=== PATIENT | male | born 1955 | race Hispanic/Latino ===

== ENCOUNTER → 2018-03-17 | Outpatient (CLI) | payer BC ==
[~2018-03-17] MED LIST: LANTUS100 UNIT/2 SQ; Z.0.CLINDAMYCIN HC15 PO; Z.0.CLONIDINE HCL0.3 PO; Z.0.HYDRALAZINE HCL5 PO; Z.0.LIPITOR40 MG PO; Z.0.NIFEDICAL XL60 M PO; Z.0.NOVOLOG100 UNIT/ SQ; Z.0.RAMIPRIL10 MG PO; [UNRECOGNIZED DRUG - OTHER] PO
== END ==
LOC: WCC 12:42
PROVIDERS: ATTEND Podiatrist Foot & Ankle Surgery
DX: E11.621 Type 2 diabetes mellitus with foot ulcer (principal); E11.51 Type 2 diabetes mellitus with diabetic peripheral angiopathy without gangrene; E11.65 Type 2 diabetes mellitus with hyperglycemia; E11.69 Type 2 diabetes mellitus with other specified complication; L97.412 Non-pressure chronic ulcer of right heel and midfoot with fat layer exposed; I79.8 Other disorders of arteries, arterioles and capillaries in diseases classified elsewhere; I87.2 Venous insufficiency (chronic) (peripheral); R60.9 Edema, unspecified; I10 Essential (primary) hypertension; G62.9 Polyneuropathy, unspecified; E78.5 Hyperlipidemia, unspecified; E66.3 Overweight; K86.89 Other specified diseases of pancreas; W01.198A Fall on same level from slipping, tripping and stumbling with subsequent striking against other object, initial encounter; Z01.810 Encounter for preprocedural cardiovascular examination; Z01.811 Encounter for preprocedural respiratory examination

== ENCOUNTER → 2018-03-21 | Outpatient (CLI) | payer BC, MEDICARE ==
[~2018-03-21] MED LIST changes: +ASPIRIN81 MG; +CALCIUM 500+D1 EACH PO; +ELIQUIS; +FUROSEMIDE40 MG PO; +HUMALOG100 UNIT/3 SC; +HUMULIN N100 UNITS/ SC; +LOSARTAN POTASS25 MG PO; +MYCOPHENOLATE250 MG PO; +PEPCID20 MG; +PREDNISONE5 G1 PO; +PROGRAF0.5 MG
== END ==
LOC: WCC 13:52
PROVIDERS: ATTEND Podiatrist Foot & Ankle Surgery
DX: E11.621 Type 2 diabetes mellitus with foot ulcer (principal); E11.51 Type 2 diabetes mellitus with diabetic peripheral angiopathy without gangrene; E11.65 Type 2 diabetes mellitus with hyperglycemia; B96.89 Other specified bacterial agents as the cause of diseases classified elsewhere; L97.412 Non-pressure chronic ulcer of right heel and midfoot with fat layer exposed; E66.3 Overweight; E78.5 Hyperlipidemia, unspecified; G62.9 Polyneuropathy, unspecified; I10 Essential (primary) hypertension; I79.8 Other disorders of arteries, arterioles and capillaries in diseases classified elsewhere; I87.2 Venous insufficiency (chronic) (peripheral); K86.89 Other specified diseases of pancreas; R60.9 Edema, unspecified; W01.198A Fall on same level from slipping, tripping and stumbling with subsequent striking against other object, initial encounter; Z01.810 Encounter for preprocedural cardiovascular examination; Z01.811 Encounter for preprocedural respiratory examination

== ENCOUNTER → 2018-03-21 | Outpatient (CLI) | payer BC ==
[~2018-03-21] MED LIST changes: -ASPIRIN81 MG; -CALCIUM 500+D1 EACH PO; -ELIQUIS; -FUROSEMIDE40 MG PO; -HUMALOG100 UNIT/3 SC; -HUMULIN N100 UNITS/ SC; -LOSARTAN POTASS25 MG PO; -MYCOPHENOLATE250 MG PO; -PEPCID20 MG; -PREDNISONE5 G1 PO; -PROGRAF0.5 MG
[2018-03-21 11:36] LABS: INR 1.72; PROTHROMBIN TIME 21.5 seconds (11.9-14.5)
[2018-03-21 11:37] LABS: PARTIAL THROMBOPLASTIN TIME 48.4 seconds (23.8-35.5)
== END ==
LOC: DX 10:33
PROVIDERS: ATTEND Internal Medicine Infectious Disease
DX: Z01.810 Encounter for preprocedural cardiovascular examination (principal); Z01.811 Encounter for preprocedural respiratory examination
CPT/HCPCS: 36415; 85610; 85730

== ENCOUNTER → 2018-03-22 | Outpatient (CLI) | payer BC | LOC: WCC 16:27 | PROVIDERS: ATTEND Podiatrist Foot & Ankle Surgery | DX: E11.621 Type 2 diabetes mellitus with foot ulcer (principal); E11.65 Type 2 diabetes mellitus with hyperglycemia; E11.51 Type 2 diabetes mellitus with diabetic peripheral angiopathy without gangrene; E11.69 Type 2 diabetes mellitus with other specified complication; L97.412 Non-pressure chronic ulcer of right heel and midfoot with fat layer exposed; G62.9 Polyneuropathy, unspecified; I87.2 Venous insufficiency (chronic) (peripheral); R60.9 Edema, unspecified; I10 Essential (primary) hypertension; B96.89 Other specified bacterial agents as the cause of diseases classified elsewhere; K86.89 Other specified diseases of pancreas; E78.5 Hyperlipidemia, unspecified; E66.3 Overweight; W01.198A Fall on same level from slipping, tripping and stumbling with subsequent striking against other object, initial encounter; Z01.810 Encounter for preprocedural cardiovascular examination; Z01.811 Encounter for preprocedural respiratory examination ==

== ENCOUNTER → 2018-03-24 | Outpatient (CLI) | payer BC, MEDICARE ==
[~2018-03-24] MED LIST changes: +ASPIRIN81 MG; +CALCIUM 500+D1 EACH PO; +ELIQUIS; +FUROSEMIDE40 MG PO; +HUMALOG100 UNIT/3 SC; +HUMULIN N100 UNITS/ SC; +LOSARTAN POTASS25 MG PO; +MYCOPHENOLATE250 MG PO; +PEPCID20 MG; +PREDNISONE5 G1 PO; +PROGRAF0.5 MG
== END ==
LOC: WCC 12:10
PROVIDERS: ATTEND Podiatrist Foot & Ankle Surgery
DX: E11.621 Type 2 diabetes mellitus with foot ulcer (principal); E11.51 Type 2 diabetes mellitus with diabetic peripheral angiopathy without gangrene; E11.65 Type 2 diabetes mellitus with hyperglycemia; E11.69 Type 2 diabetes mellitus with other specified complication; L97.412 Non-pressure chronic ulcer of right heel and midfoot with fat layer exposed; B96.89 Other specified bacterial agents as the cause of diseases classified elsewhere; E66.3 Overweight; E78.5 Hyperlipidemia, unspecified; G62.9 Polyneuropathy, unspecified; I10 Essential (primary) hypertension; I79.8 Other disorders of arteries, arterioles and capillaries in diseases classified elsewhere; I87.2 Venous insufficiency (chronic) (peripheral); K86.89 Other specified diseases of pancreas; R60.9 Edema, unspecified; W01.198A Fall on same level from slipping, tripping and stumbling with subsequent striking against other object, initial encounter; Z01.810 Encounter for preprocedural cardiovascular examination; Z01.811 Encounter for preprocedural respiratory examination

== ENCOUNTER → 2018-03-28 | Outpatient (CLI) | payer BC ==
[~2018-03-28] MED LIST changes: -ASPIRIN81 MG; -CALCIUM 500+D1 EACH PO; -ELIQUIS; -FUROSEMIDE40 MG PO; -HUMALOG100 UNIT/3 SC; -HUMULIN N100 UNITS/ SC; -LOSARTAN POTASS25 MG PO; -MYCOPHENOLATE250 MG PO; -PEPCID20 MG; -PREDNISONE5 G1 PO; -PROGRAF0.5 MG
--- NOTE | 2018-03-28 12:07 | Diagnostic Imaging Report ---
EXAMINATION: CHEST 2 VIEWS INDICATION: Chest pain. Preop for surgery COMPARISON: None FINDINGS: TUBES and LINES: None. LUNGS: Lungs are well inflated. Lungs are clear. There is no evidence of pneumonia or pulmonary edema. PLEURA: No pleural effusion or pneumothorax. HEART AND MEDIASTINUM: The cardiomediastinal silhouette is unremarkable. BONES AND SOFT TISSUES: No acute osseous lesion. Soft tissues are unremarkable. UPPER ABDOMEN: No free air under the diaphragm. IMPRESSION: No acute thoracic abnormality. Signed by: Dr. Td Cabrera M.D. on 03/28/2018 12:04 PM
--- NOTE | 2018-03-28 18:20 | Cardiology Report ---
DATE OF STUDY: March 28, 2018 ECHOCARDIOGRAM ATTENDING PHYSICIAN: Dr. Mcdonald. M-MODE: Normal chamber wall dimensions. Normal contractility. Aortic sclerosis. Normal mitral and tricuspid valves. No pericardial effusion. SECTOR SCAN: Normal chamber sizes. Normal left ventricular wall thickness. Normal contractility. Aortic sclerosis. Normal mitral and tricuspid valves. No pericardial effusion. CARDIAC DOPPLER STUDY WITH COLOR: Trace tricuspid regurgitation. CONCLUSIONS: 1. Left ventricular ejection fraction is approximately 55%. 2. Aortic sclerosis without stenosis. 3. Trace tricuspid regurgitation. Job#: [id number] EV cc:SAIRA MCDONALD MD
== END ==
LOC: RAD 10:43
PROVIDERS: ATTEND Internal Medicine Infectious Disease
DX: Z01.810 Encounter for preprocedural cardiovascular examination (principal); Z01.811 Encounter for preprocedural respiratory examination
CPT/HCPCS: 71046; 93005; 93306

== ENCOUNTER → 2018-03-29 | Outpatient (CLI) | payer BC ==
[~2018-03-29] MED LIST changes: +COLLAGENASE OINTMENT 30 GM TUBE ONE
== END ==
LOC: WCC 15:12
PROVIDERS: ATTEND Podiatrist Foot & Ankle Surgery
DX: E11.621 Type 2 diabetes mellitus with foot ulcer (principal); E11.65 Type 2 diabetes mellitus with hyperglycemia; E11.51 Type 2 diabetes mellitus with diabetic peripheral angiopathy without gangrene; E11.69 Type 2 diabetes mellitus with other specified complication; L97.412 Non-pressure chronic ulcer of right heel and midfoot with fat layer exposed; G62.9 Polyneuropathy, unspecified; I79.8 Other disorders of arteries, arterioles and capillaries in diseases classified elsewhere; R60.9 Edema, unspecified; I87.2 Venous insufficiency (chronic) (peripheral); I10 Essential (primary) hypertension; E78.5 Hyperlipidemia, unspecified; B96.89 Other specified bacterial agents as the cause of diseases classified elsewhere; E66.3 Overweight; K86.89 Other specified diseases of pancreas; W01.198A Fall on same level from slipping, tripping and stumbling with subsequent striking against other object, initial encounter; Z01.810 Encounter for preprocedural cardiovascular examination; Z01.811 Encounter for preprocedural respiratory examination
CPT/HCPCS: 36415; 82948

== ENCOUNTER → 2018-04-04 | Outpatient (CLI) | payer BC, MEDICARE ==
[~2018-04-04] MED LIST changes: -COLLAGENASE OINTMENT 30 GM TUBE ONE
== END ==
LOC: WCC 10:41
PROVIDERS: ATTEND Family Medicine Adult Medicine
DX: E11.621 Type 2 diabetes mellitus with foot ulcer (principal); E11.51 Type 2 diabetes mellitus with diabetic peripheral angiopathy without gangrene; E11.65 Type 2 diabetes mellitus with hyperglycemia; E11.69 Type 2 diabetes mellitus with other specified complication; L97.412 Non-pressure chronic ulcer of right heel and midfoot with fat layer exposed; I79.8 Other disorders of arteries, arterioles and capillaries in diseases classified elsewhere; R60.9 Edema, unspecified; I87.2 Venous insufficiency (chronic) (peripheral); G62.9 Polyneuropathy, unspecified; I10 Essential (primary) hypertension; E78.5 Hyperlipidemia, unspecified; B96.89 Other specified bacterial agents as the cause of diseases classified elsewhere; E66.3 Overweight; K86.89 Other specified diseases of pancreas; W01.198A Fall on same level from slipping, tripping and stumbling with subsequent striking against other object, initial encounter; Z01.810 Encounter for preprocedural cardiovascular examination; Z01.811 Encounter for preprocedural respiratory examination

== ENCOUNTER → 2018-04-05 | Outpatient (CLI) | payer BC, MEDICARE | LOC: WCC 11:21 | PROVIDERS: ATTEND Podiatrist Foot & Ankle Surgery | DX: E11.621 Type 2 diabetes mellitus with foot ulcer (principal); E11.51 Type 2 diabetes mellitus with diabetic peripheral angiopathy without gangrene; E11.65 Type 2 diabetes mellitus with hyperglycemia; E11.69 Type 2 diabetes mellitus with other specified complication; B96.89 Other specified bacterial agents as the cause of diseases classified elsewhere; L97.412 Non-pressure chronic ulcer of right heel and midfoot with fat layer exposed; G62.9 Polyneuropathy, unspecified; I87.2 Venous insufficiency (chronic) (peripheral); I79.8 Other disorders of arteries, arterioles and capillaries in diseases classified elsewhere; R60.9 Edema, unspecified; I10 Essential (primary) hypertension; E66.3 Overweight; E78.5 Hyperlipidemia, unspecified; K86.89 Other specified diseases of pancreas; W01.198A Fall on same level from slipping, tripping and stumbling with subsequent striking against other object, initial encounter; Z01.810 Encounter for preprocedural cardiovascular examination; Z01.811 Encounter for preprocedural respiratory examination | CPT/HCPCS: 97605; G0277 ==

== ENCOUNTER → 2018-04-07 | Outpatient (CLI) | payer BC, MEDICARE ==
[~2018-04-07] MED LIST changes: +ASPIRIN81 MG; +CALCIUM 500+D1 EACH PO; +ELIQUIS; +FUROSEMIDE40 MG PO; +HUMALOG100 UNIT/3 SC; +HUMULIN N100 UNITS/ SC; +LOSARTAN POTASS25 MG PO; +MYCOPHENOLATE250 MG PO; +PEPCID20 MG; +PREDNISONE5 G1 PO; +PROGRAF0.5 MG
== END ==
LOC: WCC 15:11
PROVIDERS: ATTEND Podiatrist Foot & Ankle Surgery
DX: E11.621 Type 2 diabetes mellitus with foot ulcer (principal); E11.51 Type 2 diabetes mellitus with diabetic peripheral angiopathy without gangrene; E11.65 Type 2 diabetes mellitus with hyperglycemia; E11.69 Type 2 diabetes mellitus with other specified complication; L97.412 Non-pressure chronic ulcer of right heel and midfoot with fat layer exposed; I87.2 Venous insufficiency (chronic) (peripheral); G62.9 Polyneuropathy, unspecified; R60.9 Edema, unspecified; I10 Essential (primary) hypertension; B96.89 Other specified bacterial agents as the cause of diseases classified elsewhere; K86.89 Other specified diseases of pancreas; E78.5 Hyperlipidemia, unspecified; E66.3 Overweight; W01.198A Fall on same level from slipping, tripping and stumbling with subsequent striking against other object, initial encounter; Z01.810 Encounter for preprocedural cardiovascular examination; Z01.811 Encounter for preprocedural respiratory examination

== ENCOUNTER → 2018-04-11 | Day surgery (SDC) | payer MEDICARE, BC ==
[2018-04-10 15:04] LABS: BASOPHILS # (AUTO) 0.1 (0.0-0.1); BASOPHILS % 0.4 % (0.0-1.0); EOSINOPHILS # (AUTO) 0.2 (0.0-0.4); EOSINOPHILS % 1.6 % (0.0-6.0); HEMATOCRIT 37.8 % (38.2-49.6); HEMOGLOBIN 12.5 g/dL (14.0-18.0); LYMPHOCYTES % 9.1 % (18.0-39.1); MEAN CORPUSCULAR HEMOGLOBIN 28.9 pg (28-32); MEAN CORPUSCULAR HGB CONC 33.1 g/dL (31-35); MEAN CORPUSCULAR VOLUME 87.3 fL (81-99); MONOCYTES # (AUTO) 0.8 (0.2-0.8); MONOCYTES % 7.3 % (4.4-11.3); NEUTROPHILS # (AUTO) 9.2 (2.1-6.9); NEUTROPHILS % 81.2 % (38.7-80.0); PLATELET COUNT 191 x10e3/uL (140-360); RED BLOOD COUNT 4.33 x10e6/uL (4.3-5.7); RED CELL DISTRIBUTION WIDTH 13.9 % (11.7-14.4)
[2018-04-10 15:15] LABS: INR 1.5; PROTHROMBIN TIME 19.4 seconds (11.9-14.5)
[2018-04-10 15:16] LABS: PARTIAL THROMBOPLASTIN TIME 48.6 seconds (23.8-35.5)
[2018-04-10 15:23] LABS: ANION GAP 16.5 mmol/L (8-16); BLOOD UREA NITROGEN 23 mg/dL (7-26); BUN/CREATININE RATIO 22 (6-25); CALCIUM 9.9 mg/dL (8.4-10.2); CARBON DIOXIDE 29 mmol/L (22-29); CHLORIDE 99 mmol/L (98-107); CREATININE, SERUM 1.03 mg/dL (0.72-1.25); EST GLOMERULAR FILTRATION RATE > 60 ML/MIN (60-); GLUCOSE 294 mg/dL (74-118); POTASSIUM 3.5 mmol/L (3.5-5.1); SODIUM 141 mmol/L (136-145)
[~2018-04-11] MED LIST changes: +ACETAMINOPHEN 1000 MG/100 ML 100 ML IV ONE; +BACITRACIN 50,000 UNIT VIAL ONE; +DEXAMETHASONE SOD PHOS INJ 4 MG/ML VIAL ONE; +EPHEDRINE SULFATE INJ 50 MG/10 ML SYR ONE; +LIDOCAINE HCL 2% LOCAL INJ 5 ML SDV VIAL INJ ONE; +NEOSTIGMINE 1 MG/ML 10ML VIAL ONE; +ONDANSETRON HCL INJ 2 MG/ML VIAL ONE; +PROPOFOL IV EMULSION 10 MG/ML 20 ML VIAL ONE; +SEVOFLURANE INHAL SOLN 250 ML PEN BTL ONE; +SODIUM CHLORIDE 0.9% 500ML 500 ML ONE
[2018-04-11 10:15] VITALS: BP 166/50
--- NOTE | 2018-04-11 12:41 | Operative Report ---
DATE OF PROCEDURE: April 11, 2018 PREOPERATIVE DIAGNOSES 1. Ulcer, grade 3, right foot, plantar heel, 8 cm x about 10 cm x 3 cm in depth down to the level of the capsule of the calcaneus. 2. Diabetes with neuropathy and peripheral vascular disease. POSTOPERATIVE DIAGNOSES 1. Ulcer, grade 3, right foot, plantar heel, 8 cm x about 10 cm x 3 cm in depth down to the level of the capsule of the calcaneus. 2. Diabetes with neuropathy and peripheral vascular disease. PROCEDURES 1. Debridement to include bone cortex and nonviable tissue. 2. Application of an Integra graft. 3. Application of wound VAC. PATHOLOGY: Culture and sensitivity. ANESTHESIA: General anesthetic. HEMOSTASIS: None. ESTIMATED BLOOD LOSS: Less than 10 mL. MATERIALS: Integra graft 5 x 4 cm. COMPLICATIONS: None. CONDITION: Stable. PROCEDURE IN DETAIL: Under mild sedation, the patient was brought to the operating room and placed on the operating table in the supine position. Following IV sedation, anesthesia was obtained with a general anesthetic. At this point, the foot was scrubbed, prepped and draped in the usual aseptic manner. It was then lowered to the table. Attention was then directed to the plantar aspect of the right foot where, utilizing a combination of a #15 blade, bone rongeurs, and curette, all nonviable tissue was debrided. Before debridement, nonviable tissue was noted to be about 60%. After debridement, there was granular tissue about 90% of the wound only. The most proximal aspect in the area of the calcaneus, it was down to the level of the capsule to bone. Once the area was debrided, the area was then irrigated with pulse rubber cutter with bacitracin 3,000 mL. Cultures and sensitivities were taken of the bone, and they were passed from the operating table. At this point, the Integra graft was then applied. The deficit was then filled with the graft. The graft was then secured utilizing skin daysi. A clean dressing was applied. The patient was transported to the recovery room with vital signs stable and vascular status unchanged. Wound VAC was applied in PACU. The patient is to be nonweightbearing to the right foot, to follow up in the wound care center, and to call the office if any questions, concerns or any problems arise. Job#: [id number]
--- OUTSIDE RECORDS SUMMARY | 2018-04-11 14:36 | XMS REPORT | Clinical Summary ---
Author Author [facility] Organization [facility] Address Unknown Phone Unavailable Care Team Providers Care Compensation And Hris Analyst Name Role Phone Sabine Mcgowan MD PCP Allergies Active Allergy Reactions Severity Noted Date Comments Penicillamine Other (See Comments) Medium 09/18/2017 Unknown Penicillins Other (See Comments) 12/08/2015 Patient doesn't know his reaction - just that he had a reaction when he was a child Current Medications Prescription Sig. Disp. Refills Start End Date Status Date TRAVATAN Z 0.004 % Administer 1 drop to both 0 12/30/19 Active eyes nightly. 16 CALCIUM CARBONATE/VITAMIN Take 1 tablet by mouth Active D3 (CALCIUM 500 + D ORAL) daily. aspirin (ECOTRIN) 81 MG Take 81 mg by mouth every Active enteric coated tablet other day. tamsulosin (FLOMAX) 0.4 Take 0.4 mg by mouth 2 Active mg capsule,extended (two) times a day. release 24hr insulin lispro (HumaLOG) Inject 15 Units under the Active 100 unit/mL injection skin 3 (three) times a day before meals. Per Sliding Scale insulin NPH (HumuLIN-N) Inject 29 Units under the Active 100 unit/mL injection skin 2 (two) times a day before meals. apixaban (ELIQUIS) 5 mg Take 5 mg by mouth 2 Active tablet (two) times a day. famotidine (PEPCID) 20 MG Take 20 mg by mouth Active tablet daily. losartan (COZAAR) 25 MG Take 25 mg by mouth 2 Active tablet (two) times a day. mycophenolate (CELLCEPT) Take 1 tablet (500 mg 60 tablet 11 11/23/19 11/23/19 Active 500 mg tabletIndications: total) by mouth 2 (two) 18 19 Transplanted kidney times a day. predniSONE (DELTASONE) 5 Take 1 tablet (5 mg 30 tablet 12/10/19 12/10/19 Active mg tabletIndications: total) by mouth daily. Transplanted kidney alendronate (FOSAMAX) 35 Take 1 tablet (35 mg 4 tablet 12/10/19 12/10/19 Active MG tablet total) by mouth once a week. Tuesday tacrolimus (PROGRAF) 0.5 Take 1 capsule (0.5 mg 180 capsule 12/27/19 12/27/19 Active MG capsuleIndications: total) by mouth 2 (two) Transplanted kidney times a day. atorvastatin (LIPITOR) 40 Take 1 tablet (40 mg 90 tablet 3 01/13/20 01/13/20 Active MG tablet total) by mouth daily. NIFEdipine XL (PROCARDIA Take 1 tablet (30 mg 180 tablet 3 02/18/20 02/18/20 Active XL) 30 MG 24 hr tablet total) by mouth 2 (two) times a day. furosemide (LASIX) 40 mg Take 2 tablets (80 mg 360 tablet 3 02/21/20 02/21/20 Active tablet total) by mouth 2 (two) times a day. alendronate (FOSAMAX) 35 Take 35 mg by mouth once 99 12/25/19 12/10/19 Discontin MG tablet a week. Tuesday 18 ued ONETOUCH VERIO strip test Tests sugars tid 01/21/20 04/10/20 Discontin strips 16 17 ued VGO 40 device USE TO DELIVER INSULIN 01/20/20 04/10/20 Discontin DAILY DIRECTED BY 16 17 ued DOCTOR ASPIRIN ORAL Take 81 mg by mouth 05/26/20 Discontin daily. 17 ued losartan (COZAAR) 50 MG Take 1 tablet (50 mg 30 tablet 05/05/20 04/25/20 Discontin tablet total) by mouth daily. 16 17 ued famotidine (PEPCID) 20 MG Take 1 tablet (20 mg 30 tablet 06/22/20 05/13/20 Discontin tablet total) by mouth daily. 16 17 ued atorvastatin (LIPITOR) 40 Take 1 tablet (40 mg 90 tablet 3 09/16/19 05/30/20 Discontin MG tablet total) by mouth daily. 17 17 ued NIFEdipine XL (NIFEDICAL Take 1 tablet (30 mg 60 tablet 11 11/04/19 05/13/20 Discontin XL) 30 MG 24 hr tablet total) by mouth 2 (two) 17 17 ued times a day. mycophenolate (CELLCEPT) Take 1 tablet (500 mg 60 tablet 11/04/19 07/29/19 Discontin 500 mg tabletIndications: total) by mouth 2 (two) 17 18 ued Transplanted kidney times a day. predniSONE (DELTASONE) 5 Take 1 tablet (5 mg 30 tablet 03/08/20 07/29/19 Discontin mg tabletIndications: total) by mouth daily. 17 18 ued Transplanted kidney furosemide (LASIX) 40 mg Take 1 tablet (40 mg 30 tablet 0 03/24/20 04/20/20 Discontin tablet total) by mouth daily for 17 17 ued 30 days. tamsulosin (FLOMAX) 0.4 Take 1 capsule (0.4 mg 60 capsule 0 03/24/20 05/17/20 Discontin mg capsule,extended total) by mouth 2 (two) 17 17 ued release 24hr times a day. tacrolimus (PROGRAF) 1 MG Take 1 capsule (1 mg 60 capsule 0 03/24/20 04/20/20 Discontin capsule total) by mouth every 17 17 ued morning. tacrolimus (PROGRAF) 0.5 Take 1 capsule (0.5 mg 60 capsule 0 03/24/20 04/20/20 Discontin MG capsule total) by mouth every 17 17 ued evening. insulin lispro (HumaLOG) Inject 4 units with 10 mL 03/24/20 04/20/20 Discontin 100 unit/mL injection breakfast, 8 units with ued lunch, and 8 units with dinner insulin NPH (HumuLIN-N) Inject 16 units in the 10 mL 03/24/20 04/20/20 Discontin 100 unit/mL injection morning and 16 units at 17 17 ued bedtime traMADol (ULTRAM) 50 mg Take 1 tablet (50 mg 30 tablet 0 04/20/20 05/04/20 tablet total) by mouth every 6 17 17 (six) hours as needed for moderate pain for up to 14 days. apixaban (ELIQUIS) 5 mg Take 1 tablet (5 mg 60 tablet 2 04/20/20 05/20/20 Discontin tablet total) by mouth 2 (two) 17 17 ued times a day for 30 days. tacrolimus (PROGRAF) 0.5 Take 3 capsules (1.5 mg 90 capsule 0 04/20/20 04/28/20 Discontin MG capsule total) by mouth daily for 17 17 ued 30 days. tacrolimus (PROGRAF) 1 MG Take 1 capsule (1 mg 30 capsule 0 04/20/20 05/20/20 Discontin capsule total) by mouth daily for 17 17 ued 30 days. insulin lispro (HumaLOG) Inject 10 Units under the 10 mL 12 04/20/20 05/20/20 100 unit/mL injection skin 3 (three) times a 17 17 day with meals for 30 days. insulin NPH (HumuLIN-N) Inject 20 Units under the 10 mL 12 04/20/20 05/20/20 100 unit/mL injection skin 2 (two) times a day 17 for 30 days. furosemide (LASIX) 40 mg Take 2 tablets (80 mg 120 tablet 0 04/20/20 05/20/20 Discontin tablet total) by mouth 2 (two) 17 17 ued times a day for 30 days. levoFLOXacin (LEVAQUIN) Take 1 tablet (500 mg 7 tablet 0 04/20/20 04/27/20 500 MG tablet total) by mouth daily for 17 17 7 days. ergocalciferol (VITAMIN Take 1 capsule (50,000 4 capsule 0 04/20/20 05/20/20 D2) 50,000 unit capsule Units total) by mouth 17 17 once a week for 30 days. losartan (COZAAR) 50 MG Take 1 tablet (50 mg 30 tablet 11 04/25/20 05/31/20 Discontin tablet total) by mouth daily. 17 17 ued tacrolimus (PROGRAF) 0.5 Take 1 capsule (0.5 mg 60 capsule 11 04/28/20 07/29/19 Discontin MG capsuleIndications: total) by mouth 2 (two) 17 18 ued Transplanted kidney times a day. famotidine (PEPCID) 20 MG Take 1 tablet (20 mg 30 tablet 11 05/13/20 07/29/19 Discontin tablet total) by mouth daily. 17 18 ued tamsulosin (FLOMAX) 0.4 Take 2 capsules (0.8 mg 180 capsule 3 05/17/20 05/26/20 Discontin mg capsule,extended total) by mouth daily. 17 17 ued release 24hr furosemide (LASIX) 40 mg Take 2 tablets (80 mg 120 tablet 11 05/24/20 07/29/19 Discontin tablet total) by mouth 2 (two) 17 18 ued times a day. apixaban (ELIQUIS) 5 mg Take 1 tablet (5 mg 60 tablet 0 05/26/20 07/20/19 Discontin tablet total) by mouth 2 (two) 17 18 ued times a day. atorvastatin (LIPITOR) 40 Take 1 tablet (40 mg 90 tablet 3 05/30/20 07/29/19 Discontin MG tablet total) by mouth daily. 17 18 ued losartan (COZAAR) 50 MG Take 1 tablet (50 mg 30 tablet 11 05/31/20 06/07/20 Discontin tablet total) by mouth daily. 17 17 ued BD INSULIN PEN NEEDLE UF See Admin Instructions. 0 03/24/20 07/29/19 Discontin MINI 31 gauge x 3/16" 17 18 ued needle cefuroxime (CEFTIN) 250 TAKE 1 TABLET (250 MG 0 04/02/20 06/03/20 Discontin MG tablet TOTAL) BY MOUTH 2 (TWO) 17 17 ued TIMES A DAY FOR 3 DAYS. ONETOUCH VERIO strip test BLOOD SUGAR TESTING 6 05/26/20 07/29/19 Discontin strips BEFORE MEALS AND 1-2 17 18 ued HOURS AFTER MEALS DIRECTED 4 TIMES DAILY losartan (COZAAR) 25 MG Take 1 tablet (25 mg 90 tablet 3 06/07/20 07/29/19 Discontin tablet total) by mouth daily. 17 18 ued apixaban (ELIQUIS) 5 mg Take 1 tablet (5 mg 180 tablet 3 07/20/19 07/29/19 Discontin tablet total) by mouth 2 (two) 18 18 ued times a day. atorvastatin (LIPITOR) 40 Take 40 mg by mouth 01/13/20 Discontin MG tablet daily. 18 ued furosemide (LASIX) 40 mg Take 80 mg by mouth 2 02/21/20 Discontin tablet (two) times a day. 18 ued mycophenolate (CELLCEPT) Take 500 mg by mouth 2 11/23/19 Discontin 500 mg tablet (two) times a day. 18 ued predniSONE (DELTASONE) 5 Take 5 mg by mouth daily. 12/10/19 Discontin mg tablet 18 ued tacrolimus (PROGRAF) 0.5 Take 0.5 mg by mouth 2 10/19/19 Discontin MG capsule (two) times a day. 18 ued levoFLOXacin (LEVAQUIN) Take 1 tablet (500 mg 5 tablet 0 07/29/19 08/03/19 500 MG tablet total) by mouth daily for 18 18 5 days. oseltamivir (TAMIFLU) 75 Take 1 capsule (75 mg 10 capsule 0 08/01/19 08/06/19 MG capsule total) by mouth 2 (two) 18 18 times a day for 5 days. levoFLOXacin (LEVAQUIN) Take 1 tablet (750 mg 7 tablet 0 09/19/19 09/26/19 750 MG tablet total) by mouth daily for 18 18 7 days. tacrolimus (PROGRAF) 0.5 Take 1 capsule (0.5 mg 180 capsule 3 10/19/19 12/27/19 Discontin MG capsuleIndications: total) by mouth 2 (two) 18 18 ued Transplanted kidney times a day. NIFEdipine XL (PROCARDIA Take 1 tablet (30 mg 60 tablet 11 12/02/19 02/18/20 Discontin XL) 30 MG 24 hr tablet total) by mouth 2 (two) 18 18 ued times a day. levoFLOXacin (LEVAQUIN) Take 1 tablet (500 mg 7 tablet 0 03/13/20 03/20/20 500 MG tablet total) by mouth daily for 18 18 7 days. Active Problems Problem Noted Date Hyperglycemia 03/01/2018 Diabetic ulcer of right heel associated with type 1 diabetes mellitus (HCC) 03/01/2018 Overview: Added automatically from request for surgery [id number] Pancreatic mass 06/03/2017 Vitamin D deficiency 03/21/2017 Obesity 03/21/2017 Diabetes mellitus (HCC) 03/21/2017 Chronic inflammatory demyelinating polyneuritis (HCC) 01/20/2016 Diabetic polyneuropathy ([facility]) 01/20/2016 Essential hypertension 01/20/2016 Male erectile disorder 01/20/2016 H/O kidney transplant 03/29/2013 HLD (hyperlipidemia) 08/21/2012 Resolved Problems Problem Noted Date Resolved Date IRENE (acute kidney injury) (HCC) 05/25/2017 06/03/2017 Lactic acidosis 04/13/2017 06/03/2017 Cellulitis of right lower extremity 04/10/2017 06/03/2017 Abscess of leg, left 03/18/2017 06/03/2017 Cellulitis of leg, right 02/02/2016 06/03/2017 Overview: Acute, started on 01/31/16 Brachial plexus neuropathy 01/20/2016 06/03/2017 Carpal tunnel syndrome 01/20/2016 06/03/2017 Chronic kidney disease, stage V ([facility]) 01/20/2016 06/03/2017 Dialysis complication 01/20/2016 06/03/2017 End-stage renal disease (HCC) 01/20/2016 06/03/2017 Hypertension 01/20/2016 06/03/2017 Mononeuritis of upper limb 01/20/2016 06/03/2017 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) 01/20/2016 06/03/2017 Neurologic disorder associated with diabetes mellitus (HCC) 01/20/2016 06/03/2017 Swelling of lower extremity 01/20/2016 06/03/2017 Renal failure 01/20/2016 06/03/2017 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 ([facility]) 12/06/2012 06/03/2017 Encounters Date Type Specialty Care Team Description 04/10/2018 Telephone Transplant Kiki Millan MA Pre-Op Questions 03/22/2018 Hospital Transplant Meli Hilton MD Upper respiratory Encounter infection, acute 03/22/2018 Orders Only Transplant Corazon Tarango RN Upper respiratory infection, acute (Primary Dx) 03/13/2018 Orders Only Cardiovascular Elana Fair RN PAD (peripheral artery disease) (Primary Dx) 03/10/2018 Procedure Pass Cardiothoracic Surgery 03/10/2018 Surgery Cardiothoracic Surgery Rae Warren MD Aortogram, right leg angiogram, angioplasty of SFA, PT, and AT 03/08/2018 Anesthesia Cardiothoracic Surgery Igor Rodriguez MD Event 03/03/2018 Procedure Pass Cardiology 03/01/2018 [facility] Cardiology Gilbert Marquis Hyperglycemia (Primary - Encounter MD Barney Dx); 03/13/2018 Hira Hernández MD Diabetic ulcer of right Jay, Jan Kaur MD heel associated with type 1 diabetes mellitus, unspecified ulcer stage 03/01/2018 Patient Quality Margie Sherman Outreach 02/22/2018 Telephone Transplant Daniel Shanks RN Fever 02/20/2018 Refill Transplant Pam Marley RN Med Refill 02/17/2018 Refill Transplant Pam Marley, NABEEL Med Refill 02/17/2018 Telephone Transplant CarliRobin monroe Advice Only 01/12/2018 Refill Transplant Pam Marley, NABEEL Med Refill 12/26/2017 Orders Only Transplant Pam Marley, NABEEL Transplanted kidney 12/09/2017 Refill Transplant Pam Marley, NABEEL Med Refill 12/01/2017 Refill Transplant Stacie Vargas RN Med Refill 11/22/2017 Refill Transplant Pam Marley, NABEEL Med Refill 11/20/2017 Telephone Transplant Lyndsay Asher RN 11/08/2017 Telephone Cardiovascular Ailyn Ho RN 10/18/2017 Refill Transplant Pam Marley, NABEEL Med Refill 10/18/2017 Refill Transplant Pam Marley, NABEEL Med Refill 10/12/2017 Patient Quality Raeann Torres, NATIVIDAD Outreach 09/22/2017 Telephone Cardiovascular Tootie Rodriguez MA 09/18/2017 Emergency Emergency Medicine Sudarshan Perez MD Abrasion (Primary Dx); Cellulitis of left lower extremity 09/15/2017 Documentation Transplant Pam Marley, NABEEL 08/31/2017 Telephone Internal Medicine Sabine Mcgowan MD 08/22/2017 Lab Lab Chuck Perry MD Diarrhea, unspecified type (Primary Dx); Diversion colitis; Food protein induced enterocolitis syndrome (FPIES) 08/01/2017 Telephone Transplant Kiki Millan MA Rx issue 08/01/2017 Documentation Transplant Pam Marley, NABEEL 08/01/2017 Documentation Transplant Tayler Eid RN 08/01/2017 Refill Transplant Pam Marley, NABEEL Med Refill 07/29/2017 Emergency Emergency Medicine Ethan Desir MD Febrile illness (Primary Dx); Kidney transplant recipient 07/29/2017 Telephone Transplant Robin Armstrong MA Sick Call 07/20/2017 Refill Transplant Yvonne Stoll, NABEEL Med Refill 07/20/2017 Telephone Transplant Robin Armstrong MA Med Refill 06/21/2017 Documentation Transplant Pam Marley, NABEEL 06/07/2017 Hospital Transplant Meli Hilton MD Transplanted kidney Encounter (Primary Dx); Immunosuppressed status; Pancreatic mass; Edema, unspecified type 06/07/2017 Hospital Transplant Meli Hilton MD Transplanted kidney; Encounter Urinary tract infection 06/03/2017 Office Visit Internal Medicine Sabine Mcgowan MD Essential hypertension (Primary Dx); Diabetic polyneuropathy associated with type 2 diabetes mellitus; Chronic inflammatory demyelinating polyneuritis; Type 2 diabetes mellitus with complication, with long-term current use of insulin; H/O kidney transplant; Other hyperlipidemia; Wound of left lower extremity, initial encounter; Hyperuricemia; Pancreatic mass; Vitamin D deficiency 06/02/2017 Telephone Transplant Iqra De Guzman Advice Only 05/31/2017 Documentation Transplant Pam Marley, NABEEL 05/31/2017 Refill Transplant Pam Marley, NABEEL Med Refill 05/30/2017 Refill Transplant Pam Marley, NABEEL Med Refill 05/27/2017 Telephone Transplant Lyndsey Marcum MA Patient Update 05/27/2017 Patient Quality Andria Willis, PharmD Outreach 05/26/2017 Procedure Pass Hematology and Oncology 05/25/2017 Emergency Hematology and Oncology Rey Gray IRENE (acute kidney injury) - MD Lamar (Primary Dx) 05/26/2017 Alyssa Salazar MD 05/25/2017 Documentation Transplant Pam Marley, NABEEL 05/24/2017 Refill Transplant Pam Marley, NABEEL Med Refill 05/17/2017 Refill Transplant Pam Marley, NABEEL Med Refill 05/17/2017 Telephone Transplant Iqra De Guzman Advice Only 05/16/2017 Office Visit Cardiovascular Dilia Lange MD Visit for wound check (Primary Dx) 05/13/2017 Refill Transplant Pam Marley, NABEEL Med Refill 04/28/2017 Refill Transplant Pam Marley, NABEEL Med Refill 04/25/2017 Telephone Transplant Iqra De Guzman Advice Only 04/25/2017 Refill Transplant Pam Marley, NABEEL Med Refill 04/21/2017 Patient Quality Haley Garcia, NABEEL Outreach 04/12/2017 Hospital Transplant Meli Hilton MD Canceled Encounter (Admitted/Hospitalized) 04/12/2017 Procedure Pass Transplant 04/11/2017 Telephone Cardiovascular Ailyn Ho RN 04/10/2017 Hospital Transplant Rey Gray Cellulitis of right lower - Encounter MD Lamar extremity (Primary Dx); 04/20/2017 Ryder Paz MD Lactic acidosis; Jackson Desir MD Leukocytosis, unspecified type; Sepsis, due to unspecified organism; Acute deep vein thrombosis (DVT) of other vein of lower extremity, unspecified laterality after 04/10/2017 Immunizations Name Dates Previously Given Next Due FLUCELVAX QUAD PF (0.5mL 03/04/2018, 03/24/2017 syringe) Family History Medical History Relation Name Comments Diabetes Brother Diabetes Father Heart disease Father heart failure Hyperlipidemia Mother Hypertension Mother Relation Name Status Comments Brother Father Mother Social History Tobacco Use Types Packs/Day Years Used Date Former Smoker Smokeless Tobacco: Former Chew Quit: User 06/27/1994 Tobacco Cessation: Counseling Given: No Alcohol Use Drinks/Week oz/Week Comments Yes occasional Sex Assigned at Date Recorded Not on file Last Filed Vital Signs Vital Sign Reading Time Taken Blood Pressure 128/65 03/13/2018 12:21 PM CDT Pulse 72 03/13/2018 12:21 PM CDT Temperature 36.1 C (97 F) 03/13/2018 12:21 PM CDT Respiratory Rate 19 03/13/2018 12:21 PM CDT Oxygen Saturation 96% 03/13/2018 12:21 PM CDT Inhaled Oxygen - - Concentration Weight 104 kg (228 lb 8 oz) 03/13/2018 4:51 AM CDT Height 172.7 cm (5' 8") 03/10/2018 8:10 AM CDT Body Mass Index 34.74 03/13/2018 4:51 AM CDT Plan of Treatment Date Type Specialty Care Team Description 04/13/2018 Appointment Procedural Cardiology Rae Warren MD [address] [place] [address] 04/13/2018 Office Visit Cardiovascular Rae Warren MD [address] [place] [address] Health Maintenance Due Date Last Done Comments DIABETIC FOOT EXAM 1963 DIABETIC RETINAL EYE EXAM 1963 COLON CANCER SCREENING 2003 SHINGRIX VACCINE (#1) 2003 ZOSTER VACCINE 2013 PNEUMOCOCCAL-13 2018 PNEUMOCOCCAL Completed 06/27/2010 POLYSACCHARIDE VACCINE AGE 65 AND OVER INFLUENZA VACCINE Completed 03/04/2018, 03/24/2017, 03/27/2015 Implants Implanted Type Area Boat Loader Helper Device Expiration Model / Identifier Date Serial / Lot System Vasclr Clsr Starclose Se - Peripheral N/A: N/A [employer] [id number] / [id number] or Biliary DEVICES / Implanted: 03/10/2018 (Quantity not Stents on file) 2.5mm X 220mm Balloon, 150cm Shaft, BOSTON [id number] [place] Otw Balloon Dilatation SCIENTIFIC/NICANOR [id number] / Catheter, 0.014in Max Guidewire PHERAL VASCULAR / Implanted: Qty: 1 on 03/10/2018 by ([facility]) Rae Warren MD 3mm X 150mm Balloon, 4fr Sheath, BOSTON [id number] 150cm Shaft, Adam Sl Otw Veneer Press Operator SCIENTIFIC/NICANOR [id number] / Balloon Dilatation Catheter PHERAL VASCULAR / Implanted: Qty: 1 on 03/10/2018 by ([facility]) Rae Warren MD 2mm X 20mm L, 142cm Shaft, [place] BOSTON [id number] Es Otw Veneer Press Operator Ballloon Dilatation SCIENTIFIC/NICANOR 2010 / Cath PHERAL VASCULAR / Implanted: Qty: 1 on 03/10/2018 by ([facility]) Rae Warren MD 5mm X 60mm Balloon, 4fr Sheath, BOSTON [id number] 135cm Shaft, Sterlilng Otw Veneer Press Operator SCIENTIFIC/NICANOR [id number] / Balloon Dilatation Cath PHERAL VASCULAR / Implanted: Qty: 1 on 03/10/2018 by ([facility]) Rae Warren MD Procedures Procedure Name Priority Date/Time Associated Diagnosis Comments POC GLUCOSE Routine 03/13/2018 Results for this 2:19 PM CDT procedure are in the results section. POC GLUCOSE Routine 03/13/2018 Results for this 12:21 PM CDT procedure are in the results section. POC GLUCOSE Routine 03/13/2018 Results for this 8:07 AM CDT procedure are in the results section. FK506 LEVEL Routine 03/13/2018 Results for this 3:47 AM CDT procedure are in the results section. POC GLUCOSE Routine 03/13/2018 Results for this 1:04 AM CDT procedure are in the results section. POC GLUCOSE Routine 03/13/2018 Results for this 12:06 AM CDT procedure are in the results section. POC GLUCOSE Routine 03/12/2018 Results for this 6:28 PM CDT procedure are in the results section. POC GLUCOSE Routine 03/12/2018 Results for this 1:26 PM CDT procedure are in the results section. POC GLUCOSE Routine 03/12/2018 Results for this 12:48 PM CDT procedure are in the results section. POC GLUCOSE Routine 03/12/2018 Results for this 7:36 AM CDT procedure are in the results section. ESTIMATED GFR Routine 03/12/2018 Results for this 4:10 AM CDT procedure are in the results section. HC COMPLETE BLD COUNT Routine 03/12/2018 Results for this W/AUTO DIFF 4:10 AM CDT procedure are in the results section. PHOSPHORUS LEVEL Routine 03/12/2018 Results for this 4:10 AM CDT procedure are in the results section. MAGNESIUM LEVEL Routine 03/12/2018 Results for this 4:10 AM CDT procedure are in the results section. BASIC METABOLIC PANEL Routine 03/12/2018 Results for this 4:10 AM CDT procedure are in the results section. VANCOMYCIN LEVEL, TROUGH Routine 03/12/2018 Results for this 4:10 AM CDT procedure are in the results section. POC GLUCOSE Routine 03/11/2018 Results for this 9:42 PM CDT procedure are in the results section. POC GLUCOSE Routine 03/11/2018 Results for this 5:37 PM CDT procedure are in the results section. POC GLUCOSE Routine 03/11/2018 Results for this 11:43 AM CDT procedure are in the results section. POC GLUCOSE Routine 03/11/2018 Results for this 7:38 AM CDT procedure are in the results section. ESTIMATED GFR Routine 03/11/2018 Results for this 5:30 AM CDT procedure are in the results section. PHOSPHORUS LEVEL Routine 03/11/2018 Results for this 5:30 AM CDT procedure are in the results section. HC COMPLETE BLD COUNT Routine 03/11/2018 Results for this W/AUTO DIFF 5:30 AM CDT procedure are in the results section. BASIC METABOLIC PANEL Routine 03/11/2018 Results for this 5:30 AM CDT procedure are in the results section. FK506 LEVEL Routine 03/11/2018 Results for this 5:30 AM CDT procedure are in the results section. POC GLUCOSE Routine 03/10/2018 Results for this 9:41 PM CDT procedure are in the results section. POC GLUCOSE Routine 03/10/2018 Results for this 6:20 PM CDT procedure are in the results section. POC GLUCOSE Routine 03/10/2018 Results for this 1:35 PM CDT procedure are in the results section. NC AN ELECTIVE Routine 03/10/2018 SUPRAGLOTTIC AIRWAY 10:33 AM CDT Procedure Note - Nena Frye CRNA - 03/10/2018 10:33 AM CDT Airway Date/Time: 03/10/2018 10:34 AM Performed by: NENA FRYE Authorized by: SEBASTIEN WILCOX Location: OR Urgency: Elective Anesthesio logist: SEBASTIEN WILCOX Resident/C RNA/AA: NENA FRYE Performed by: resident/C RNA/AA Preoxygena glenn with 100% O2: Yes C-spine Precaution s Maintained Throughout : Yes Mask Ventilatio n: Easy mask Final Airway Type: Supraglott ic airway Final LMA: I-Gel Number of Attempts at Approach: 1 POC GLUCOSE Routine 03/10/2018 Results for this 9:34 AM CDT procedure are in the results section. POC GLUCOSE Routine 03/10/2018 Results for this 7:56 AM CDT procedure are in the results section. ESTIMATED GFR Routine 03/10/2018 Results for this 3:49 AM CDT procedure are in the results section. BASIC METABOLIC PANEL Routine 03/10/2018 Results for this 3:49 AM CDT procedure are in the results section. TYPE AND SCREEN Routine 03/10/2018 Results for this 3:15 AM CDT procedure are in the results section. PARTIAL THROMBOPLASTIN Routine 03/10/2018 Results for this TIME (PTT) 3:15 AM CDT procedure are in the results section. PROTHROMBIN TIME WITH INR Routine 03/10/2018 Results for this 3:15 AM CDT procedure are in the results section. HC COMPLETE BLD COUNT Routine 03/10/2018 Results for this W/AUTO DIFF 3:15 AM CDT procedure are in the results section. FK506 LEVEL Routine 03/10/2018 Results for this 3:15 AM CDT procedure are in the results section. POC GLUCOSE Routine 03/10/2018 Results for this 1:52 AM CDT procedure are in the results section. POC GLUCOSE Routine 03/09/2018 Results for this 8:52 PM CDT procedure are in the results section. POC GLUCOSE Routine 03/09/2018 Results for this 5:27 PM CDT procedure are in the results section. POC GLUCOSE Routine 03/09/2018 Results for this 3:37 PM CDT procedure are in the results section. POC GLUCOSE Routine 03/09/2018 Results for this 2:00 PM CDT procedure are in the results section. POC GLUCOSE Routine 03/09/2018 Results for this 7:56 AM CDT procedure are in the results section. FK506 LEVEL Routine 03/09/2018 Results for this 5:15 AM CDT procedure are in the results section. ESTIMATED GFR Routine 03/09/2018 Results for this 4:00 AM CDT procedure are in the results section. BASIC METABOLIC PANEL Routine 03/09/2018 Results for this 4:00 AM CDT procedure are in the results section. POC GLUCOSE Routine 03/08/2018 Results for this 8:35 PM CDT procedure are in the results section. POC GLUCOSE Routine 03/08/2018 Results for this 3:31 PM CDT procedure are in the results section. ECHOCARDIOGRAM 2D Routine 03/08/2018 Results for this COMPLETE W MMODE SPECTRAL 3:07 PM CDT procedure are in the COLOR DOPPLER ([id number]) results section. ECG 12-LEAD Routine 03/08/2018 Results for this 1:17 PM CDT procedure are in the results section. ESTIMATED GFR Routine 03/08/2018 Results for this 12:26 PM CDT procedure are in the results section. FK506 LEVEL Routine 03/08/2018 Results for this 12:26 PM CDT procedure are in the results section. BASIC METABOLIC PANEL Routine 03/08/2018 Results for this 12:26 PM CDT procedure are in the results section. POC GLUCOSE Routine 03/08/2018 Results for this 8:08 AM CDT procedure are in the results section. POC GLUCOSE Routine 03/08/2018 Results for this 5:42 AM CDT procedure are in the results section. POC GLUCOSE Routine 03/08/2018 Results for this 1:17 AM CDT procedure are in the results section. POC GLUCOSE Routine 03/07/2018 Results for this 9:42 PM CDT procedure are in the results section. POC GLUCOSE Routine 03/07/2018 Results for this 6:41 PM CDT procedure are in the results section. POC GLUCOSE Routine 03/07/2018 Results for this 1:10 PM CDT procedure are in the results section. POC GLUCOSE Routine 03/07/2018 Results for this 8:05 AM CDT procedure are in the results section. POC GLUCOSE Routine 03/07/2018 Results for this 5:32 AM CDT procedure are in the results section. POC GLUCOSE Routine 03/07/2018 Results for this 12:18 AM CDT procedure are in the results section. POC GLUCOSE Routine 03/06/2018 Results for this 4:47 PM CDT procedure are in the results section. POC GLUCOSE Routine 03/06/2018 Results for this 1:59 PM CDT procedure are in the results section. POC GLUCOSE Routine 03/06/2018 Results for this 7:25 AM CDT procedure are in the results section. FK506 LEVEL Routine 03/06/2018 Results for this 4:45 AM CDT procedure are in the results section. ZZESTIMATED GFR Routine 03/06/2018 Results for this 4:00 AM CDT procedure are in the results section. BASIC METABOLIC PANEL Routine 03/06/2018 Results for this 4:00 AM CDT procedure are in the results section. POC GLUCOSE Routine 03/06/2018 Results for this 3:10 AM CDT procedure are in the results section. POC GLUCOSE Routine 03/06/2018 Results for this 12:42 AM CDT procedure are in the results section. POC GLUCOSE Routine 03/05/2018 Results for this 6:26 PM CDT procedure are in the results section. POC GLUCOSE Routine 03/05/2018 Results for this 2:18 PM CDT procedure are in the results section. POC GLUCOSE Routine 03/05/2018 Results for this 12:13 PM CDT procedure are in the results section. VANCOMYCIN LEVEL, TROUGH Timed 03/05/2018 Results for this 8:10 AM CDT procedure are in the results section. POC GLUCOSE Routine 03/05/2018 Results for this 7:43 AM CDT procedure are in the results section. ZZESTIMATED GFR Routine 03/05/2018 Results for this 3:40 AM CDT procedure are in the results section. FK506 LEVEL Routine 03/05/2018 Results for this 3:40 AM CDT procedure are in the results section. BASIC METABOLIC PANEL Routine 03/05/2018 Results for this 3:40 AM CDT procedure are in the results section. POC GLUCOSE Routine 03/04/2018 Results for this 9:46 PM CDT procedure are in the results section. POC GLUCOSE Routine 03/04/2018 Results for this 5:01 PM CDT procedure are in the results section. MRI LOWER EXTREMITY JOINT Routine 03/04/2018 Results for this WO CONTRAST RIGHT 3:31 PM CDT procedure are in the results section. POC GLUCOSE Routine 03/04/2018 Results for this 2:06 PM CDT procedure are in the results section. POC GLUCOSE Routine 03/04/2018 Results for this 12:05 PM CDT procedure are in the results section. POC GLUCOSE Routine 03/04/2018 Results for this 7:41 AM CDT procedure are in the results section. ZZESTIMATED GFR Routine 03/04/2018 Results for this 4:05 AM CDT procedure are in the results section. FK506 LEVEL Routine 03/04/2018 Results for this 4:05 AM CDT procedure are in the results section. BASIC METABOLIC PANEL Routine 03/04/2018 Results for this 4:05 AM CDT procedure are in the results section. POC GLUCOSE Routine 03/03/2018 Results for this 9:24 PM CDT procedure are in the results section. POC GLUCOSE Routine 03/03/2018 Results for this 5:03 PM CDT procedure are in the results section. POC GLUCOSE Routine 03/03/2018 Results for this 2:53 PM CDT procedure are in the results section. POC GLUCOSE Routine 03/03/2018 Results for this 12:16 PM CDT procedure are in the results section. POC GLUCOSE Routine 03/03/2018 Results for this 8:01 AM CDT procedure are in the results section. POC GLUCOSE Routine 03/03/2018 Results for this 5:56 AM CDT procedure are in the results section. FK506 LEVEL Routine 03/03/2018 Results for this 5:02 AM CDT procedure are in the results section. POC GLUCOSE Routine 03/02/2018 Results for this 10:46 PM CDT procedure are in the results section. CT LOWER EXTREMITY WO Routine 03/02/2018 Results for this CONTRAST RIGHT 10:25 PM CDT procedure are in the results section. POC GLUCOSE Routine 03/02/2018 Results for this 7:50 PM CDT procedure are in the results section. AFB STAIN Routine 03/02/2018 Results for this 6:20 PM CDT procedure are in the results section. FUNGUS SMEAR Routine 03/02/2018 Results for this 6:20 PM CDT procedure are in the results section. GRAM STAIN Routine 03/02/2018 Results for this 6:20 PM CDT procedure are in the results section. AFB CULTURE Routine 03/02/2018 6:20 PM CDT FUNGUS CULTURE Routine 03/02/2018 Results for this 6:20 PM CDT procedure are in the results section. ANAEROBIC CULTURE Routine 03/02/2018 Results for this 6:20 PM CDT procedure are in the results section. AEROBIC CULTURE Routine 03/02/2018 Results for this 6:20 PM CDT procedure are in the results section. US DUPLEX ARTERIAL LOWER Routine 03/02/2018 Results for this EXTREMITY RIGHT 5:50 PM CDT procedure are in the results section. POC GLUCOSE Routine 03/02/2018 Results for this 4:53 PM CDT procedure are in the results section. POC GLUCOSE Routine 03/02/2018 Results for this 2:03 PM CDT procedure are in the results section. POC GLUCOSE Routine 03/02/2018 Results for this 12:18 PM CDT procedure are in the results section. POC GLUCOSE Routine 03/02/2018 Results for this 8:27 AM CDT procedure are in the results section. POC GLUCOSE Routine 03/02/2018 Results for this 7:45 AM CDT procedure are in the results section. LACTIC ACID LEVEL, SEPSIS Timed 03/02/2018 Results for this - NOW AND REPEAT 2X EVERY 7:30 AM CDT procedure are in the 3 HOURS results section. POC GLUCOSE Routine 03/02/2018 Results for this 7:01 AM CDT procedure are in the results section. ZZESTIMATED GFR Routine 03/02/2018 Results for this 4:10 AM CDT procedure are in the results section. BASIC METABOLIC PANEL Routine 03/02/2018 Results for this 4:10 AM CDT procedure are in the results section. HC COMPLETE BLD COUNT Routine 03/02/2018 Results for this W/AUTO DIFF 4:10 AM CDT procedure are in the results section. POC GLUCOSE Routine 03/02/2018 Results for this 2:45 AM CDT procedure are in the results section. LACTIC ACID LEVEL, SEPSIS Timed 03/02/2018 Results for this - NOW AND REPEAT 2X EVERY 2:09 AM CDT procedure are in the 3 HOURS results section. POC GLUCOSE Routine 03/01/2018 Results for this 11:37 PM CDT procedure are in the results section. POC GLUCOSE Routine 03/01/2018 Results for this 10:39 PM CDT procedure are in the results section. XR FOOT 3+ VW RIGHT STAT 03/01/2018 Results for this 8:18 PM CDT procedure are in the results section. LACTIC ACID LEVEL, SEPSIS Timed 03/01/2018 Results for this - NOW AND REPEAT 2X EVERY 7:37 PM CDT procedure are in the 3 HOURS results section. BLOOD CULTURE, AEROBIC & Routine 03/01/2018 Results for this ANAEROBIC 7:37 PM CDT procedure are in the results section. NC CRITICAL CARE, E/M Routine 03/01/2018 Results for this 30-74 MINUTES 7:24 PM CDT procedure are in the results section. ZZESTIMATED GFR STAT 03/01/2018 Results for this 6:21 PM CDT procedure are in the results section. C-REACTIVE PROTEIN STAT 03/01/2018 Results for this 6:21 PM CDT procedure are in the results section. LACTIC ACID LEVEL, SEPSIS STAT 03/01/2018 Results for this - NOW AND REPEAT 2X EVERY 6:21 PM CDT procedure are in the 3 HOURS results section. COMPREHENSIVE METABOLIC STAT 03/01/2018 Results for this PANEL 6:21 PM CDT procedure are in the results section. HC COMPLETE BLD COUNT STAT 03/01/2018 Results for this W/AUTO DIFF 6:21 PM CDT procedure are in the results section. BLOOD CULTURE, AEROBIC & Routine 03/01/2018 Results for this ANAEROBIC 6:21 PM CDT procedure are in the results section. HC COMPLETE BLD COUNT STAT 09/18/2017 Results for this W/AUTO DIFF 8:11 PM CDT procedure are in the results section. ZZESTIMATED GFR STAT 09/18/2017 Results for this 7:53 PM CDT procedure are in the results section. COMPREHENSIVE METABOLIC STAT 09/18/2017 Results for this PANEL 7:53 PM CDT procedure are in the results section. TISSUE TRANSGLUTAMINASE Routine 08/22/2017 Diarrhea, unspecified Results for this AB, IGA 1:29 PM [facility] type procedure are in the [facility] colitis results section. Food protein induced enterocolitis syndrome (FPIES) IMMUNOGLOBULIN A Routine 08/22/2017 Diarrhea, unspecified Results for this 1:29 PM [facility] type procedure are in the [facility] colitis results section. Food protein induced enterocolitis syndrome (FPIES) SEDIMENTATION RATE Routine 08/22/2017 Diarrhea, unspecified Results for this 1:29 PM [facility] type procedure are in the [facility] colitis results section. Food protein induced enterocolitis syndrome (FPIES) RESPIRATORY PATHOGEN Routine 07/29/2017 Results for this PANEL 4:15 PM [facility] procedure are in the results section. INFLUENZA ANTIGEN Routine 07/29/2017 Results for this 4:15 PM [facility] procedure are in the results section. LACTIC ACID LEVEL, SEPSIS Timed 07/29/2017 Results for this - NOW AND REPEAT 2X EVERY 4:10 PM [facility] procedure are in the 3 HOURS results section. BLOOD CULTURE, AEROBIC & Routine 07/29/2017 Results for this ANAEROBIC 2:50 PM [facility] procedure are in the results section. ZZESTIMATED GFR STAT 07/29/2017 Results for this 2:40 PM [facility] procedure are in the results section. LACTIC ACID LEVEL, SEPSIS STAT 07/29/2017 Results for this - NOW AND REPEAT 2X EVERY 2:40 PM [facility] procedure are in the 3 HOURS results section. URINALYSIS SCREEN AND STAT 07/29/2017 Results for this MICROSCOPY, WITH REFLEX 2:40 PM [facility] procedure are in the TO CULTURE results section. COMPREHENSIVE METABOLIC STAT 07/29/2017 Results for this PANEL 2:40 PM [facility] procedure are in the results section. HC COMPLETE BLD COUNT STAT 07/29/2017 Results for this W/AUTO DIFF 2:40 PM [facility] procedure are in the results section. URINE CULTURE STAT 07/29/2017 Results for this 2:40 PM [facility] procedure are in the results section. BLOOD CULTURE, AEROBIC & Routine 07/29/2017 Results for this ANAEROBIC 2:40 PM [facility] procedure are in the results section. GRAM STAIN Routine 07/29/2017 Results for this 2:15 PM [facility] procedure are in the results section. SPUTUM CULTURE Routine 07/29/2017 Results for this 2:15 PM [facility] procedure are in the results section. XR CHEST 2 VW STAT 07/29/2017 Results for this 1:30 PM [facility] procedure are in the results section. ZZESTIMATED GFR Routine 06/07/2017 Results for this 12:20 PM [facility] procedure are in the results section. FK506 LEVEL Routine 06/07/2017 Transplanted kidney Results for this 12:20 PM [facility] procedure are in the results section. CREATININE LEVEL, URINE, Routine 06/07/2017 Transplanted kidney Results for this RANDOM 12:20 PM [facility] procedure are in the results section. COMPREHENSIVE METABOLIC Routine 06/07/2017 Transplanted kidney Results for this PANEL 12:20 PM [facility] procedure are in the results section. HC COMPLETE BLD COUNT Routine 06/07/2017 Transplanted kidney Results for this W/AUTO DIFF 12:20 PM [facility] procedure are in the results section. PROTEIN, URINE, RANDOM Routine 06/07/2017 Transplanted kidney Results for this 12:20 PM [facility] procedure are in the results section. URINALYSIS SCREEN AND Routine 06/07/2017 Urinary tract infection Results for this MICROSCOPY, WITH REFLEX 12:20 PM [facility] Transplanted kidney procedure are in the TO CULTURE results section. MAGNESIUM LEVEL Routine 06/07/2017 Transplanted kidney Results for this 12:20 PM [facility] procedure are in the results section. PHOSPHORUS LEVEL Routine 06/07/2017 Transplanted kidney Results for this 12:20 PM [facility] procedure are in the results section. URINE CULTURE Routine 06/07/2017 Results for this 12:20 PM [facility] procedure are in the results section. MRI ABDOMEN WO CONTRAST STAT 05/26/2017 Results for this 6:03 PM [facility] procedure are in the results section. POC GLUCOSE Routine 05/26/2017 Results for this 5:30 PM [facility] procedure are in the results section. POC GLUCOSE Routine 05/26/2017 Results for this 3:25 PM [facility] procedure are in the results section. US RENAL TRANSPLANT Routine 05/26/2017 Results for this DOPPLER 2:35 PM [facility] procedure are in the results section. URINALYSIS SCREEN AND Routine 05/26/2017 Results for this MICROSCOPY, WITH REFLEX 1:00 PM [facility] procedure are in the TO CULTURE results section. URINE CULTURE Routine 05/26/2017 Results for this 1:00 PM [facility] procedure are in the results section. ECG ED PRELIMINARY Routine 05/26/2017 Results for this INTERPRETATION 11:33 AM [facility] procedure are in the results section. POC GLUCOSE Routine 05/26/2017 Results for this 11:30 AM [facility] procedure are in the results section. BILIRUBIN DIRECT Routine 05/26/2017 Results for this 5:20 AM [facility] procedure are in the results section. ZZESTIMATED GFR Routine 05/26/2017 Results for this 5:20 AM [facility] procedure are in the results section. URIC ACID LEVEL Routine 05/26/2017 Results for this 5:20 AM [facility] procedure are in the results section. T4, FREE Routine 05/26/2017 Results for this 5:20 AM [facility] procedure are in the results section. THYROID STIMULATING Routine 05/26/2017 Results for this HORMONE 5:20 AM [facility] procedure are in the results section. PREALBUMIN LEVEL Routine 05/26/2017 Results for this 5:20 AM [facility] procedure are in the results section. PHOSPHORUS LEVEL Routine 05/26/2017 Results for this 5:20 AM [facility] procedure are in the results section. MAGNESIUM LEVEL Routine 05/26/2017 Results for this 5:20 AM [facility] procedure are in the results section. LIPID PANEL Routine 05/26/2017 Results for this 5:20 AM [facility] procedure are in the results section. COMPREHENSIVE METABOLIC Routine 05/26/2017 Results for this PANEL 5:20 AM [facility] procedure are in the results section. CREATINE KINASE, TOTAL Routine 05/26/2017 Results for this (CPK) 5:20 AM [facility] procedure are in the results section. B NATRIURETIC PEPTIDE Routine 05/26/2017 Results for this 5:20 AM [facility] procedure are in the results section. PARTIAL THROMBOPLASTIN Routine 05/26/2017 Results for this TIME (PTT) 5:20 AM [facility] procedure are in the results section. PROTHROMBIN TIME WITH INR Routine 05/26/2017 Results for this 5:20 AM [facility] procedure are in the results section. HC COMPLETE BLD COUNT Routine 05/26/2017 Results for this W/AUTO DIFF 5:20 AM [facility] procedure are in the results section. FK506 LEVEL Routine 05/26/2017 Results for this 5:20 AM [facility] procedure are in the results section. CT RENAL STONE PROTOCOL STAT 05/25/2017 Results for this 10:00 PM [facility] procedure are in the results section. URINE CULTURE Routine 05/25/2017 Results for this 9:59 PM [facility] procedure are in the results section. URINALYSIS SCREEN AND Routine 05/25/2017 Results for this MICROSCOPY, WITH REFLEX 9:57 PM [facility] procedure are in the TO CULTURE results section. TROPONIN Timed 05/25/2017 Results for this 9:51 PM [facility] procedure are in the results section. ZZESTIMATED GFR STAT 05/25/2017 Results for this 7:54 PM [facility] procedure are in the results section. PARTIAL THROMBOPLASTIN STAT 05/25/2017 Results for this TIME (PTT) 7:54 PM [facility] procedure are in the results section. B NATRIURETIC PEPTIDE STAT 05/25/2017 Results for this 7:54 PM [facility] procedure are in the results section. TROPONIN STAT 05/25/2017 Results for this 7:54 PM [facility] procedure are in the results section. CREATINE KINASE, TOTAL STAT 05/25/2017 Results for this (CPK) 7:54 PM [facility] procedure are in the results section. COMPREHENSIVE METABOLIC STAT 05/25/2017 Results for this PANEL 7:54 PM [facility] procedure are in the results section. PROTHROMBIN TIME WITH INR STAT 05/25/2017 Results for this 7:54 PM [facility] procedure are in the results section. HC COMPLETE BLD COUNT STAT 05/25/2017 Results for this W/AUTO DIFF 7:54 PM [facility] procedure are in the results section. XR CHEST 2 VW STAT 05/25/2017 Results for this 6:38 PM [facility] procedure are in the results section. ECG 12-LEAD STAT 05/25/2017 Results for this 5:56 PM [facility] procedure are in the results section. POC GLUCOSE Routine 04/20/2017 Results for this 1:02 PM CDT procedure are in the results section. POC GLUCOSE Routine 04/20/2017 Results for this 8:32 AM CDT procedure are in the results section. ZZESTIMATED GFR Routine 04/20/2017 Results for this 4:53 AM CDT procedure are in the results section. FK506 LEVEL Routine 04/20/2017 Results for this 4:53 AM CDT procedure are in the results section. MAGNESIUM LEVEL Routine 04/20/2017 Results for this 4:53 AM CDT procedure are in the results section. HC COMPLETE BLD COUNT Routine 04/20/2017 Results for this W/AUTO DIFF 4:53 AM CDT procedure are in the results section. BASIC METABOLIC PANEL Routine 04/20/2017 Results for this 4:53 AM CDT procedure are in the results section. POC GLUCOSE Routine 04/19/2017 Results for this 11:55 PM CDT procedure are in the results section. POC GLUCOSE Routine 04/19/2017 Results for this 6:52 PM CDT procedure are in the results section. POC GLUCOSE Routine 04/19/2017 Results for this 1:38 PM CDT procedure are in the results section. POC GLUCOSE Routine 04/19/2017 Results for this 7:31 AM CDT procedure are in the results section. POC GLUCOSE Routine 04/19/2017 Results for this 5:37 AM CDT procedure are in the results section. FK506 LEVEL Routine 04/19/2017 Results for this 5:04 AM CDT procedure are in the results section. ZZESTIMATED GFR Routine 04/19/2017 Results for this 5:04 AM CDT procedure are in the results section. MAGNESIUM LEVEL Routine 04/19/2017 Results for this 5:04 AM CDT procedure are in the results section. COMPREHENSIVE METABOLIC Routine 04/19/2017 Results for this PANEL 5:04 AM CDT procedure are in the results section. HC COMPLETE BLD COUNT Routine 04/19/2017 Results for this W/AUTO DIFF 5:04 AM CDT procedure are in the results section. POC GLUCOSE Routine 04/18/2017 Results for this 11:10 PM CDT procedure are in the results section. POC GLUCOSE Routine 04/18/2017 Results for this 6:52 PM CDT procedure are in the results section. POC GLUCOSE Routine 04/18/2017 Results for this 12:41 PM CDT procedure are in the results section. POC GLUCOSE Routine 04/18/2017 Results for this 8:42 AM CDT procedure are in the results section. ZZESTIMATED GFR Routine 04/18/2017 Results for this 5:50 AM CDT procedure are in the results section. FK506 LEVEL Routine 04/18/2017 Results for this 5:50 AM CDT procedure are in the results section. HC COMPLETE BLD COUNT Routine 04/18/2017 Results for this W/AUTO DIFF 5:50 AM CDT procedure are in the results section. BASIC METABOLIC PANEL Routine 04/18/2017 Results for this 5:50 AM CDT procedure are in the results section. POC GLUCOSE Routine 04/17/2017 Results for this 11:38 PM CDT procedure are in the results section. POC GLUCOSE Routine 04/17/2017 Results for this 5:50 PM CDT procedure are in the results section. POC GLUCOSE Routine 04/17/2017 Results for this 1:04 PM CDT procedure are in the results section. VANCOMYCIN LEVEL, TROUGH Routine 04/17/2017 Results for this 8:55 AM CDT procedure are in the results section. POC GLUCOSE Routine 04/17/2017 Results for this 7:46 AM CDT procedure are in the results section. ZZESTIMATED GFR Routine 04/17/2017 Results for this 5:05 AM CDT procedure are in the results section. FK506 LEVEL Routine 04/17/2017 Results for this 5:05 AM CDT procedure are in the results section. HC COMPLETE BLD COUNT Routine 04/17/2017 Results for this W/AUTO DIFF 5:05 AM CDT procedure are in the results section. BASIC METABOLIC PANEL Routine 04/17/2017 Results for this 5:05 AM CDT procedure are in the results section. POC GLUCOSE Routine 04/16/2017 Results for this 11:17 PM CDT procedure are in the results section. POC GLUCOSE Routine 04/16/2017 Results for this 7:26 PM CDT procedure are in the results section. POC GLUCOSE Routine 04/16/2017 Results for this 3:05 PM CDT procedure are in the results section. POC GLUCOSE Routine 04/16/2017 Results for this 8:25 AM CDT procedure are in the results section. FK506 LEVEL Routine 04/16/2017 Results for this 5:19 AM CDT procedure are in the results section. ZZESTIMATED GFR Routine 04/16/2017 Results for this 5:18 AM CDT procedure are in the results section. HC COMPLETE BLD COUNT Routine 04/16/2017 Results for this W/AUTO DIFF 5:18 AM CDT procedure are in the results section. BASIC METABOLIC PANEL Routine 04/16/2017 Results for this 5:18 AM CDT procedure are in the results section. POC GLUCOSE Routine 04/16/2017 Results for this 4:35 AM CDT procedure are in the results section. POC GLUCOSE Routine 04/15/2017 Results for this 10:31 PM CDT procedure are in the results section. POC GLUCOSE Routine 04/15/2017 Results for this 7:10 PM CDT procedure are in the results section. POC GLUCOSE Routine 04/15/2017 Results for this 12:59 PM CDT procedure are in the results section. POC GLUCOSE Routine 04/15/2017 Results for this 7:26 AM CDT procedure are in the results section. ZZESTIMATED GFR Routine 04/15/2017 Results for this 5:38 AM CDT procedure are in the results section. FK506 LEVEL Routine 04/15/2017 Results for this 5:38 AM CDT procedure are in the results section. HC COMPLETE BLD COUNT Routine 04/15/2017 Results for this W/AUTO DIFF 5:38 AM CDT procedure are in the results section. BASIC METABOLIC PANEL Routine 04/15/2017 Results for this 5:38 AM CD[facility] procedure are in the results section. POC GLUCOSE Routine 04/14/2017 Results for this 11:35 PM CDT procedure are in the results section. MRI LOWER EXTREMITY WO Routine 04/14/2017 Results for this CONTRAST RIGHT 6:34 PM [facility] procedure are in the results section. POC GLUCOSE Routine 04/14/2017 Results for this 6:27 PM CDT procedure are in the results section. POC GLUCOSE Routine 04/14/2017 Results for this 5:38 PM CDT procedure are in the results section. POC GLUCOSE Routine 04/14/2017 Results for this 5:18 PM CDT procedure are in the results section. POC GLUCOSE Routine 04/14/2017 Results for this 4:52 PM CDT procedure are in the results section. POC GLUCOSE Routine 04/14/2017 Results for this 1:54 PM CDT procedure are in the results section. ANTI XA, LOW MOLECULAR Timed 04/14/2017 Results for this WEIGHT 1:15 PM CDT procedure are in the results section. POC GLUCOSE Routine 04/14/2017 Results for this 1:06 PM CDT procedure are in the results section. POC GLUCOSE Routine 04/14/2017 Results for this 8:38 AM CDT procedure are in the results section. FK506 LEVEL Routine 04/14/2017 Results for this 6:10 AM CDT procedure are in the results section. ZZESTIMATED GFR Routine 04/14/2017 Results for this 6:10 AM CDT procedure are in the results section. VANCOMYCIN LEVEL, TROUGH Routine 04/14/2017 Results for this 6:10 AM CDT procedure are in the results section. HC COMPLETE BLD COUNT Routine 04/14/2017 Results for this W/AUTO DIFF 6:10 AM CDT procedure are in the results section. BASIC METABOLIC PANEL Routine 04/14/2017 Results for this 6:10 AM CDT procedure are in the results section. POC GLUCOSE Routine 04/14/2017 Results for this 4:33 AM CDT procedure are in the results section. POC GLUCOSE Routine 04/13/2017 Results for this 11:49 PM CDT procedure are in the results section. POC GLUCOSE Routine 04/13/2017 Results for this 8:41 PM CDT procedure are in the results section. POC GLUCOSE Routine 04/13/2017 Results for this 3:04 PM CDT procedure are in the results section. POC GLUCOSE Routine 04/13/2017 Results for this 1:25 PM CDT procedure are in the results section. POC GLUCOSE Routine 04/13/2017 Results for this 1:03 PM CDT procedure are in the results section. POC GLUCOSE Routine 04/13/2017 Results for this 8:52 AM CDT procedure are in the results section. POC GLUCOSE Routine 04/13/2017 Results for this 7:06 AM CDT procedure are in the results section. HEMOGLOBIN A1C Routine 04/13/2017 Results for this 6:15 AM CDT procedure are in the results section. FK506 LEVEL Routine 04/13/2017 Results for this 6:15 AM CDT procedure are in the results section. HC COMPLETE BLD COUNT Routine 04/13/2017 Results for this W/AUTO DIFF 6:15 AM CDT procedure are in the results section. BLOOD CULTURE, AEROBIC & Routine 04/13/2017 Results for this ANAEROBIC 6:15 AM CDT procedure are in the results section. POC GLUCOSE Routine 04/13/2017 Results for this 5:54 AM CDT procedure are in the results section. ZZESTIMATED GFR Routine 04/13/2017 Results for this 4:00 AM CDT procedure are in the results section. BASIC METABOLIC PANEL Routine 04/13/2017 Results for this 4:00 AM CDT procedure are in the results section. POC GLUCOSE Routine 04/12/2017 Results for this 10:23 PM CDT procedure are in the results section. POC GLUCOSE Routine 04/12/2017 Results for this 6:16 PM CDT procedure are in the results section. BLOOD CULTURE, AEROBIC & Routine 04/12/2017 Results for this ANAEROBIC 3:13 PM CDT procedure are in the results section. POC GLUCOSE Routine 04/12/2017 Results for this 1:57 PM CDT procedure are in the results section. POC GLUCOSE Routine 04/12/2017 Results for this 8:08 AM CDT procedure are in the results section. ZZESTIMATED GFR Routine 04/12/2017 Results for this 5:26 AM CDT procedure are in the results section. VANCOMYCIN LEVEL, TROUGH Routine 04/12/2017 Results for this 5:26 AM CDT procedure are in the results section. FK506 LEVEL Routine 04/12/2017 Results for this 5:26 AM CDT procedure are in the results section. HC COMPLETE BLD COUNT Routine 04/12/2017 Results for this W/AUTO DIFF 5:26 AM CDT procedure are in the results section. BASIC METABOLIC PANEL Routine 04/12/2017 Results for this 5:26 AM CDT procedure are in the results section. POC GLUCOSE Routine 04/11/2017 Results for this 11:40 PM CDT procedure are in the results section. POC GLUCOSE Routine 04/11/2017 Results for this 10:34 PM CDT procedure are in the results section. POC GLUCOSE Routine 04/11/2017 Results for this 6:25 PM CDT procedure are in the results section. URINALYSIS SCREEN AND Routine 04/11/2017 Results for this MICROSCOPY, WITH REFLEX 5:29 PM CDT procedure are in the TO CULTURE results section. URINE CULTURE Routine 04/11/2017 Results for this 5:29 PM CDT procedure are in the results section. POC GLUCOSE Routine 04/11/2017 Results for this 1:28 PM CDT procedure are in the results section. NC CRITICAL CARE, E/M Routine 04/11/2017 Results for this 30-74 MINUTES 12:52 PM CDT procedure are in the results section. POC GLUCOSE Routine 04/11/2017 Results for this 10:35 AM CDT procedure are in the results section. US DUPLEX VENOUS LOWER Routine 04/11/2017 Results for this EXTREMITY BILATERAL 9:30 AM CDT procedure are in the results section. POC GLUCOSE Routine 04/11/2017 Results for this 7:48 AM CDT procedure are in the results section. ZZESTIMATED GFR Routine 04/11/2017 Results for this 5:06 AM CDT procedure are in the results section. LACTIC ACID LEVEL Routine 04/11/2017 Results for this 5:06 AM CDT procedure are in the results section. BASIC METABOLIC PANEL Routine 04/11/2017 Results for this 5:06 AM CDT procedure are in the results section. HC COMPLETE BLD COUNT Routine 04/11/2017 Results for this W/AUTO DIFF 5:06 AM CDT procedure are in the results section. FK506 LEVEL Routine 04/11/2017 Results for this 5:06 AM CDT procedure are in the results section. POC GLUCOSE Routine 04/10/2017 Results for this 9:52 PM CDT procedure are in the results section. LACTIC ACID LEVEL Timed 04/10/2017 Results for this 7:59 PM CDT procedure are in the results section. BEDSIDE GLUCOSE STAT 04/10/2017 Results for this 5:34 PM CDT procedure are in the results section. POC GLUCOSE Routine 04/10/2017 Results for this 5:25 PM CDT procedure are in the results section. BLOOD CULTURE, AEROBIC & Routine 04/10/2017 Results for this ANAEROBIC 5:20 PM CDT procedure are in the results section. MANUAL DIFFERENTIAL STAT 04/10/2017 Results for this 4:40 PM CDT procedure are in the results section. ZZESTIMATED GFR STAT 04/10/2017 Results for this 4:40 PM CDT procedure are in the results section. LACTIC ACID LEVEL STAT 04/10/2017 Results for this 4:40 PM CDT procedure are in the results section. COMPREHENSIVE METABOLIC STAT 04/10/2017 Results for this PANEL 4:40 PM CDT procedure are in the results section. CBC WITH PLATELET AND STAT 04/10/2017 Results for this DIFFERENTIAL 4:40 PM CDT procedure are in the results section. BLOOD CULTURE, AEROBIC & Routine 04/10/2017 Results for this ANAEROBIC 4:40 PM CDT procedure are in the results section. XR CHEST 1 VW STAT 04/10/2017 Results for this 4:38 PM CDT procedure are in the results section. POC GLUCOSE Routine 04/10/2017 Results for this 4:22 PM CDT procedure are in the results section. after 04/10/2017 Results * POC glucose (03/13/2018 2:19 PM) Only the most recent of 123 results within the time period is included. POC glucose 171 (H) 65 - 99 mg/dL [facility] DEPARTMENT OF Comment: PATHOLOGY AND [facility] Notified RN [facility] Meter ID: [id number] Prototype Fabricator: Oliverio Washburn Performing Organization Address City/[facility]/Zipcode Phone Number [facility] DEPARTMENT OF [address] [place] [address] PATHOLOGY AND GENOMIC MEDICINE * FK506 level (03/13/2018 3:47 AM) Only the most recent of 21 results within the time period is included. FK506 level 4.4 ng/mL [facility] DEPARTMENT OF Comment: PATHOLOGY AND Therapeutic range 5-20 ng/mL [facility] for 12 hour trough. The range varies depending on the organ transplanted, time after transplantation and co-administered immunosuppressant therapies. Please use clinical judgment to interpret test result. Test performed using [employer] chemiluminescent microparticle immunoassay for Tacrolimus on the MANAGER [employer]PORATE COMMUNICATION[employer] i System. Specimen Blood Performing Organization Address City/[facility]/Zipcode Phone Number [facility] DEPARTMENT OF [address] [place] [phone] PATHOLOGY AND [facility] * Estimated GFR (03/12/2018 4:10 AM) Only the most recent of 5 results within the time period is included. Estimated GFR >=90 mL/min/1.[address] [facility] DEPARTMENT OF Comment: PATHOLOGY AND [employer] GENOMIC MEDICINE rpretation G1 >=90 Normal or high G2 60-89Mildly decreased [id number] Mildly to moderately decreased [id number] Moderately to severely decreased G4 15-29Severely decreased G5 <15Kidney failure The eGFR was calculated using the Chronic Kidney Disease Epidemiology Collaboration (CKD-EPI) equation. Interpretation is based on recommendations of the National Kidney Foundation-Kidney Disease Outcomes Quality Initiative (NKF-KDOQI) published in 2014. Specimen Plasma specimen Performing Organization Address City/State/Zipcode Phone Number [facility] DEPARTMENT OF [address] [place] [address] PATHOLOGY AND GENOMIC MEDICINE * CBC with platelet and differential (03/12/2018 4:10 AM) Only the most recent of 21 results within the time period is included. WBC 7.76 4.50 - 11.00 k/uL [facility] DEPARTMENT OF PATHOLOGY AND GENOMIC MEDICINE RBC 3.82 (L) 4.40 - 6.00 m/uL [facility] DEPARTMENT OF PATHOLOGY AND GENOMIC MEDICINE HGB 11.0 (L) 14.0 - 18.0 g/dL [facility] DEPARTMENT OF PATHOLOGY AND GENOMIC MEDICINE HCT 35.2 (L) 41.0 - 51.0 % [facility] DEPARTMENT OF PATHOLOGY AND GENOMIC MEDICINE MCV 92.1 82.0 - 100.[address] [facility] DEPARTMENT OF PATHOLOGY AND GENOMIC MEDICINE MCH 28.8 27.0 - 34.[address] [facility] DEPARTMENT OF PATHOLOGY AND GENOMIC MEDICINE MCHC 31.3 31.0 - 37.0 g/dL [facility] DEPARTMENT OF PATHOLOGY AND GENOMIC MEDICINE RDW - SD 45.1 37.0 - 55.[address] [facility] DEPARTMENT OF PATHOLOGY AND GENOMIC MEDICINE MPV 12.2 8.8 - 13.[address] [facility] DEPARTMENT OF PATHOLOGY AND GENOMIC MEDICINE Platelet count 259 150 - 400 k/uL [facility] DEPARTMENT OF PATHOLOGY AND GENOMIC MEDICINE Nucleated RBC 0.00 /[address] [facility] DEPARTMENT OF PATHOLOGY AND GENOMIC MEDICINE Neutrophils 65.8 39.0 - 69.0 % [facility] DEPARTMENT OF PATHOLOGY AND GENOMIC MEDICINE Lymphocytes 17.3 (L) 25.0 - 45.0 % [facility] DEPARTMENT OF PATHOLOGY AND GENOMIC MEDICINE Monocytes 12.1 (H) 0.0 - 10.0 % [facility] DEPARTMENT OF PATHOLOGY AND GENOMIC MEDICINE Eosinophils 3.6 0.0 - 5.0 % [facility] DEPARTMENT OF PATHOLOGY AND GENOMIC MEDICINE Basophils 0.6 0.0 - 1.0 % [facility] DEPARTMENT OF PATHOLOGY AND GENOMIC MEDICINE Immature granulocytes 0.6Comment: "Immature 0.0 - 1.0 % [facility] DEPARTMENT OF granulocytes" (promyelocytes, PATHOLOGY AND myelocytes, metamyelocytes) GENOMIC MEDICINE Performing Organization Address [facility] [place] [address] PATHOLOGY AND GENOMIC MEDICINE * Phosphorus level (03/12/2018 4:10 AM) Only the most recent of 4 results within the time period is included. Phosphorus 2.2 (L) 2.4 - 4.5 mg/dL [facility] DEPARTMENT OF PATHOLOGY AND GENOMIC MEDICINE Specimen Plasma specimen Performing Organization Address [facility] [address] PATHOLOGY AND GENOMIC MEDICINE * Magnesium level (03/12/2018 4:10 AM) Only the most recent of 5 results within the time period is included. Magnesium 2.0 1.6 - 2.4 mg/dL [facility] DEPARTMENT OF PATHOLOGY AND GENOMIC MEDICINE Specimen Plasma specimen Performing Organization Address [facility] Phone Number [facility] [place] [address] PATHOLOGY AND GENOMIC MEDICINE * Vancomycin level, trough (03/12/2018 4:10 AM) Only the most recent of 5 results within the time period is included. Vancomycin, trough 18.4 10.0 - 20.0 ug/mL [facility] DEPARTMENT OF Comment: PATHOLOGY AND Therapeutic Ranges: GENOMIC MEDICINE Peak 30.0 - 40.0 ug/mL Jhenge94.0 - 20.0 ug/mL Specimen Serum Performing Organization Address [facility] Phone Number [facility] [place] [address] PATHOLOGY AND GENOMIC MEDICINE * Basic metabolic panel (03/12/2018 4:10 AM) Only the most recent of 18 results within the time period is included. Sodium 141 135 - 148 mEq/L [facility] DEPARTMENT OF PATHOLOGY AND GENOMIC MEDICINE Potassium 3.9 3.5 - 5.0 mEq/L [facility] DEPARTMENT OF PATHOLOGY AND GENOMIC MEDICINE Chloride 102 98 - 112 mEq/L [facility] DEPARTMENT OF PATHOLOGY AND GENOMIC MEDICINE CO2 28 24 - 31 mEq/L [facility] DEPARTMENT OF PATHOLOGY AND GENOMIC MEDICINE Anion gap 11@ANIO 7 - 15 mEq/L [facility] DEPARTMENT OF PATHOLOGY AND GENOMIC MEDICINE BUN 19 8 - 23 mg/dL [facility] DEPARTMENT OF PATHOLOGY AND GENOMIC MEDICINE Creatinine 0.81 0.70 - 1.20 mg/dL [facility] DEPARTMENT OF PATHOLOGY AND GENOMIC MEDICINE Glucose 158 (H) 65 - 99 mg/dL [facility] DEPARTMENT OF PATHOLOGY AND GENOMIC MEDICINE Calcium 8.6 (L) 8.8 - 10.2 mg/dL [facility] DEPARTMENT OF PATHOLOGY AND GENOMIC MEDICINE Specimen Plasma specimen Performing Organization Address [facility] [place] [address] PATHOLOGY AND [facility] * Partial thromboplastin time, activated (03/10/2018 3:15 AM) Only the most recent of 3 results within the time period is included. PTT 41.6 (H) 23.0 - 36.[address] [facility] DEPARTMENT OF Comment: PATHOLOGY AND PTT therapeutic range for [facility] unfractionated heparin is 61.0-112.0 seconds which corresponds to Anti-Xa 0.3-0.7 U/ml. Specimen Blood Performing Organization Address [facility] Phone Number [facility] [place] [address] PATHOLOGY AND [facility] * Prothrombin time with INR (03/10/2018 3:15 AM) Only the most recent of 3 results within the time period is included. Prothrombin time 15.6 (H) 12.0 - 15.[address] [facility] DEPARTMENT OF PATHOLOGY AND GENOMIC MEDICINE INR 1.[address] [facility] DEPARTMENT OF Comment: PATHOLOGY AND The International Normalized [facility] Ratio (INR) is a therapeutic monitoring tool for patients who are stable on oral anticoagulant therapy. An INR of 2.0-3.0 is suggested for deep vein thrombosis/pulmonary embolism. Specimen Blood Performing Organization Address [facility] [place] [address] PATHOLOGY AND [facility] * Type and screen (03/10/2018 3:15 AM) ABO grouping O [facility] DEPARTMENT OF PATHOLOGY AND GENOMIC MEDICINE Rh type POS [facility] DEPARTMENT OF PATHOLOGY AND GENOMIC MEDICINE Antibody screen (gel) NEG [facility] DEPARTMENT OF PATHOLOGY AND GENOMIC MEDICINE Specimen Blood Performing Organization Address [facility] [place] [address] PATHOLOGY AND [facility] * Echocardiogram complete w contrast and 3D if needed (03/08/2018 3:07 PM) Narrative Performed At [facility] Echocardiography Report [address] [facility], [facility] 9, [address]Name:Roger RENTERIA.ID:[id number] .Date: 03/08/2018 Refer.MD:OJSE BRISCOE MD Exam Time: 1:50:00 PMStudy Type:Routine Echo Height:68inWeight:230lb BSA: 2.17 m2 DOBAge:1955,62Y Sex: MALEBP:138/74 HR:67 bpmSonogrphr: Jon White [facility] Pat. Stat.:Inpatient Room:[facility] Study Status:Final Echo Event ID:[id number] Order ID:[id number] Reason for Study:PRE OP History / Clinical:Diabetes, Edema, Hyperlipidemia, Hypertension, Shortness of Breath, ESRD Procedures:2D Echo, Colorflow Doppler, Portable Race:C SUMMARY: LV EF is normal. Estimated EF is 60-64%. LV filling pressure is elevated. FINDINGS: LV: LV size is normal. LV EF is normal. Overall wall motion is normal.Estimated EF is 60-64%. RV: RV size is normal. RV systolic function is normal. LA: LA size is normal. RA: RA size is normal. AO: Aortic root diameter is normal. NICANOR: No pericardial effusion. AV: Moderate thickening and calcification of AV leaflets. MV: Mild mitral annular calcification. PV: No structural PV abnormalities noted. TV: No structural TV abnormalities noted. A trace of tricuspid regurgitation Hughes: LV relaxation is impaired. LV filling pressure is elevated. Other:Insufficient TR jet to estimate PA systolic pressure. MEASUREMENTS: 2D Parasternal Long [place] LVOT 2.4 cmLA Ds4.2 cm LVIDd5.4 cmIndex2.5 cm/m Ao Rtd 3.4 cm Index1.6 cm/m LVIDs2.7 cm LV Okgf543 g(122-174) LV%fs 49.9 % LVM Index 98.6 g/m2 IVSd 0.9 cmRWT0.4 LVPWd1.1 cm LA Sng Plane LA Area 15.2 cm2(8.8-23.4) LA Vol38.1 ml Index17.6 ml/m LA LngAx 5 cm Signed 03/09/2018 10:26 AM Jose Briscoe MD Procedure Note Interface, Radiology Results In - 03/09/2018 10:27 AM CDT Echocardiography Report [address] [place] [address] Pat.Name: ALMA RENTERIA Pat.ID: [id number] .Date: 03/08/2018 Refer.MD: JOSE BRISCOE MD Exam Time: 1:50:00 PM Study Type:Routine Echo Height: 68in Weight: 230lb BSA: 2.17 m2 Age: 10 1955,62Y Sex: MALE BP: 138/74 HR: 67 bpm Sonogrphr: LISA Rangel Pat. Stat.:Inpatient Room: [facility] Study Status:Final Echo Event ID:[id number] Order ID: [id number] Reason for Study:PRE OP History / Clinical:Diabetes, Edema, Hyperlipidemia, Hypertension, Shortness of Breath, ESRD Procedures:2D Echo, Colorflow Doppler, Portable Race: C SUMMARY: LV EF is normal. Estimated EF is 60-64%. LV filling pressure is elevated. FINDINGS: LV: LV size is normal. LV EF is normal. Overall wall motion is normal. Estimated EF is 60-64%. RV: RV size is normal. RV systolic function is normal. LA: LA size is normal. RA: RA size is normal. AO: Aortic root diameter is normal. NICANOR: No pericardial effusion. AV: Moderate thickening and calcification of AV leaflets. MV: Mild mitral annular calcification. PV: No structural PV abnormalities noted. TV: No structural TV abnormalities noted. A trace of tricuspid regurgitation Hughes: LV relaxation is impaired. LV filling pressure is elevated. Other: Insufficient TR jet to estimate PA systolic pressure. MEASUREMENTS: 2D Parasternal Long [place] LVOT 2.4 cm LA Ds 4.2 cm LVIDd 5.4 cm Index 2.5 cm/m Ao Rtd 3.4 cm Index 1.6 cm/m LVIDs 2.7 cm LV Mass 214 g (122-174) LV%fs 49.9 % LVM Index 98.6 g/m2 IVSd 0.9 cm RWT 0.4 LVPWd 1.1 cm LA Sng Plane LA Area 15.2 cm2 (8.8-23.4) LA Vol 38.1 ml Index 17.6 ml/m LA LngAx 5 cm Signed 03/09/2018 10:26 AM Jose Briscoe MD Performing Organization Address City/State/Zipcode Phone Number [facility] [address] [place] [address] * ECG 12 lead (03/08/2018 1:17 PM) Only the most recent of 2 results within the time period is included. Ventricular rate 75 [facility] Atrial rate 75 [facility] NC interval 132 [facility] QRSD interval 104 [facility] QT interval 424 [facility] QTC interval 473 [facility] P axis 1 28 [facility] QRS axis 1 9 [facility] T wave axis 27 [facility] EKG impression Sinus rhythm with premature [facility] MUSE atrial complexes in a pattern of bigeminy-Otherwise normal ECG-In automated comparison with ECG of 25-MAY-2017 17:56,-Sinus rhythm has replaced Ectopic atrial rhythm- Performing Organization Address City/[facility]ode Phone Number [facility] [address] [place] [address] * Estimated GFR (03/06/2018 4:00 AM) Only the most recent of 21 results within the time period is included. GFR Non Af Amer >90 mL/min/1.[address] [facility] DEPARTMENT OF PATHOLOGY AND GENOMIC MEDICINE GFR Af Amer >90 mL/min/1.[address] [facility] DEPARTMENT OF Comment: PATHOLOGY AND Chronic kidney disease: <60 GENOMIC MEDICINE mL/min/1.73m2 Kidney failure: <15 mL/min/1.73m2 The estimated GFR is calculated from the IDMS-traceable Modification of Diet in Renal Disease Equation. The accuracy of the calculation is poor when the creatinine is normal. Calculated values >90 mL/min/1.73m2 are not reported. This equation has not been validated in children (<18 years), women, the elderly (>70 years), or ethnic groups other than Caucasians and Americans. Specimen Plasma specimen Performing Organization Address City/[facility] Phone Number [facility] [address] [place] [address] PATHOLOGY AND GENOMIC MEDICINE * MRI Lower Extremity Joint Wo Contrast Right (03/04/2018 3:31 PM) Narrative Performed At [facility] EXAMINATION:MRI LOWER EXTREMITY JOINT WO CONTRAST RIGHT CLINICAL HISTORY:Osteomyelitis TECHNIQUE: Multiplanar multisequence MR imaging of the right ankle was performed without intravenous contrast. COMPARISON:CT March 02, 2018 IMPRESSION: 1.Soft tissue irregularity and defect involving the posterior lateral right heel likely relating to inflammatory change and ulceration. There is no evidence to suggest marrow edema involving the calcaneus or distal fibula. The overlying cortex is intact. No evidence for osteomyelitis. 2.Although a small amount of subcutaneous air is likely present, there is no evidence for an organized soft tissue fluid collection. 3.The plantar fascia is intact. Thickened appearance to the distal Achilles tendon with areas of increased T1 signal intensity likely relating to partial tear or chronic tendinosis. 4.Trace joint effusion. The peroneus longus and brevis are intact. The medial ankle tendons and the anterior ankle tendons are intact. 5.Osseous structures are demineralized. There are chronic degenerative changes at the level of the subtalar joint and right midfoot joint spaces. [facility]-[id number] Procedure Note Hm Interface, Radiology Results - 03/05/2018 4:01 PM CDT EXAMINATION: MRI LOWER EXTREMITY JOINT WO CONTRAST RIGHT CLINICAL HISTORY: Osteomyelitis TECHNIQUE: Multiplanar multisequence MR imaging of the right ankle was performed without intravenous contrast. COMPARISON: CT March 02, 2018 IMPRESSION: 1. Soft tissue irregularity and defect involving the posterior lateral right heel likely relating to inflammatory change and ulceration. There is no evidence to suggest marrow edema involving the calcaneus or distal fibula. The overlying cortex is intact. No evidence for osteomyelitis. 2. Although a small amount of subcutaneous air is likely present, there is no evidence for an organized soft tissue fluid collection. 3. The plantar fascia is intact. Thickened appearance to the distal Achilles tendon with areas of increased T1 signal intensity likely relating to partial tear or chronic tendinosis. 4. Trace joint effusion. The peroneus longus and brevis are intact. The medial ankle tendons and the anterior ankle tendons are intact. 5. Osseous structures are demineralized. There are chronic degenerative changes at the level of the subtalar joint and right midfoot joint spaces. [facility]-[id number] Performing Organization Address City/State/Zipcode Phone Number [facility] [address] [place] [address] * CT Lower Extremity Wo Contrast Right (03/02/2018 10:25 PM) Narrative Performed At EXAMINATION:CT LOWER EXTREMITY WO CONTRAST RIGHT [facility] CLINICAL HISTORY:62 years Male Osteomyelitisknownfootfollow up, rule out gas TECHNIQUE: Multiple axial images of the right foot and ankle were obtained without contrast. Images were submitted in bone and soft tissue windows. Sagittal and coronal computerized reformatted images were also obtained. CT imaging was performed with iterative reconstruction techniques and/or automated exposure control to reduce radiation dose. COMPARISON:Right foot x-ray dated 03/01/2018 IMPRESSION: 1.There is diffuse thickening of the Achilles tendon consistent with partial tear and tendinosis. 2.There is ulceration along the plantar and lateral aspect of the ankle. There is persistent subcutaneous emphysema. No distinct fluid collection or abscess is identified. Diffuse skin thickening and subcutaneous edema is noted throughout the ankle and foot. 3.There is no focal bony erosion or fracture. The bony structures are diffusely osteopenic. 4.There is fatty atrophy of the intrinsic muscles of the foot consistent with chronic disuse and/or neurodegenerative disease. 5.Extensive vascular calcifications are present consistent with diabetes. [facility]-[id number] Procedure Note [facility], Radiology Results Incoming - 03/03/2018 12:04 AM CDT EXAMINATION: CT LOWER EXTREMITY WO CONTRAST RIGHT CLINICAL HISTORY:62 years Male Osteomyelitis known foot follow up, rule out gas TECHNIQUE: Multiple axial images of the right foot and ankle were obtained without contrast. Images were submitted in bone and soft tissue windows. Sagittal and coronal computerized reformatted images were also obtained. CT imaging was performed with iterative reconstruction techniques and/or automated exposure control to reduce radiation dose. COMPARISON: Right foot x-ray dated 03/01/2018 IMPRESSION: 1. There is diffuse thickening of the Achilles tendon consistent with partial tear and tendinosis. 2. There is ulceration along the plantar and lateral aspect of the ankle. There is persistent subcutaneous emphysema. No distinct fluid collection or abscess is identified. Diffuse skin thickening and subcutaneous edema is noted throughout the ankle and foot. 3. There is no focal bony erosion or fracture. The bony structures are diffusely osteopenic. 4. There is fatty atrophy of the intrinsic muscles of the foot consistent with chronic disuse and/or neurodegenerative disease. 5. Extensive vascular calcifications are present consistent with diabetes. [facility]-[id number] Performing Organization Address City/State/Zipcode Phone Number [facility] [address] [place] [address] * Fungus smear (03/02/2018 6:20 PM) Fungus smear No fungi observed. [facility] DEPARTMENT OF Comment: PATHOLOGY AND Specimen Information GENOMIC MEDICINE Specimen Source: Wound Specimen Site: Foot Specimen Wound Performing Organization Address City/State/[facility] Phone Number [facility] DEPARTMENT OF [address] [place] [address] PATHOLOGY AND GENOMIC MEDICINE * Aerobic culture (03/02/2018 6:20 PM) Aerobic culture isolate Proteus mirabilis [facility] DEPARTMENT OF Occasional PATHOLOGY AND susceptibility to follow GENOMIC MEDICINE (A) Comment: Specimen Information Specimen Source: Wound Specimen Site: Foot Aerobic culture isolate Alcaligenes faecalis (odorans) [facility] DEPARTMENT OF Occasional PATHOLOGY AND susceptibility to follow GENOMIC MEDICINE (A) Aerobic culture isolate Enterococcus faecalis [facility] DEPARTMENT OF Recovered in Broth only: PATHOLOGY AND susceptibility to follow GENOMIC MEDICINE Enterococcus susceptible to high levels of Gentamicin. Susceptibility results indicate synergy with Penicillins and Vancomycin. This organism is Vancomycin Sensitive. (A) Specimen Wound Organism Antibiotic Method Susceptibility Proteus mirabilis Ampicillin ZIGGY <=2 mcg/mL: Susceptible Proteus mirabilis Amoxicillin/Clavulanate ZIGGY <=2/1 mcg/mL: Susceptible Proteus mirabilis Amikacin ZIGGY <=4 mcg/mL: Susceptible Proteus mirabilis Aztreonam ZIGGY <=1 mcg/mL: Susceptible Proteus mirabilis Ceftazidime ZIGGY <=0.5 mcg/mL: Susceptible Proteus mirabilis Ciprofloxacin ZIGGY <=0.5 mcg/mL: Susceptible Proteus mirabilis Ceftriaxone ZIGGY <=0.5 mcg/mL: Susceptible Proteus mirabilis Cefuroxime Sodium ZIGGY <=4 mcg/mL: Susceptible Proteus mirabilis Cefazolin ZIGGY 4 mcg/mL: Resistant Proteus mirabilis Cefepime ZIGGY <=0.5 mcg/mL: Susceptible Proteus mirabilis Cefoxitin ZIGGY <=4 mcg/mL: Susceptible Proteus mirabilis Gentamicin ZIGGY 2 mcg/mL: Susceptible Proteus mirabilis Levofloxacin ZIGGY <=1 mcg/mL: Susceptible Proteus mirabilis Tobramycin ZIGGY 2 mcg/mL: Susceptible Proteus mirabilis Ampicillin/Sulbactam ZIGGY <=1/0.5 mcg/mL: Susceptible Proteus mirabilis Trimethoprim/Sulfamethoxa ZIGGY <=0.5/9.5 mcg/mL: zole Susceptible Proteus mirabilis Tetracycline ZIGGY >8 mcg/mL: Resistant Proteus mirabilis Piperacillin/Tazobactam ZIGGY <=2/4 mcg/mL: Susceptible Proteus mirabilis Ertapenem ZIGGY <=0.125 mcg/mL: Susceptible Proteus mirabilis Tigecycline ZIGGY mcg/mL: Resistant Alcaligenes faecalis Amikacin ZIGGY <=4 mcg/mL: Susceptible (odorans) Alcaligenes faecalis Aztreonam ZIGGY >16 mcg/mL: Resistant (odorans) Alcaligenes faecalis Ceftazidime ZIGGY >16 mcg/mL: Resistant (odorans) Alcaligenes faecalis Ceftriaxone ZIGGY <=0.5 mcg/mL: Susceptible (odorans) Alcaligenes faecalis Cefepime ZIGGY 8 mcg/mL: Susceptible (odorans) Alcaligenes faecalis Gentamicin ZIGGY 4 mcg/mL: Resistant (odorans) Alcaligenes faecalis Imipenem ZIGGY 1 mcg/mL: Susceptible (odorans) Alcaligenes faecalis Levofloxacin ZIGGY <=1 mcg/mL: Susceptible (odorans) Alcaligenes faecalis Tobramycin ZIGGY 2 mcg/mL: Susceptible (odorans) Alcaligenes faecalis Trimethoprim/Sulfamethoxa ZIGGY 1/19 mcg/mL: Susceptible (odorans) zole Alcaligenes faecalis Piperacillin/Tazobactam ZIGGY <=2/4 mcg/mL: Susceptible (odorans) Enterococcus faecalis Ampicillin ZIGGY 1 mcg/mL: Susceptible Enterococcus faecalis Erythromycin ZIGGY >4 mcg/mL: Resistant Enterococcus faecalis Gentamicin-Syn ZIGGY <=500 mcg/mL: Susceptible Enterococcus faecalis Linezolid ZIGGY <=1 mcg/mL: Susceptible Enterococcus faecalis Minocycline ZIGGY <=1 mcg/mL: Susceptible Enterococcus faecalis Vancomycin ZIGGY 1 mcg/mL: Susceptible Performing Organization Address [facility] Phone Number [facility] DEPARTMENT OF [address] [place] [address] PATHOLOGY AND GENOMIC MEDICINE * Gram stain (03/02/2018 6:20 PM) Only the most recent of 2 results within the time period is included. Gram stain isolate Rare WBC's [facility] DEPARTMENT OF Occasional Gram positive rods PATHOLOGY AND Many Gram positive cocci in GENOMIC MEDICINE pairs Many Gram negative rods Comment: Specimen Information Specimen Source: Wound Specimen Site: Foot Specimen Wound Performing Organization Address City/[facility] Phone Number [facility] DEPARTMENT OF [address] [place] [phone] PATHOLOGY AND GENOMIC MEDICINE * AFB stain (03/02/2018 6:20 PM) AFB stain No acid fast bacilli (AFB) [facility] DEPARTMENT OF seen. PATHOLOGY AND Comment: GENOMIC MEDICINE Specimen Information Specimen Source: Wound Specimen Site: Foot Specimen Wound Performing Organization Address City/[facility]/Zipcode Phone Number [facility] DEPARTMENT OF [address] [place] [address] PATHOLOGY AND GENOMIC MEDICINE * Fungus culture (03/02/2018 6:20 PM) Fungus culture isolate No growth after [address] [facility] DEPARTMENT OF incubation. PATHOLOGY AND Comment: GENOMIC MEDICINE Specimen Information Specimen Source: Wound Specimen Site: Foot Specimen Wound Performing Organization Address City/[facility]/Zipcode Phone Number [facility] DEPARTMENT OF [address] [place] [address] PATHOLOGY AND GENOMIC MEDICINE * Anaerobic culture (03/02/2018 6:20 PM) Anaerobic culture isolate No anaerobic organisms [facility] DEPARTMENT OF isolated. PATHOLOGY AND Comment: GENOMIC MEDICINE Specimen Information Specimen Source: Wound Specimen Site: Foot Specimen Wound Performing Organization Address [facility] Phone Number [facility] DEPARTMENT OF [address] [place] [address] PATHOLOGY AND GENOMIC MEDICINE * Pv duplex arterial lower extremity (03/02/2018 5:50 PM) Narrative Performed At [facility] Vascular Ultrasound Laboratory Lower Extremity Arterial Duplex Report [address] [place] [address] Pat.Name:Roger RENTERIA.ID:[id number] .Date: 03/02/2018Refer.MD:DEMOND THOMPSON MD Exam Time: 2:17:00 PMStudy Type:LE Arterial Height:68inWeight:230lb BSA: 2.17 m2 DOBAge:1955,62Y Sex: MALESonogrphr: Pieter Edwards RVT, [facility] Pat. Stat.:Inpatient Room:H4595-G TapeVol: JOZEF, CPT - 4: 06166, 24685 Echo Event ID:[id number] Order ID:[id number] Reason for Study:Ulcer. PMH of HTN, HLD, DM, PVD, ESRD s/p DDKT in 2012. Procedures:Colorflow, Grayscale/2D, Pulsed wave Doppler Race:C SUMMARY: DUPLEX SCAN OBSERVATIONS: RIGHT: There is hard and calcified plaque noted in the common femoral and proximal profunda arteries. Diffuse calcification is noted in the superificial femoral, popliteal, posterior tibial, peroneal and anterior tibial arteries. Color disturbance with elevated velocities noted in the proximal anterior tibial artery (ratio 2.5). PRELIMINARY FINDINGS: 1. 50-75% stenosis noted in the right anterior tibial artery (ratio 2.5). 2. < 50% stenosis noted in the right common femoral and profunda arteries. 3. Toe/brachial indices fall into mild category on the right and normal on the left. 4. Unable to obtain ankle/brachial indices due to incompressible arteries. PHYSICIAN INTERPRETATION: Arterial duplex examination ofright lower extremity demonstrates 50-75% stenosis noted in the right anterior tibial artery (ratio 2.5). Calcificaitons.Toe/brachial indices fall into mild category on the right and normal on the left. MEASUREMENTS: DOPPLER Right RESIDENTIAL TREATMENT SPECIALIST prox RESIDENTIAL TREATMENT SPECIALIST prox PSV 128 cm/s Right Profunda Profunda PSV98.2 cm/s Right SFA Dist SFA Dist PSV 154 cm/s Right SFA Mid SFA Mid TMN235 cm/s Right SFA Prox SFA Prox PSV 114 cm/s Right Pop Dist Pop Dist PSV 112 cm/s Right Pop Prox Pop Prox PSV 157 cm/s Right LASER SYSTEMS ENGINEER Dist LASER SYSTEMS ENGINEER Dist PSV87.6 cm/s Right LASER SYSTEMS ENGINEER Mid LASER SYSTEMS ENGINEER Mid PSV 69.9 cm/s Right LASER SYSTEMS ENGINEER Prox LASER SYSTEMS ENGINEER Prox PSV66.6 cm/sPTA Prox PSV66.6 cm/s Right Peroneal Dist Peroneal Dist P70.1 cm/s Peroneal Mid Peroneal Mid PS56.2 cm/s Right Peroneal Prox Peroneal Prox P66.9 cm/s Right CARLITOS Dist CARLITOS Dist PSV71.4 cm/s Right RESIDENTIAL TREATMENT SPECIALIST Dist RESIDENTIAL TREATMENT SPECIALIST Dist PSV 128 cm/s Right LASER SYSTEMS ENGINEER Distal LASER SYSTEMS ENGINEER Distal PSV87.6 cm/s Right CARLITOS Prox CARLITOS Prox PSV 282 cm/s Right CARLITOS Mid CARLITOS Mid PSV 56.4 cm/s Right CARLITOS Mid 2 CARLITOS Mid 2 OYS144 cm/s Right CARLITOS Distal CARLITOS Distal PSV71.4 cm/s PRESSURES Right Brachial Brach P146 mmHg Right Ankle PT AnklePT P254 mmHg Left Ankle PT AnklePT P254 mmHg Right Ankle DP AnkleDP P254 mmHg Left Ankle DP AnkleDP P254 mmHg Right Great Toe GreatToe P62 mmHg Left Great Toe GreatToe P 115 mmHg Right JULIAN PT JULIAN PT1.74 Left JULIAN PT JULIAN PT1.74 Right JULIAN DP JULIAN DP1.74 Left JULIAN DP JULIAN DP1.74 Right TBI TBI0.425 Left TBI TBI0.788 Signed 03/02/2018 06:18 PM Julio Rene MD, RPVI Procedure Note Interface, Radiology Results In - 03/02/2018 6:24 PM CDT Vascular Ultrasound Laboratory Lower Extremity Arterial Duplex Report [address] [place] [address] Pat.Name: ALMA RENTERIA Pat.ID: [id number] .Date: 03/02/2018 Refer.MD: DEMOND THOMPSON MD Exam Time: 2:17:00 PM Study Type:LE Arterial Height: 68in Weight: 230lb BSA: 2.17 m2 Age: 10 1955,62Y Sex: MALE Sonogrphr: Pieter Edwards RVT, MICAELA Pat. Stat.:Inpatient Room: [address] Tape Vol: MK, CPT - 4: 10976, 14060 Echo Event ID:[id number] Order ID: [id number] Reason for Study:Ulcer. PMH of HTN, HLD, DM, PVD, ESRD s/p DDKT in 2012. Procedures:Colorflow, Grayscale/2D, Pulsed wave Doppler Race: C SUMMARY: DUPLEX SCAN OBSERVATIONS: RIGHT: There is hard and calcified plaque noted in the common femoral and proximal profunda arteries. Diffuse calcification is noted in the superificial femoral, popliteal, posterior tibial, peroneal and anterior tibial arteries. Color disturbance with elevated velocities noted in the proximal anterior tibial artery (ratio 2.5). PRELIMINARY FINDINGS: 1. 50-75% stenosis noted in the right anterior tibial artery (ratio 2.5). 2. < 50% stenosis noted in the right common femoral and profunda arteries. 3. Toe/brachial indices fall into mild category on the right and normal on the left. 4. Unable to obtain ankle/brachial indices due to incompressible arteries. PHYSICIAN INTERPRETATION: Arterial duplex examination of right lower extremity demonstrates 50-75% stenosis noted in the right anterior tibial artery (ratio 2.5). Calcificaitons. Toe/brachial indices fall into mild category on the right and normal on the left. MEASUREMENTS: DOPPLER Right RESIDENTIAL TREATMENT SPECIALIST prox RESIDENTIAL TREATMENT SPECIALIST prox PSV 128 cm/s Right Profunda Profunda PSV 98.2 cm/s Right SFA Dist SFA Dist PSV 154 cm/s Right SFA Mid SFA Mid PSV 121 cm/s Right SFA Prox SFA Prox PSV 114 cm/s Right Pop Dist Pop Dist PSV 112 cm/s Right Pop Prox Pop Prox PSV 157 cm/s Right LASER SYSTEMS ENGINEER Dist LASER SYSTEMS ENGINEER Dist PSV 87.6 cm/s Right LASER SYSTEMS ENGINEER Mid LASER SYSTEMS ENGINEER Mid PSV 69.9 cm/s Right LASER SYSTEMS ENGINEER Prox LASER SYSTEMS ENGINEER Prox PSV 66.6 cm/s LASER SYSTEMS ENGINEER Prox PSV 66.6 cm/s Right Peroneal Dist Peroneal Dist P 70.1 cm/s Peroneal Mid Peroneal Mid PS 56.2 cm/s Right Peroneal Prox Peroneal Prox P 66.9 cm/s Right CARLITOS Dist CARLITOS Dist PSV 71.4 cm/s Right RESIDENTIAL TREATMENT SPECIALIST Dist RESIDENTIAL TREATMENT SPECIALIST Dist PSV 128 cm/s Right LASER SYSTEMS ENGINEER Distal LASER SYSTEMS ENGINEER Distal PSV 87.6 cm/s Right CARLITOS Prox CARLITOS Prox PSV 282 cm/s Right CARLITOS Mid CARLITOS Mid PSV 56.4 cm/s Right CALRITOS Mid 2 CARLITOS Mid 2 PSV 165 cm/s Right CARLITOS Distal CARLITOS Distal PSV 71.4 cm/s PRESSURES Right Brachial Brach P 146 mmHg Right Ankle PT AnklePT P 254 mmHg Left Ankle PT AnklePT P 254 mmHg Right Ankle DP AnkleDP P 254 mmHg Left Ankle DP AnkleDP P 254 mmHg Right Great Toe GreatToe P 62 mmHg Left Great Toe GreatToe P 115 mmHg Right JULIAN PT JULIAN PT 1.74 Left JULIAN PT JULIAN PT 1.74 Right JULIAN DP JULIAN DP 1.74 Left JULIAN DP JULIAN DP 1.74 Right TBI TBI 0.425 Left TBI TBI 0.788 Signed 03/02/2018 06:18 PM Julio Rene MD, RPVI Performing Organization Address City/[facility]/Zipcode Phone Number [facility] [address] [place] [address] * Lactic acid level, SEPSIS - Now and repeat 2x every 3 hours (03/02/2018 7:30 AM) Only the most recent of 6 results within the time period is included. Lactic acid 1.6 0.5 - 2.2 mmol/L [facility] DEPARTMENT OF PATHOLOGY AND GENOMIC MEDICINE Specimen Blood Performing Organization Address City/[facility] Phone Number [facility] DEPARTMENT OF [address] [place] [address] PATHOLOGY AND GENOMIC MEDICINE * XR Foot 3+ Vw Right (03/01/2018 8:18 PM) Narrative Performed At EXAM:XR FOOT 3VW RIGHT RADIANT CLINICAL HISTORY:Osteomyelitis suspectedfoot swellingdiabetic COMPARISON:None. IMPRESSION: Question of a soft tissue defect/ulceration with minimal emphysema overlying the calcaneus. There are no radiopaque foreign bodies. There are no focal bony erosions or periostitis. Mild osseous demineralization. No evidence of acute, displaced right foot fracture or dislocation. Mild degenerative changes are identified, worse within the first tarsometatarsal and metatarsophalangeal joints. Vascular calcifications are noted. Soft tissues are otherwise normal. [facility]-[id number] Procedure Note Interface, Radiology Results Incoming - 03/01/2018 8:32 PM CDT EXAM: XR FOOT 3 VW RIGHT CLINICAL HISTORY: Osteomyelitis suspected foot swelling diabetic COMPARISON: None. IMPRESSION: Question of a soft tissue defect/ulceration with minimal emphysema overlying the calcaneus. There are no radiopaque foreign bodies. There are no focal bony erosions or periostitis. Mild osseous demineralization. No evidence of acute, displaced right foot fracture or dislocation. Mild degenerative changes are identified, worse within the first tarsometatarsal and metatarsophalangeal joints. Vascular calcifications are noted. Soft tissues are otherwise normal. [facility]-[id number] Performing Organization Address City/[facility]/Zipcode Phone Number [address] [address] * Blood culture, aerobic & anaerobic (03/01/2018 7:37 PM) Only the most recent of 8 results within the time period is included. Blood culture isolate No growth after [address] [facility] DEPARTMENT OF incubation. PATHOLOGY AND Comment: GENOMIC MEDICINE Specimen Information Specimen Source: Blood Specimen Site: Antecubital, right Specimen Blood - Antecubital, right Performing Organization Address [facility] Phone Number [facility] DEPARTMENT [address] [address] PATHOLOGY AND GENOMIC MEDICINE * CRITICAL CARE (03/01/2018 7:24 PM) Narrative Performed At Gilbert Marquis MD 03/03/2018 12:49 PM Critical Care Performed by: GILBERT MARQUIS Authorized by: GILBERT MARQUIS Critical care provider statement: Critical care time (minutes):35 Critical care time was exclusive of:Teaching time and separately billable procedures and treating other patients Critical care was necessary to treat or prevent imminent or life-threatening deterioration of the following conditions:Metabolic crisis Critical care was time spent personally by me on the following activities:Development of treatment plan with patient or surrogate, discussions with consultants, evaluation of patient's response to treatment, interpretation of cardiac output measurements, obtaining history from patient or surrogate, ordering and performing treatments and interventions, ordering and review of laboratory studies, ordering and review of radiographic studies, pulse oximetry and re-evaluation of patient's condition Luis Manuel 'yes' if you are taking over critical care for this patient from another provider.: no * C-reactive protein (03/01/2018 6:21 PM) CRP 12.47 (H) 0.00 - 0.50 mg/dL [facility] DEPARTMENT OF PATHOLOGY AND GENOMIC MEDICINE Specimen Plasma specimen Performing Organization Address [facility] Phone Number [facility] DEPARTMENT OF [address] [place] [phone] PATHOLOGY AND GENOMIC MEDICINE * Comprehensive metabolic panel (03/01/2018 6:21 PM) Only the most recent of 8 results within the time period is included. Sodium 133 (L) 135 - 148 mEq/L [facility] DEPARTMENT OF PATHOLOGY AND GENOMIC MEDICINE Potassium 4.0 3.5 - 5.0 mEq/L [facility] DEPARTMENT OF PATHOLOGY AND GENOMIC MEDICINE Chloride 91 (L) 98 - 112 mEq/L [facility] DEPARTMENT OF PATHOLOGY AND GENOMIC MEDICINE CO2 26 24 - 31 mEq/L [facility] DEPARTMENT OF PATHOLOGY AND GENOMIC MEDICINE Anion gap 16@ANIO (H) 7 - 15 mEq/L [facility] DEPARTMENT OF PATHOLOGY AND GENOMIC MEDICINE BUN 27 (H) 8 - 23 mg/dL [facility] DEPARTMENT OF PATHOLOGY AND GENOMIC MEDICINE Creatinine 0.9 0.70 - 1.20 mg/dL [facility] DEPARTMENT OF PATHOLOGY AND GENOMIC MEDICINE Glucose 390 (H) 65 - 99 mg/dL [facility] DEPARTMENT OF PATHOLOGY AND GENOMIC MEDICINE Calcium 9.7 8.8 - 10.2 mg/dL [facility] DEPARTMENT OF PATHOLOGY AND GENOMIC MEDICINE Protein 8.3 6.3 - 8.3 g/dL [facility] DEPARTMENT OF Comment: PATHOLOGY AND [place] GENOMIC MEDICINE 4.6-7.0 g/dL 1 week 4.4-7.6 g/dL 7 months-1year 5.1-7.3 g/dL 1-2 years5.6-7 .5 g/dL >3 years6.0-8 .0 g/dL 18-150 6.3-8.3 g/dL Albumin 3.0 (L) 3.5 - 5.0 g/dL [facility] DEPARTMENT OF PATHOLOGY AND GENOMIC MEDICINE A/G ratio 0.6 (L) 0.7 - 3.[address] [facility] DEPARTMENT OF PATHOLOGY AND GENOMIC MEDICINE Alkaline phosphatase 78 40 - 129 U/L [facility] DEPARTMENT OF PATHOLOGY AND GENOMIC MEDICINE AST 20 10 - 50 U/L [facility] DEPARTMENT OF PATHOLOGY AND GENOMIC MEDICINE ALT 15 5 - 50 U/L [facility] DEPARTMENT OF PATHOLOGY AND GENOMIC MEDICINE Total bilirubin 0.5 0.0 - 1.2 mg/dL [facility] DEPARTMENT OF PATHOLOGY AND GENOMIC MEDICINE Specimen Plasma specimen Performing Organization Address City/State/Zipcode Phone Number [place] [phone] [place] [address] PATHOLOGY AND GENOMIC MEDICINE * Tissue transglutaminase Ab, IgA (08/22/2017 1:29 PM) Tissue transglutaminase 1 0 - 3 U/mL [facility] Ab, IgA Comment: INTERPRETIVE INFORMATION: Tissue Transglutaminase (tTG) Antibody, IgA 3 U/mL or less: Negative 4-10 U/mL: Weak Positive 11 U/mL or greater: Positive Presence of the tissue transglutaminase (tTG) IgA antibody is associated with glutensensitive enteropathies such as celiac disease and dermatitis herpetiformis. tTG IgA antibody concentrations greater than 40 U/mL usually correlate with results of duodenal biopsies consistent with a diagnosis of celiac disease. For antibody concentrations greater or equal to 4 U/mL but less than or equal to 40 U/mL, additional testing for endomysial (KELLEN) IgA concentrations may improve the positive predictive value for disease. Performed by [employer], [address] [place] [id number] [email or web address] Colby Smith MD - Lab. Director Specimen Serum Performing Organization Address [facility] Centercode Phone Number [facility] [employer] LABORATORY [address] [place], [place] [phone] * Sedimentation rate (08/22/2017 1:29 PM) Sedimentation rate 36 (H) 0 - 10 mm/hr [facility] DEPARTMENT OF PATHOLOGY AND GENOMIC MEDICINE Specimen Blood Performing Organization Address [facility] [place] [address] PATHOLOGY AND [facility] * Immunoglobulin A (08/22/2017 1:29 PM) IgA 322 70 - 400 mg/dL [facility] DEPARTMENT OF PATHOLOGY AND [employer] [facility] Specimen Plasma specimen Performing Organization Address [facility] [place] [address] PATHOLOGY AND [facility] * Respiratory pathogen panel (07/29/2017 4:15 PM) Respiratory pathogen Positive for Influenza B virus [facility] DEPARTMENT OF panel Negative for all other PATHOLOGY AND pathogens tested: GENOMIC MEDICINE Negative for Adenovirus Negative for Coronavirus HKU1 Negative for Coronavirus NL63 Negative for Coronavirus 229E Negative for Coronavirus OC43 Negative for Human Metapneumovirus Negative for Rhinovirus/Enterovirus Negative for Influenza A Negative for Influenza A/H1 Negative for Influenza A/H3 Negative for Influenza A/H1-2009 Negative for Parainfluenza Virus 1 Negative for Parainfluenza Virus 2 Negative for Parainfluenza Virus 3 Negative for Parainfluenza Virus 4 Negative for Respiratory Syncytial Virus Negative for Bordetella pertussis Negative for Chlamydophila pneumoniae Negative for Mycoplasma pneumoniae This real-time PCR assay detects the presence of nucleic acids (RNA or DNA) for the respiratory pathogens listed. A result of "Not-detected" does not exclude the possibility of the presence of one or more pathogens at concentrations less than the detectable limits of the assa (A) Comment: Specimen Information Specimen Source: Nares Specimen Site: Left Specimen Nares - Left Performing Organization Address City/[facility]/[place] [address] PATHOLOGY AND [facility] * Influenza antigen (07/29/2017 4:15 PM) Influenza antigen Negative for Influenza A/B [facility] DEPARTMENT OF antigen. PATHOLOGY AND Comment: GENOMIC MEDICINE Specimen Information Specimen Source: Nares Specimen Site: Left Specimen Nares - Left Performing Organization Address [facility] [place] [address] PATHOLOGY AND GENOMIC [facility] * Urinalysis screen and microscopy, with reflex to culture (07/29/2017 2:40 PM) Only the most recent of 5 results within the time period is included. Specimen site Clean catch [facility] DEPARTMENT OF PATHOLOGY AND GENOMIC MEDICINE Color, UA Yellow [facility] DEPARTMENT OF PATHOLOGY AND GENOMIC MEDICINE Appearance, UA Clear [facility] DEPARTMENT OF PATHOLOGY AND GENOMIC MEDICINE Specific gravity, UA 1.016 1.001 - 1.[address] [facility] DEPARTMENT OF PATHOLOGY AND GENOMIC MEDICINE pH, UA 5.0 5.0 - 8.[address] [facility] DEPARTMENT OF PATHOLOGY AND GENOMIC MEDICINE Protein, UA Negative Negative [facility] DEPARTMENT OF PATHOLOGY AND GENOMIC MEDICINE Glucose, UA Negative Negative [facility] DEPARTMENT OF PATHOLOGY AND GENOMIC MEDICINE Ketones, UA Negative Negative [facility] DEPARTMENT OF PATHOLOGY AND GENOMIC MEDICINE Bilirubin, UA Negative Negative [facility] DEPARTMENT OF PATHOLOGY AND GENOMIC MEDICINE Blood, UA Negative Negative [facility] DEPARTMENT OF PATHOLOGY AND GENOMIC MEDICINE Nitrite, UA Negative Negative [facility] DEPARTMENT OF PATHOLOGY AND GENOMIC MEDICINE Urobilinogen, UA <2.0 <2.[address] [facility] DEPARTMENT OF PATHOLOGY AND GENOMIC MEDICINE Leukocyte esterase, UA Negative Negative [facility] DEPARTMENT OF PATHOLOGY AND GENOMIC MEDICINE Epithelial cells, UA 1 /HPF [facility] DEPARTMENT OF PATHOLOGY AND GENOMIC MEDICINE WBC, UA 2 (H) 0 - 1 /HPF [facility] DEPARTMENT OF PATHOLOGY AND GENOMIC MEDICINE RBC, UA 2 (H) 0 - 1 /HPF [facility] DEPARTMENT OF PATHOLOGY AND GENOMIC MEDICINE Bacteria, UA Few None seen [facility] DEPARTMENT OF PATHOLOGY AND GENOMIC MEDICINE Yeast, UA None seen [facility] DEPARTMENT OF PATHOLOGY AND GENOMIC MEDICINE Yeast with pseudohyphae, None seen [facility] DEPARTMENT OF UA PATHOLOGY AND GENOMIC MEDICINE Hyaline casts, UA 7 /LPF [facility] DEPARTMENT OF PATHOLOGY AND GENOMIC MEDICINE Specimen Urine Performing Organization Address City/[facility]/Zipcode Phone Number [facility] [place] [address] PATHOLOGY AND GENOMIC MEDICINE * Urine culture (07/29/2017 2:40 PM) Only the most recent of 5 results within the time period is included. Urine culture SEE COMMENTComment: [facility] DEPARTMENT OF Bacteriuria screen negative. PATHOLOGY AND GENOMIC MEDICINE Performing Organization Address City/[facility]/Zipcode Phone Number [facility] [place] [address] PATHOLOGY AND GENOMIC MEDICINE * Sputum culture (07/29/2017 2:15 PM) Sputum culture isolate Normal oral lauri isolated. [facility] DEPARTMENT OF Comment: PATHOLOGY AND Specimen Information GENOMIC MEDICINE Specimen Source: Sputum Specimen Site: Not otherwise specified Specimen Sputum - Not otherwise specified Performing Organization Address City/[facility]/Zipcode Phone Number [facility] [place] [address] PATHOLOGY AND GENOMIC MEDICINE * XR Chest 2 Vw (07/29/2017 1:30 PM) Only the most recent of 2 results within the time period is included. Narrative Performed At Examination:XR CHEST 2 VW RADIANT Clinical history:"Fever" Comparison:05/25/2017 Two radiographic views of the chest were evaluated. IMPRESSION: There are no apparent infiltrates, pleural effusions, or pneumothoraces. The cardiomediastinal silhouette and the imaged bones are stable in appearance. [id number] Procedure Note Hm Interface, Radiology Results Incoming - 07/29/2017 1:36 PM [facility] Examination: XR CHEST 2 VW Clinical history: "Fever" Comparison: 05/25/2017 Two radiographic views of the chest were evaluated. IMPRESSION: There are no apparent infiltrates, pleural effusions, or pneumothoraces. The cardiomediastinal silhouette and the imaged bones are stable in appearance. [id number] Performing Organization Address City/[facility] [place] [address] * Protein, urine, random (06/07/2017 12:20 PM) Protein, urine random 9 mg/dL [facility] DEPARTMENT OF PATHOLOGY AND GENOMIC MEDICINE Specimen Urine Performing Organization Address [facility] Phone Number [facility] [place] [address] PATHOLOGY AND GENOMIC MEDICINE * Creatinine level, urine, random (06/07/2017 12:20 PM) Creatinine, urine, random 89 mg/dL [facility] DEPARTMENT OF PATHOLOGY AND GENOMIC MEDICINE Specimen Urine Performing Organization Address [facility] Phone Number [facility] [place] [address] PATHOLOGY AND [facility] * MRI Abdomen Wo Contrast (05/26/2017 6:03 PM) Narrative Performed At [facility] EXAMINATION:MRI ABDOMEN WO CONTRAST CLINICAL HISTORY:pancreatic mass. Kidney tarnsplant pt and [place] not allowed per Nephrolgy. TECHNIQUE: Multiplanar multisequence MR images of the abdomen were obtained without contrast. The lack of intravenous contrast reduces the sensitivity of detecting solid organ disease.MRCP images were obtained with 3-D reconstructions on the acquisition scanner under concurrent supervision. COMPARISON:To a CT scan of the abdomen from 05/25/2017 FINDINGS: 1.Some iron deposition may be present within the liver and the spleen. A focal mass is not appreciated within the liver or the spleen. 2.The adrenal glands are normal in appearance. The duckwater kidneys are severely atrophic. 3.The pancreas is moderately atrophic. IMPRESSION: There is a 4 cm mass that appears to lie adjacent to the neck of the pancreas. This finding may represent a gastrointestinal stromal tumor. Further evaluation with endoscopic ultrasound may be of benefit. [id number] Procedure Note Interface, Radiology Results Incoming - 05/26/2017 6:47 PM [facility] EXAMINATION: MRI ABDOMEN WO CONTRAST CLINICAL HISTORY: pancreatic mass. Kidney tarnsplant pt and [place] not allowed per Nephrolgy. TECHNIQUE: Multiplanar multisequence MR images of the abdomen were obtained without contrast. The lack of intravenous contrast reduces the sensitivity of detecting solid organ disease. MRCP images were obtained with 3-D reconstructions on the acquisition scanner under concurrent supervision. COMPARISON: To a CT scan of the abdomen from 05/25/2017 FINDINGS: 1. Some iron deposition may be present within the liver and the spleen. A focal mass is not appreciated within the liver or the spleen. 2. The adrenal glands are normal in appearance. The duck[place] kidneys are severely atrophic. 3. The pancreas is moderately atrophic. IMPRESSION: There is a 4 cm mass that appears to lie adjacent to the neck of the pancreas. This finding may represent a gastrointestinal stromal tumor. Further evaluation with endoscopic ultrasound may be of benefit. [facility]-[id number] Performing Organization Address City/State/Zipcode Phone Number [facility] [address] [place] [address] * US Renal Transplant Doppler (05/26/2017 2:35 PM) Narrative Performed At EXAMINATION:US RENAL TRANSPLANT DOPPLER [facility] CLINICAL HISTORY:Abnormal labs clinical exam TECHNIQUE: Sonographic images of the renal transplant were obtained as well as grayscale, color Doppler, and waveform analysis of the renal transplant vessels. COMPARISON:None. FINDINGS: The right iliac fossa renal transplant is normal in size and echogenicity. There is no evidence of renal mass, calculi, or hydronephrosis. There are no perinephric fluid collections. The transplant renal artery and vein are patent with normal flow direction and waveform. The urinary bladder is unremarkable. IMPRESSION: Normal renal ultrasound examination. [facility]-[id number] Procedure Note Interface, Radiology Results Incoming - 05/26/2017 3:49 PM [facility] EXAMINATION: US RENAL TRANSPLANT DOPPLER CLINICAL HISTORY: Abnormal labs clinical exam TECHNIQUE: Sonographic images of the renal transplant were obtained as well as grayscale, color Doppler, and waveform analysis of the renal transplant vessels. COMPARISON: None. FINDINGS: The right iliac fossa renal transplant is normal in size and echogenicity. There is no evidence of renal mass, calculi, or hydronephrosis. There are no perinephric fluid collections. The transplant renal artery and vein are patent with normal flow direction and waveform. The urinary bladder is unremarkable. IMPRESSION: Normal renal ultrasound examination. 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 T waves: T waves: normal * Uric acid level (05/26/2017 5:20 AM) Uric acid 10.3 (H) 3.4 - 7.0 mg/dL [facility] DEPARTMENT OF PATHOLOGY AND GENOMIC MEDICINE Specimen Plasma specimen Performing Organization Address [facility] [place] [address] [facility] * Thyroid stimulating hormone (05/26/2017 5:20 AM) TSH 0.91 0.27 - 4.20 uIU/mL [facility] DEPARTMENT OF PATHOLOGY AND GENOMIC MEDICINE Specimen Plasma specimen Performing Organization Address [facility] Phone Number [facility] [place] [address] [facility] * T4, free (05/26/2017 5:20 AM) T4, free 1.1 0.9 - 1.7 ng/dL [facility] DEPARTMENT OF PATHOLOGY AND GENOMIC MEDICINE Specimen Plasma specimen Performing Organization Address [facility] [place] [address] [facility] * Prealbumin level (05/26/2017 5:20 AM) Prealbumin 19 16 - 32 mg/dL [facility] DEPARTMENT OF PATHOLOGY AND GENOMIC MEDICINE Specimen Serum Performing Organization Address City/[facility] [place] [address] PATHOLOGY AND GENOMIC MEDICINE * B natriuretic peptide (05/26/2017 5:20 AM) Only the most recent of 2 results within the time period is included. BNP 108 (H) 0 - 100 pg/mL [facility] DEPARTMENT OF PATHOLOGY AND GENOMIC MEDICINE Specimen Blood Performing Organization Address City/[facility] [place] [address] PATHOLOGY AND GENOMIC MEDICINE * Creatine kinase, total (CPK) (05/26/2017 5:20 AM) Only the most recent of 2 results within the time period is included. Creatine kinase 21 (L) 39 - 308 U/L [facility] DEPARTMENT OF PATHOLOGY AND GENOMIC MEDICINE Specimen Plasma specimen Performing Organization Address City/[facility] [place] [address] PATHOLOGY AND GENOMIC MEDICINE * Bilirubin direct (05/26/2017 5:20 AM) Bilirubin direct <0.2 0.0 - 0.3 mg/dL [facility] DEPARTMENT OF PATHOLOGY AND GENOMIC MEDICINE Specimen Plasma specimen Performing Organization Address [facility] [place] [place] [address] PATHOLOGY AND GENOMIC MEDICINE * Lipid panel (05/26/2017 5:20 AM) Cholesterol 136 <200 mg/dL [facility] DEPARTMENT OF PATHOLOGY AND GENOMIC MEDICINE Triglycerides 94 <150 mg/dL [facility] DEPARTMENT OF PATHOLOGY AND GENOMIC MEDICINE HDL cholesterol 32 (L) >40 mg/dL [facility] DEPARTMENT OF PATHOLOGY AND GENOMIC MEDICINE LDL cholesterol 89Comment: Result obtained by <100 mg/dL [facility] DEPARTMENT OF direct LDL measurement PATHOLOGY AND GENOMIC MEDICINE Lipid panel SeeBelow [facility] DEPARTMENT OF interpretation Comment: PATHOLOGY AND Total Cholesterol GENOMIC MEDICINE (mg/dL) <200 Desirable 200-239Borderline -high >=240High Triglycerides (mg/dL) <150 Normal 150-199Borderline -high 200-499High >=500Very high HDL Cholesterol (mg/dL) <40Low (male) <40Low (female) LDL Cholesterol (mg/dL) <100 Optimal 100-129Near or above optimal 130-159Borderline -high 160-189High >=190Very high Risk Catergories that modify LDL goals. Risk Catergories LDL goal (mg/dL) CHD and CHD risk equivalent<100 (10-year risk >20%) Multiple (2+) risk factors <130 (10-year risk=<20%) 0-1 risk factors <160 (<10-year risk) Defining levels of lipids in metabolic syndrome Triglycerides >=150 mg/dL HDL Cholesterol Men <40 mg/dL Women <40 mg/dL Non-HDL cholesterol is a second target for therapy in persons with high triglycerides (>=200 mg/dL) Specimen Plasma specimen Performing Organization Address City/State/Zipcode Phone Number [facility] DEPARTMENT OF [address] [place] [address] PATHOLOGY AND GENOMIC MEDICINE * CT Renal Stone Protocol (05/25/2017 10:00 PM) Narrative Performed At [facility]:left flank left upper quad pain TECHNIQUE: Multidetector CT examination of the abdomen and pelvis performed without intravenous contrast per renal stone protocol. CT imaging was performed with iterative reconstruction technique and/or automated exposure control to reduce radiation dose. COMPARISON:03/27/2015. FINDINGS: Note, the lack of intravenous contrast decreases sensitivity of this exam and limits evaluation of the abdominal and pelvic viscera. URINARY TRACT:There is atrophy of both kidneys, compatible with chronic renal failure. There is a right lower quadrant transplant kidney. There is no perinephric fluid collection, hydronephrosis, or suspicious renal mass. No obstructing urinary tract calculus is identified. LOWER THORAX: The visualized lungs are clear. There is slight prominence of the breast tissue, compatible with gynecomastia. There is calcified atherosclerotic disease of the coronary arteries. LIVER:Normal. BILIARY:There are surgical changes compatible with prior cholecystectomy. There is no abnormal biliary dilation. SPLEEN:Normal. PANCREAS:There is a soft tissue density mass located at the anterior aspect of the pancreatic body that measures 4.1 x 4.1 cm in the axial plane. There is no pancreatic ductal dilation and the remainder of the pancreas is normal in appearance. ADRENALS:There is redemonstration of a 1.0 cm left adrenal gland adenoma. The right adrenal gland is normal. GI:Large and small bowel are normal in caliber.There are no inflammatory changes.Appendix is visualized and appears normal. VASCULAR:There is calcified atherosclerotic disease of the intra-abdominal vasculature. The abdominal aorta is normal in appearance. LYMPH NODES:No enlarged lymph nodes in the abdomen or pelvis. PELVIS:The urinary bladder is decompressed, limiting evaluation. The prostate gland is mildly large. BONES:There are no acute osseous abnormalities. OTHER:There is a small, fat-containing umbilical hernia. There is no ascites or pneumoperitoneum. IMPRESSION: 1. No urinary tract calculus or hydronephrosis. 2. No acute intra-abdominal abnormality. 3. Well-defined mass located at the anterior aspect of the pancreatic body, measuring 4.1 x 4.1 cm in size. The appearance is not typical for an adenocarcinoma and further evaluation with a nonemergent, contrast enhanced MRI is recommended. [facility]-[id number] Procedure Note [facility], Radiology Results Incoming - 05/25/2017 10:39 PM [facility] CT RENAL STONE PROTOCOL CLINICAL INDICATION: left flank left upper quad pain TECHNIQUE: Multidetector CT examination of the abdomen and pelvis performed without intravenous contrast per renal stone protocol. CT imaging was performed with iterative reconstruction technique and/or automated exposure control to reduce radiation dose. COMPARISON: 03/27/2015. FINDINGS: Note, the lack of intravenous contrast decreases sensitivity of this exam and limits evaluation of the abdominal and pelvic viscera. URINARY TRACT: There is atrophy of both kidneys, compatible with chronic renal failure. There is a right lower quadrant transplant kidney. There is no perinephric fluid collection, hydronephrosis, or suspicious renal mass. No obstructing urinary tract calculus is identified. LOWER THORAX: The visualized lungs are clear. There is slight prominence of the breast tissue, compatible with gynecomastia. There is calcified atherosclerotic disease of the coronary arteries. LIVER: Normal. BILIARY: There are surgical changes compatible with prior cholecystectomy. There is no abnormal biliary dilation. SPLEEN: Normal. PANCREAS: There is a soft tissue density mass located at the anterior aspect of the pancreatic body that measures 4.1 x 4.1 cm in the axial plane. There is no pancreatic ductal dilation and the remainder of the pancreas is normal in appearance. ADRENALS: There is redemonstration of a 1.0 cm left adrenal gland adenoma. The right adrenal gland is normal. GI: Large and small bowel are normal in caliber. There are no inflammatory changes. Appendix is visualized and appears normal. VASCULAR: There is calcified atherosclerotic disease of the intra-abdominal vasculature. The abdominal aorta is normal in appearance. LYMPH NODES: No enlarged lymph nodes in the abdomen or pelvis. PELVIS: The urinary bladder is decompressed, limiting evaluation. The prostate gland is mildly large. BONES: There are no acute osseous abnormalities. OTHER: There is a small, fat-containing umbilical hernia. There is no ascites or pneumoperitoneum. IMPRESSION: 1. No urinary tract calculus or hydronephrosis. 2. No acute intra-abdominal abnormality. 3. Well-defined mass located at the anterior aspect of the pancreatic body, measuring 4.1 x 4.1 cm in size. The appearance is not typical for an adenocarcinoma and further evaluation with a nonemergent, contrast enhanced MRI is recommended. [facility]-[id number] Performing Organization Address City/State/Zipcode Phone Number [place] [phone] [place] [address] * Troponin (05/25/2017 9:51 PM) Only the most recent of 2 results within the time period is included. Troponin <0.30 0.00 - 0.30 ng/mL [facility] DEPARTMENT OF Comment: PATHOLOGY AND 0.30 - 1.49 GENOMIC MEDICINE ng/mlMay indicate increased risk of acute coronary syndrome. >=1.5 ng/ml Consistent with acute myocardial infarction. The diagnostic value of a single normal or non-diagnostic result is questionable.Serial samples at 2-6 hour intervals are required to rule out acute myocardial injury. Specimen Plasma specimen Performing Organization Address City/State/Zipcode Phone Number [facility] DEPARTMENT OF [address] [place] [address] PATHOLOGY AND GENOMIC MEDICINE * MRI Lower Extremity Wo Contrast Right (04/14/2017 6:34 PM) Narrative Performed At [facility] EXAMINATION:MRI LOWER EXTREMITY WO CONTRAST RIGHT CLINICAL HISTORY:cellulitis right LE with associated bacteremia COMPARISON:Radiographs performed on 12/16/2015. TECHNIQUE: Multiplanar multisequence MRI of the right tibia and fibula was performed without contrast. FINDINGS: There is soft tissue edema and swelling of the right lower extremity. No organized soft tissue fluid collection is identified. There is no significant thickening of the deep fascia or intramuscular fluid collection. There is no bone marrow edema to suggest osteomyelitis. There is no acute traumatic or stress related fracture. There is T2 hyperintensity of the visualized musculature, likely representing peripheral neuropathy given the history of diabetes. IMPRESSION: 1. Soft tissue edema and swelling of the right lower extremity without evidence of a soft tissue abscess. 2. No osteomyelitis. [facility]-[id number] Procedure Note [facility], Radiology Results Incoming - 04/14/2017 7:31 PM CDT EXAMINATION: MRI LOWER EXTREMITY WO CONTRAST RIGHT CLINICAL HISTORY: cellulitis right LE with associated bacteremia COMPARISON: Radiographs performed on 12/16/2015. TECHNIQUE: Multiplanar multisequence MRI of the right tibia and fibula was performed without contrast. FINDINGS: There is soft tissue edema and swelling of the right lower extremity. No organized soft tissue fluid collection is identified. There is no significant thickening of the deep fascia or intramuscular fluid collection. There is no bone marrow edema to suggest osteomyelitis. There is no acute traumatic or stress related fracture. There is T2 hyperintensity of the visualized musculature, likely representing peripheral neuropathy given the history of diabetes. IMPRESSION: 1. Soft tissue edema and swelling of the right lower extremity without evidence of a soft tissue abscess. 2. No osteomyelitis. [facility]-[id number] Performing Organization Address City/State/[facility] Phone Number [facility] [address] [place] [address] * Anti Xa, low molecular weight (04/14/2017 1:15 PM) Heparin name Lovenox [facility] DEPARTMENT OF PATHOLOGY AND GENOMIC MEDICINE Anti Xa, low molecular 0.71 0.60 - 1.00 U/mL [facility] DEPARTMENT OF weight Comment: PATHOLOGY AND Specimen must be drawn at [facility] least 4 hours post dose following a minimum of 3 doses. Therapeutic Range:0.60 - 1.00 U/mL Specimen Blood Performing Organization Address [facility] Phone Number [facility] DEPARTMENT OF [address] [place] [address] PATHOLOGY AND GENOMIC MEDICINE * Hemoglobin A1c (04/13/2017 6:15 AM) Hemoglobin A1C 9.4 (H) 4.0 - 5.6 % [facility] DEPARTMENT OF Comment: PATHOLOGY AND HbA1c cutoffs for diagnosing [facility] diabetes: 4.0% - 5.6%=normal 5.7% - 6.4%=increased risk for diabetes (prediabetes) >=6.5%=diabetes Goals for glycemic control (ADA 2016) < 7.0%Target for non adults with diabetes. More or less stringent targets may be appropriate for individual patients. <7.5% Target for Children and adolescents with type 1 diabetes. Performing Organization Address City/State/Zipcode Phone Number [facility] DEPARTMENT OF [address] [place], [place] [id number] PATHOLOGY AND GENOMIC MEDICINE * CRITICAL CARE (04/11/2017 12:52 PM) Narrative Performed At Rey Gray MD 04/11/2017 12:52 PM Critical Care Performed by: VADIM MARCUS Authorized by: REY GRAY Critical care provider statement: Critical care time (minutes):35 Critical care time was exclusive of:Separately billable procedures and treating other patients and teaching time (sepsis) Critical care was necessary to treat or prevent imminent or life-threatening deterioration of the following conditions:Sepsis, circulatory failure, dehydration and metabolic crisis Critical care was time spent personally by me on the following activities:Blood draw for specimens, development of treatment plan with patient or surrogate, discussions with consultants, evaluation of patient's response to treatment, examination of patient, obtaining history from patient or surrogate, ordering and review of radiographic studies, ordering and review of laboratory studies, review of old charts, re-evaluation of patient's condition, pulse oximetry and ordering and performing treatments and interventions * PV duplex venous lower extremity (04/11/2017 9:30 AM) Narrative Performed At [facility] Vascular Ultrasound Laboratory Lower Extremity Venous Report [address] [place], [place] [id number] [facility].Name:Roger RENTERIA.ID:[id number] .Date: 04/11/2017Refer.MD:RYDER PAZ MD Exam Time: 8:13:00 AMStudy Type:LE Venous Height:68inWeight:222lb BSA: 2.14 m2 DOBAge:1955,62Y Sex: MALESonogrphr: Bia Tuttle RVT Pat. Stat.:Inpatient Room:[address] TapeVol: , CPT - 4: 61101 Echo Event ID:[id number] Order ID:[id number] Reason for Study:Bilateral leg edema.Rule out DVT.History of cellulitis ofthe right lower leg, chronic inflammatory demyelinating polyneuritis, CKD, DM HLD and HTN. Race:C SUMMARY: * Normal Reflux Criteria:< 0.5 seconds * Abnormal Reflux Criteria:> or equal to 0.5 seconds DUPLEX SCAN OBSERVATIONS Deep VeinsSuperficial Veins RightLeft RightLeft EIV GSV (prox) NormalNormal CFV Normal Normal (above knee) Femoral Normal Normal GSV (dist) Chronic Normal Profunda Normal Normal (below knee) Popliteal Normal Normal PT (prox) Normal Not visualizedSSV Not Visualized Not Visualized PT (dist) Partial Not Visualized Peroneal Normal Not Visualized RIGHT:Oneof paired proximal posterior tibial veins is partially compressible with diminished colorflow and Doppler signals. Remaining veins are compressible with colorflow and Doppler signals.There is non-vascular hypoechoic structure seen in thegroin area, measureing, 1.8 x 1.0 cm and 3.6cm in length. Short segement of the great saphenous vein is non-compressible with echogenic material inside of vein with absent colorflow and there is valvular incompetency of the great saphenous vein below knee. LEFT: There is normal compressibility with no evidence of echogenic material noted within the lumen of the visualized veins.Colorflow and Doppler signals are normal. Posterior tibial and peroneal vein are not visualized due to the dressing. PRELIMINARY FINDINGS 1. Patial deep venous thrombosis of the right one of paired proximal posterior tibial vein. 2. Chronic venous thrombosis of the right great saphenous vein below knee. 3. Valvular incompetency of the right great saphenous vein below knee. 4. There is non-vascular hypoechoic structure seen in theright groin area, measureing, 1.8 x 1.0 cm and 3.6cm in length. The results given to NABEEL Renteria at 12:23pm 04/11/2017 PHYSICIAN INTERPRETATION Venous examination of the both lower extremities demonstrated a patial deep venous thrombosis of the right one of paired proximal posterior tibial vein and a chronic venous thrombosis of the right great saphenous vein below knee. Valvular incompetency seenof the right great saphenous vein below knee. Enlarged right groin lymph node. Signed 04/11/2017 02:28 PM Julio Rene MD, RPVI Procedure Note Interface, Radiology Results In - 04/11/2017 2:30 PM CDT Vascular Ultrasound Laboratory Lower Extremity Venous Report [address] [place] [address] Pat.Name: ALMA RENTERIA.ID: [id number] St.Date: 04/11/2017 Refer.MD: RYDER PAZ MD Exam Time: 8:13:00 AM Study Type:LE Venous Height: 68in Weight: 222lb BSA: 2.14 m2 Age: 10 1955,62Y Sex: MALE Sonogrphr: Bia Tuttle RVT Pat. Stat.:Inpatient Room: [address] Vol: , CPT - 4: 61846 Echo Event ID:[id number] Order ID: [id number] Reason for Study:Bilateral leg edema. Rule out DVT. History of cellulitis of the right lower leg, chronic inflammatory demyelinating polyneuritis, CKD, DM HLD and HTN. Race: C SUMMARY: * Normal Reflux Criteria: < 0.5 seconds * Abnormal Reflux Criteria: > or equal to 0.5 seconds DUPLEX SCAN OBSERVATIONS Deep Veins Superficial Veins Right Left Right Left EIV GSV (prox) Normal Normal CFV Normal Normal (above knee) Femoral Normal Normal GSV (dist) Chronic Normal Profunda Normal Normal (below knee) Popliteal Normal Normal PT (prox) Normal Not visualized SSV Not Visualized Not Visualized PT (dist) Partial Not Visualized Peroneal Normal Not Visualized RIGHT:One of paired proximal posterior tibial veins is partially compressible with diminished colorflow and Doppler signals. Remaining veins are compressible with colorflow and Doppler signals. There is non-vascular hypoechoic structure seen in the groin area, measureing, 1.8 x 1.0 cm and 3.6cm in length. Short segement of the great saphenous vein is non-compressible with echogenic material inside of vein with absent colorflow and there is valvular incompetency of the great saphenous vein below knee. LEFT: There is normal compressibility with no evidence of echogenic material noted within the lumen of the visualized veins.Colorflow and Doppler signals are normal. Posterior tibial and peroneal vein are not visualized due to the dressing. PRELIMINARY FINDINGS 1. Patial deep venous thrombosis of the right one of paired proximal posterior tibial vein. 2. Chronic venous thrombosis of the right great saphenous vein below knee. 3. Valvular incompetency of the right great saphenous vein below knee. 4. There is non-vascular hypoechoic structure seen in the right groin area, measureing, 1.8 x 1.0 cm and 3.6cm in length. The results given to NABEEL Renteria at 12:23pm 04/11/2017 PHYSICIAN INTERPRETATION Venous examination of the both lower extremities demonstrated a patial deep venous thrombosis of the right one of paired proximal posterior tibial vein and a chronic venous thrombosis of the right great saphenous vein below knee. Valvular incompetency seen of the right great saphenous vein below knee. Enlarged right groin lymph node. Signed 04/11/2017 02:28 PM Julio Rene MD, RPVI Performing Organization Address City/[facility]/Zipcode Phone Number [facility] [address] [place] [address] * Lactic acid level (04/11/2017 5:06 AM) Only the most recent of 3 results within the time period is included. Lactic acid 3.8 (HH) 0.5 - 2.2 mmol/L [facility] DEPARTMENT OF PATHOLOGY AND GENOMIC MEDICINE Specimen Plasma specimen Performing Organization Address City/[facility]/Zipcode Phone Number [facility] DEPARTMENT OF [address] [place] [phone] PATHOLOGY AND GENOMIC MEDICINE * Bedside glucose (04/10/2017 5:34 PM) POC glucose 176mg/dl Specimen Blood * Manual differential (04/10/2017 4:40 PM) Manual differential PERFORMED [facility] DEPARTMENT OF PATHOLOGY AND GENOMIC MEDICINE Neutrophils 97.0 (H) 39.0 - 69.0 % [facility] DEPARTMENT OF PATHOLOGY AND GENOMIC MEDICINE Lymphocytes 1.0 (L) 25.0 - 45.0 % [facility] DEPARTMENT OF PATHOLOGY AND GENOMIC MEDICINE Monocytes 2.0 0.0 - 10.0 % [facility] DEPARTMENT OF PATHOLOGY AND GENOMIC MEDICINE Eosinophils 0.0 0.0 - 5.0 % [facility] DEPARTMENT OF PATHOLOGY AND GENOMIC MEDICINE Basophils 0.0 0.0 - 1.0 % [facility] DEPARTMENT OF PATHOLOGY AND GENOMIC MEDICINE Metamyelocytes 0 % [facility] DEPARTMENT OF PATHOLOGY AND GENOMIC MEDICINE Promyelocytes 0 % [facility] DEPARTMENT OF PATHOLOGY AND GENOMIC MEDICINE Platelet slide review Jennifer adequate [facility] DEPARTMENT OF PATHOLOGY AND GENOMIC MEDICINE Dohle bodies Occasional [facility] DEPARTMENT OF PATHOLOGY AND GENOMIC MEDICINE Toxic granulation Slight [facility] DEPARTMENT OF PATHOLOGY AND GENOMIC MEDICINE Neutrophils, vacuolated Slight [facility] DEPARTMENT OF PATHOLOGY AND GENOMIC MEDICINE Polychromasia Moderate [facility] DEPARTMENT OF PATHOLOGY AND GENOMIC MEDICINE Spherocytes Occasional [facility] DEPARTMENT OF PATHOLOGY AND GENOMIC MEDICINE Enlarged platelets Moderate (A) [facility] DEPARTMENT OF PATHOLOGY AND GENOMIC MEDICINE Performing Organization Address City/[facility] Phone Number [facility] DEPARTMENT OF [address] [place] [phone] PATHOLOGY AND GENOMIC MEDICINE * XR Chest 1 Vw (04/10/2017 4:38 PM) Narrative Performed At EXAMINATION:XR CHEST 1 VW RADIANT CLINICAL HISTORY:Fever COMPARISON:01/05/2014 IMPRESSION: 1. Lung volumes are low. Lungs are clear of acute infiltrate, consolidation, or pleural effusion. 2. The cardiac silhouette is not enlarged. Pulmonary vasculature is within normal limits. The thoracic aorta is atherosclerotic. 3. The visualized osseous structures are intact. [facility]-[id number] Procedure Note Interface, Radiology Results Incoming - 04/10/2017 4:42 PM CDT EXAMINATION: XR CHEST 1 VW CLINICAL HISTORY: Fever COMPARISON: 01/05/2014 IMPRESSION: 1. Lung volumes are low. Lungs are clear of acute infiltrate, consolidation, or pleural effusion. 2. The cardiac silhouette is not enlarged. Pulmonary vasculature is within normal limits. The thoracic aorta is atherosclerotic. 3. The visualized osseous structures are intact. [facility]-[id number] Performing Organization Address City/State/Zipcode Phone Number [facility] [address] [place] [address] after 04/10/2017 Insurance Payer Benefit Subscriber ID Type Phone Address Plan / Group BCBS BCBS xxxxxxxxxxxx PPO CHOICE PPO/FEDERA L EMPL PPO MEDICARE MEDICARE xxxxxxxxxx Medicare [place], [place] PART A ALMA RENTERIA Transplant Self 1955 Home: [address] [place] [address]
--- OUTSIDE RECORDS SUMMARY | 2018-04-11 14:37 | XMS REPORT ---
Author Author [facility] Address Unknown Phone Unavailable Care Team Providers Care Jet Wiper Name Role Phone SAIRA MCDONALD Unavailable Unavailable Problems This patient has no known problems. Allergies, Adverse Reactions, Alerts This patient has no known allergies or adverse reactions. Medications This patient has no known medications. Results Test Description Test Time Test Comments Text Results Atomic Results Result Comments ECHO COMPLETE (ECHOCARDIOGRAM) 2018-03-28 17:24:00 [place] [address] Patient Name : ALMA CHAMPAGNE MR #: [id number] : 1955 Age/Sex: 62/M Adm Physician : SAIRA MCDONALD MD Admit Date : Location : [facility] Room/Bed : REPORT: Cardiology Report DATE OF STUDY: March 28, 2018 ECHOCARDIOGRAM ATTENDING PHYSICIAN: Dr. Mcdonald. M-MODE: Normal chamber wall dimensions. Normal contractility. Aortic sclerosis. Normal mitral and tricuspid valves. No pericardial effusion. SECTOR SCAN: Normal chamber sizes. Normal left ventricular wall thickness. Normal contractility. Aortic sclerosis. Normal mitral and tricuspid valves. No pericardial effusion. CARDIAC DOPPLER STUDY WITH COLOR: Trace tricuspid regurgitation. CONCLUSIONS: 1. Left ventricular ejection fraction is approximately 55%. 2. Aortic sclerosis without stenosis. 3. Trace tricuspid regurgitation. Job#: [id number] EV cc: SAIRA MCDONALD MD Signature Date Dictated By: SUKUMAR CRISTOBAL MD Transcribed By: Simple Star on 03/28/18 <Electronically signed by SUKUMAR CRISTOBAL MD><<Signature on File>>03/30/18 0956 COPY TO: CHEST 2 VIEWS 2018-03-28 12:03:00 [place] [address] Patient Name: ALMA CHAMPAGNE MR #: [id number] : 1955 Age/Sex: 62/M Req #: [id number] Adm Physician: Ordered by: SAIRA MCDONALD MD Report #: [id number] Location: [facility] Room/Bed: Procedure: [id number] DX/CHEST 2 VIEWS Exam Date: 03/28/18 Exam Time: 1115 REPORT STATUS: Signed EXAMINATION: CHEST 2 VIEWS INDICATION: Chest pain. Preop for surgery COMPARISON: None FINDINGS: TUBES and LINES: None. LUNGS: Lungs are well inflated. Lungs are clear. There is no evidence of pneumonia or pulmonary edema. PLEURA: No pleural effusion or pneumothorax. HEART AND MEDIASTINUM: The cardiomediastinal silhouette is unremarkable. BONES AND SOFT TISSUES: No acute osseous lesion. Soft tissues are unremarkable. UPPER ABDOMEN: No free air under the diaphragm. IMPRESSION: No acute thoracic abnormality. Signed by: Dr. Td Cabrera M.D. on 03/28/2018 12:04 PM Dictated By: TD CABRERA MD, MD 1204 Transcribed By: MALGORZATA on 03/28/18 1204 COPY TO: SAIRA MCDONALD MD
== END | disposition home or self-care (01) ==
LOC: OR 06:47
PROVIDERS: ATTEND Podiatrist Foot & Ankle Surgery
DX: E11.621 Type 2 diabetes mellitus with foot ulcer (principal); E11.40 Type 2 diabetes mellitus with diabetic neuropathy, unspecified; E11.51 Type 2 diabetes mellitus with diabetic peripheral angiopathy without gangrene; M86.9 Osteomyelitis, unspecified; E11.22 Type 2 diabetes mellitus with diabetic chronic kidney disease; I12.0 Hypertensive chronic kidney disease with stage 5 chronic kidney disease or end stage renal disease; N18.6 End stage renal disease; Z94.9 Transplanted organ and tissue status, unspecified; Z88.0 Allergy status to penicillin; Z01.812 Encounter for preprocedural laboratory examination; Z79.82 Long term (current) use of aspirin; Z79.02 Long term (current) use of antithrombotics/antiplatelets; Z79.4 Long term (current) use of insulin
CPT/HCPCS: 11044; 15275; 36415 ×2; 80048; 82948; 85025; 85610; 85730; 87071; 87075; 87186; 87205; 97607; J1100; J2001; J2405; J7040; Q4104; J2710

== ENCOUNTER → 2018-04-17 | Outpatient (CLI) | payer MEDICARE, BC ==
[~2018-04-17] MED LIST changes: -ACETAMINOPHEN 1000 MG/100 ML 100 ML IV ONE; -BACITRACIN 50,000 UNIT VIAL ONE; -DEXAMETHASONE SOD PHOS INJ 4 MG/ML VIAL ONE; -EPHEDRINE SULFATE INJ 50 MG/10 ML SYR ONE; -LIDOCAINE HCL 2% LOCAL INJ 5 ML SDV VIAL INJ ONE; -NEOSTIGMINE 1 MG/ML 10ML VIAL ONE; -ONDANSETRON HCL INJ 2 MG/ML VIAL ONE; -PROPOFOL IV EMULSION 10 MG/ML 20 ML VIAL ONE; -SEVOFLURANE INHAL SOLN 250 ML PEN BTL ONE; -SODIUM CHLORIDE 0.9% 500ML 500 ML ONE
== END ==
LOC: WCC 11:44
PROVIDERS: ATTEND Podiatrist Foot & Ankle Surgery
DX: E11.621 Type 2 diabetes mellitus with foot ulcer (principal); E11.51 Type 2 diabetes mellitus with diabetic peripheral angiopathy without gangrene; E11.65 Type 2 diabetes mellitus with hyperglycemia; E11.69 Type 2 diabetes mellitus with other specified complication; L97.412 Non-pressure chronic ulcer of right heel and midfoot with fat layer exposed; R60.9 Edema, unspecified; I87.2 Venous insufficiency (chronic) (peripheral); I10 Essential (primary) hypertension; B96.89 Other specified bacterial agents as the cause of diseases classified elsewhere; G62.9 Polyneuropathy, unspecified; K86.89 Other specified diseases of pancreas; E78.5 Hyperlipidemia, unspecified; E66.3 Overweight; W01.198A Fall on same level from slipping, tripping and stumbling with subsequent striking against other object, initial encounter; Z01.810 Encounter for preprocedural cardiovascular examination; Z01.811 Encounter for preprocedural respiratory examination

== ENCOUNTER → 2018-04-19 | Outpatient (CLI) | payer MEDICARE, BC | LOC: WCC 11:10 | PROVIDERS: ATTEND Podiatrist Foot & Ankle Surgery | DX: E11.621 Type 2 diabetes mellitus with foot ulcer (principal); E11.65 Type 2 diabetes mellitus with hyperglycemia; E11.51 Type 2 diabetes mellitus with diabetic peripheral angiopathy without gangrene; E11.69 Type 2 diabetes mellitus with other specified complication; L97.412 Non-pressure chronic ulcer of right heel and midfoot with fat layer exposed; I79.8 Other disorders of arteries, arterioles and capillaries in diseases classified elsewhere; I87.2 Venous insufficiency (chronic) (peripheral); R60.9 Edema, unspecified; I10 Essential (primary) hypertension; G62.9 Polyneuropathy, unspecified; B96.89 Other specified bacterial agents as the cause of diseases classified elsewhere; E78.5 Hyperlipidemia, unspecified; E66.3 Overweight; K86.89 Other specified diseases of pancreas; W01.198A Fall on same level from slipping, tripping and stumbling with subsequent striking against other object, initial encounter; Z01.810 Encounter for preprocedural cardiovascular examination; Z01.811 Encounter for preprocedural respiratory examination | CPT/HCPCS: 97605; G0277 ==

== ENCOUNTER → 2018-04-21 | Outpatient (CLI) | payer MEDICARE, BC | LOC: WCC 14:07 | PROVIDERS: ATTEND Podiatrist Foot & Ankle Surgery | DX: E11.621 Type 2 diabetes mellitus with foot ulcer (principal); E11.65 Type 2 diabetes mellitus with hyperglycemia; E11.51 Type 2 diabetes mellitus with diabetic peripheral angiopathy without gangrene; E11.69 Type 2 diabetes mellitus with other specified complication; L97.412 Non-pressure chronic ulcer of right heel and midfoot with fat layer exposed; I79.8 Other disorders of arteries, arterioles and capillaries in diseases classified elsewhere; I87.2 Venous insufficiency (chronic) (peripheral); R60.9 Edema, unspecified; B96.89 Other specified bacterial agents as the cause of diseases classified elsewhere; E66.3 Overweight; E78.5 Hyperlipidemia, unspecified; G62.9 Polyneuropathy, unspecified; I10 Essential (primary) hypertension; K86.89 Other specified diseases of pancreas; W01.198A Fall on same level from slipping, tripping and stumbling with subsequent striking against other object, initial encounter; Z01.810 Encounter for preprocedural cardiovascular examination; Z01.811 Encounter for preprocedural respiratory examination ==

== ENCOUNTER → 2018-04-24 | Outpatient (CLI) | payer MEDICARE, BC | LOC: WCC 13:39 | PROVIDERS: ATTEND Family Medicine Adult Medicine | DX: E11.621 Type 2 diabetes mellitus with foot ulcer (principal); E11.65 Type 2 diabetes mellitus with hyperglycemia; E11.51 Type 2 diabetes mellitus with diabetic peripheral angiopathy without gangrene; E11.69 Type 2 diabetes mellitus with other specified complication; L97.412 Non-pressure chronic ulcer of right heel and midfoot with fat layer exposed; G62.9 Polyneuropathy, unspecified; I87.2 Venous insufficiency (chronic) (peripheral); I79.8 Other disorders of arteries, arterioles and capillaries in diseases classified elsewhere; R60.9 Edema, unspecified; I10 Essential (primary) hypertension; B96.89 Other specified bacterial agents as the cause of diseases classified elsewhere; K86.89 Other specified diseases of pancreas; E78.5 Hyperlipidemia, unspecified; E66.3 Overweight; W01.198A Fall on same level from slipping, tripping and stumbling with subsequent striking against other object, initial encounter; Z01.810 Encounter for preprocedural cardiovascular examination; Z01.811 Encounter for preprocedural respiratory examination ==

== ENCOUNTER → 2018-04-26 | Outpatient (CLI) | payer BC, MEDICARE | LOC: WCC 13:31 | PROVIDERS: ATTEND Podiatrist Foot & Ankle Surgery | DX: E11.621 Type 2 diabetes mellitus with foot ulcer (principal); E11.51 Type 2 diabetes mellitus with diabetic peripheral angiopathy without gangrene; E11.65 Type 2 diabetes mellitus with hyperglycemia; E11.69 Type 2 diabetes mellitus with other specified complication; L97.412 Non-pressure chronic ulcer of right heel and midfoot with fat layer exposed; R60.9 Edema, unspecified; I87.2 Venous insufficiency (chronic) (peripheral); I79.8 Other disorders of arteries, arterioles and capillaries in diseases classified elsewhere; I10 Essential (primary) hypertension; B96.89 Other specified bacterial agents as the cause of diseases classified elsewhere; E66.3 Overweight; E78.5 Hyperlipidemia, unspecified; G62.9 Polyneuropathy, unspecified; K86.89 Other specified diseases of pancreas; W01.198A Fall on same level from slipping, tripping and stumbling with subsequent striking against other object, initial encounter; Z01.810 Encounter for preprocedural cardiovascular examination; Z01.811 Encounter for preprocedural respiratory examination ==

== ENCOUNTER → 2018-04-28 | Outpatient (CLI) | payer MEDICARE, BC ==
[~2018-04-28] MED LIST changes: +COLLAGENASE OINTMENT 30 GM TUBE ONE; +MINERAL OIL/PETROLAT/GLYCERI 6OZ BTL ONE; +MUPIROCIN 2% OINT 22 GM TUBE ONE
== END ==
LOC: WCC 12:05
PROVIDERS: ATTEND Podiatrist Foot & Ankle Surgery
DX: E11.621 Type 2 diabetes mellitus with foot ulcer (principal); E11.51 Type 2 diabetes mellitus with diabetic peripheral angiopathy without gangrene; E11.65 Type 2 diabetes mellitus with hyperglycemia; E11.69 Type 2 diabetes mellitus with other specified complication; L97.412 Non-pressure chronic ulcer of right heel and midfoot with fat layer exposed; G62.9 Polyneuropathy, unspecified; I87.2 Venous insufficiency (chronic) (peripheral); R60.9 Edema, unspecified; I79.8 Other disorders of arteries, arterioles and capillaries in diseases classified elsewhere; B96.89 Other specified bacterial agents as the cause of diseases classified elsewhere; I10 Essential (primary) hypertension; E66.3 Overweight; E78.5 Hyperlipidemia, unspecified; K86.89 Other specified diseases of pancreas; W01.198A Fall on same level from slipping, tripping and stumbling with subsequent striking against other object, initial encounter; Z01.810 Encounter for preprocedural cardiovascular examination; Z01.811 Encounter for preprocedural respiratory examination
CPT/HCPCS: 36415; 82948

== ENCOUNTER → 2018-05-01 | Outpatient (CLI) | payer BC, MEDICARE ==
[~2018-05-01] MED LIST changes: -COLLAGENASE OINTMENT 30 GM TUBE ONE; -MINERAL OIL/PETROLAT/GLYCERI 6OZ BTL ONE; -MUPIROCIN 2% OINT 22 GM TUBE ONE
== END ==
LOC: WCC 13:19
PROVIDERS: ATTEND Podiatrist Foot & Ankle Surgery
DX: E11.621 Type 2 diabetes mellitus with foot ulcer (principal); E11.65 Type 2 diabetes mellitus with hyperglycemia; E11.51 Type 2 diabetes mellitus with diabetic peripheral angiopathy without gangrene; E11.69 Type 2 diabetes mellitus with other specified complication; L97.412 Non-pressure chronic ulcer of right heel and midfoot with fat layer exposed; R60.9 Edema, unspecified; I87.2 Venous insufficiency (chronic) (peripheral); I10 Essential (primary) hypertension; B96.89 Other specified bacterial agents as the cause of diseases classified elsewhere; K86.89 Other specified diseases of pancreas; E78.5 Hyperlipidemia, unspecified; E66.3 Overweight; G62.9 Polyneuropathy, unspecified; W01.198A Fall on same level from slipping, tripping and stumbling with subsequent striking against other object, initial encounter; Z01.810 Encounter for preprocedural cardiovascular examination; Z01.811 Encounter for preprocedural respiratory examination

== ENCOUNTER → 2018-05-03 | Outpatient (CLI) | payer MEDICARE, BC ==
[~2018-05-03] MED LIST changes: +BACITRACIN 50,000 UNIT VIAL ONE; +BUPIVACAINE HCL 0.5% INJ 30 ML VIAL INJ ONE; +NEOSTIGMINE 1 MG/ML 10ML VIAL ONE
== END ==
LOC: WCC 10:16
PROVIDERS: ATTEND Podiatrist Foot & Ankle Surgery
DX: E11.621 Type 2 diabetes mellitus with foot ulcer (principal); E11.65 Type 2 diabetes mellitus with hyperglycemia; E11.51 Type 2 diabetes mellitus with diabetic peripheral angiopathy without gangrene; E11.69 Type 2 diabetes mellitus with other specified complication; L97.412 Non-pressure chronic ulcer of right heel and midfoot with fat layer exposed; G62.9 Polyneuropathy, unspecified; I79.8 Other disorders of arteries, arterioles and capillaries in diseases classified elsewhere; I87.2 Venous insufficiency (chronic) (peripheral); R60.9 Edema, unspecified; I10 Essential (primary) hypertension; B96.89 Other specified bacterial agents as the cause of diseases classified elsewhere; E66.3 Overweight; E78.5 Hyperlipidemia, unspecified; K86.89 Other specified diseases of pancreas; W01.198A Fall on same level from slipping, tripping and stumbling with subsequent striking against other object, initial encounter; Z01.810 Encounter for preprocedural cardiovascular examination; Z01.811 Encounter for preprocedural respiratory examination

== ENCOUNTER → 2018-05-05 | Outpatient (CLI) | payer MEDICARE, BC ==
[~2018-05-05] MED LIST changes: -BACITRACIN 50,000 UNIT VIAL ONE; -BUPIVACAINE HCL 0.5% INJ 30 ML VIAL INJ ONE; -NEOSTIGMINE 1 MG/ML 10ML VIAL ONE
== END ==
LOC: WCC 10:48
PROVIDERS: ATTEND Podiatrist Foot & Ankle Surgery
DX: E11.621 Type 2 diabetes mellitus with foot ulcer (principal); E11.65 Type 2 diabetes mellitus with hyperglycemia; E11.51 Type 2 diabetes mellitus with diabetic peripheral angiopathy without gangrene; E11.69 Type 2 diabetes mellitus with other specified complication; L97.412 Non-pressure chronic ulcer of right heel and midfoot with fat layer exposed; R60.9 Edema, unspecified; R60.0 Localized edema; I10 Essential (primary) hypertension; G62.9 Polyneuropathy, unspecified; I79.8 Other disorders of arteries, arterioles and capillaries in diseases classified elsewhere; B96.89 Other specified bacterial agents as the cause of diseases classified elsewhere; E78.5 Hyperlipidemia, unspecified; E66.3 Overweight; K86.89 Other specified diseases of pancreas; W01.198A Fall on same level from slipping, tripping and stumbling with subsequent striking against other object, initial encounter; Z01.810 Encounter for preprocedural cardiovascular examination; Z01.811 Encounter for preprocedural respiratory examination

== ENCOUNTER → 2018-05-10 | Outpatient (CLI) | payer BC, MEDICARE | LOC: WCC 11:28 | PROVIDERS: ATTEND Podiatrist Foot & Ankle Surgery | DX: E11.621 Type 2 diabetes mellitus with foot ulcer (principal); E11.65 Type 2 diabetes mellitus with hyperglycemia; E11.51 Type 2 diabetes mellitus with diabetic peripheral angiopathy without gangrene; E11.69 Type 2 diabetes mellitus with other specified complication; L97.412 Non-pressure chronic ulcer of right heel and midfoot with fat layer exposed; I79.8 Other disorders of arteries, arterioles and capillaries in diseases classified elsewhere; I87.2 Venous insufficiency (chronic) (peripheral); G62.9 Polyneuropathy, unspecified; I10 Essential (primary) hypertension; B96.89 Other specified bacterial agents as the cause of diseases classified elsewhere; R60.0 Localized edema; E66.3 Overweight; E78.5 Hyperlipidemia, unspecified; K86.89 Other specified diseases of pancreas; R60.9 Edema, unspecified; W01.198A Fall on same level from slipping, tripping and stumbling with subsequent striking against other object, initial encounter; Z01.810 Encounter for preprocedural cardiovascular examination; Z01.811 Encounter for preprocedural respiratory examination | CPT/HCPCS: 11042; 11045; 97605; G0277 ==

== ENCOUNTER → 2018-05-17 | Outpatient (CLI) | payer BC, MEDICARE | LOC: WCC 11:40 | PROVIDERS: ATTEND Podiatrist Foot & Ankle Surgery | DX: E11.621 Type 2 diabetes mellitus with foot ulcer (principal); L97.412 Non-pressure chronic ulcer of right heel and midfoot with fat layer exposed; E11.65 Type 2 diabetes mellitus with hyperglycemia; E11.51 Type 2 diabetes mellitus with diabetic peripheral angiopathy without gangrene; E11.69 Type 2 diabetes mellitus with other specified complication; I79.8 Other disorders of arteries, arterioles and capillaries in diseases classified elsewhere; R60.0 Localized edema; R60.9 Edema, unspecified; G62.9 Polyneuropathy, unspecified; I10 Essential (primary) hypertension; B96.89 Other specified bacterial agents as the cause of diseases classified elsewhere; E78.5 Hyperlipidemia, unspecified; E66.3 Overweight; K86.89 Other specified diseases of pancreas; W01.198A Fall on same level from slipping, tripping and stumbling with subsequent striking against other object, initial encounter; Z01.810 Encounter for preprocedural cardiovascular examination ==

== ENCOUNTER → 2018-05-24 | Outpatient (CLI) | payer BC, MEDICARE | LOC: WCC 13:16 | PROVIDERS: ATTEND Podiatrist Foot & Ankle Surgery | DX: E11.621 Type 2 diabetes mellitus with foot ulcer (principal); E11.51 Type 2 diabetes mellitus with diabetic peripheral angiopathy without gangrene; E11.65 Type 2 diabetes mellitus with hyperglycemia; E11.69 Type 2 diabetes mellitus with other specified complication; L97.412 Non-pressure chronic ulcer of right heel and midfoot with fat layer exposed; I87.2 Venous insufficiency (chronic) (peripheral); R60.0 Localized edema; R60.9 Edema, unspecified; I79.8 Other disorders of arteries, arterioles and capillaries in diseases classified elsewhere; G62.9 Polyneuropathy, unspecified; I10 Essential (primary) hypertension; E78.5 Hyperlipidemia, unspecified; B96.89 Other specified bacterial agents as the cause of diseases classified elsewhere; E66.3 Overweight; K86.89 Other specified diseases of pancreas; W01.198A Fall on same level from slipping, tripping and stumbling with subsequent striking against other object, initial encounter; Z01.810 Encounter for preprocedural cardiovascular examination; Z01.811 Encounter for preprocedural respiratory examination ==

== ENCOUNTER → 2018-05-30 | Day surgery (SDC) | payer MEDICARE, BC ==
[2018-05-29 14:16] LABS: BASOPHILS # (AUTO) 0.1 (0.0-0.1); BASOPHILS % 0.6 % (0.0-1.0); EOSINOPHILS # (AUTO) 0.4 (0.0-0.4); EOSINOPHILS % 4.2 % (0.0-6.0); HEMATOCRIT 38.3 % (38.2-49.6); HEMOGLOBIN 12.5 g/dL (14.0-18.0); LYMPHOCYTES # (AUTO) 1.1 (1.0-3.2); MEAN CORPUSCULAR HGB CONC 32.6 g/dL (31-35); MEAN CORPUSCULAR VOLUME 88.9 fL (81-99); MONOCYTES # (AUTO) 0.7 (0.2-0.8); MONOCYTES % 6.6 % (4.4-11.3); NEUTROPHILS # (AUTO) 7.6 (2.1-6.9); NEUTROPHILS % 77.2 % (38.7-80.0); PLATELET COUNT 180 x10e3/uL (140-360); RED BLOOD COUNT 4.31 x10e6/uL (4.3-5.7); RED CELL DISTRIBUTION WIDTH 14.3 % (11.7-14.4)
[2018-05-29 14:51] LABS: BLOOD UREA NITROGEN 26 mg/dL (7-26); BUN/CREATININE RATIO 27 (6-25); CALCIUM 9.7 mg/dL (8.4-10.2); CARBON DIOXIDE 27 mmol/L (22-29); CHLORIDE 102 mmol/L (98-107); CREATININE, SERUM 0.98 mg/dL (0.72-1.25); EST GLOMERULAR FILTRATION RATE > 60 ML/MIN (60-); GLUCOSE 262 mg/dL (74-118); SODIUM 137 mmol/L (136-145)
[~2018-05-30] MED LIST changes: +BACITRACIN 50,000 UNIT VIAL ONE; +DEXAMETHASONE SOD PHOS INJ 4 MG/ML VIAL ONE; +EPHEDRINE SULFATE INJ 50 MG/10 ML SYR ONE; +FENTANYL CITRATE/PF 100MCG/2 ML INJ ONE; +GLYCOPYRROLATE INJ 1MG/ 5 ML SYR ONE; +INSULIN REGULAR, HUMAN 100 UNIT/1 ML 3ML VIAL ONE; +LIDOCAINE HCL 2% LOCAL INJ 5 ML SDV VIAL INJ ONE; +MIDAZOLAM HCL 2 MG/2 ML VIAL ONE; +ONDANSETRON HCL INJ 2 MG/ML VIAL ONE; +PROPOFOL IV EMULSION 10 MG/ML 20 ML VIAL ONE; +SEVOFLURANE INHAL SOLN 250 ML PEN BTL ONE
--- OUTSIDE RECORDS SUMMARY | 2018-05-30 07:26 | XMS REPORT | Clinical Summary ---
Author Author [facility] Organization [facility] Address Unknown Phone Unavailable Care Team Providers Care Channel Process Supervisor Name Role Phone Sabine Mcgowan MD PCP Allergies Comments Active Allergy Reactions Severity Noted Date Unknown Penicillamine Other (See Medium 09/18/2017 Comments) Patient doesn't know his reaction - just that he had a reaction when he was a child Penicillins Other (See 12/08/2015 Comments) Medications End Date Status Medication Sig Dispensed Refills Start Date Active TRAVATAN Z 0.004 % Administer 1 0 drop to both 6 eyes nightly. Active CALCIUM CARBONATE/VITAMIN Take 1 tablet 0 D3 (CALCIUM 500 + D ORAL) by mouth daily. Active aspirin (ECOTRIN) 81 MG Take 81 mg by 0 enteric coated tablet mouth every other day. Active tamsulosin (FLOMAX) 0.4 Take 0.4 mg 0 mg capsule,extended by mouth 2 release 24hr (two) times a day. Active insulin lispro (HumaLOG) Inject 15 0 100 unit/mL injection Units under the skin 3 (three) times a day before meals. Per Sliding Scale Active insulin NPH (HumuLIN-N) Inject 29 0 100 unit/mL injection Units under the skin 2 (two) times a day before meals. Active apixaban (ELIQUIS) 5 mg Take 5 mg by 0 tablet mouth 2 (two) times a day. Active famotidine (PEPCID) 20 MG Take 20 mg by 0 tablet mouth daily. 11/22/2018 Active mycophenolate (CELLCEPT) Take 1 tablet 60 tablet 11 500 mg tabletIndications: (500 mg 8 Transplanted kidney total) by mouth 2 (two) times a day. 12/09/2018 Active predniSONE (DELTASONE) 5 Take 1 tablet 30 tablet 11 mg tabletIndications: (5 mg total) 8 Transplanted kidney by mouth daily. 12/09/2018 Active alendronate (FOSAMAX) 35 Take 1 tablet 4 tablet 11 MG tablet (35 mg total) 8 by mouth once a week. Tuesday12/26/2018 Active tacrolimus (PROGRAF) 0.5 Take 1 180 capsule 3 MG capsuleIndications: capsule (0.5 8 Transplanted kidney mg total) by mouth 2 (two) times a day. 01/12/2019 Active atorvastatin (LIPITOR) 40 Take 1 tablet 90 tablet 3 MG tablet (40 mg total) 8 by mouth daily. 02/17/2019 Active NIFEdipine XL (PROCARDIA Take 1 tablet 180 tablet 3 XL) 30 MG 24 hr tablet (30 mg total) 8 by mouth 2 (two) times a day. 02/20/2019 Active furosemide (LASIX) 40 mg Take 2 360 tablet 3 tablet tablets (80 8 mg total) by mouth 2 (two) times a day. 05/22/2019 Active losartan (COZAAR) 25 MG Take 1 tablet 180 tablet 3 tablet (25 mg total) 8 by mouth 2 (two) times a day. 12/09/2017 Discontinued alendronate (FOSAMAX) 35 Take 35 mg by 99 MG tablet mouth once a 6 week. Tuesday05/30/2017 Discontinued atorvastatin (LIPITOR) 40 Take 1 tablet 90 tablet 3 MG tablet (40 mg total) 7 by mouth daily. 07/29/2017 Discontinued mycophenolate (CELLCEPT) Take 1 tablet 60 tablet 11 500 mg tabletIndications: (500 mg 7 Transplanted kidney total) by mouth 2 (two) times a day. 07/29/2017 Discontinued predniSONE (DELTASONE) 5 Take 1 tablet 30 tablet 11 mg tabletIndications: (5 mg total) 7 Transplanted kidney by mouth daily. 05/31/2017 Discontinued losartan (COZAAR) 50 MG Take 1 tablet 30 tablet 11 tablet (50 mg total) 7 by mouth daily. 07/29/2017 Discontinued tacrolimus (PROGRAF) 0.5 Take 1 60 capsule 11 MG capsuleIndications: capsule (0.5 7 Transplanted kidney mg total) by mouth 2 (two) times a day. 07/29/2017 Discontinued famotidine (PEPCID) 20 MG Take 1 tablet 30 tablet 11 tablet (20 mg total) 7 by mouth daily. 07/29/2017 Discontinued furosemide (LASIX) 40 mg Take 2 120 tablet 11 tablet tablets (80 7 mg total) by mouth 2 (two) times a day. 07/20/2017 Discontinued apixaban (ELIQUIS) 5 mg Take 1 tablet 60 tablet 0 tablet (5 mg total) 7 by mouth 2 (two) times a day. 07/29/2017 Discontinued atorvastatin (LIPITOR) 40 Take 1 tablet 90 tablet 3 MG tablet (40 mg total) 7 by mouth daily. 06/07/2017 Discontinued losartan (COZAAR) 50 MG Take 1 tablet 30 tablet 11 tablet (50 mg total) 7 by mouth daily. 07/29/2017 Discontinued BD INSULIN PEN NEEDLE UF See Admin 0 MINI 31 gauge x 3/16" Instructions. 7 needle 06/03/2017 Discontinued cefuroxime (CEFTIN) 250 TAKE 1 TABLET 0 MG tablet (250 MG 7 TOTAL) BY MOUTH 2 (TWO) TIMES A DAY FOR 3 DAYS. 07/29/2017 Discontinued ONETOUCH VERIO strip test BLOOD SUGAR 6 strips TESTING 7 BEFORE MEALS AND 1-2 HOURS AFTER MEALS DIRECTED 4 TIMES DAILY 07/29/2017 Discontinued losartan (COZAAR) 25 MG Take 1 tablet 90 tablet 3 tablet (25 mg total) 7 by mouth daily. 07/29/2017 Discontinued apixaban (ELIQUIS) 5 mg Take 1 tablet 180 tablet 3 tablet (5 mg total) 8 by mouth 2 (two) times a day. 01/12/2018 Discontinued atorvastatin (LIPITOR) 40 Take 40 mg by 0 MG tablet mouth daily. 02/20/2018 Discontinued furosemide (LASIX) 40 mg Take 80 mg by 0 tablet mouth 2 (two) times a day. 05/01/2018 Discontinued losartan (COZAAR) 25 MG Take 25 mg by 0 tablet mouth 2 (two) times a day. 11/22/2017 Discontinued mycophenolate (CELLCEPT) Take 500 mg 0 500 mg tablet by mouth 2 (two) times a day. 12/09/2017 Discontinued predniSONE (DELTASONE) 5 Take 5 mg by 0 mg tablet mouth daily. 10/18/2017 Discontinued tacrolimus (PROGRAF) 0.5 Take 0.5 mg 0 MG capsule by mouth 2 (two) times a day. 08/03/2017 levoFLOXacin (LEVAQUIN) Take 1 tablet 5 tablet 0 500 MG tablet (500 mg 8 total) by mouth daily for 5 days. 08/06/2017 oseltamivir (TAMIFLU) 75 Take 1 10 capsule 0 MG capsule capsule (75 8 mg total) by mouth 2 (two) times a day for 5 days. 09/25/2017 levoFLOXacin (LEVAQUIN) Take 1 tablet 7 tablet 0 750 MG tablet (750 mg 8 total) by mouth daily for 7 days. 12/26/2017 Discontinued tacrolimus (PROGRAF) 0.5 Take 1 180 capsule 3 MG capsuleIndications: capsule (0.5 8 Transplanted kidney mg total) by mouth 2 (two) times a day. 02/17/2018 Discontinued NIFEdipine XL (PROCARDIA Take 1 tablet 60 tablet 11 XL) 30 MG 24 hr tablet (30 mg total) 8 by mouth 2 (two) times a day. 03/20/2018 levoFLOXacin (LEVAQUIN) Take 1 tablet 7 tablet 0 500 MG tablet (500 mg 8 total) by mouth daily for 7 days. 05/22/2018 Discontinued losartan (COZAAR) 25 MG Take 1 tablet 30 tablet 11 tablet (25 mg total) 8 by mouth daily. Active Problems Problem Noted Date Hyperglycemia 03/01/2018 Diabetic ulcer of right heel associated with type 1 diabetes mellitus 03/01/2018 Overview: Added automatically from request for surgery [id number] Pancreatic mass 06/03/2017 Vitamin D deficiency 03/21/2017 Obesity 03/21/2017 Diabetes mellitus 03/21/2017 Chronic inflammatory demyelinating polyneuritis 01/20/2016 Diabetic polyneuropathy 01/20/2016 Essential hypertension 01/20/2016 Male erectile disorder 01/20/2016 H/O kidney transplant 03/29/2013 HLD (hyperlipidemia) 08/21/2012 Resolved Problems Problem Noted Date Resolved Date IRENE (acute kidney injury) 05/25/2017 06/03/2017 Lactic acidosis 04/13/2017 06/03/2017 Cellulitis of right lower extremity 04/10/2017 06/03/2017 Abscess of leg, left 03/18/2017 06/03/2017 Cellulitis of leg, right 02/02/2016 06/03/2017 Overview: Acute, started on 01/31/16 Brachial plexus neuropathy 01/20/2016 06/03/2017 Carpal tunnel syndrome 01/20/2016 06/03/2017 Chronic kidney disease, stage V 01/20/2016 06/03/2017 Dialysis complication 01/20/2016 06/03/2017 End-stage renal disease 01/20/2016 06/03/2017 Hypertension 01/20/2016 06/03/2017 Mononeuritis of upper limb 01/20/2016 06/03/2017 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 01/20/2016 06/03/2017 Neurologic disorder associated with diabetes mellitus 01/20/2016 06/03/2017 Swelling of lower extremity 01/20/2016 06/03/2017 Renal failure 01/20/2016 06/03/2017 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 12/06/2012 06/03/2017 Encounters Care Team Description Date Type Specialty Pam Marley RN Med Refill 05/22/2018 Refill Transplant Sabine Mcgowan MD 05/12/2018 Telephone Internal Medicine Pam Marley RN Med Refill 05/01/2018 Refill Transplant Kiki Millan MA Pre-Op Questions 04/10/2018 Telephone Transplant Meli Hilton MD Upper respiratory infection, acute 03/22/2018 Hospital Transplant Encounter Corazon Tarango RN Upper respiratory infection, acute (Primary Dx) 03/22/2018 Orders Only Transplant Elana Fair RN PAD (peripheral artery disease) (Primary Dx) 03/13/2018 Orders Only Cardiovascular Igor Rodriguez MD 03/10/2018 Anesthesia Cardiothoracic Surgery Event Rae Warren MD Aortogram, right leg angiogram, angioplasty of SFA, PT, and AT 03/10/2018 Surgery Cardiothoracic Surgery Gilbert Marquis MD Lin, Steven Kuei-Ku, MD Lee, Kelvin M., MD Hyperglycemia (Primary Dx); Diabetic ulcer of right heel associated with type 1 diabetes mellitus, unspecified ulcer stage 03/01/2018 Hospital Cardiology - Encounter 03/13/2018 Delia Shermanissa 03/01/2018 Patient Quality Outreach Daniel Shanks RN Fever 02/22/2018 Telephone Transplant Pam Marley, NABEEL Med Refill 02/20/2018 Refill Transplant Pam Marley, NABEEL Med Refill 02/17/2018 Refill Transplant Carli Robin Advice Only 02/17/2018 Telephone Transplant Pam Marley, NABEEL Med Refill 01/12/2018 Refill Transplant Pam Marley, NABEEL Transplanted kidney 12/26/2017 Orders Only Transplant Pam Marley, NABEEL Med Refill 12/09/2017 Refill Transplant Stacie Vargas RN Med Refill 12/01/2017 Refill Transplant Pam Marley, NABEEL Med Refill 11/22/2017 Refill Transplant Lyndsay Asher RN 11/20/2017 Telephone Transplant Ailyn Ho RN 11/08/2017 Telephone Cardiovascular Pam Marley, NABEEL Med Refill 10/18/2017 Refill Transplant Pam Marley, NABEEL Med Refill 10/18/2017 Refill Transplant Raaenn Torres MA 10/12/2017 Patient Quality Outreach Tootie Rodriguez MA 09/22/2017 Telephone Cardiovascular Sudarshan Perez MD Abrasion (Primary Dx); Cellulitis of left lower extremity 09/18/2017 Emergency Emergency Medicine Pam Marley, NABEEL 09/15/2017 Documentation Transplant Sabine Mcgowan MD 08/31/2017 Telephone Internal Medicine Chuck Perry MD Diarrhea, unspecified type (Primary Dx); Diversion colitis; Food protein induced enterocolitis syndrome (FPIES) 08/22/2017 Lab Lab Kiki Millan MA Rx issue 08/01/2017 Telephone Transplant Pam Marley, NABEEL 08/01/2017 Documentation Transplant Tayler Eid RN 08/01/2017 Documentation Transplant Pam Marley, NABEEL Med Refill 08/01/2017 Refill Transplant Ethan Desir MD Febrile illness (Primary Dx); Kidney transplant recipient 07/29/2017 Emergency Emergency Medicine Robin Armstrong MA Sick Call 07/29/2017 Telephone Transplant Yvonne Stoll RN Med Refill 07/20/2017 Refill Transplant Robin Armstrong MA Med Refill 07/20/2017 Telephone Transplant Pam Marley RN 06/21/2017 Documentation Transplant Meli Hilton MD Transplanted kidney (Primary Dx); Immunosuppressed status; Pancreatic mass; Edema, unspecified type 06/07/2017 Hospital Transplant Encounter Meli Hilton MD Transplanted kidney; Urinary tract infection 06/07/2017 Hospital Transplant Encounter Sabine Mcgowan MD Essential hypertension (Primary Dx); Diabetic polyneuropathy associated with type 2 diabetes mellitus; Chronic inflammatory demyelinating polyneuritis; Type 2 diabetes mellitus with complication, with long-term current use of insulin; H/O kidney transplant; Other hyperlipidemia; Wound of left lower extremity, initial encounter; Hyperuricemia; Pancreatic mass; Vitamin D deficiency; Deep vein thrombosis (DVT) of proximal lower extremity, unspecified chronicity, unspecified laterality; Long-term use of immunosuppressant medication; Benign prostatic hyperplasia with lower urinary tract symptoms, symptom details unspecified; Osteoporosis, unspecified osteoporosis type, unspecified pathological fracture presence; Obesity, unspecified classification, unspecified obesity type, unspecified whether serious comorbidity present 06/03/2017 Office Visit Internal Medicine Iqra De Guzman Advice Only 06/02/2017 Telephone Transplant Pam Marley RN 05/31/2017 Documentation Transplant Pam Marley RN Med Refill 05/31/2017 Refill Transplant Pam Marley, NABEEL Med Refill 05/30/2017 Refill Transplant after 05/29/2017 Immunizations Name Dates Previously Given Next Due FLUCELVAX QUAD PF (0.5mL 03/04/2018, 03/24/2017 syringe) Family History Medical History Relation Name Comments Diabetes Brother Diabetes Father Heart disease Father heart failure Hyperlipidemia Mother Hypertension Mother Relation Name Status Comments Brother Father Mother Social History Date Tobacco Use Types Packs/Day Years Used Former Smoker Smokeless Tobacco: Former Chew Quit: 06/27/1994 User Tobacco Cessation: Counseling Given: No Alcohol Use Drinks/Week oz/Week Comments Yes occasional Sex Assigned at Date Recorded Not on file Industry Job Start Date Occupation Not on file Not on file Not on file Travel End Travel History Travel Start No recent travel history available. Last Filed Vital Signs Time Taken Vital Sign Reading 03/13/2018 12:21 PM CDT Blood Pressure 128/65 03/13/2018 12:21 PM CDT Pulse 72 03/13/2018 12:21 PM CDT Temperature 36.1 C (97 F) 03/13/2018 12:21 PM CDT Respiratory Rate 19 03/13/2018 12:21 PM CDT Oxygen Saturation 96% - Inhaled Oxygen - Concentration 03/13/2018 4:51 AM CDT Weight 104 kg (228 lb 8 oz) 03/10/2018 8:10 AM CDT Height 172.7 cm (5' 8") 03/13/2018 4:51 AM CDT Body Mass Index 34.74 Plan of Treatment Health Maintenance Due Date Last Done Comments DIABETIC RETINAL EYE EXAM 1953 DIABETIC FOOT EXAM 1963 COLON CANCER SCREENING 2003 SHINGRIX VACCINE (1 of 2) 2003 ZOSTER VACCINE 2013 PNEUMOCOCCAL-13 2018 PNEUMOCOCCAL Completed 06/27/2010 POLYSACCHARIDE VACCINE AGE 65 AND OVER INFLUENZA VACCINE Completed 03/04/2018, 03/24/2017, 03/27/2015 Implants Device Identifier Shelf Expiration Date Model / Serial / Lot Implanted [place] [id number] / / System Vasclr Clsr Starclose Se - Peripheral N/A: N/A SAMUELS [id number] or Biliary VASCULAR Implanted: 03/10/2018 (Quantity not Stents DEVICES on file) [id number] / / 2.5mm X 220mm Balloon, 150cm Shaft, [place] Otw Balloon Dilatation SCIENTIFIC Catheter, 0.014in Max Guidewire /PERIPHERA Implanted: Qty: 1 on 03/10/2018 by Rae Corea MD (Vettro ) [id number] / / 3mm X 150mm Balloon, 4fr Sheath, [place] 150cm Shaft, Adam Sl Otw Fundraising Manager SCIENTIFIC Balloon Dilatation Catheter /PERIPHERA Implanted: Qty: 1 on 03/10/2018 by Rae Corea MD (Vettro ) [id number] / / 2mm X 20mm L, 142cm Shaft, [place] Es Otw Fundraising Manager Ballloon Dilatation SCIENTIFIC Cath /PERIPHERA Implanted: Qty: 1 on 03/10/2018 by Rae Corea MD (Vettro ) [id number] / / 5mm X 60mm Balloon, 4fr Sheath, [place] 135cm Shaft, [place] Otw Fundraising Manager SCIENTIFIC Balloon Dilatation Cath /PERIPHERA Implanted: Qty: 1 on 03/10/2018 by Rae Corea MD (Vettro ) Procedures Comments Procedure Name Priority Date/Time Associated Diagnosis POC GLUCOSE Routine 03/13/2018 2:19 PM CDT POC GLUCOSE Routine 03/13/2018 12:21 PM CDT POC GLUCOSE Routine 03/13/2018 8:07 AM CDT FK506 LEVEL Routine 03/13/2018 3:47 AM CDT POC GLUCOSE Routine 03/13/2018 1:04 AM CDT POC GLUCOSE Routine 03/13/2018 12:06 AM CDT POC GLUCOSE Routine 03/12/2018 6:28 PM CDT POC GLUCOSE Routine 03/12/2018 1:26 PM CDT POC GLUCOSE Routine 03/12/2018 12:48 PM CDT POC GLUCOSE Routine 03/12/2018 7:36 AM CDT ESTIMATED GFR Routine 03/12/2018 4:10 AM CDT HC COMPLETE BLD COUNT Routine 03/12/2018 W/AUTO DIFF 4:10 AM CDT PHOSPHORUS LEVEL Routine 03/12/2018 4:10 AM CDT MAGNESIUM LEVEL Routine 03/12/2018 4:10 AM CDT BASIC METABOLIC PANEL Routine 03/12/2018 4:10 AM CDT VANCOMYCIN LEVEL, TROUGH Routine 03/12/2018 4:10 AM CDT POC GLUCOSE Routine 03/11/2018 9:42 PM CDT POC GLUCOSE Routine 03/11/2018 5:37 PM CDT POC GLUCOSE Routine 03/11/2018 11:43 AM CDT POC GLUCOSE Routine 03/11/2018 7:38 AM CDT ESTIMATED GFR Routine 03/11/2018 5:30 AM CDT PHOSPHORUS LEVEL Routine 03/11/2018 5:30 AM CDT HC COMPLETE BLD COUNT Routine 03/11/2018 W/AUTO DIFF 5:30 AM CDT BASIC METABOLIC PANEL Routine 03/11/2018 5:30 AM CDT FK506 LEVEL Routine 03/11/2018 5:30 AM CDT POC GLUCOSE Routine 03/10/2018 9:41 PM CDT POC GLUCOSE Routine 03/10/2018 6:20 PM CDT POC GLUCOSE Routine 03/10/2018 1:35 PM CDT HI AN ELECTIVE Routine 03/10/[address] SU[address]WAY 10:33 [...] at Approach: 1 POC GLUCOSE Routine 03/10/2018 9:34 AM CDT POC GLUCOSE Routine 03/10/2018 7:56 AM CDT ESTIMATED GFR Routine 03/10/2018 3:49 AM CDT BASIC METABOLIC PANEL Routine 03/10/2018 3:49 AM CDT TYPE AND SCREEN Routine 03/10/2018 3:15 AM CDT PARTIAL THROMBOPLASTIN Routine 03/10/2018 TIME (PTT) 3:15 AM CDT PROTHROMBIN TIME WITH INR Routine 03/10/2018 3:15 AM CDT HC COMPLETE BLD COUNT Routine 03/10/2018 W/AUTO DIFF 3:15 AM CDT FK506 LEVEL Routine 03/10/2018 3:15 AM CDT POC GLUCOSE Routine 03/10/2018 1:52 AM CDT POC GLUCOSE Routine 03/09/2018 8:52 PM CDT POC GLUCOSE Routine 03/09/2018 5:27 PM CDT POC GLUCOSE Routine 03/09/2018 3:37 PM CDT POC GLUCOSE Routine 03/09/2018 2:00 PM CDT POC GLUCOSE Routine 03/09/2018 7:56 AM CDT FK506 LEVEL Routine 03/09/2018 5:15 AM CDT ESTIMATED GFR Routine 03/09/2018 4:00 AM CDT BASIC METABOLIC PANEL Routine 03/09/2018 4:00 AM CDT POC GLUCOSE Routine 03/08/2018 8:35 PM CDT POC GLUCOSE Routine 03/08/2018 3:31 PM CDT ECHOCARDIOGRAM 2D Routine 03/08/2018 COMPLETE W MMODE SPECTRAL 3:07 PM CDT COLOR DOPPLER (11935) ECG 12-LEAD Routine 03/08/2018 1:17 PM CDT ESTIMATED GFR Routine 03/08/2018 12:26 PM CDT FK506 LEVEL Routine 03/08/2018 12:26 PM CDT BASIC METABOLIC PANEL Routine 03/08/2018 12:26 PM CDT POC GLUCOSE Routine 03/08/2018 8:08 AM CDT POC GLUCOSE Routine 03/08/2018 5:42 AM CDT POC GLUCOSE Routine 03/08/2018 1:17 AM CDT POC GLUCOSE Routine 03/07/2018 9:42 PM CDT POC GLUCOSE Routine 03/07/2018 6:41 PM CDT POC GLUCOSE Routine 03/07/2018 1:10 PM CDT POC GLUCOSE Routine 03/07/2018 8:05 AM CDT POC GLUCOSE Routine 03/07/2018 5:32 AM CDT POC GLUCOSE Routine 03/07/2018 12:18 AM CDT POC GLUCOSE Routine 03/06/2018 4:47 PM CDT POC GLUCOSE Routine 03/06/2018 1:59 PM CDT POC GLUCOSE Routine 03/06/2018 7:25 AM CDT FK506 LEVEL Routine 03/06/2018 4:45 AM CDT ZZESTIMATED GFR Routine 03/06/2018 4:00 AM CDT BASIC METABOLIC PANEL Routine 03/06/2018 4:00 AM CDT POC GLUCOSE Routine 03/06/2018 3:10 AM CDT POC GLUCOSE Routine 03/06/2018 12:42 AM CDT POC GLUCOSE Routine 03/05/2018 6:26 PM CDT POC GLUCOSE Routine 03/05/2018 2:18 PM CDT POC GLUCOSE Routine 03/05/2018 12:13 PM CDT VANCOMYCIN LEVEL, TROUGH Timed 03/05/2018 8:10 AM CDT POC GLUCOSE Routine 03/05/2018 7:43 AM CDT ZZESTIMATED GFR Routine 03/05/2018 3:40 AM CDT FK506 LEVEL Routine 03/05/2018 3:40 AM CDT BASIC METABOLIC PANEL Routine 03/05/2018 3:40 AM CDT POC GLUCOSE Routine 03/04/2018 9:46 PM CDT POC GLUCOSE Routine 03/04/2018 5:01 PM CDT MRI LOWER EXTREMITY JOINT Routine 03/04/2018 WO CONTRAST RIGHT 3:31 PM CDT POC GLUCOSE Routine 03/04/2018 2:06 PM CDT POC GLUCOSE Routine 03/04/2018 12:05 PM CDT POC GLUCOSE Routine 03/04/2018 7:41 AM CDT ZZESTIMATED GFR Routine 03/04/2018 4:05 AM CDT FK506 LEVEL Routine 03/04/2018 4:05 AM CDT BASIC METABOLIC PANEL Routine 03/04/2018 4:05 AM CDT POC GLUCOSE Routine 03/03/2018 9:24 PM CDT POC GLUCOSE Routine 03/03/2018 5:03 PM CDT POC GLUCOSE Routine 03/03/2018 2:53 PM CDT POC GLUCOSE Routine 03/03/2018 12:16 PM CDT POC GLUCOSE Routine 03/03/2018 8:01 AM CDT POC GLUCOSE Routine 03/03/2018 5:56 AM CDT FK506 LEVEL Routine 03/03/2018 5:02 AM CDT POC GLUCOSE Routine 03/02/2018 10:[address] LOWER EXTREMITY WO Routine 03/02/2018 CONTRAST RIGHT 10:25 PM CDT POC GLUCOSE Routine 03/02/2018 7:50 PM CDT AFB STAIN Routine 03/02/2018 6:20 PM CDT FUNGUS SMEAR Routine 03/02/2018 6:20 PM CDT GRAM STAIN Routine 03/02/2018 6:20 PM CDT AFB CULTURE Routine 03/02/2018 6:20 PM CDT FUNGUS CULTURE Routine 03/02/2018 6:20 PM CDT ANAEROBIC CULTURE Routine 03/02/2018 6:20 PM CDT AEROBIC CULTURE Routine 03/02/2018 6:20 PM CDT US DUPLEX ARTERIAL LOWER Routine 03/02/2018 EXTREMITY RIGHT 5:50 PM CDT POC GLUCOSE Routine 03/02/2018 4:53 PM CDT POC GLUCOSE Routine 03/02/2018 2:03 PM CDT POC GLUCOSE Routine 03/02/2018 12:18 PM CDT POC GLUCOSE Routine 03/02/2018 8:27 AM CDT POC GLUCOSE Routine 03/02/2018 7:45 AM CDT LACTIC ACID LEVEL, SEPSIS Timed 03/02/2018 - NOW AND REPEAT 2X EVERY 7:30 AM CDT 3 HOURS POC GLUCOSE Routine 03/02/2018 7:01 AM CDT ZZESTIMATED GFR Routine 03/02/2018 4:10 AM CDT BASIC METABOLIC PANEL Routine 03/02/2018 4:10 AM CDT HC COMPLETE BLD COUNT Routine 03/02/2018 W/AUTO DIFF 4:10 AM CDT POC GLUCOSE Routine 03/02/2018 2:45 AM CDT LACTIC ACID LEVEL, SEPSIS Timed 03/02/2018 - NOW AND REPEAT 2X EVERY 2:09 AM CDT 3 HOURS POC GLUCOSE Routine 03/01/2018 11:37 PM CDT POC GLUCOSE Routine 03/01/2018 10:39 PM CDT XR FOOT 3+ VW RIGHT STAT 03/01/2018 8:18 PM CDT LACTIC ACID LEVEL, SEPSIS Timed 03/01/2018 - NOW AND REPEAT 2X EVERY 7:37 PM CDT 3 HOURS BLOOD CULTURE, AEROBIC & Routine 03/01/2018 ANAEROBIC 7:37 PM CDT HI CRITICAL CARE, E/M Routine 03/01/2018 30-74 MINUTES 7:24 PM CDT ZZESTIMATED GFR STAT 03/01/2018 6:21 PM CDT C-REACTIVE PROTEIN STAT 03/01/2018 6:21 PM CDT LACTIC ACID LEVEL, SEPSIS STAT 03/01/2018 - NOW AND REPEAT 2X EVERY 6:21 PM CDT 3 HOURS COMPREHENSIVE METABOLIC STAT 03/01/2018 PANEL 6:21 PM CDT HC COMPLETE BLD COUNT STAT 03/01/2018 W/AUTO DIFF 6:21 PM CDT BLOOD CULTURE, AEROBIC & Routine 03/01/2018 ANAEROBIC 6:21 PM CDT HC COMPLETE BLD COUNT STAT 09/18/2017 W/AUTO DIFF 8:11 PM CDT ZZESTIMATED GFR STAT 09/18/2017 7:53 PM CDT COMPREHENSIVE METABOLIC STAT 09/18/2017 PANEL 7:53 PM CDT TISSUE TRANSGLUTAMINASE Routine 08/22/2017 Diarrhea, unspecified AB, IGA 1:29 PM PRACTICE MANAGEMENT CONSULTANT type 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) IMMUNOGLOBULIN A Routine 08/22/2017 Diarrhea, unspecified 1:29 PM PRACTICE MANAGEMENT CONSULTANT type 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) SEDIMENTATION RATE Routine 08/22/2017 Diarrhea, unspecified 1:29 PM PRACTICE MANAGEMENT CONSULTANT type 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) RESPIRATORY PATHOGEN Routine 07/29/2017 PANEL 4:15 PM PRACTICE MANAGEMENT CONSULTANT INFLUENZA ANTIGEN Routine 07/29/2017 4:15 PM PRACTICE MANAGEMENT CONSULTANT LACTIC ACID LEVEL, SEPSIS Timed 07/29/2017 - NOW AND REPEAT 2X EVERY 4:10 PM PRACTICE MANAGEMENT CONSULTANT 3 HOURS BLOOD CULTURE, AEROBIC & Routine 07/29/2017 ANAEROBIC 2:50 PM PRACTICE MANAGEMENT CONSULTANT ZZESTIMATED GFR STAT 07/29/2017 2:40 PM PRACTICE MANAGEMENT CONSULTANT LACTIC ACID LEVEL, SEPSIS STAT 07/29/2017 - NOW AND REPEAT 2X EVERY 2:40 PM PRACTICE MANAGEMENT CONSULTANT 3 HOURS URINALYSIS SCREEN AND STAT 07/29/2017 MICROSCOPY, WITH REFLEX 2:40 PM PRACTICE MANAGEMENT CONSULTANT TO CULTURE COMPREHENSIVE METABOLIC STAT 07/29/2017 PANEL 2:40 PM PRACTICE MANAGEMENT CONSULTANT HC COMPLETE BLD COUNT STAT 07/29/2017 W/AUTO DIFF 2:40 PM PRACTICE MANAGEMENT CONSULTANT URINE CULTURE STAT 07/29/2017 2:40 PM PRACTICE MANAGEMENT CONSULTANT BLOOD CULTURE, AEROBIC & Routine 07/29/2017 ANAEROBIC 2:40 PM PRACTICE MANAGEMENT CONSULTANT GRAM STAIN Routine 07/29/2017 2:15 PM PRACTICE MANAGEMENT CONSULTANT SPUTUM CULTURE Routine 07/29/2017 2:15 PM PRACTICE MANAGEMENT CONSULTANT XR CHEST 2 VW STAT 07/29/2017 1:30 PM PRACTICE MANAGEMENT CONSULTANT ZZESTIMATED GFR Routine 06/07/2017 12:20 PM PRACTICE MANAGEMENT CONSULTANT FK506 LEVEL Routine 06/07/2017 Transplanted kidney 12:20 PM PRACTICE MANAGEMENT CONSULTANT CREATININE LEVEL, URINE, Routine 06/07/2017 Transplanted kidney RANDOM 12:20 PM PRACTICE MANAGEMENT CONSULTANT COMPREHENSIVE METABOLIC Routine 06/07/2017 Transplanted kidney PANEL 12:20 PM PRACTICE MANAGEMENT CONSULTANT HC COMPLETE BLD COUNT Routine 06/07/2017 Transplanted kidney W/AUTO DIFF 12:20 PM PRACTICE MANAGEMENT CONSULTANT PROTEIN, URINE, RANDOM Routine 06/07/2017 Transplanted kidney 12:20 PM PRACTICE MANAGEMENT CONSULTANT URINALYSIS SCREEN AND Routine 06/07/2017 Urinary tract infection MICROSCOPY, WITH REFLEX 12:20 PM PRACTICE MANAGEMENT CONSULTANT Transplanted kidney TO CULTURE MAGNESIUM LEVEL Routine 06/07/2017 Transplanted kidney 12:20 PM PRACTICE MANAGEMENT CONSULTANT PHOSPHORUS LEVEL Routine 06/07/2017 Transplanted kidney 12:20 PM PRACTICE MANAGEMENT CONSULTANT URINE CULTURE Routine 06/07/2017 12:20 PM PRACTICE MANAGEMENT CONSULTANT after 05/29/2017 Results * POC glucose (03/13/2018 2:19 PM CDT) Only the most recent of 66 results within the time period is included. POC glucose 171 (H) 65 - 99 mg/dL [facility] DEPARTMENT OF Comment: PATHOLOGY AND [facility] Notified RN GENOMIC MEDICINE Meter ID: [id number] Senior Geotechnical Engineer: Oliverio Washburn Performing Organization Address City/State/Zipcode Phone Number [facility] DEPARTMENT OF [address] [place] [address] PATHOLOGY AND GENOMIC MEDICINE * FK506 level (03/13/2018 3:47 AM CDT) Only the most recent of 10 results within the time period is included. FK506 level 4.4 ng/mL [facility] DEPARTMENT OF Comment: PATHOLOGY AND Therapeutic range 5-20 ng/mL Sjapper for 12 hour trough. The range varies depending on the organ transplanted, time after transplantation and co-administered immunosuppressant therapies. Please use clinical judgment to interpret test result. Test performed using [employer]uels Knitting Machine Operator Automatic chemiluminescent microparticle immunoassay for Tacrolimus on the FINISHER HAND i System. Specimen Blood Performing Organization Address City/[facility] [place] [address] PATHOLOGY AND [facility] * Estimated GFR (03/12/2018 4:10 AM CDT) Only the most recent of 5 results within the time period is included. Estimated GFR >=90 mL/min/1.73 m2 [facility] DEPARTMENT OF Comment: PATHOLOGY AND CatergoryUnitsInte [employer] MEDICINE rpretation G1 >=90 Normal or high G2 60-89Mildly decreased [id number] Mildly to moderately decreased [id number] Moderately to severely decreased G4 15-29Severely decreased G5 <15Kidney failure The eGFR was calculated using the Chronic Kidney Disease Epidemiology Collaboration (CKD-EPI) equation. Interpretation is based on recommendations of the National Kidney Foundation-Kidney Disease Outcomes Quality Initiative (NKF-KDOQI) published in 2014. Specimen Plasma specimen Performing Organization Address City/[facility] [place] [address] PATHOLOGY AND [employer] * CBC with platelet and differential (03/12/2018 4:10 AM CDT) Only the most recent of 8 results within the time period is included. WBC 7.76 4.50 - 11.00 k/uL [facility] DEPARTMENT OF PATHOLOGY AND GENOMIC MEDICINE RBC 3.82 (L) 4.40 - 6.00 m/uL [facility] DEPARTMENT OF PATHOLOGY AND GENOMIC MEDICINE HGB 11.0 (L) 14.0 - 18.0 g/dL [facility] DEPARTMENT OF PATHOLOGY AND GENOMIC MEDICINE HCT 35.2 (L) 41.0 - 51.0 % [facility] DEPARTMENT OF PATHOLOGY AND GENOMIC MEDICINE MCV 92.1 82.0 - 100.0 fL [facility] DEPARTMENT OF PATHOLOGY AND GENOMIC MEDICINE MCH 28.8 27.0 - 34.0 pg [facility] DEPARTMENT OF PATHOLOGY AND GENOMIC MEDICINE MCHC 31.3 31.0 - 37.0 g/dL [facility] DEPARTMENT OF PATHOLOGY AND GENOMIC MEDICINE RDW - SD 45.1 37.0 - 55.0 fL [facility] DEPARTMENT OF PATHOLOGY AND GENOMIC MEDICINE MPV 12.2 8.8 - 13.2 fL [facility] DEPARTMENT OF PATHOLOGY AND GENOMIC MEDICINE Platelet count 259 150 - 400 k/uL [facility] DEPARTMENT OF PATHOLOGY AND GENOMIC MEDICINE Nucleated RBC 0.00 /100 WBC [facility] DEPARTMENT OF PATHOLOGY AND GENOMIC MEDICINE Neutrophils 65.8 39.0 - 69.0 % [facility] DEPARTMENT OF PATHOLOGY AND GENOMIC MEDICINE Lymphocytes 17.3 (L) 25.0 - 45.0 % [facility] DEPARTMENT OF PATHOLOGY AND GENOMIC MEDICINE Monocytes 12.1 (H) 0.0 - 10.0 % [facility] DEPARTMENT OF PATHOLOGY AND GENOMIC MEDICINE Eosinophils 3.6 0.0 - 5.0 % [facility] DEPARTMENT OF PATHOLOGY AND GENOMIC MEDICINE Basophils 0.6 0.0 - 1.0 % [facility] DEPARTMENT OF PATHOLOGY AND GENOMIC MEDICINE Immature granulocytes 0.6Comment: "Immature 0.0 - 1.0 % [facility] DEPARTMENT OF granulocytes" (promyelocytes, PATHOLOGY AND myelocytes, metamyelocytes) GENOMIC MEDICINE Performing Organization Address [facility] [place] [address] PATHOLOGY AND GENOMIC MEDICINE * Phosphorus level (03/12/2018 4:10 AM CDT) Only the most recent of 3 results within the time period is included. Phosphorus 2.2 (L) 2.4 - 4.5 mg/dL [facility] DEPARTMENT OF PATHOLOGY AND GENOMIC MEDICINE Specimen Plasma specimen Performing Organization Address City/[facility] [place] [address] PATHOLOGY AND [facility] * Magnesium level (03/12/2018 4:10 AM CDT) Only the most recent of 2 results within the time period is included. Magnesium 2.0 1.6 - 2.4 mg/dL [facility] DEPARTMENT OF PATHOLOGY AND GENOMIC MEDICINE Specimen Plasma specimen Performing Organization Address [facility] [place] [address] PATHOLOGY [facility] GENOMIC [facility] * Vancomycin level, trough (03/12/2018 4:10 AM CDT) Only the most recent of 2 results within the time period is included. Vancomycin, trough 18.4 10.0 - 20.0 ug/mL [facility] DEPARTMENT OF Comment: PATHOLOGY AND Therapeutic Ranges: GENOMIC MEDICINE Peak 30.0 - 40.0 ug/mL Cazizt26.0 - 20.0 ug/mL Specimen Serum Performing Organization Address City/[facility] Phone Number [facility] [place] [address] PATHOLOGY AND GENOMIC MEDICINE * Basic metabolic panel (03/12/2018 4:10 AM CDT) Only the most recent of 9 results within the time period is included. Sodium 141 135 - 148 mEq/L [facility] DEPARTMENT OF PATHOLOGY AND GENOMIC MEDICINE Potassium 3.9 3.5 - 5.0 mEq/L [facility] DEPARTMENT OF PATHOLOGY AND GENOMIC MEDICINE Chloride 102 98 - 112 mEq/L [facility] DEPARTMENT OF PATHOLOGY AND GENOMIC MEDICINE CO2 28 24 - 31 mEq/L [facility] DEPARTMENT OF PATHOLOGY AND GENOMIC MEDICINE Anion gap 11@ANIO 7 - 15 mEq/L [facility] DEPARTMENT OF PATHOLOGY AND GENOMIC MEDICINE BUN 19 8 - 23 mg/dL [facility] DEPARTMENT OF PATHOLOGY AND GENOMIC MEDICINE Creatinine 0.81 0.70 - 1.20 mg/dL [facility] DEPARTMENT OF PATHOLOGY AND GENOMIC MEDICINE Glucose 158 (H) 65 - 99 mg/dL [facility] DEPARTMENT OF PATHOLOGY AND GENOMIC MEDICINE Calcium 8.6 (L) 8.8 - 10.2 mg/dL [facility] DEPARTMENT OF PATHOLOGY AND GENOMIC MEDICINE Specimen Plasma specimen Performing Organization Address [facility] Phone Number [facility] DEPARTMENT [address] [address] PATHOLOGY AND [employer] MEDICINE * Partial thromboplastin time, activated (03/10/2018 3:15 AM CDT) PTT 41.6 (H) 23.0 - 36.0 sec [facility] DEPARTMENT OF Comment: PATHOLOGY AND PTT therapeutic range for [facility] unfractionated heparin is 61.0-112.0 seconds which corresponds to Anti-Xa 0.3-0.7 U/ml. Specimen Blood Performing Organization Address City/[facility] Phone Number [address] [address] PATHOLOGY AND [employer] MEDICINE * Prothrombin time with INR (03/10/2018 3:15 AM CDT) Prothrombin time 15.6 (H) 12.0 - 15.0 sec [facility] DEPARTMENT OF PATHOLOGY AND GENOMIC MEDICINE INR 1.2 [facility] DEPARTMENT OF Comment: PATHOLOGY AND The International Normalized GENOMIC MEDICINE Ratio (INR) is a therapeutic monitoring tool for patients who are stable on oral anticoagulant therapy. An INR of 2.0-3.0 is suggested for deep vein thrombosis/pulmonary embolism. Specimen Blood Performing Organization Address City/[facility]/[place] [address] PATHOLOGY AND GENOMIC MEDICINE * Type and screen (03/10/2018 3:15 AM CDT) ABO grouping O [facility] DEPARTMENT OF PATHOLOGY AND GENOMIC MEDICINE Rh type POS [facility] DEPARTMENT OF PATHOLOGY AND GENOMIC MEDICINE Antibody screen (gel) NEG [facility] DEPARTMENT OF PATHOLOGY AND GENOMIC MEDICINE Specimen Blood Performing Organization Address [facility] [place] [address] PATHOLOGY AND GENOMIC MEDICINE * Echocardiogram complete w contrast and 3D if needed (03/08/2018 3:07 PM CDT) Narrative Performed At [facility] Echocardiography Report [address] [place] [address] Pat.Name:Roger RENTERIA.ID:[id number] .Date: 03/08/2018 Refer.MD:JOSE BRISCOE MD Exam Time: 1:50:00 PMStudy Type:Routine Echo Height:68inWeight:230lb BSA: 2.17 m2 DOBAge:1955,62Y Sex: MALEBP:138/74 HR:67 bpmSonogrphr: LISA Rangel Pat. Stat.:Inpatient Room:[facility] Study Status:Final Echo Event ID:[id number] Order ID:[id number] Reason for Study:PRE OP History / Clinical:Diabetes, [...] PA systolic pressure. MEASUREMENTS: 2D Parasternal Long Kitzmiller LVOT 2.4 cmLA Ds4.2 cm LVIDd5.4 cmIndex2.5 cm/m Ao Rtd 3.4 cm Index1.6 cm/m LVIDs2.7 cm LV Wmcd775 g(122-174) LV%fs 49.9 % LVM Index 98.6 g/m2 IVSd 0.9 cmRWT0.4 LVPWd1.1 cm LA Sng Plane LA Area 15.2 cm2(8.8-23.4) LA Vol38.1 ml Index17.6 ml/m LA LngAx 5 cm Signed 03/09/2018 10:26 AM Jose Briscoe MD Procedure Note Interface, Radiology Results In - 03/09/2018 10:27 AM CDT Echocardiography Report [address] [address].Name: ALMA RENTERIA.ID: [id number] .Date: 03/08/2018 Refer.MD: JOSE BRISCOE MD Exam Time: 1:50:00 PM Study Type:Routine Echo Height: 68in Weight: 230lb BSA: 2.17 m2 Age: 10 1955,62Y Sex: MALE BP: 138/74 HR: 67 bpm Sonogrphr: LISA Rangel. Stat.:Inpatient Room: [facility] Study Status:Final Echo Event ID:[id number] Order ID: [id number] Reason for Study:PRE OP History / Clinical:Diabetes, [...] PA systolic pressure. MEASUREMENTS: 2D Parasternal Long Kitzmiller LVOT 2.4 cm LA Ds 4.2 cm [...] AM Jose Briscoe MD Performing Organization Address [facility] Phone Number [facility] [address] [place] [address] * ECG 12 lead (03/08/2018 1:17 PM CDT) Ventricular rate 75 [facility] Atrial rate 75 [facility] HI interval 132 [facility] QRSD interval 104 [facility] QT interval 424 [facility] QTC interval 473 [facility] P axis 1 28 [facility] QRS axis 1 9 [facility] T wave axis 27 [facility] MUSE EKG impression Sinus rhythm with premature [facility] MUSE atrial complexes in a pattern of bigeminy-Otherwise normal ECG-In automated comparison with ECG of 25-MAY-2017 17:56,-Sinus rhythm has replaced Ectopic atrial rhythm- Performing Organization Address [facility] Phone Number [facility] MUSE [address] [place] [address] * Estimated GFR (03/06/2018 4:00 AM CDT) Only the most recent of 8 results within the time period is included. GFR Non Af Amer >90 mL/min/1.73 m2 [facility] DEPARTMENT OF PATHOLOGY AND GENOMIC MEDICINE GFR Af Amer >90 mL/min/1.73 m2 [facility] DEPARTMENT OF Comment: PATHOLOGY AND Chronic kidney [...] Americans. Specimen Plasma specimen Performing Organization Address City/State/Zipcode Phone Number [facility] DEPARTMENT OF [address] [place] [address] PATHOLOGY AND GENOMIC MEDICINE * MRI Lower Extremity Joint Wo Contrast Right (03/04/2018 3:31 PM CDT) Narrative Performed At [facility] EXAMINATION:MRI LOWER EXTREMITY [...] subtalar joint and right midfoot joint spaces. [facility]-[id number] Procedure Note Interface, Radiology Results Incoming - 03/05/2018 4:01 PM CDT EXAMINATION: MRI [...] subtalar joint and right midfoot joint spaces. [facility]-[id number] Performing Organization Address City/State/Zipcode Phone Number [facility] [address] [place] [address] * CT Lower Extremity Wo Contrast Right (03/02/2018 10:25 PM CDT) Narrative Performed At EXAMINATION:CT LOWER EXTREMITY [facility]AST [facility]:62 years Male Osteomyelitisknownfootfollow up, rule [...] vascular calcifications are present consistent with diabetes. [facility]-[id number] Procedure Note Interface, Radiology Results [facility] - 03/03/2018 12:04 AM CDT EXAMINATION: CT [...] vascular calcifications are present consistent with diabetes. [facility]-[id number] Performing Organization Address [facility]/Zipcode Phone Number [address] [address] * Fungus smear (03/02/2018 6:20 PM CDT) Fungus smear No fungi observed. [facility] DEPARTMENT OF Comment: PATHOLOGY AND Specimen Information GENOMIC MEDICINE Specimen Source: Wound Specimen Site: Foot Specimen Wound Performing Organization Address [facility] Phone Number [facility] DEPARTMENT [address] [address] PATHOLOGY AND GENOMIC MEDICINE * AFB culture (03/02/2018 6:20 PM CDT) AFB culture isolate No growth after 6 weeks of [facility] DEPARTMENT OF incubation. PATHOLOGY AND Comment: GENOMIC MEDICINE Specimen Information Specimen Source: Wound Specimen Site: Foot Specimen Wound Performing Organization Address [facility] Phone Number [facility] DEPARTMENT OF [address] [place] [address] PATHOLOGY AND GENOMIC MEDICINE * Aerobic culture (03/02/2018 6:20 PM CDT) Aerobic culture isolate Proteus mirabilis [facility] DEPARTMENT OF Occasional PATHOLOGY AND susceptibility to follow GENOMIC MEDICINE (A) Comment: Specimen Information Specimen Source: Wound Specimen Site: Foot Aerobic culture isolate Alcaligenes faecalis (odorans) [facility] DEPARTMENT OF Occasional PATHOLOGY AND susceptibility to follow GENOMIC MEDICINE (A) Aerobic culture isolate Enterococcus faecalis [facility] DEPARTMENT OF Recovered in Broth only: PATHOLOGY AND susceptibility to follow GENOMIC MEDICINE Enterococcus susceptible to high levels of Gentamicin. Susceptibility results indicate synergy with Penicillins and Vancomycin. This organism is Vancomycin Sensitive. (A) Specimen Wound Antibiotic Method Susceptibility Organism Ampicillin ZIGGY <=2 mcg/mL: Susceptible Proteus mirabilis [...] Ampicillin/Sulbactam ZIGGY <=1/0.5 mcg/mL: Susceptible Proteus mirabilis Trimethoprim/Sulfamethoxazole ZIGGY <=0.5/9.5 mcg/mL: Susceptible Proteus mirabilis Tetracycline ZIGGY >8 mcg/mL: Resistant Proteus mirabilis Piperacillin/Tazobactam ZIGGY <=2/4 mcg/mL: Susceptible Proteus mirabilis Ertapenem ZIGGY <=0.125 mcg/mL: Susceptible Proteus mirabilis Tigecycline ZIGGY mcg/mL: Resistant Proteus mirabilis Amikacin ZIGGY <=4 mcg/mL: Susceptible Alcaligenes faecalis (odorans) Aztreonam ZIGGY >16 mcg/mL: Resistant Alcaligenes faecalis (odorans) Ceftazidime ZIGGY >16 mcg/mL: Resistant Alcaligenes faecalis (odorans) Ceftriaxone ZIGGY <=0.5 mcg/mL: Susceptible Alcaligenes faecalis (odorans) Cefepime ZIGGY 8 mcg/mL: Susceptible Alcaligenes faecalis (odorans) Gentamicin ZIGGY 4 mcg/mL: Resistant Alcaligenes faecalis (odorans) Imipenem ZIGGY 1 mcg/mL: Susceptible Alcaligenes faecalis (odorans) Levofloxacin ZIGGY <=1 mcg/mL: Susceptible Alcaligenes faecalis (odorans) Tobramycin ZIGGY 2 mcg/mL: Susceptible Alcaligenes faecalis (odorans) Trimethoprim/Sulfamethoxazole ZIGGY 1/19 mcg/mL: Susceptible Alcaligenes faecalis (odorans) Piperacillin/Tazobactam ZIGGY <=2/4 mcg/mL: Susceptible Alcaligenes faecalis (odorans) Ampicillin ZIGGY 1 mcg/mL: Susceptible Enterococcus faecalis Erythromycin ZIGGY >4 mcg/mL: Resistant Enterococcus faecalis Gentamicin-Syn ZIGGY <=500 mcg/mL: Susceptible Enterococcus faecalis Linezolid ZIGGY <=1 mcg/mL: Susceptible Enterococcus faecalis Minocycline ZIGGY <=1 mcg/mL: Susceptible Enterococcus faecalis Vancomycin ZIGGY 1 mcg/mL: Susceptible Enterococcus faecalis Performing Organization Address [facility] Phone Number [facility] DEPARTMENT OF [address] [place] [address] PATHOLOGY AND GENOMIC MEDICINE * Gram stain (03/02/2018 6:20 PM CDT) Only the most recent of 2 results within the time period is included. Gram stain isolate Rare WBC's [facility] DEPARTMENT OF Occasional Gram positive rods PATHOLOGY AND Many Gram positive cocci in GENOMIC MEDICINE pairs Many Gram negative rods Comment: Specimen Information Specimen Source: Wound Specimen Site: Foot Specimen Wound Performing Organization Address [facility] Phone Number [facility] DEPARTMENT OF [address] [place] [address] PATHOLOGY AND GENOMIC MEDICINE * AFB stain (03/02/2018 6:20 PM CDT) AFB stain No acid fast bacilli (AFB) [facility] DEPARTMENT OF seen. PATHOLOGY AND Comment: GENOMIC MEDICINE Specimen Information Specimen Source: Wound Specimen Site: Foot Specimen Wound Performing Organization Address [facility] Phone Number [facility] DEPARTMENT OF [address] [place] [address] PATHOLOGY AND GENOMIC MEDICINE * Fungus culture (03/02/2018 6:20 PM CDT) Fungus culture isolate No growth after 4 weeks of [facility] DEPARTMENT OF incubation. PATHOLOGY AND Comment: GENOMIC MEDICINE Specimen Information Specimen Source: Wound Specimen Site: Foot Specimen Wound Performing Organization Address [facility] Phone Number [facility] [place] [address] PATHOLOGY AND GENOMIC MEDICINE * Anaerobic culture (03/02/2018 6:20 PM CDT) Anaerobic culture isolate No anaerobic organisms [facility] DEPARTMENT OF isolated. PATHOLOGY AND Comment: GENOMIC MEDICINE Specimen Information Specimen Source: Wound Specimen Site: Foot Specimen Wound Performing Organization Address [facility] Phone Number [facility] [place] [address] PATHOLOGY AND GENOMIC MEDICINE * Pv duplex arterial lower extremity (03/02/2018 5:50 PM CDT) Narrative Performed At [facility] Vascular Ultrasound Laboratory Lower Extremity Arterial Duplex Report [address] [id number] Pat.Name:Roger RENTERIA.ID:[id number] St.Date: 03/02/2018Refer.MD:DEMOND THOMPSON MD Exam Time: 2:17:00 PMStudy Type:LE Arterial Height:68inWeight:230lb BSA: 2.17 m2 DOBAge:1955,62Y Sex: MALESonogrphr: Pieter Edwards RVT, RDMS Pat. Stat.:Inpatient Room:[address] TapeVol: JOZEF, CPT - 4: [address], [address] Echo Event ID:[id number] Order ID:[id number] Reason for Study:Ulcer. PMH of HTN, HLD, [...] normal on the left. MEASUREMENTS: DOPPLER Right DATA SECURITY COORDINATOR prox DATA SECURITY COORDINATOR prox PSV 128 cm/s Right Profunda Profunda PSV98.2 cm/s Right SFA Dist SFA Dist PSV 154 cm/s Right SFA Mid SFA Mid DII770 cm/s Right SFA Prox SFA Prox PSV 114 cm/s Right Pop Dist Pop Dist PSV 112 cm/s Right Pop Prox Pop Prox PSV 157 cm/s Right DINING ROOM BUSSER Dist DINING ROOM BUSSER Dist PSV87.6 cm/s Right DINING ROOM BUSSER Mid DINING ROOM BUSSER Mid PSV 69.9 cm/s Right DINING ROOM BUSSER Prox DINING ROOM BUSSER Prox PSV66.6 cm/sPTA Prox PSV66.6 cm/s Right Peroneal Dist Peroneal Dist P70.1 cm/s Peroneal Mid Peroneal Mid PS56.2 cm/s Right Peroneal Prox Peroneal Prox P66.9 cm/s Right CARLITOS Dist CARLITOS Dist PSV71.4 cm/s Right DATA SECURITY COORDINATOR Dist DATA SECURITY COORDINATOR Dist PSV 128 cm/s Right DINING ROOM BUSSER Distal DINING ROOM BUSSER Distal PSV87.6 cm/s Right CARLITOS Prox CARLITOS Prox PSV 282 cm/s Right CARLITOS Mid CARLITOS Mid PSV 56.4 cm/s Right CARLITOS Mid 2 CARLITOS Mid 2 GBC351 cm/s Right CARLITOS Distal CARLITOS Distal PSV71.4 [...] Ultrasound Laboratory Lower Extremity Arterial Duplex Report [address] [address] Pat.Name: ALMA RENTERIA Pat.ID: [id number] .Date: 03/02/2018 Refer.MD: DEMOND THOMPSON MD Exam Time: 2:17:00 PM Study Type:LE Arterial Height: 68in Weight: 230lb BSA: 2.17 m2 Age: 10 1955,62Y Sex: MALE Sonogrphr: Pieter Edwards RVT, [facility] [place] Pat. Stat.:Inpatient Room: U5579-Y Tape Vol: , CPT - 4: 37301, 17934 Echo Event ID:[id number] Order ID: [id number] Reason for Study:Ulcer. PMH of HTN, HLD, [...] normal on the left. MEASUREMENTS: DOPPLER Right DATA SECURITY COORDINATOR prox DATA SECURITY COORDINATOR prox PSV 128 cm/s Right Profunda Profunda PSV 98.2 cm/s Right SFA Dist SFA Dist PSV 154 cm/s Right SFA Mid SFA Mid PSV 121 cm/s Right SFA Prox SFA Prox PSV 114 cm/s Right Pop Dist Pop Dist PSV 112 cm/s Right Pop Prox Pop Prox PSV 157 cm/s Right DINING ROOM BUSSER Dist DINING ROOM BUSSER Dist PSV 87.6 cm/s Right DINING ROOM BUSSER Mid DINING ROOM BUSSER Mid PSV 69.9 cm/s Right DINING ROOM BUSSER Prox DINING ROOM BUSSER Prox PSV 66.6 cm/s DINING ROOM BUSSER Prox PSV 66.6 cm/s Right Peroneal Dist Peroneal Dist P 70.1 cm/s Peroneal Mid Peroneal Mid PS 56.2 cm/s Right Peroneal Prox Peroneal Prox P 66.9 cm/s Right CARLITOS Dist CARLITOS Dist PSV 71.4 cm/s Right DATA SECURITY COORDINATOR Dist DATA SECURITY COORDINATOR Dist PSV 128 cm/s Right DINING ROOM BUSSER Distal DINING ROOM BUSSER Distal PSV 87.6 cm/s Right CARLITOS Prox CARLITOS Prox PSV 282 cm/s Right CARLITOS Mid CARLITOS Mid PSV 56.4 cm/s Right CARLITOS Mid 2 CARLITOS Mid 2 PSV 165 [...] Julio Rene MD, RPVI Performing Organization Address City/State/Zipcode Phone Number [facility] [address] [place] [address] * Lactic acid level, SEPSIS - Now and repeat 2x every 3 hours (03/02/2018 7:30 AM CDT) Only the most recent of 6 results within the time period is included. Lactic acid 1.6 0.5 - 2.2 mmol/L [facility] DEPARTMENT OF PATHOLOGY AND GENOMIC MEDICINE Specimen Blood Performing Organization Address City/[facility] Phone Number [facility] DEPARTMENT OF [address] [place] [address] PATHOLOGY AND GENOMIC MEDICINE * XR Foot 3+ Vw Right (03/01/2018 8:18 PM CDT) Narrative Performed At EXAM:XR FOOT 3VW RIGHT [...] are noted. Soft tissues are otherwise normal. [facility]-[id number] Procedure Note Hm Interface, Radiology Results Incoming - 03/01/2018 8:32 [...] are noted. Soft tissues are otherwise normal. [facility]-[id number] Performing Organization Address [facility] Phone Number [facility] [address] [place] [address] * Blood culture, aerobic & anaerobic (03/01/2018 7:37 PM CDT) Only the most recent of 4 results within the time period is included. Blood culture isolate No growth after 5 days of [facility] DEPARTMENT OF incubation. PATHOLOGY AND Comment: GENOMIC MEDICINE Specimen Information Specimen Source: Blood Specimen Site: Antecubital, right Specimen Blood - Antecubital, right Performing Organization Address City/[facility]/Zipcode Phone Number [facility] DEPARTMENT OF [address] [place] [address] PATHOLOGY AND GENOMIC MEDICINE * CRITICAL CARE (03/01/2018 7:24 PM CDT) Narrative Performed At Gilbert Marquis MD 03/03/2018 [...] provider.: no * C-reactive protein (03/01/2018 6:21 PM CDT) CRP 12.47 (H) 0.00 - 0.50 mg/dL [facility] DEPARTMENT OF PATHOLOGY AND GENOMIC MEDICINE Specimen Plasma specimen Performing Organization Address City/State/Zipcode Phone Number [address] [address] PATHOLOGY AND GENOMIC MEDICINE * Comprehensive metabolic panel (03/01/2018 6:21 PM CDT) Only the most recent of 4 results within the time period is included. Sodium 133 (L) 135 - 148 mEq/L [facility] DEPARTMENT OF PATHOLOGY AND GENOMIC MEDICINE Potassium 4.0 3.5 - 5.0 mEq/L [facility] DEPARTMENT OF PATHOLOGY AND GENOMIC MEDICINE Chloride 91 (L) 98 - 112 mEq/L [facility] DEPARTMENT OF PATHOLOGY AND GENOMIC MEDICINE CO2 26 24 - 31 mEq/L [facility] DEPARTMENT OF PATHOLOGY AND GENOMIC MEDICINE Anion gap 16@ANIO (H) 7 - 15 mEq/L [facility] DEPARTMENT OF PATHOLOGY AND GENOMIC MEDICINE BUN 27 (H) 8 - 23 mg/dL [facility] DEPARTMENT OF PATHOLOGY AND GENOMIC MEDICINE Creatinine 0.9 0.70 - 1.20 mg/dL [facility] DEPARTMENT OF PATHOLOGY AND GENOMIC MEDICINE Glucose 390 (H) 65 - 99 mg/dL [facility] DEPARTMENT OF PATHOLOGY AND GENOMIC MEDICINE Calcium 9.7 8.8 - 10.2 mg/dL [facility] DEPARTMENT OF PATHOLOGY AND GENOMIC MEDICINE Protein 8.3 6.3 - 8.3 g/dL [facility] DEPARTMENT OF Comment: PATHOLOGY AND [place] GENOMIC MEDICINE 4.6-7.0 g/dL 1 week 4.4-7.6 g/dL 7 months-1year 5.1-7.3 g/dL 1-2 years5.6-7 .5 g/dL >3 years6.0-8 .0 g/dL 18-150 6.3-8.3 g/dL Albumin 3.0 (L) 3.5 - 5.0 g/dL [facility] DEPARTMENT OF PATHOLOGY AND GENOMIC MEDICINE A/G ratio 0.6 (L) 0.7 - 3.8 [facility] DEPARTMENT OF PATHOLOGY AND GENOMIC MEDICINE Alkaline phosphatase 78 40 - 129 U/L [facility] DEPARTMENT OF PATHOLOGY AND GENOMIC MEDICINE AST 20 10 - 50 U/L [facility] DEPARTMENT OF PATHOLOGY AND GENOMIC MEDICINE ALT 15 5 - 50 U/L [facility] DEPARTMENT OF PATHOLOGY AND GENOMIC MEDICINE Total bilirubin 0.5 0.0 - 1.2 mg/dL [facility] DEPARTMENT OF PATHOLOGY AND GENOMIC MEDICINE Specimen Plasma specimen Performing Organization Address City/State/[facility] Phone Number [facility] DEPARTMENT OF [address] [place] [address] PATHOLOGY AND GENOMIC MEDICINE * Tissue transglutaminase Ab, IgA (08/22/2017 1:29 PM PRACTICE MANAGEMENT CONSULTANT) Tissue transglutaminase 1 0 - 3 U/mL [facility] Ab, IgA Comment: INTERPRETIVE INFORMATION: Tissue [...] positive predictive value for disease. Performed by [facility], [address] [place] [address],[place] [address] [email or web address] Colby Smith MD - Lab. Director Specimen Serum Performing Organization Address City/[facility]/Zipcode Phone Number [facility] [address] [place] [address] * Sedimentation rate (08/22/2017 1:29 PM PRACTICE MANAGEMENT CONSULTANT) Sedimentation rate 36 (H) 0 - 10 mm/hr [facility] DEPARTMENT OF PATHOLOGY AND GENOMIC MEDICINE Specimen Blood Performing Organization Address City/[facility] [place] [address] PATHOLOGY AND [facility] * Immunoglobulin A (08/22/2017 1:29 PM PRACTICE MANAGEMENT CONSULTANT) IgA 322 70 - 400 mg/dL [facility] DEPARTMENT OF PATHOLOGY AND GENOMIC MEDICINE Specimen Plasma specimen Performing Organization Address [facility] [place] [address] PATHOLOGY AND [facility] * Respiratory pathogen panel (07/29/2017 4:15 PM PRACTICE MANAGEMENT CONSULTANT) Respiratory pathogen Positive for Influenza B virus [facility] DEPARTMENT OF panel Negative for all other PATHOLOGY AND pathogens tested: [facility] Negative for Adenovirus Negative for Coronavirus HKU1 [...] Specimen Nares - Left Performing Organization Address [facility]/Zipcode Phone Number [facility] [place] [address] PATHOLOGY AND [facility] * Influenza antigen (07/29/2017 4:15 PM PRACTICE MANAGEMENT CONSULTANT) Influenza antigen Negative for Influenza A/B [facility] DEPARTMENT OF antigen. PATHOLOGY AND Comment: GENOMIC MEDICINE Specimen Information Specimen Source: Nares Specimen Site: Left Specimen Nares - Left Performing Organization Address City/[facility]/Zipcode Phone Number [address] [address] PATHOLOGY AND GENOMIC MEDICINE * Urinalysis screen and microscopy, with reflex to culture (07/29/2017 2:40 PM PRACTICE MANAGEMENT CONSULTANT) Only the most recent of 2 results within the time period is included. Specimen site Clean catch [facility] DEPARTMENT OF PATHOLOGY AND GENOMIC MEDICINE Color, UA Yellow [facility] DEPARTMENT OF PATHOLOGY AND GENOMIC MEDICINE Appearance, UA Clear [facility] DEPARTMENT OF PATHOLOGY AND GENOMIC MEDICINE Specific gravity, UA 1.016 1.001 - 1.035 [facility] DEPARTMENT OF PATHOLOGY AND GENOMIC MEDICINE pH, UA 5.0 5.0 - 8.5 [facility] DEPARTMENT OF PATHOLOGY AND GENOMIC MEDICINE Protein, UA Negative Negative [facility] DEPARTMENT OF PATHOLOGY AND GENOMIC MEDICINE Glucose, UA Negative Negative [facility] DEPARTMENT OF PATHOLOGY AND GENOMIC MEDICINE Ketones, UA Negative Negative [facility] DEPARTMENT OF PATHOLOGY AND GENOMIC MEDICINE Bilirubin, UA Negative Negative [facility] DEPARTMENT OF PATHOLOGY AND GENOMIC MEDICINE Blood, UA Negative Negative [facility] DEPARTMENT OF PATHOLOGY AND GENOMIC MEDICINE Nitrite, UA Negative Negative [facility] DEPARTMENT OF PATHOLOGY AND GENOMIC MEDICINE Urobilinogen, UA <2.0 <2.0 [facility] DEPARTMENT OF PATHOLOGY AND GENOMIC MEDICINE Leukocyte esterase, UA Negative Negative [facility] DEPARTMENT OF PATHOLOGY AND GENOMIC MEDICINE Epithelial cells, UA 1 /HPF [facility] DEPARTMENT OF PATHOLOGY AND GENOMIC MEDICINE WBC, UA 2 (H) 0 - 1 /HPF [facility] DEPARTMENT OF PATHOLOGY AND GENOMIC MEDICINE RBC, UA 2 (H) 0 - 1 /HPF [facility] DEPARTMENT OF PATHOLOGY AND GENOMIC MEDICINE Bacteria, UA Few None seen [facility] DEPARTMENT OF PATHOLOGY AND GENOMIC MEDICINE Yeast, UA None seen [facility] DEPARTMENT OF PATHOLOGY AND GENOMIC MEDICINE Yeast with pseudohyphae, None seen [facility] DEPARTMENT OF UA PATHOLOGY AND GENOMIC MEDICINE Hyaline casts, UA 7 /LPF [facility] DEPARTMENT OF PATHOLOGY AND GENOMIC MEDICINE Specimen Urine Performing Organization Address City/[facility] Phone Number [address] [address] PATHOLOGY AND GENOMIC MEDICINE * Urine culture (07/29/2017 2:40 PM PRACTICE MANAGEMENT CONSULTANT) Only the most recent of 2 results within the time period is included. Urine culture SEE COMMENTComment: [facility] DEPARTMENT OF Bacteriuria screen negative. PATHOLOGY AND GENOMIC MEDICINE Performing Organization Address City/[facility] Phone Number [facility] DEPARTMENT [address] [address] PATHOLOGY AND GENOMIC MEDICINE * Sputum culture (07/29/2017 2:15 PM PRACTICE MANAGEMENT CONSULTANT) Sputum culture isolate Normal oral lauri isolated. [facility] DEPARTMENT OF Comment: PATHOLOGY AND Specimen Information GENOMIC MEDICINE Specimen Source: Sputum Specimen Site: Not otherwise specified Specimen Sputum - Not otherwise specified Performing Organization Address [facility]code Phone Number [facility] DEPARTMENT [address] [address] PATHOLOGY AND GENOMIC MEDICINE * XR Chest 2 Vw (07/29/2017 1:30 PM PRACTICE MANAGEMENT CONSULTANT) Narrative Performed At Examination:XR CHEST 2 VW RADIANT Clinical history:"Fever" Comparison:05/25/2017 Two radiographic views of the chest were evaluated. IMPRESSION: There are no apparent infiltrates, pleural effusions, or pneumothoraces. The cardiomediastinal silhouette and the imaged bones are stable in appearance. [id number] Procedure Note Hm Interface, Radiology Results Incoming - 07/29/2017 1:36 PM PRACTICE MANAGEMENT CONSULTANT Examination: XR CHEST 2 VW Clinical history: "Fever" Comparison: 05/25/2017 Two radiographic views of the chest were evaluated. IMPRESSION: There are no apparent infiltrates, pleural effusions, or pneumothoraces. The cardiomediastinal silhouette and the imaged bones are stable in appearance. [id number] Performing Organization Address City/[facility]/Zipcode Phone Number [address] [address] * Protein, urine, random (06/07/2017 12:20 PM PRACTICE MANAGEMENT CONSULTANT) Protein, urine random 9 mg/dL [facility] DEPARTMENT OF PATHOLOGY AND GENOMIC MEDICINE Specimen Urine Performing Organization Address City/[facility]code Phone Number [facility] DEPARTMENT [address] [address] PATHOLOGY AND GENOMIC MEDICINE * Creatinine level, urine, random (06/07/2017 12:20 PM PRACTICE MANAGEMENT CONSULTANT) Creatinine, urine, random 89 mg/dL [facility] DEPARTMENT OF PATHOLOGY AND GENOMIC MEDICINE Specimen Urine Performing Organization Address City/State/Zipcode Phone Number [facility] DEPARTMENT OF [address] [place] [address] PATHOLOGY AND GENOMIC MEDICINE after 05/29/2017 Insurance Payer Benefit Subscriber ID Type Phone Address Plan / Group BCBS BCBS xxxxxxxxxxxx PPO CHOICE PPO/[employer] PPO MEDICARE MEDICARE xxxxxxxxxx Medicare [place], [place] PART A Advance Directives Patient has advance care planning documents on file. For more information, eunice garza contact: Helder Richards [address] [facility] [place] [address]
[2018-05-30 10:45] VITALS: BP 138/41
--- NOTE | 2018-05-30 12:04 | Operative Report ---
DATE OF PROCEDURE: May 30, 2018 PREOPERATIVE DIAGNOSES 1. Ulcer, grade 3, right foot. 2. Diabetes with peripheral vascular disease and neuropathy. 3. History of kidney transplant. POSTOPERATIVE DIAGNOSES 1. Ulcer, grade 3, right foot. 2. Diabetes with peripheral vascular disease and neuropathy. 3. History of kidney transplant. PROCEDURES 1. Debridement of wound to include capsule of the right heel. 2. Application of human allograft tissue, right foot. 3. Application of a wound VAC. COMPLICATIONS: None. CONDITION: Stable. MATERIALS: The use of 2,000 mL of amniotic tissue in order to fill the void in the calcaneus. It was from [employer], and it is called AmnioFill. The number is [id number], expires 10/26/2019. PROCEDURE IN DETAIL: Under mild sedation, the patient was brought to the operating room and placed on the operating table in the supine position. Following IV sedation, anesthesia was obtained with general anesthetic. At this point, the right foot was scrubbed, prepped and draped in the usual aseptic manner. It was then lowered to the table. Attention was then directed to the plantar lateral aspect of the right foot where the ulcer that encompassed the whole aspect of the calcaneus into the lateral wall was present. Excisional debridement with a #15 blade, curette and a bone rongeur was performed. It was performed down to the level of the capsule. The capsule was removed. Muscle, fascia and subcutaneous tissue were all removed. It was all nonviable, devitalized tissue, necrotic. It was debrided down to clean, viable tissue. Once the wound was 90% granular, the area was then flushed with a pressure pastry decorator with Bacitracin. After debridement, a human amniotic graft was applied to the wound in order to fill the deficit. It was then secured utilizing Adaptic. Wound VAC will be applied in the PACU. A clean dressing was applied consisting of 4 x 4's, Kerlix, and an Alfonso bandage. The patient tolerated the procedure and anesthesia well without complications. He was transported to the recovery room with vital signs stable and vascular status unchanged to both feet. The patient will be discharged home when he meets criteria. He was given instructions to be strictly nonweightbearing and to elevate the foot while at rest. Wound care is going to apply the wound VAC in PACU. He will follow up in the wound care center. He will call the office if any questions, concerns or any problems arise. Job#: [id number] BING
== END | disposition home or self-care (01) ==
LOC: OR 07:22
PROVIDERS: ATTEND Podiatrist Foot & Ankle Surgery
DX: E11.621 Type 2 diabetes mellitus with foot ulcer (principal); E11.51 Type 2 diabetes mellitus with diabetic peripheral angiopathy without gangrene; E11.40 Type 2 diabetes mellitus with diabetic neuropathy, unspecified; I10 Essential (primary) hypertension; F32.9 Major depressive disorder, single episode, unspecified; F41.9 Anxiety disorder, unspecified; Z88.0 Allergy status to penicillin; Z01.812 Encounter for preprocedural laboratory examination; Z79.82 Long term (current) use of aspirin; Z79.4 Long term (current) use of insulin; Z79.02 Long term (current) use of antithrombotics/antiplatelets; Z94.0 Kidney transplant status
CPT/HCPCS: 11044; 29581; 36415 ×2; 80048; 82948; 85025; 97605; J1100; J2001; J2250; J2405; J2704; J3490

== ENCOUNTER → 2018-05-31 | Outpatient (CLI) | payer BC, MEDICARE ==
[~2018-05-31] MED LIST changes: -BACITRACIN 50,000 UNIT VIAL ONE; +BACTRIM 400-801 EACH PO; -DEXAMETHASONE SOD PHOS INJ 4 MG/ML VIAL ONE; -EPHEDRINE SULFATE INJ 50 MG/10 ML SYR ONE; -FENTANYL CITRATE/PF 100MCG/2 ML INJ ONE; -GLYCOPYRROLATE INJ 1MG/ 5 ML SYR ONE; -INSULIN REGULAR, HUMAN 100 UNIT/1 ML 3ML VIAL ONE; -LIDOCAINE HCL 2% LOCAL INJ 5 ML SDV VIAL INJ ONE; -MIDAZOLAM HCL 2 MG/2 ML VIAL ONE; +MINERAL OIL/PETROLAT/GLYCERI 6OZ BTL ONE; -ONDANSETRON HCL INJ 2 MG/ML VIAL ONE; -PROPOFOL IV EMULSION 10 MG/ML 20 ML VIAL ONE; -SEVOFLURANE INHAL SOLN 250 ML PEN BTL ONE; +TAMSULOSIN HCL0.4 MG PO
== END ==
LOC: WCC 09:00
PROVIDERS: ATTEND Podiatrist Foot & Ankle Surgery
DX: E11.621 Type 2 diabetes mellitus with foot ulcer (principal); E11.51 Type 2 diabetes mellitus with diabetic peripheral angiopathy without gangrene; E11.65 Type 2 diabetes mellitus with hyperglycemia; E11.69 Type 2 diabetes mellitus with other specified complication; L97.412 Non-pressure chronic ulcer of right heel and midfoot with fat layer exposed; R60.0 Localized edema; R60.9 Edema, unspecified; I87.2 Venous insufficiency (chronic) (peripheral); G62.9 Polyneuropathy, unspecified; B96.89 Other specified bacterial agents as the cause of diseases classified elsewhere; E78.5 Hyperlipidemia, unspecified; E66.3 Overweight; I10 Essential (primary) hypertension; I79.8 Other disorders of arteries, arterioles and capillaries in diseases classified elsewhere; K86.89 Other specified diseases of pancreas; W01.198A Fall on same level from slipping, tripping and stumbling with subsequent striking against other object, initial encounter; Z01.810 Encounter for preprocedural cardiovascular examination; Z01.811 Encounter for preprocedural respiratory examination

== ENCOUNTER 2018-06-16 12:02 | Outpatient (RCR) | payer MEDICARE, BC ==
[~2018-06-16 12:02] MED LIST changes: -BACTRIM 400-801 EACH PO; -MINERAL OIL/PETROLAT/GLYCERI 6OZ BTL ONE; -TAMSULOSIN HCL0.4 MG PO
[2018-06-16 15:37] LABS: BASOPHILS # (AUTO) 0.1 (0.0-0.1); BASOPHILS % 0.5 % (0.0-1.0); EOSINOPHILS # (AUTO) 0.6 (0.0-0.4); EOSINOPHILS % 5.4 % (0.0-6.0); HEMATOCRIT 41.9 % (38.2-49.6); HEMOGLOBIN 13.4 g/dL (14.0-18.0); LYMPHOCYTES # (AUTO) 1.3 (1.0-3.2); LYMPHOCYTES % 12.4 % (18.0-39.1); MEAN CORPUSCULAR HEMOGLOBIN 28.8 pg (28-32); MEAN CORPUSCULAR VOLUME 89.9 fL (81-99); MONOCYTES # (AUTO) 0.6 (0.2-0.8); MONOCYTES % 6.1 % (4.4-11.3); NEUTROPHILS # (AUTO) 7.8 (2.1-6.9); PLATELET COUNT 194 x10e3/uL (140-360); RED BLOOD COUNT 4.66 x10e6/uL (4.3-5.7); RED CELL DISTRIBUTION WIDTH 14.3 % (11.7-14.4)
[2018-06-16 16:11] LABS: ALANINE AMINOTRANSFERASE 53 IU/L (0-55); ALBUMIN 3.6 g/dL (3.5-5.0); ALBUMIN/GLOBULIN RATIO 0.8 (0.8-2.0); ALKALINE PHOSPHATASE 109 IU/L (40-150); ANION GAP 17.4 mmol/L (8-16); BLOOD UREA NITROGEN 26 mg/dL (7-26); BUN/CREATININE RATIO 25 (6-25); CALCIUM 9.9 mg/dL (8.4-10.2); CARBON DIOXIDE 22 mmol/L (22-29); CHLORIDE 97 mmol/L (98-107); CREATININE, SERUM 1.05 mg/dL (0.72-1.25); EST GLOMERULAR FILTRATION RATE > 60 ML/MIN (60-); GLUCOSE 285 mg/dL (74-118); POTASSIUM 3.4 mmol/L (3.5-5.1); SODIUM 133 mmol/L (136-145)
== END 2018-06-26 ==
LOC: WCC 12:02
PROVIDERS: ATTEND Podiatrist Foot & Ankle Surgery
DX: E11.621 Type 2 diabetes mellitus with foot ulcer (principal); E11.51 Type 2 diabetes mellitus with diabetic peripheral angiopathy without gangrene; E11.65 Type 2 diabetes mellitus with hyperglycemia; E11.69 Type 2 diabetes mellitus with other specified complication; L97.412 Non-pressure chronic ulcer of right heel and midfoot with fat layer exposed; I87.2 Venous insufficiency (chronic) (peripheral); R60.0 Localized edema; R60.9 Edema, unspecified; I79.8 Other disorders of arteries, arterioles and capillaries in diseases classified elsewhere; I10 Essential (primary) hypertension; B96.89 Other specified bacterial agents as the cause of diseases classified elsewhere; E66.3 Overweight; E78.5 Hyperlipidemia, unspecified; G62.9 Polyneuropathy, unspecified; K86.89 Other specified diseases of pancreas; W01.198A Fall on same level from slipping, tripping and stumbling with subsequent striking against other object, initial encounter; Z01.810 Encounter for preprocedural cardiovascular examination; Z01.811 Encounter for preprocedural respiratory examination
CPT/HCPCS: 15275; 15276; 29581; 36415; 80053; 83036; 84134; 85025; 97605; Q4121

== ENCOUNTER → 2018-07-12 | Outpatient (CLI) | payer MEDICARE, BC ==
--- NOTE | 2018-07-12 09:15 | Diagnostic Imaging Report ---
EXAMINATION: CHEST XRAY LINE PLACEMENT INDICATION: Status post PICC COMPARISON: Chest radiograph 03/28/2018. FINDINGS: TUBES and LINES: Status post interval right PICC placement, with tip terminating at the expected location of the cavoatrial junction. LUNGS: Low lung volumes. There is no evidence of pneumonia or pulmonary edema. PLEURA: No pleural effusion or pneumothorax. HEART AND MEDIASTINUM: The cardiomediastinal silhouette is unremarkable. BONES AND SOFT TISSUES: No acute osseous lesion. Soft tissues are unremarkable. UPPER ABDOMEN: No free air under the diaphragm. IMPRESSION: Right PICC terminates at the expected location of the cavoatrial junction. No evidence of pneumothorax. Signed by: Dr. Noni Dos Santos MD on 07/12/2018 9:11 AM
== END ==
LOC: DX 07:53
PROVIDERS: ATTEND Internal Medicine Infectious Disease
DX: M86.9 Osteomyelitis, unspecified (principal)
CPT/HCPCS: 36569; 71045

== ENCOUNTER → 2018-07-18 | Day surgery (SDC) | payer MEDICARE, BC ==
[2018-07-14 13:52] LABS: BASOPHILS # (AUTO) 0.1 (0.0-0.1); BASOPHILS % 0.4 % (0.0-1.0); EOSINOPHILS # (AUTO) 0.4 (0.0-0.4); EOSINOPHILS % 3.2 % (0.0-6.0); HEMATOCRIT 40.1 % (38.2-49.6); HEMOGLOBIN 13.1 g/dL (14.0-18.0); LYMPHOCYTES # (AUTO) 1.7 (1.0-3.2); LYMPHOCYTES % 14.1 % (18.0-39.1); MEAN CORPUSCULAR HEMOGLOBIN 28.1 pg (28-32); MEAN CORPUSCULAR HGB CONC 32.7 g/dL (31-35); MEAN CORPUSCULAR VOLUME 86.1 fL (81-99); MONOCYTES # (AUTO) 1.2 (0.2-0.8); MONOCYTES % 10.3 % (4.4-11.3); NEUTROPHILS # (AUTO) 8.6 (2.1-6.9); NEUTROPHILS % 71.3 % (38.7-80.0); PLATELET COUNT 307 x10e3/uL (140-360); RED BLOOD COUNT 4.66 x10e6/uL (4.3-5.7); RED CELL DISTRIBUTION WIDTH 13.4 % (11.7-14.4)
[2018-07-14 14:11] LABS: ANION GAP 15.2 mmol/L (8-16); CREATININE, SERUM 1.32 mg/dL (0.72-1.25); POTASSIUM 4.2 mmol/L (3.5-5.1)
[2018-07-14 14:17] LABS: INR 1.22; PROTHROMBIN TIME 16.5 seconds (11.9-14.5)
[2018-07-14 14:18] LABS: PARTIAL THROMBOPLASTIN TIME 50.1 seconds (23.8-35.5)
[~2018-07-18] MED LIST changes: +BACITRACIN 50,000 UNIT VIAL ONE; +BACTRIM 400-801 EACH PO; +BUPIVACAINE 0.25% 30ML SDV INJ ONE; +DEXAMETHASONE SOD PHOS INJ 4 MG/ML VIAL ONE; +FENTANYL CITRATE/PF 100MCG/2 ML INJ ONE; +INSULIN REGULAR, HUMAN 100 UNIT/1 ML 3ML VIAL ONE; +LEVAQUIN IV; +LIDOCAINE HCL 2% LOCAL INJ 5 ML SDV VIAL INJ ONE; +MIDAZOLAM HCL 2 MG/2 ML VIAL ONE; +ONDANSETRON HCL INJ 2MG/ML 2ML 2 MG/ML VIAL ONE; +PROPOFOL IV EMULSION 10 MG/ML 20 ML VIAL ONE; +SEVOFLURANE INHAL SOLN 250 ML PEN BTL ONE; +TAMSULOSIN HCL0.4 MG PO; +VANCOMYCIN HCL1 GM IV
--- OUTSIDE RECORDS SUMMARY | 2018-07-18 08:07 | XMS REPORT | Clinical Summary ---
Author Author [facility] Organization [facility] Address Unknown Phone Unavailable Care Team Providers Care Genetic Engineer Name Role Phone Sabine Mcgowan MD PCP [...] (two) times a day before meals. Active famotidine (PEPCID) 20 MG Take 20 [...] by mouth 2 (two) times a day. 06/21/2019 Active apixaban (ELIQUIS) 5 mg Take 1 tablet 180 tablet 3 tablet (5 mg total) 8 by mouth 2 (two) times a day. 12/09/2017 Discontinued alendronate (FOSAMAX) 35 Take 35 mg by 99 MG tablet mouth once a 6 week. Tuesday07/29/2017 Discontinued mycophenolate (CELLCEPT) Take 1 tablet 60 tablet 11 500 mg tabletIndications: (500 mg 7 Transplanted kidney total) by mouth 2 (two) times a day. 07/29/2017 Discontinued predniSONE (DELTASONE) 5 Take 1 tablet 30 tablet 11 mg tabletIndications: (5 mg total) 7 Transplanted kidney by mouth daily. 07/29/2017 Discontinued tacrolimus (PROGRAF) [...] 31 gauge x 3/16" Instructions. 7 needle 07/29/2017 Discontinued ONETOUCH VERIO strip test BLOOD [...] by mouth 2 (two) times a day. 06/21/2018 Discontinued apixaban (ELIQUIS) 5 mg Take 5 mg by 0 tablet mouth 2 (two) times a day. 01/12/2018 [...] Overview: Added automatically from request for surgery [id number] Pancreatic mass 06/03/2017 Vitamin D deficiency 03/21/2017 Obesity 03/21/2017 Diabetes mellitus 03/21/2017 Chronic inflammatory demyelinating polyneuritis 01/20/2016 Diabetic polyneuropathy 01/20/2016 Essential hypertension 01/20/2016 Male erectile disorder 01/20/2016 H/O kidney transplant 03/29/2013 HLD (hyperlipidemia) 08/21/2012 Encounters Care Team Description Date Type Specialty Sabine Mcgowan MD 07/17/2018 Telephone Internal Medicine Sabine Mcgowan MD 07/12/2018 Telephone Internal Medicine Sabine Mcgowan MD 07/07/2018 Telephone Internal Medicine Pam Marley RN Med Refill 06/21/2018 Refill Transplant Pam Marley RN 06/21/2018 Documentation Transplant Pam Marley RN Med Refill 05/22/2018 Refill Transplant Sabine Mcgowan MD 05/12/2018 Telephone Internal Medicine Pam Marley, NABEEL Med Refill 05/01/2018 Refill Transplant Kiki Millan [...] stage 03/01/2018 Hospital Cardiology - Encounter 03/13/2018 Margie Sherman 03/01/2018 Patient Quality Outreach Daniel Shanks RN Fever 02/22/2018 Telephone Transplant Pam Marley, NABEEL Med Refill 02/20/2018 Refill Transplant Pam Marley, NABEEL Med Refill 02/17/2018 Refill Transplant Robin Boyce Advice Only 02/17/2018 Telephone Transplant Pam Marley, NABEEL Med Refill 01/12/2018 Refill Transplant Pam Marley, RN Transplanted kidney 12/26/2017 Orders Only Transplant Pam Marley, NABEEL Med Refill 12/09/2017 Refill Transplant Stacie Vargas, NABEEL Med Refill 12/01/2017 Refill Transplant Pam Marley, RN Med Refill 11/22/2017 Refill Transplant Lyndsay Asher RN 11/20/2017 Telephone Transplant Ailyn Ho RN 11/08/2017 Telephone Cardiovascular Pam Marley, NABEEL Med Refill 10/18/2017 Refill Transplant Pam Marley, NABEEL Med Refill 10/18/2017 Refill Transplant Raeann Torres MA 10/12/2017 Patient Quality Outreach Tootie [...] MA Rx issue 08/01/2017 Telephone Transplant Pam Marley RN 08/01/2017 Documentation Transplant Tayler Eid RN 08/01/2017 Documentation Transplant Pam Marley RN Med Refill 08/01/2017 Refill Transplant Keena Desir-Triny Agosto MD Febrile illness (Primary Dx); Kidney transplant recipient 07/29/2017 Emergency Emergency Medicine Robin Armstrong MA Sick Call 07/29/2017 Telephone Transplant Yvonne Stoll RN Med Refill 07/20/2017 Refill Transplant Robin Armstrong MA Med Refill 07/20/2017 Telephone Transplant after 07/17/2017 Immunizations Name Dates Previously Given Next Due [...] Body Mass Index 34.74 Plan of Treatment Care Team Description Date Type Specialty Tapan Dominguez MD [address] [facility] [address] [place] [address] [phone] 08/15/2018 Appointment Transplant Tapan Dominguez MD [address] [facility] [address] [facility] [place] [address] [phone] 08/15/2018 Appointment Transplant Health Maintenance Due Date Last Done Comments DIABETIC RETINAL EYE EXAM 1955 DIABETIC FOOT EXAM 1963 COLON CANCER SCREENING 2003 SHINGLES VACCINES (1 of 2003 2) PNEUMOCOCCAL-13 2018 PNEUMOCOCCAL Completed 06/27/2010 POLYSACCHARIDE VACCINE AGE 65 AND OVER INFLUENZA VACCINE Completed 03/04/2018, 03/24/2017, 03/27/2015 Implants Device Identifier Shelf Expiration Date Model / Serial / [place] [address] 01 / / System Vasclr Clsr Starclose Se - Peripheral N/A: N/A SAMUELS [id number] or Biliary VASCULAR Implanted: 03/10/2018 (Quantity not Stents DEVICES on file) [id number] / / 2.5mm X 220mm Balloon, 150cm Shaft, [place] Otw Balloon Dilatation SCIENTIFIC Catheter, 0.014in Max Guidewire /PERIPHERA Implanted: Qty: 1 on 03/10/2018 by Rae Corea MD (Orgoo ) [id number] / / 3mm X 150mm Balloon, 4fr Sheath, [place] 150cm Shaft, Adam Sl Otw Shellfish Checker SCIENTIFIC Balloon Dilatation Catheter /PERIPHERA Implanted: Qty: 1 on 03/10/2018 by Rae Corea MD (Orgoo ) [id number] / / 2mm X 20mm L, 142cm Shaft, [place] BOSTON Es Otw Shellfish Checker Ballloon Dilatation SCIENTIFIC Cath /PERIPHERA Implanted: Qty: 1 on 03/10/2018 by Rae Corea MD (Orgoo ) [id number] / / 5mm X 60mm Balloon, 4fr Sheath, [place] 135cm Shaft, Sterlilng Otw Shellfish Checker SCIENTIFIC Balloon Dilatation Cath /PERIPHERA Implanted: Qty: 1 on 03/10/2018 by Rae Corea MD (Orgoo ) Procedures Comments Procedure Name Priority Date/Time [...] POC GLUCOSE Routine 03/10/2018 1:35 PM CDT NM AN ELECTIVE Routine 03/10/2018 SUPRAGLOTTIC AIRWAY 10:33 [...] MMODE SPECTRAL 3:07 PM CDT COLOR DOPPLER (80360) ECG 12-LEAD Routine 03/08/2018 1:17 PM CDT [...] & Routine 03/01/2018 ANAEROBIC 7:37 PM CDT NM CRITICAL CARE, E/M Routine 03/01/2018 30-74 MINUTES [...] 08/22/2017 Diarrhea, unspecified AB, IGA 1:29 PM LANCE CREWMEMBER type 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) IMMUNOGLOBULIN A Routine 08/22/2017 Diarrhea, unspecified 1:29 PM LANCE CREWMEMBER type 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) SEDIMENTATION RATE Routine 08/22/2017 Diarrhea, unspecified 1:29 PM LANCE CREWMEMBER type 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) RESPIRATORY PATHOGEN Routine 07/29/2017 PANEL 4:15 PM LANCE CREWMEMBER INFLUENZA ANTIGEN Routine 07/29/2017 4:15 PM LANCE CREWMEMBER LACTIC ACID LEVEL, SEPSIS Timed 07/29/2017 - NOW AND REPEAT 2X EVERY 4:10 PM LANCE CREWMEMBER 3 HOURS BLOOD CULTURE, AEROBIC & Routine 07/29/2017 ANAEROBIC 2:50 PM LANCE CREWMEMBER ZZESTIMATED GFR STAT 07/29/2017 2:40 PM LANCE CREWMEMBER LACTIC ACID LEVEL, SEPSIS STAT 07/29/2017 - NOW AND REPEAT 2X EVERY 2:40 PM LANCE CREWMEMBER 3 HOURS URINALYSIS SCREEN AND STAT 07/29/2017 MICROSCOPY, WITH REFLEX 2:40 PM LANCE CREWMEMBER TO CULTURE COMPREHENSIVE METABOLIC STAT 07/29/2017 PANEL 2:40 PM LANCE CREWMEMBER HC COMPLETE BLD COUNT STAT 07/29/2017 W/AUTO DIFF 2:40 PM LANCE CREWMEMBER URINE CULTURE STAT 07/29/2017 2:40 PM LANCE CREWMEMBER BLOOD CULTURE, AEROBIC & Routine 07/29/2017 ANAEROBIC 2:40 PM LANCE CREWMEMBER GRAM STAIN Routine 07/29/2017 2:15 PM LANCE CREWMEMBER SPUTUM CULTURE Routine 07/29/2017 2:15 PM LANCE CREWMEMBER XR CHEST 2 VW STAT 07/29/2017 1:30 PM LANCE CREWMEMBER after 07/17/2017 Results * POC glucose (03/13/2018 2:19 PM CDT) Only the most recent of 66 results within the time period is included. POC glucose 171 (H) 65 - 99 mg/dL [facility] DEPARTMENT OF Comment: PATHOLOGY AND [facility] Notified RN GENOMIC MEDICINE Meter ID: [id number] Sharepoint Architect: Oliverio Washburn Performing Organization Address City/[facility]/Zipcode Phone Number [facility] DEPARTMENT OF [address] [place] [phone] PATHOLOGY AND [employer] [facility]ICINE * FK506 level (03/13/2018 3:47 AM CDT) Only the most recent of 9 results within the time period is included. FK506 level 4.4 ng/mL [facility] DEPARTMENT OF Comment: PATHOLOGY AND Therapeutic range 5-20 ng/mL [employer] [facility] for 12 hour trough. The range varies depending on the organ transplanted, time after transplantation and co-administered immunosuppressant therapies. Please use clinical judgment to interpret test result. Test performed using Samuels Strapper Operator chemiluminescent microparticle immunoassay for Tacrolimus on the WATER HYDRANT INSTALLER i System. Specimen Blood Performing Organization Address City/[facility] Phone Number [facility] DEPARTMENT OF [address] [place] [address] PATHOLOGY AND [employer] MEDICINE * Estimated GFR (03/12/2018 4:10 AM CDT) Only the most recent of 5 results within the time period is included. Estimated GFR >=90 mL/min/1.[address] [facility] DEPARTMENT OF Comment: PATHOLOGY AND CatergoryUnitsInte GENOMIC MEDICINE rpretation G1 >=90 Normal or high G2 60-89Mildly decreased V0c61-49 Mildly to moderately decreased E2b32-13 Moderately to severely decreased G4 15-29Severely decreased G5 <15Kidney failure The eGFR was calculated using the Chronic Kidney Disease Epidemiology Collaboration (CKD-EPI) equation. Interpretation is based on recommendations of the National Kidney Foundation-Kidney Disease Outcomes Quality Initiative (NKF-KDOQI) published in 2014. Specimen Plasma specimen Performing Organization Address City/State/Zipcode Phone Number [address] [address] PATHOLOGY AND GENOMIC MEDICINE * CBC with platelet and differential (03/12/2018 4:10 AM CDT) Only the most recent of 7 results within the time period is included. WBC 7.76 4.50 - 11.00 k/uL [facility] DEPARTMENT OF PATHOLOGY AND GENOMIC MEDICINE RBC 3.82 (L) 4.40 - 6.00 m/uL [facility] DEPARTMENT OF PATHOLOGY AND GENOMIC MEDICINE HGB 11.0 (L) 14.0 - 18.0 g/dL [facility] DEPARTMENT OF PATHOLOGY AND GENOMIC MEDICINE HCT 35.2 (L) 41.0 - 51.0 % [facility] DEPARTMENT OF PATHOLOGY AND GENOMIC MEDICINE MCV 92.1 82.0 - 100.[address] [facility] DEPARTMENT OF PATHOLOGY AND GENOMIC MEDICINE MCH 28.8 27.0 - 34.[address] [facility] DEPARTMENT OF PATHOLOGY AND GENOMIC MEDICINE MCHC 31.3 31.0 - 37.0 g/dL [facility] DEPARTMENT OF PATHOLOGY AND GENOMIC MEDICINE RDW - SD 45.1 37.0 - 55.[address] [facility] DEPARTMENT OF PATHOLOGY AND GENOMIC MEDICINE MPV 12.2 8.8 - 13.[address] [facility] DEPARTMENT OF PATHOLOGY AND GENOMIC MEDICINE Platelet count 259 150 - 400 k/uL [facility] DEPARTMENT OF PATHOLOGY AND GENOMIC MEDICINE Nucleated RBC 0.00 /[address] [facility] DEPARTMENT OF PATHOLOGY AND GENOMIC MEDICINE Neutrophils 65.8 39.0 - 69.0 % [facility] DEPARTMENT OF PATHOLOGY AND GENOMIC MEDICINE Lymphocytes 17.3 (L) 25.0 - 45.0 % [facility] DEPARTMENT OF PATHOLOGY AND GENOMIC MEDICINE Monocytes 12.1 (H) 0.0 - 10.0 % [facility] DEPARTMENT OF PATHOLOGY AND GENOMIC MEDICINE Eosinophils 3.6 0.0 - 5.0 % [facility] DEPARTMENT OF PATHOLOGY AND GENOMIC MEDICINE Basophils 0.6 0.0 - 1.0 % [facility] DEPARTMENT OF PATHOLOGY AND GENOMIC MEDICINE Immature granulocytes 0.6Comment: "Immature 0.0 - 1.0 % [facility] DEPARTMENT OF granulocytes" (promyelocytes, PATHOLOGY AND myelocytes, metamyelocytes) GENOMIC MEDICINE Performing Organization Address City/State/Zipcode Phone Number [place] [address] PATHOLOGY AND GENOMIC MEDICINE * Phosphorus level (03/12/2018 4:10 AM CDT) Only the most recent of 2 results within the time period is included. Phosphorus 2.2 (L) 2.4 - 4.5 mg/dL [facility] DEPARTMENT OF PATHOLOGY AND GENOMIC MEDICINE Specimen Plasma specimen Performing Organization Address City/[facility] [place] [address] PATHOLOGY AND GENOMIC MEDICINE * Magnesium level (03/12/2018 4:10 AM CDT) Magnesium 2.0 1.6 - 2.4 mg/dL [facility] DEPARTMENT OF PATHOLOGY AND GENOMIC MEDICINE Specimen Plasma specimen Performing Organization Address City/[facility] [place] [address] PATHOLOGY AND GENOMIC MEDICINE * Vancomycin level, trough (03/12/2018 4:10 AM CDT) Only the most recent of 2 results within the time period is included. Vancomycin, trough 18.4 10.0 - 20.0 ug/mL [facility] DEPARTMENT OF Comment: PATHOLOGY AND Therapeutic Ranges: GENOMIC MEDICINE Peak 30.0 - 40.0 ug/mL Heunjh45.0 - 20.0 ug/mL Specimen Serum Performing Organization Address [facility] [place] [address] PATHOLOGY AND GENOMIC MEDICINE * Basic metabolic panel (03/12/2018 4:10 AM CDT) Only the most recent of 9 results within the time period is included. Sodium 141 135 - 148 mEq/L [facility] DEPARTMENT OF PATHOLOGY AND GENOMIC MEDICINE Potassium 3.9 3.5 - 5.0 mEq/L [facility] DEPARTMENT OF PATHOLOGY AND GENOMIC MEDICINE Chloride 102 98 - 112 mEq/L [facility] DEPARTMENT OF PATHOLOGY AND GENOMIC MEDICINE CO2 28 24 - 31 mEq/L [facility] DEPARTMENT OF PATHOLOGY AND GENOMIC MEDICINE Anion gap 11@ANIO 7 - 15 mEq/L [facility] DEPARTMENT OF PATHOLOGY AND GENOMIC MEDICINE BUN 19 8 - 23 mg/dL [facility] DEPARTMENT OF PATHOLOGY AND GENOMIC MEDICINE Creatinine 0.81 0.70 - 1.20 mg/dL [facility] DEPARTMENT OF PATHOLOGY AND GENOMIC MEDICINE Glucose 158 (H) 65 - 99 mg/dL [facility] DEPARTMENT OF PATHOLOGY AND GENOMIC MEDICINE Calcium 8.6 (L) 8.8 - 10.2 mg/dL [facility] DEPARTMENT OF PATHOLOGY AND GENOMIC MEDICINE Specimen Plasma specimen Performing Organization Address [facility] [place] [address] PATHOLOGY AND GENOMIC MEDICINE * Partial thromboplastin time, activated (03/10/2018 3:15 AM CDT) PTT 41.6 (H) 23.0 - 36.[address] [facility] DEPARTMENT OF Comment: PATHOLOGY AND PTT therapeutic range for [facility] MEDICINE unfractionated heparin is 61.0-112.0 seconds which corresponds to Anti-Xa 0.3-0.7 U/ml. Specimen Blood Performing Organization Address [facility] Cent[facility]ode Phone Number [facility] [place] [address] PATHOLOGY AND GENOMIC MEDICINE * Prothrombin time with INR (03/10/2018 3:15 AM CDT) Prothrombin time 15.6 (H) 12.0 - 15.[address] [facility] DEPARTMENT OF PATHOLOGY AND GENOMIC MEDICINE INR 1.2 [facility] DEPARTMENT OF Comment: PATHOLOGY AND The International Normalized GENOMIC MEDICINE Ratio (INR) is a therapeutic monitoring tool for patients who are stable on oral anticoagulant therapy. An INR of 2.0-3.0 is suggested for deep vein thrombosis/pulmonary embolism. Specimen Blood Performing Organization Address [facility] Phone Number [facility] [place] [address] PATHOLOGY AND GENOMIC MEDICINE * Type and screen (03/10/2018 3:15 AM CDT) ABO grouping O [facility] DEPARTMENT OF PATHOLOGY AND GENOMIC MEDICINE Rh type POS [facility] DEPARTMENT OF PATHOLOGY AND GENOMIC MEDICINE Antibody screen (gel) NEG [facility] DEPARTMENT OF PATHOLOGY AND GENOMIC MEDICINE Specimen Blood Performing Organization Address [facility] Cent[facility]ode Phone Number [facility] [place] [address] PATHOLOGY AND GENOMIC MEDICINE * Echocardiogram complete w contrast and 3D if needed (03/08/2018 3:07 PM CDT) Narrative Performed At [facility] Echocardiography Report [address] [place] [address] Pat.Name:Roger RENTERIA.ID:[id number] St.Date: 03/08/2018 Refer.MD:JOSE BRISCOE MD Exam Time: 1:50:00 PMStudy Type:Routine Echo Height:68inWeight:230lb BSA: 2.17 m2 DOBAge:1955,62Y Sex: MALEBP:138/74 HR:67 bpmSonogrphr: LISA Rangel. Stat.:Inpatient Room:[facility] Study Status:Final Echo Event ID:[id number] Order ID:[id number] Reason for Study:PRE OP History / Clinical:Diabetes, [...] PA systolic pressure. MEASUREMENTS: 2D Parasternal [place] LVOT 2.4 cmLA Ds4.2 cm LVIDd5.4 cmIndex2.5 cm/m Ao Rtd 3.4 cm Index1.6 cm/m LVIDs2.7 cm LV Fksy380 g(122-174) LV%fs 49.9 % LVM Index 98.6 g/m2 IVSd 0.9 cmRWT0.4 LVPWd1.1 cm LA Sng Plane LA Area 15.2 cm2(8.8-23.4) LA Vol38.1 ml Index17.6 ml/m LA LngAx 5 cm Signed 03/09/2018 10:26 AM Jose Briscoe MD Procedure Note Interface, Radiology Results In - 03/09/2018 10:27 AM CDT Echocardiography Report [address]Name: ALMA RENTERIA.ID: [id number] St.Date: 03/08/2018 Refer.MD: JOSE BRISCOE MD Exam Time: 1:50:00 PM Study Type:Routine Echo Height: 68in Weight: 230lb BSA: 2.17 m2 Age: 10 1955,62Y Sex: MALE BP: 138/74 HR: 67 bpm Sonogrphr: LISA Rangel Pat. Stat.:Inpatient Room: [facility] Study Status:Final Echo Event ID:[id number] Order ID: [id number] Reason for Study:PRE OP History / Clinical:Diabetes, [...] PA systolic pressure. MEASUREMENTS: 2D Parasternal [place] LVOT 2.4 cm LA Ds 4.2 cm [...] MD Performing Organization Address City/State/Zipcode Phone Number [facility] [address] [place] [address] * ECG 12 lead (03/08/2018 1:17 PM CDT) Ventricular rate 75 [facility] Atrial rate 75 [facility] NM interval 132 [facility] QRSD interval 104 [facility] QT interval 424 [facility] QTC interval 473 [facility] P axis 1 28 [facility] QRS axis 1 9 [facility] T wave axis 27 [facility] EKG impression Sinus rhythm with premature [facility] MUSE atrial complexes in a pattern of bigeminy-Otherwise normal ECG-In automated comparison with ECG of 25-MAY-2017 17:56,-Sinus rhythm has replaced Ectopic atrial rhythm- Performing Organization Address City/State/Zipcode Phone Number [facility] MUSE [address] [place] [address] * Estimated GFR (03/06/2018 4:00 AM CDT) Only the most recent of 7 results within the time period is included. GFR Non Af Amer >90 mL/min/1.[address] [facility] DEPARTMENT OF PATHOLOGY AND GENOMIC MEDICINE GFR Af Amer >90 mL/min/1.[address] [facility] DEPARTMENT OF Comment: PATHOLOGY AND [...] Americans. Specimen Plasma specimen Performing Organization Address City/[facility]/Zipcode Phone Number [facility] DEPARTMENT OF [address] [place] [address] PATHOLOGY AND [employer] MEDICINE * MRI Lower Extremity Joint Wo [...] subtalar joint and right midfoot joint spaces. [facility]-[id number] Procedure Note Interface, Radiology Results Incoming - [...] subtalar joint and right midfoot joint spaces. [facility]-[id number] Performing Organization Address City/State/Zipcode Phone Number [facility] [address] [place] [address] * CT Lower Extremity Wo Contrast Right (03/02/2018 10:25 PM CDT) Narrative Performed At EXAMINATION:CT LOWER EXTREMITY WO CONTRAST [facility]:62 years Male Osteomyelitisknownfootfollow [...] vascular calcifications are present consistent with diabetes. [facility]-[id number] Procedure Note [facility], Radiology Results Incoming - 03/03/2018 12:04 AM [...] vascular calcifications are present consistent with diabetes. [facility]-[id number] Performing Organization Address [facility] Phone Number [facility] [address] [place] [address] * Fungus smear (03/02/2018 6:20 PM CDT) Fungus smear No fungi observed. [facility] DEPARTMENT OF Comment: PATHOLOGY AND Specimen Information GENOMIC MEDICINE Specimen Source: Wound Specimen Site: Foot Specimen Wound Performing Organization Address City/[facility] Phone Number [facility] DEPARTMENT OF [address] [place] [address] PATHOLOGY AND GENOMIC MEDICINE * AFB culture (03/02/2018 6:20 PM CDT) AFB culture isolate No growth after [address] [facility] DEPARTMENT OF incubation. PATHOLOGY AND Comment: GENOMIC MEDICINE Specimen Information Specimen Source: Wound Specimen Site: Foot Specimen Wound Performing Organization Address [facility]/[place] Phone Number [facility] DEPARTMENT OF [address] [place] [address] PATHOLOGY AND GENOMIC MEDICINE * Aerobic culture (03/02/2018 6:20 PM CDT) Aerobic culture isolate Proteus mirabilis [facility] DEPARTMENT OF Occasional PATHOLOGY AND susceptibility to follow GENOMIC MEDICINE (A) Comment: Specimen Information Specimen Source: Wound Specimen Site: Foot Aerobic culture isolate Alcaligenes faecalis (odorans) [facility] DEPARTMENT OF Occasional PATHOLOGY AND susceptibility to follow GENOMIC MEDICINE (A) Aerobic culture isolate Enterococcus faecalis [facility] DEPARTMENT OF Recovered in Broth [...] ZIGGY <=4 mcg/mL: Susceptible Proteus mirabilis Cefazolin ZIGYG 4 mcg/mL: Resistant Proteus mirabilis Cefepime ZIGGY [...] mcg/mL: Susceptible Enterococcus faecalis Performing Organization Address [facility] Phone Number [facility] DEPARTMENT OF [address] [place] [address] PATHOLOGY AND GENOMIC MEDICINE * Gram stain (03/02/2018 6:20 PM CDT) Only the most recent of 2 results within the time period is included. Gram stain isolate Rare WBC's [facility] DEPARTMENT OF Occasional Gram positive rods PATHOLOGY AND Many Gram positive cocci in GENOMIC MEDICINE pairs Many Gram negative rods Comment: Specimen Information Specimen Source: Wound Specimen Site: Foot Specimen Wound Performing Organization Address City/[facility] Phone Number [facility] DEPARTMENT OF [address] [place] [address] PATHOLOGY AND GENOMIC MEDICINE * AFB stain (03/02/2018 6:20 PM CDT) AFB stain No acid fast bacilli (AFB) [facility] DEPARTMENT OF seen. PATHOLOGY AND Comment: GENOMIC MEDICINE Specimen Information Specimen Source: Wound Specimen Site: Foot Specimen Wound Performing Organization Address City/[facility] Cent[facility]ode Phone Number [facility] DEPARTMENT OF [address] [place] [address] PATHOLOGY AND GENOMIC MEDICINE * Fungus culture (03/02/2018 6:20 PM CDT) Fungus culture isolate No growth after [address] [facility] DEPARTMENT OF incubation. PATHOLOGY AND Comment: GENOMIC MEDICINE Specimen Information Specimen Source: Wound Specimen Site: Foot Specimen Wound Performing Organization Address [facility] Centercode Phone Number [facility] DEPARTMENT OF [address] [place] [address] PATHOLOGY AND [facility] MEDICINE * Anaerobic culture (03/02/2018 6:20 PM CDT) Anaerobic culture isolate No anaerobic organisms [facility] DEPARTMENT OF isolated. PATHOLOGY AND Comment: GENOMIC MEDICINE Specimen Information Specimen Source: Wound Specimen Site: Foot Specimen Wound Performing Organization Address [facility] Phone Number [facility] DEPARTMENT OF [address] [place] [address] PATHOLOGY AND GENOMIC MEDICINE * Pv duplex arterial lower extremity (03/02/2018 5:50 PM CDT) Narrative Performed At [facility] Vascular Ultrasound Laboratory Lower Extremity Arterial Duplex Report [address] [place] [address] Pat.Name:Roger RENTERIA.ID:[id number] .Date: 03/02/2018Refer.MD:DEMOND THOMPSON MD Exam Time: 2:17:00 PMStudy Type:LE Arterial Height:68inWeight:230lb BSA: 2.17 m2 DOBAge:1955,62Y Sex: MALESonogrphr: Pieter Edwards RVT, RDND Pat. Stat.:Inpatient Room:N0462-H TapeVol: JOZEF, CPT - 4: 49455, [address] Echo Event ID:[id number] Order ID:[id number] Reason for Study:Ulcer. PMH of HTN, HLD, [...] normal on the left. MEASUREMENTS: DOPPLER Right MOLDER MACHINE TENDER prox MOLDER MACHINE TENDER prox PSV 128 cm/s Right Profunda Profunda PSV98.2 cm/s Right SFA Dist SFA Dist PSV 154 cm/s Right SFA Mid SFA Mid VCX360 cm/s Right SFA Prox SFA Prox PSV 114 cm/s Right Pop Dist Pop Dist PSV 112 cm/s Right Pop Prox Pop Prox PSV 157 cm/s Right AUTOCAD DETAILER Dist AUTOCAD DETAILER Dist PSV87.6 cm/s Right AUTOCAD DETAILER Mid AUTOCAD DETAILER Mid PSV 69.9 cm/s Right AUTOCAD DETAILER Prox AUTOCAD DETAILER Prox PSV66.6 cm/sPTA Prox PSV66.6 cm/s Right Peroneal Dist Peroneal Dist P70.1 cm/s Peroneal Mid Peroneal Mid PS56.2 cm/s Right Peroneal Prox Peroneal Prox P66.9 cm/s Right CARLITOS Dist CARLITOS Dist PSV71.4 cm/s Right MOLDER MACHINE TENDER Dist MOLDER MACHINE TENDER Dist PSV 128 cm/s Right AUTOCAD DETAILER Distal AUTOCAD DETAILER Distal PSV87.6 cm/s Right CARLITOS Prox CARLITOS Prox PSV 282 cm/s Right CARLITOS Mid CARLITOS Mid PSV 56.4 cm/s Right CARLITOS Mid 2 CARLITOS Mid 2 NKR240 cm/s Right CARLITOS Distal CARLITOS Distal PSV71.4 [...] Ultrasound Laboratory Lower Extremity Arterial Duplex Report [address] [place] [address] Pat.Name: ALMA RENTERIA Pat.ID: [id number] St.Date: 03/02/2018 Refer.MD: DEMOND THOMPSON MD Exam Time: 2:17:00 PM Study Type:LE Arterial Height: 68in Weight: 230lb BSA: 2.17 m2 Age: 10 1955,62Y Sex: MALE Sonogrphr: Pieter Edwards RVT, [facility] Pat. Stat.:Inpatient Room: [address] Vol: , CPT - 4: 12732, 46680 Echo Event ID:[id number] Order ID: [id number] Reason for Study:Ulcer. PMH of HTN, HLD, [...] normal on the left. MEASUREMENTS: DOPPLER Right MOLDER MACHINE TENDER prox MOLDER MACHINE TENDER prox PSV 128 cm/s Right Profunda Profunda PSV 98.2 cm/s Right SFA Dist SFA Dist PSV 154 cm/s Right SFA Mid SFA Mid PSV 121 cm/s Right SFA Prox SFA Prox PSV 114 cm/s Right Pop Dist Pop Dist PSV 112 cm/s Right Pop Prox Pop Prox PSV 157 cm/s Right AUTOCAD DETAILER Dist AUTOCAD DETAILER Dist PSV 87.6 cm/s Right AUTOCAD DETAILER Mid AUTOCAD DETAILER Mid PSV 69.9 cm/s Right AUTOCAD DETAILER Prox AUTOCAD DETAILER Prox PSV 66.6 cm/s AUTOCAD DETAILER Prox PSV 66.6 cm/s Right Peroneal Dist Peroneal Dist P 70.1 cm/s Peroneal Mid Peroneal Mid PS 56.2 cm/s Right Peroneal Prox Peroneal Prox P 66.9 cm/s Right CARLITOS Dist CARLITOS Dist PSV 71.4 cm/s Right 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 Lactic acid 1.6 0.5 - 2.2 mmol/L [facility] DEPARTMENT OF PATHOLOGY AND GENOMIC MEDICINE Specimen Blood Performing Organization Address City/[facility]/Zipcode Phone Number [facility] DEPARTMENT OF [address] [place] [address] PATHOLOGY AND GENOMIC MEDICINE * XR Foot [...] are noted. Soft tissues are otherwise normal. [facility]-[id number] Procedure Note Hm Interface, Radiology Results Incoming [...] are noted. Soft tissues are otherwise normal. [facility]-[id number] Performing Organization Address City/[facility] Phone Number [facility] [address] [place] [address] * Blood culture, aerobic & anaerobic (03/01/2018 7:37 PM CDT) Only the most recent of 4 results within the time period is included. Blood culture isolate No growth after [address] [facility] DEPARTMENT OF incubation. PATHOLOGY AND Comment: GENOMIC MEDICINE Specimen Information Specimen Source: Blood Specimen Site: Antecubital, right Specimen Blood - Antecubital, right Performing Organization Address [facility] Phone Number [facility] DEPARTMENT OF [address] [place] [address] PATHOLOGY AND GENOMIC MEDICINE * CRITICAL CARE [...] CRP 12.47 (H) 0.00 - 0.50 mg/dL [facility] DEPARTMENT OF PATHOLOGY AND [employer] MEDICINE Specimen Plasma specimen Performing Organization Address [facility]/Zipcode Phone Number [facility] DEPARTMENT OF [address] [place] [address] PATHOLOGY AND GENOMIC MEDICINE * Comprehensive metabolic panel (03/01/2018 6:21 PM CDT) Only the most recent of 3 results within the time period is included. Sodium 133 (L) 135 - 148 mEq/L [facility] DEPARTMENT OF PATHOLOGY AND GENOMIC MEDICINE Potassium 4.0 3.5 - 5.0 mEq/L [facility] DEPARTMENT OF PATHOLOGY AND GENOMIC MEDICINE Chloride 91 (L) 98 - 112 mEq/L [facility] DEPARTMENT OF PATHOLOGY AND GENOMIC MEDICINE CO2 26 24 - 31 mEq/L [facility] DEPARTMENT OF PATHOLOGY AND GENOMIC MEDICINE Anion gap 16@ANIO (H) 7 - 15 mEq/L [facility] DEPARTMENT OF PATHOLOGY AND GENOMIC MEDICINE BUN 27 (H) 8 - 23 mg/dL [facility] DEPARTMENT OF PATHOLOGY AND GENOMIC MEDICINE Creatinine 0.9 0.70 - 1.20 mg/dL [facility] DEPARTMENT OF PATHOLOGY AND GENOMIC MEDICINE Glucose 390 (H) 65 - 99 mg/dL [facility] DEPARTMENT OF PATHOLOGY AND GENOMIC MEDICINE Calcium 9.7 8.8 - 10.2 mg/dL [facility] DEPARTMENT OF PATHOLOGY AND GENOMIC MEDICINE Protein 8.3 6.3 - 8.3 g/dL [facility] DEPARTMENT OF Comment: PATHOLOGY AND [place] GENOMIC MEDICINE 4.6-7.0 g/dL 1 week 4.4-7.6 g/dL 7 months-1year 5.1-7.3 g/dL 1-2 years5.6-7 .5 g/dL >3 years6.0-8 .0 g/dL 18-150 6.3-8.3 g/dL Albumin 3.0 (L) 3.5 - 5.0 g/dL [facility] DEPARTMENT OF PATHOLOGY AND GENOMIC MEDICINE A/G ratio 0.6 (L) 0.7 - 3.8 [facility] DEPARTMENT OF PATHOLOGY AND GENOMIC MEDICINE Alkaline phosphatase 78 40 - 129 U/L [facility] DEPARTMENT OF PATHOLOGY AND GENOMIC MEDICINE AST 20 10 - 50 U/L [facility] DEPARTMENT OF PATHOLOGY AND GENOMIC MEDICINE ALT 15 5 - 50 U/L [facility] DEPARTMENT OF PATHOLOGY AND GENOMIC MEDICINE Total bilirubin 0.5 0.0 - 1.2 mg/dL [facility] DEPARTMENT OF PATHOLOGY AND GENOMIC MEDICINE Specimen Plasma specimen Performing Organization Address City/State/Zipcode Phone Number [facility] [address] [place] [phone] PATHOLOGY AND GENOMIC MEDICINE * Tissue transglutaminase Ab, IgA (08/22/2017 1:29 PM LANCE CREWMEMBER) Tissue transglutaminase 1 0 - 3 U/mL [facility] Ab, IgA Comment: INTERPRETIVE INFORMATION: [...] positive predictive value for disease. Performed by [employer], [address] [place] [id number] [email or web address], Colby Smith MD - Lab. Director Specimen Serum Performing Organization Address [facility] Centercode Phone Number [facility] [address] [place] [address] * Sedimentation rate (08/22/2017 1:29 PM LANCE CREWMEMBER) Sedimentation rate 36 (H) 0 - 10 mm/hr [facility] DEPARTMENT OF PATHOLOGY AND [employer] MEDICINE Specimen Blood Performing Organization Address [facility] [place] [address] PATHOLOGY [facility] * Immunoglobulin A (08/22/2017 1:29 PM LANCE CREWMEMBER) IgA 322 70 - 400 mg/dL [facility] DEPARTMENT OF PATHOLOGY AND [employer] MEDICINE Specimen Plasma specimen Performing Organization Address [facility] [place] [address] PATHOLOGY AND [facility] * Respiratory pathogen panel (07/29/2017 4:15 PM LANCE CREWMEMBER) Respiratory pathogen Positive for Influenza B virus [facility] DEPARTMENT OF panel Negative for [...] Specimen Nares - Left Performing Organization Address City/[facility] [place] [address] PATHOLOGY AND GENOMIC [facility] * Influenza antigen (07/29/2017 4:15 PM LANCE CREWMEMBER) Influenza antigen Negative for Influenza A/B [facility] DEPARTMENT OF antigen. PATHOLOGY AND Comment: GENOMIC MEDICINE Specimen Information Specimen Source: Nares Specimen Site: Left Specimen Nares - Left Performing Organization Address City/[facility] [place] [address] PATHOLOGY AND GENOMIC MEDICINE * Urinalysis screen and microscopy, with reflex to culture (07/29/2017 2:40 PM LANCE CREWMEMBER) Specimen site Clean catch [facility] DEPARTMENT OF PATHOLOGY AND GENOMIC MEDICINE Color, UA Yellow [facility] DEPARTMENT OF PATHOLOGY AND GENOMIC MEDICINE Appearance, UA Clear [facility] DEPARTMENT OF PATHOLOGY AND GENOMIC MEDICINE Specific gravity, UA 1.016 1.001 - 1.035 [facility] DEPARTMENT OF PATHOLOGY AND GENOMIC MEDICINE pH, UA 5.0 5.0 - 8.5 [facility] DEPARTMENT OF PATHOLOGY AND GENOMIC MEDICINE Protein, UA Negative Negative [facility] DEPARTMENT OF PATHOLOGY AND GENOMIC MEDICINE Glucose, UA Negative Negative [facility] DEPARTMENT OF PATHOLOGY AND GENOMIC MEDICINE Ketones, UA Negative Negative [facility] DEPARTMENT OF PATHOLOGY AND GENOMIC MEDICINE Bilirubin, UA Negative Negative [facility] DEPARTMENT OF PATHOLOGY AND GENOMIC MEDICINE Blood, UA Negative Negative [facility] DEPARTMENT OF PATHOLOGY AND GENOMIC MEDICINE Nitrite, UA Negative Negative [facility] DEPARTMENT OF PATHOLOGY AND GENOMIC MEDICINE Urobilinogen, UA <2.[address] <[address] [facility] DEPARTMENT OF PATHOLOGY AND GENOMIC MEDICINE Leukocyte esterase, UA Negative Negative [facility] DEPARTMENT OF PATHOLOGY AND GENOMIC MEDICINE Epithelial cells, UA 1 /HPF [facility] DEPARTMENT OF PATHOLOGY AND GENOMIC MEDICINE WBC, UA 2 (H) 0 - 1 /HPF [facility] DEPARTMENT OF PATHOLOGY AND GENOMIC MEDICINE RBC, UA 2 (H) 0 - 1 /HPF [facility] DEPARTMENT OF PATHOLOGY AND GENOMIC MEDICINE Bacteria, UA Few None seen [facility] DEPARTMENT OF PATHOLOGY AND GENOMIC MEDICINE Yeast, UA None seen [facility] DEPARTMENT OF PATHOLOGY AND GENOMIC MEDICINE Yeast with pseudohyphae, None seen [facility] DEPARTMENT OF UA PATHOLOGY AND GENOMIC MEDICINE Hyaline casts, UA 7 /LPF [facility] DEPARTMENT OF PATHOLOGY AND GENOMIC MEDICINE Specimen Urine Performing Organization Address City/[facility]/Zipcode Phone Number [facility] [place] [address] PATHOLOGY AND GENOMIC MEDICINE * Urine culture (07/29/2017 2:40 PM LANCE CREWMEMBER) Urine culture SEE COMMENTComment: [facility] DEPARTMENT OF Bacteriuria screen negative. PATHOLOGY AND GENOMIC MEDICINE Performing Organization Address City/[facility] [place] [address] PATHOLOGY AND GENOMIC MEDICINE * Sputum culture (07/29/2017 2:15 PM LANCE CREWMEMBER) Sputum culture isolate Normal oral lauri isolated. [facility] DEPARTMENT OF Comment: PATHOLOGY AND Specimen Information GENOMIC MEDICINE Specimen Source: Sputum Specimen Site: Not otherwise specified Specimen Sputum - Not otherwise specified Performing Organization Address City/[facility]/Zipcode Phone Number [facility] [place] [address] PATHOLOGY AND GENOMIC MEDICINE * XR Chest 2 Vw (07/29/2017 1:30 PM LANCE CREWMEMBER) Narrative Performed At Examination:XR CHEST 2 [facility] Clinical history:"Fever" Comparison:05/25/2017 Two radiographic views of the chest were evaluated. IMPRESSION: There are no apparent infiltrates, pleural effusions, or pneumothoraces. The cardiomediastinal silhouette and the imaged bones are stable in appearance. [id number] Procedure Note Hm Interface, Radiology Results Incoming - 07/29/2017 1:36 PM LANCE CREWMEMBER Examination: XR CHEST 2 VW Clinical history: "Fever" Comparison: 05/25/2017 Two radiographic views of the chest were evaluated. IMPRESSION: There are no apparent infiltrates, pleural effusions, or pneumothoraces. The cardiomediastinal silhouette and the imaged bones are stable in appearance. [id number] Performing Organization Address City/State/Zipcode Phone Number [facility] [address] [place] [address] after 07/17/2017 Insurance Payer Benefit Subscriber ID Type Phone Address Plan / Group BCBS BCBS xxxxxxxxxxxx PPO CHOICE PPO/JOEL DUFF PPO MEDICARE MEDICARE xxxxxxxxxx Medicare [place], [place] PART A Advance Directives Patient has advance care planning documents on file. For more information, eunice garza contact: Helder Richards [address] [place] [address]
--- NOTE | 2018-07-18 12:29 | NUR ---
WOUND CARE CONSULTATION - RE: S/P Graft. Patient in bed resting well. S/P SX Debridement and Integra Graft Placement by Dr. Oakes. WOUND CARE CONSULTED: for NPWT placement and assistance with Total Contact Cast Placement. - Patient Drowsy, calm in stretcher. - Right Heel - Noted Graft Site with Marie in place. - V.A.C. Placed using black foam with tracking toward mid foot ankle to mid upper calf area avoiding bony prominences placed to pump suction at -125mmHg Continuous as prescribed. - Assisted with TCC placement by Dr. Oakes. Patient Instructed: - Son To Pick him up today. - Patient Uses Wheel Chair. - NWB to Right Foot Orders Reviewed. Verbalized understanding. - Reviewed Use of VAC. Patient Previously using wound vac and is knowledgeable on use. No additional questions voiced when prompted. - [facility] Tuesday07/21/2017 @ 7172. Thank you for consulting with Wound Care. Addendum: 07/18/18 at 1243 by Romeo Cox RN Amended: Links added.
--- NOTE | 2018-07-18 14:55 | Operative Report ---
DATE OF PROCEDURE: July 18, 2018 PREOPERATIVE DIAGNOSES 1. Ulcer grade 3 right foot. 2. Osteomyelitis. 3. Diabetes with peripheral vascular disease and neuropathy. POSTOPERATIVE DIAGNOSES 1. Ulcer grade 3 right foot. 2. Osteomyelitis. 3. Diabetes with peripheral vascular disease and neuropathy. OPERATIONS PERFORMED 1. Debridement to include partial calcanectomy right foot. 2. Application of Integra graft. 3. Application of Wound VAC. 4. Application of total contact cast. PATHOLOGY: Cultures and sensitivities. HEMOSTASIS: None. ESTIMATED BLOOD LOSS: Less than 20 mL. MATERIALS: Integra graft. Expiration date is February 24, 2019. Lot number is [id number]. Reference number is [id number]. COMPLICATIONS: None. CONDITION: Stable. PROCEDURE IN DETAIL: Under mild sedation, patient was brought to the operating room and placed on the operating table. Following IV sedation, anesthesia was obtained with a general anesthetic. At this point, the right foot was scrubbed, prepped and draped in the usual aseptic manner. The leg was then lowered to the table. Attention was then directed to the plantar aspect of the right foot where utilizing a combination of a bone rongeur an osteotome 15 blade, all nonviable tissue was removed. The wound before debridement was about 50% fibrotic, 50% granular, granular mostly at the periphery. Utilizing the sharp dissection, all nonviable tissue was removed. A partial calcanectomy was then performed. It was taken down to clean viable tissue and bone. At this point cultures and sensitivities were taken on the bone. Pressure sterile proc tech was used in order to irrigate Bacitracin 3000 units. Once all nonviable tissue was removed and the wound was 100% granular, the Integra graft was applied. It was then secured utilizing daysi. A clean dressing was applied, temporary. In PACU a total contact cast and a Wound VAC will be applied. Patient tolerated the procedure and anesthesia well without complications, was transported to the recovery room with vital signs stable and neurovascular status intact, unchanged to both feet. Patient will be discharged home when he meets criteria. He is to be weightbearing only with the total contact cast to the right foot. He will also have the Wound VAC. He will follow up with me in the office, and he will call the office if any questions, concerns, or any problems arise. Job#: [id number]
[2018-07-18 17:30] VITALS: BP 123/60
== END | disposition home or self-care (01) ==
LOC: OR 08:03
PROVIDERS: ATTEND Podiatrist Foot & Ankle Surgery
DX: E11.621 Type 2 diabetes mellitus with foot ulcer (principal); E11.69 Type 2 diabetes mellitus with other specified complication; E11.51 Type 2 diabetes mellitus with diabetic peripheral angiopathy without gangrene; E11.40 Type 2 diabetes mellitus with diabetic neuropathy, unspecified; M86.9 Osteomyelitis, unspecified; E11.22 Type 2 diabetes mellitus with diabetic chronic kidney disease; I12.0 Hypertensive chronic kidney disease with stage 5 chronic kidney disease or end stage renal disease; N18.6 End stage renal disease; M54.2 Cervicalgia; F41.9 Anxiety disorder, unspecified; F32.9 Major depressive disorder, single episode, unspecified; R42 Dizziness and giddiness; R06.09 Other forms of dyspnea; E78.00 Pure hypercholesterolemia, unspecified; Z94.0 Kidney transplant status; Z88.0 Allergy status to penicillin; Z01.810 Encounter for preprocedural cardiovascular examination; Z01.812 Encounter for preprocedural laboratory examination; Z79.82 Long term (current) use of aspirin; Z79.4 Long term (current) use of insulin; Z79.02 Long term (current) use of antithrombotics/antiplatelets; Z86.718 Personal history of other venous thrombosis and embolism
CPT/HCPCS: 15275; 28120; 29581; 36415 ×2; 80048; 82948; 85025; 85610; 85730; 87071; 87075; 87205; 93005; 97605; J1100; J1817; J2001; J2250; J2405; J2704; Q4104

== ENCOUNTER 2018-07-26 11:59 | Outpatient (RCR) | payer MEDICARE, BC ==
[~2018-07-26 11:59] MED LIST changes: -BACITRACIN 50,000 UNIT VIAL ONE; -BUPIVACAINE 0.25% 30ML SDV INJ ONE; +COLLAGENASE OINTMENT 30 GM TUBE ONE; -DEXAMETHASONE SOD PHOS INJ 4 MG/ML VIAL ONE; -INSULIN REGULAR, HUMAN 100 UNIT/1 ML 3ML VIAL ONE; -LIDOCAINE HCL 2% LOCAL INJ 5 ML SDV VIAL INJ ONE; -MIDAZOLAM HCL 2 MG/2 ML VIAL ONE; +MINERAL OIL/PETROLAT/GLYCERI 6OZ BTL ONE; -ONDANSETRON HCL INJ 2MG/ML 2ML 2 MG/ML VIAL ONE; -PROPOFOL IV EMULSION 10 MG/ML 20 ML VIAL ONE; -SEVOFLURANE INHAL SOLN 250 ML PEN BTL ONE
[2018-07-26] MEDS ORDERED: MINERAL OIL/PETROLAT/GLYCERI 6OZ BTL ONE (13:39)
== END 2018-07-27 ==
LOC: WCC 11:59
PROVIDERS: ATTEND Podiatrist Foot & Ankle Surgery
DX: E11.621 Type 2 diabetes mellitus with foot ulcer (principal); E11.51 Type 2 diabetes mellitus with diabetic peripheral angiopathy without gangrene; E11.65 Type 2 diabetes mellitus with hyperglycemia; E11.69 Type 2 diabetes mellitus with other specified complication; L97.412 Non-pressure chronic ulcer of right heel and midfoot with fat layer exposed; I79.8 Other disorders of arteries, arterioles and capillaries in diseases classified elsewhere; I87.2 Venous insufficiency (chronic) (peripheral); R60.0 Localized edema; R60.9 Edema, unspecified; I10 Essential (primary) hypertension; E78.5 Hyperlipidemia, unspecified; G62.9 Polyneuropathy, unspecified; K86.89 Other specified diseases of pancreas; B96.89 Other specified bacterial agents as the cause of diseases classified elsewhere; E66.3 Overweight; W01.198A Fall on same level from slipping, tripping and stumbling with subsequent striking against other object, initial encounter; Z01.810 Encounter for preprocedural cardiovascular examination; Z01.811 Encounter for preprocedural respiratory examination
CPT/HCPCS: 36415; 82948; 87071; 87075; 87186; 87205

== ENCOUNTER → 2018-08-04 | Outpatient (CLI) | payer MEDICARE, BC ==
[~2018-08-04] MED LIST changes: -COLLAGENASE OINTMENT 30 GM TUBE ONE; -FENTANYL CITRATE/PF 100MCG/2 ML INJ ONE; -MINERAL OIL/PETROLAT/GLYCERI 6OZ BTL ONE
[2018-08-04 12:47] LABS: BASOPHILS # (AUTO) 0.1 (0.0-0.1); BASOPHILS % 0.5 % (0.0-1.0); EOSINOPHILS # (AUTO) 0.4 (0.0-0.4); EOSINOPHILS % 3.2 % (0.0-6.0); HEMATOCRIT 39.1 % (38.2-49.6); HEMOGLOBIN 12.6 g/dL (14.0-18.0); LYMPHOCYTES # (AUTO) 1.5 (1.0-3.2); LYMPHOCYTES % 13.8 % (18.0-39.1); MEAN CORPUSCULAR HEMOGLOBIN 28.1 pg (28-32); MEAN CORPUSCULAR HGB CONC 32.2 g/dL (31-35); MEAN CORPUSCULAR VOLUME 87.1 fL (81-99); MONOCYTES # (AUTO) 0.9 (0.2-0.8); MONOCYTES % 8.5 % (4.4-11.3); NEUTROPHILS # (AUTO) 8.2 (2.1-6.9); NEUTROPHILS % 73.5 % (38.7-80.0); PLATELET COUNT 172 x10e3/uL (140-360); RED BLOOD COUNT 4.49 x10e6/uL (4.3-5.7); RED CELL DISTRIBUTION WIDTH 14.3 % (11.7-14.4)
[2018-08-04 13:04] LABS: BLOOD UREA NITROGEN 14 mg/dL (7-26); BUN/CREATININE RATIO 18 (6-25); CREATINE KINASE 20 IU/L (30-200); EST GLOMERULAR FILTRATION RATE > 60 ML/MIN (60-)
[2018-08-04 13:32] LABS: ERYTHROCYTE SEDIMENTATION RATE 91 mm/hr (0-13)
== END ==
LOC: RAD 11:36
PROVIDERS: ATTEND Internal Medicine Infectious Disease
DX: Z01.810 Encounter for preprocedural cardiovascular examination (principal)
CPT/HCPCS: 36415; 82550; 82565; 84520; 85025; 85651; 93005

== ENCOUNTER → 2018-08-24 | Outpatient (RCR) | payer MEDICARE, BC ==
[~2018-08-24] MED LIST changes: +MINERAL OIL/PETROLAT/GLYCERI 6OZ BTL ONE
== END ==
LOC: WCC 08-02 13:43
PROVIDERS: ATTEND Podiatrist Foot & Ankle Surgery
DX: E11.621 Type 2 diabetes mellitus with foot ulcer (principal); E11.51 Type 2 diabetes mellitus with diabetic peripheral angiopathy without gangrene; E11.65 Type 2 diabetes mellitus with hyperglycemia; E11.69 Type 2 diabetes mellitus with other specified complication; L97.412 Non-pressure chronic ulcer of right heel and midfoot with fat layer exposed; I87.2 Venous insufficiency (chronic) (peripheral); R60.0 Localized edema; R60.9 Edema, unspecified; I10 Essential (primary) hypertension; A49.01 Methicillin susceptible Staphylococcus aureus infection, unspecified site; B95.2 Enterococcus as the cause of diseases classified elsewhere; E66.3 Overweight; E78.5 Hyperlipidemia, unspecified; G62.9 Polyneuropathy, unspecified; I79.8 Other disorders of arteries, arterioles and capillaries in diseases classified elsewhere; K86.89 Other specified diseases of pancreas; W01.198A Fall on same level from slipping, tripping and stumbling with subsequent striking against other object, initial encounter; Z01.810 Encounter for preprocedural cardiovascular examination; Z01.811 Encounter for preprocedural respiratory examination
CPT/HCPCS: 29445 ×3; 29581 ×2; 36415 ×10; 82948 ×11; 99213 ×2; G0277 ×11

== ENCOUNTER 2018-09-22 13:55 | Outpatient (RCR) | payer MEDICARE, BC ==
[~2018-09-22 13:55] MED LIST changes: +LIDOCAINE/PRILOCAINE 2.5-2.5% KIT ONE
== END 2018-09-24 ==
LOC: WCC 13:55
PROVIDERS: ATTEND Podiatrist Foot & Ankle Surgery
DX: E11.621 Type 2 diabetes mellitus with foot ulcer (principal); E11.51 Type 2 diabetes mellitus with diabetic peripheral angiopathy without gangrene; E11.65 Type 2 diabetes mellitus with hyperglycemia; E11.69 Type 2 diabetes mellitus with other specified complication; L97.412 Non-pressure chronic ulcer of right heel and midfoot with fat layer exposed; R60.0 Localized edema; A49.01 Methicillin susceptible Staphylococcus aureus infection, unspecified site; B95.2 Enterococcus as the cause of diseases classified elsewhere; E66.3 Overweight; E78.5 Hyperlipidemia, unspecified; G62.9 Polyneuropathy, unspecified; I10 Essential (primary) hypertension; I79.8 Other disorders of arteries, arterioles and capillaries in diseases classified elsewhere; I87.2 Venous insufficiency (chronic) (peripheral); K86.89 Other specified diseases of pancreas; R60.9 Edema, unspecified; W01.198A Fall on same level from slipping, tripping and stumbling with subsequent striking against other object, initial encounter; Z01.810 Encounter for preprocedural cardiovascular examination; Z01.811 Encounter for preprocedural respiratory examination
CPT/HCPCS: 29445 ×4; 36415 ×13; 82948 ×14; 99213 ×2; G0277 ×16

== ENCOUNTER 2018-10-02 14:21 | Inpatient (IN) | payer MEDICARE, BC ==
[~2018-10-02] VITALS: Ht 172.7 cm; Wt 101.2 kg
[~2018-10-02 14:21] MED LIST changes: -LIDOCAINE/PRILOCAINE 2.5-2.5% KIT ONE; -MINERAL OIL/PETROLAT/GLYCERI 6OZ BTL ONE
--- OUTSIDE RECORDS SUMMARY | 2018-10-02 14:25 | XMS REPORT | Clinical Summary ---
Author Author [facility] Organization [facility] Address Unknown Phone Unavailable Care Team Providers Care Barge Master Name Role Phone Sabine Mcgowan MD PCP [...] coated tablet mouth every other day. Active insulin lispro (HumaLOG) Inject 15 [...] by mouth 2 (two) times a day. 08/08/2019 Active tamsulosin (FLOMAX) 0.4 Take 2 180 capsule 3 mg capsule capsules (0.8 9 mg total) by mouth daily. 12/09/2017 Discontinued alendronate (FOSAMAX) 35 Take 35 mg by 99 MG tablet mouth once a 6 week. Tuesday08/08/2018 Discontinued tamsulosin (FLOMAX) 0.4 Take 0.4 mg 0 mg capsule,extended by mouth 2 release 24hr (two) times a day. 06/21/2018 Discontinued apixaban [...] by mouth 2 (two) times a day. 12/26/2017 Discontinued tacrolimus (PROGRAF) 0.5 Take 1 [...] Overview: Added automatically from request for surgery [id number] Pancreatic mass 06/03/2017 Vitamin D deficiency 03/21/2017 Obesity 03/21/2017 Diabetes mellitus 03/21/2017 Chronic inflammatory demyelinating polyneuritis 01/20/2016 Diabetic polyneuropathy 01/20/2016 Essential hypertension 01/20/2016 Male erectile disorder 01/20/2016 H/O kidney transplant 03/29/2013 HLD (hyperlipidemia) 08/21/2012 Encounters Care Team Description Date Type Specialty Sabine Mcgowan MD 08/18/2018 Telephone Internal Medicine Robin Boyce Advice Only 08/09/2018 Telephone Transplant Pam Marley, NABEEL Med Refill 08/08/2018 Refill Transplant Sabine Mcgowan MD 08/02/2018 Telephone Internal Medicine Sabine Mcgowan MD 08/01/2018 Telephone Internal Medicine Sabine Mcgowan MD 07/31/2018 Telephone Internal Medicine Sabine Mcgowan MD 07/27/2018 Telephone Internal Medicine Sabine Mcgowan MD 07/17/2018 Telephone Internal Medicine [...] NABEEL Med Refill 10/18/2017 Refill Transplant Pam Marley RN Med Refill 10/18/2017 Refill Transplant Raeann Torres MA 10/12/2017 Patient Quality Outreach after 10/01/2017 Immunizations Name Dates Previously Given Next Due [...] 1963 COLON CANCER SCREENING 2003 SHINGLES VACCINES (#1) 2003 65+ PNEUMOCOCCAL VACCINE 2018 06/27/2010 (2 of 2 - PPSV23) INFLUENZA VACCINE 01/25/2019 03/04/2018, 03/24/2017, 03/27/2015 PNEUMOCOCCAL Completed 06/27/2010 POLYSACCHARIDE VACCINE AGE 65 AND OVER Implants Device Identifier Shelf Expiration Date Model / Serial / [place] [id number] / / System Vasclr Clsr Starclose Se - Peripheral N/A: N/A SAMUELS [id number] or Biliary VASCULAR Implanted: 03/10/2018 (Quantity not Stents DEVICES on file) [id number] / / 2.5mm X 220mm Balloon, 150cm Shaft, BOSTON Bradford Otw Balloon Dilatation SCIENTIFIC Catheter, 0.014in Max Guidewire /PERIPHERA Implanted: Qty: 1 on 03/10/2018 by Rae Corea MD (Data3Sixty ) [id number] / / 3mm X 150mm Balloon, 4fr Sheath, BOSTON 150cm Shaft, Adam Sl Otw Instructor Dramatic Arts SCIENTIFIC Balloon Dilatation Catheter /PERIPHERA Implanted: Qty: 1 on 03/10/2018 by Rae Corea MD ([employer] ) [id number] / / 2mm X 20mm L, 142cm Shaft, Bradford BOSTON Es Otw Instructor Dramatic Arts Ballloon Dilatation SCIENTIFIC Cath /PERIPHERA Implanted: Qty: 1 on 03/10/2018 by Rae Corea MD (Data3[employer] ) [id number] / / 5mm X 60mm Balloon, 4fr Sheath, BOSTON 135cm Shaft, Sterlilng Otw Instructor Dramatic Arts SCIENTIFIC Balloon Dilatation Cath /PERIPHERA Implanted: Qty: 1 on 03/10/2018 by Rae Corea MD (Data3Sixty ) Procedures Comments Procedure Name Priority Date/Time Associated Diagnosis POC GLUCOSE Routine 03/13/2018 2:19 PM CDT POC GLUCOSE Routine 03/13/2018 12:21 PM CDT POC GLUCOSE Routine 03/13/2018 8:07 AM CDT [id number] TACROLIMUS LEVEL, Routine 03/13/2018 RANDOM 3:47 AM CDT POC GLUCOSE Routine 03/13/2018 [...] PANEL Routine 03/11/2018 5:30 AM CDT [id number] TACROLIMUS LEVEL, Routine 03/11/2018 RANDOM 5:30 AM CDT POC GLUCOSE Routine 03/10/2018 9:41 PM CDT POC GLUCOSE Routine 03/10/2018 6:20 PM CDT POC GLUCOSE Routine 03/10/2018 1:35 PM CDT ND AN ELECTIVE Routine 03/10/[address] SU[address]LOTTIC AIRWAY 10:33 AM CDT Procedure Note - Nena Frye, MARTHA - 03/10/2018 10:33 AM CDT Airway Date/Time: [...] 03/10/2018 W/AUTO DIFF 3:15 AM CDT [id number] TACROLIMUS LEVEL, Routine 03/10/2018 RANDOM 3:15 AM CDT POC GLUCOSE Routine 03/10/2018 1:52 AM CDT POC GLUCOSE Routine 03/09/2018 8:52 PM CDT POC GLUCOSE Routine 03/09/2018 5:27 PM CDT POC GLUCOSE Routine 03/09/2018 3:37 PM CDT POC GLUCOSE Routine 03/09/2018 2:00 PM CDT POC GLUCOSE Routine 03/09/2018 7:56 AM CDT [id number] TACROLIMUS LEVEL, Routine 03/09/2018 RANDOM 5:15 AM CDT ESTIMATED GFR Routine 03/09/2018 4:00 AM CDT BASIC METABOLIC PANEL Routine 03/09/2018 4:00 AM CDT POC GLUCOSE Routine 03/08/2018 8:35 PM CDT POC GLUCOSE Routine 03/08/2018 3:31 PM CDT ECHOCARDIOGRAM 2D Routine 03/08/2018 COMPLETE W MMODE SPECTRAL 3:07 PM CDT COLOR DOPPLER ([id number]) ECG 12-LEAD Routine 03/08/2018 1:17 PM CDT ESTIMATED GFR Routine 03/08/2018 12:26 PM CDT [id number] TACROLIMUS LEVEL, Routine 03/08/2018 RANDOM 12:26 PM CDT BASIC METABOLIC PANEL Routine [...] GLUCOSE Routine 03/06/2018 7:25 AM CDT [id number] TACROLIMUS LEVEL, Routine 03/06/2018 RANDOM 4:45 AM CDT ZZESTIMATED GFR Routine 03/06/2018 [...] GFR Routine 03/05/2018 3:40 AM CDT [id number] TACROLIMUS LEVEL, Routine 03/05/2018 RANDOM 3:40 AM CDT BASIC METABOLIC PANEL Routine [...] GFR Routine 03/04/2018 4:05 AM CDT [id number] TACROLIMUS LEVEL, Routine 03/04/2018 RANDOM 4:05 AM CDT BASIC METABOLIC PANEL Routine 03/04/2018 4:05 AM CDT POC GLUCOSE Routine 03/03/2018 9:24 PM CDT POC GLUCOSE Routine 03/03/2018 5:03 PM CDT POC GLUCOSE Routine 03/03/2018 2:53 PM CDT POC GLUCOSE Routine 03/03/2018 12:16 PM CDT POC GLUCOSE Routine 03/03/2018 8:01 AM CDT POC GLUCOSE Routine 03/03/2018 5:56 AM CDT [id number] TACROLIMUS LEVEL, Routine 03/03/2018 RANDOM 5:02 AM CDT POC GLUCOSE Routine 03/02/2018 [...] & Routine 03/01/2018 ANAEROBIC 7:37 PM CDT ND CRITICAL CARE, E/M Routine 03/01/2018 30-74 MINUTES [...] & Routine 03/01/2018 ANAEROBIC 6:21 PM CDT after 10/01/2017 Results * POC glucose (03/13/2018 2:19 PM CDT) Only the most recent of 66 results within the time period is included. POC glucose 171 (H) 65 - 99 mg/dL [facility] DEPARTMENT OF Comment: PATHOLOGY AND [facility] Notified RN [employer] MEDICINE Meter ID: [id number] Quality Control Tester: Oliverio Washburn Performing Organization Address City/State/Zipcode Phone Number [facility] DEPARTMENT OF [address] [place] [address] PATHOLOGY AND GENOMIC MEDICINE * FK506 level (03/13/2018 3:47 AM CDT) Only the most recent of 9 results within the time period is included. FK506 level 4.4 ng/mL [facility] DEPARTMENT OF Comment: PATHOLOGY AND Therapeutic range 5-20 ng/mL GENOMIC MEDICINE for 12 hour trough. The range varies depending on the organ transplanted, time after transplantation and co-administered immunosuppressant therapies. Please use clinical judgment to interpret test result. Test performed using [employer]Tree - innovate | mentor | invest chemiluminescent microparticle immunoassay for Tacrolimus on the FISHERIES OFFICER i System. Specimen Blood Performing Organization Address City/[facility]/[place] [address] PATHOLOGY AND [employer] [facility] * Estimated GFR (03/12/2018 4:10 AM CDT) Only the most recent of 5 results within the time period is included. Estimated GFR >=90 mL/min/1.73 m2 [facility] DEPARTMENT OF Comment: PATHOLOGY AND CatergoryUnitsInte GENOMIC MEDICINE rpretation G1 >=90 Normal or high G2 60-89Mildly decreased P1j05-51 Mildly to moderately decreased G9x96-31 Moderately to severely decreased G4 15-29Severely decreased G5 <15Kidney failure The eGFR was calculated using the Chronic Kidney Disease Epidemiology Collaboration (CKD-EPI) equation. Interpretation is based on recommendations of the National Kidney Foundation-Kidney Disease Outcomes Quality Initiative (NKF-KDOQI) published in 2014. Specimen Plasma specimen Performing Organization Address City/[facility] [place] [address] PATHOLOGY AND [employer] [facility] * CBC with platelet and differential (03/12/2018 4:10 AM CDT) Only the most recent of 5 results within the time period is included. WBC 7.76 4.50 - 11.00 k/uL [facility] DEPARTMENT OF PATHOLOGY AND GENOMIC MEDICINE RBC 3.82 (L) 4.40 - 6.00 m/uL [facility] DEPARTMENT OF PATHOLOGY AND GENOMIC MEDICINE HGB 11.0 (L) 14.0 - 18.0 g/dL [facility] DEPARTMENT OF PATHOLOGY AND GENOMIC MEDICINE HCT 35.2 (L) 41.0 - 51.0 % [facility] DEPARTMENT OF PATHOLOGY AND GENOMIC MEDICINE MCV 92.1 82.0 - 100.0 fL [facility] DEPARTMENT OF PATHOLOGY AND GENOMIC MEDICINE MCH 28.8 27.0 - 34.0 pg [facility] DEPARTMENT OF PATHOLOGY AND GENOMIC MEDICINE MCHC 31.3 31.0 - 37.0 g/dL [facility] DEPARTMENT OF PATHOLOGY AND GENOMIC MEDICINE RDW - SD 45.1 37.0 - 55.0 fL [facility] DEPARTMENT OF PATHOLOGY AND GENOMIC MEDICINE MPV 12.2 8.8 - 13.2 fL [facility] DEPARTMENT OF PATHOLOGY AND GENOMIC MEDICINE Platelet count 259 150 - 400 k/uL [facility] DEPARTMENT OF PATHOLOGY AND GENOMIC MEDICINE Nucleated RBC 0.00 /100 WBC [facility] DEPARTMENT OF PATHOLOGY AND GENOMIC MEDICINE Neutrophils 65.8 39.0 - 69.0 % [facility] DEPARTMENT OF PATHOLOGY AND GENOMIC MEDICINE Lymphocytes 17.3 (L) 25.0 - 45.0 % [facility] DEPARTMENT OF PATHOLOGY AND GENOMIC MEDICINE Monocytes 12.1 (H) 0.0 - 10.0 % [facility] DEPARTMENT OF PATHOLOGY AND GENOMIC MEDICINE Eosinophils 3.6 0.0 - 5.0 % [facility] DEPARTMENT OF PATHOLOGY AND GENOMIC MEDICINE Basophils 0.6 0.0 - 1.0 % [facility] DEPARTMENT OF PATHOLOGY AND GENOMIC MEDICINE Immature granulocytes 0.6Comment: "Immature 0.0 - 1.0 % [facility] DEPARTMENT OF granulocytes" (promyelocytes, PATHOLOGY AND myelocytes, metamyelocytes) GENOMIC MEDICINE Performing Organization Address City/[facility] [place] [address] PATHOLOGY AND GENOMIC MEDICINE * Phosphorus level (03/12/2018 4:10 AM CDT) Only the most recent of 2 results within the time period is included. Phosphorus 2.2 (L) 2.4 - 4.5 mg/dL [facility] DEPARTMENT OF PATHOLOGY AND GENOMIC MEDICINE Specimen Plasma specimen Performing Organization Address City/[facility] [place] [address] PATHOLOGY AND [employer] [facility] * Magnesium level (03/12/2018 4:10 AM CDT) Magnesium 2.0 1.6 - 2.4 mg/dL [facility] DEPARTMENT OF PATHOLOGY AND GENOMIC MEDICINE Specimen Plasma specimen Performing Organization Address [facility] Phone Number [facility] [place] [address] PATHOLOGY AND [employer] MEDICINE * Vancomycin level, trough (03/12/2018 4:10 AM CDT) Only the most recent of 2 results within the time period is included. Vancomycin, trough 18.4 10.0 - 20.0 ug/mL [facility] DEPARTMENT OF Comment: PATHOLOGY AND Therapeutic Ranges: GENOMIC MEDICINE Peak 30.0 - 40.0 ug/mL Hvjbwo48.0 - 20.0 ug/mL Specimen Serum Performing Organization Address City/[facility] [place] [address] PATHOLOGY AND [employer] MEDICINE * Basic metabolic panel (03/12/2018 4:10 AM CDT) Only the most recent of 9 results within the time period is included. Sodium 141 135 - 148 mEq/L [facility] DEPARTMENT OF PATHOLOGY AND GENOMIC MEDICINE Potassium 3.9 3.5 - 5.0 mEq/L [facility] DEPARTMENT OF PATHOLOGY AND GENOMIC MEDICINE Chloride 102 98 - 112 mEq/L [facility] DEPARTMENT OF PATHOLOGY AND GENOMIC MEDICINE CO2 28 24 - 31 mEq/L [facility] DEPARTMENT OF PATHOLOGY AND GENOMIC MEDICINE Anion gap 11@ANIO 7 - 15 mEq/L [facility] DEPARTMENT OF PATHOLOGY AND GENOMIC MEDICINE BUN 19 8 - 23 mg/dL [facility] DEPARTMENT OF PATHOLOGY AND GENOMIC MEDICINE Creatinine 0.81 0.70 - 1.20 mg/dL [facility] DEPARTMENT OF PATHOLOGY AND GENOMIC MEDICINE Glucose 158 (H) 65 - 99 mg/dL [facility] DEPARTMENT OF PATHOLOGY AND [employer] MEDICINE Calcium 8.6 (L) 8.8 - 10.2 mg/dL [facility] DEPARTMENT OF PATHOLOGY AND [employer] MEDICINE Specimen Plasma specimen Performing Organization Address [facility] [place] [address] PATHOLOGY AND [employer] MEDICINE * Partial thromboplastin time, activated (03/10/2018 3:15 AM CDT) PTT 41.6 (H) 23.0 - 36.0 sec [facility] DEPARTMENT OF Comment: PATHOLOGY AND PTT therapeutic range for [facility] MEDICINE unfractionated heparin is 61.0-112.0 seconds which corresponds to Anti-Xa 0.3-0.7 U/ml. Specimen Blood Performing Organization Address City/[facility] [place] [address] PATHOLOGY AND [employer] MEDICINE * Prothrombin time with INR (03/10/2018 3:15 AM CDT) Prothrombin time 15.6 (H) 12.0 - 15.0 sec [facility] DEPARTMENT OF PATHOLOGY AND [employer] MEDICINE INR 1.2 [facility] DEPARTMENT OF Comment: PATHOLOGY AND The International Normalized [employer] MEDICINE Ratio (INR) is a therapeutic monitoring tool for patients who are stable on oral anticoagulant therapy. An INR of 2.0-3.0 is suggested for deep vein thrombosis/pulmonary embolism. Specimen Blood Performing Organization Address [facility] Cent[facility]ode Phone Number [place] [phone] PATHOLOGY AND [employer] MEDICINE * Type and screen (03/10/2018 3:15 AM CDT) ABO grouping O [facility] DEPARTMENT OF PATHOLOGY AND GENOMIC MEDICINE Rh type POS [facility] DEPARTMENT OF PATHOLOGY AND GENOMIC MEDICINE Antibody screen (gel) NEG [facility] DEPARTMENT OF PATHOLOGY AND GENOMIC MEDICINE Specimen Blood Performing Organization Address City/State/Zipcode Phone Number [facility] DEPARTMENT OF [address] [place] [address] PATHOLOGY AND GENOMIC MEDICINE * Echocardiogram complete w contrast and 3D if needed (03/08/2018 3:07 PM CDT) Narrative Performed At [facility] Echocardiography Report [address] [place] [address] Pat.Name:Roger RENTERIA.ID:[id number] St.Date: 03/08/2018 Refer.MD:JOSE BRISCOE MD Exam Time: 1:50:00 PMStudy Type:Routine Echo Height:68inWeight:230lb BSA: 2.17 m2 DOBAge:1955,62Y Sex: MALEBP:138/74 HR:67 bpmSonogrphr: LISA Rangel Pat. Stat.:Inpatient Room:[facility] Study Status:Final Echo Event ID:[id number] Order ID:[id number] Reason for Study:PRE OP History / Clinical:Diabetes, [...] PA systolic pressure. MEASUREMENTS: 2D Parasternal Long [place] LVOT 2.4 cmLA Ds4.2 cm LVIDd5.4 cmIndex2.5 cm/m Ao Rtd 3.4 cm Index1.6 cm/m LVIDs2.7 cm LV Gmrm834 g(122-174) LV%fs 49.9 % LVM Index 98.6 g/m2 IVSd 0.9 cmRWT0.4 LVPWd1.1 cm LA Sng Plane LA Area 15.2 cm2(8.8-23.4) LA Vol38.1 ml Index17.6 ml/m LA LngAx 5 cm Signed 03/09/2018 10:26 AM Jose Briscoe MD Procedure Note Interface, Radiology Results In - 03/09/2018 10:27 AM CDT Echocardiography Report [address]Name: ALMA RENTERIA Pat.ID: [id number] .Date: 03/08/2018 Refer.MD: JOSE BRISCOE MD Exam Time: 1:50:00 PM Study Type:Routine Echo Height: 68in Weight: 230lb BSA: 2.17 m2 Age: 10 1955,62Y Sex: MALE BP: 138/74 HR: 67 bpm Sonogrphr: LISA Rangel Pat. Stat.:Inpatient Room: [facility] Study Status:Final Echo Event ID:[id number] Order ID: [id number] Reason for Study:PRE OP History / Clinical:Diabetes, [...] PA systolic pressure. MEASUREMENTS: 2D Parasternal Long [place] LVOT 2.4 cm LA Ds 4.2 cm [...] AM Jose Briscoe MD Performing Organization Address City/[facility]/Zipcode Phone Number [facility] [address] [place] [address] * ECG 12 lead (03/08/2018 1:17 PM CDT) Ventricular rate 75 [facility] Atrial rate 75 [facility] ND interval 132 [facility] QRSD interval 104 [facility] QT interval 424 [facility] QTC interval 473 [facility] P axis 1 28 [facility] QRS axis 1 9 [facility] MUSE T wave axis 27 [facility] MUSE EKG impression Sinus rhythm with premature [facility] MUSE atrial complexes in a pattern of bigeminy-Otherwise normal ECG-In automated comparison with ECG of 25-MAY-2017 17:56,-Sinus rhythm has replaced Ectopic atrial rhythm- Performing Organization Address [facility] Phone Number [facility] [address] [place] [address] * Estimated GFR (03/06/2018 4:00 AM CDT) Only the most recent of 5 results within the time period is included. GFR Non Af Amer >90 mL/min/1.73 m2 [facility] DEPARTMENT OF PATHOLOGY AND GENOMIC MEDICINE GFR Af Amer >90 mL/min/1.73 m2 [facility] DEPARTMENT OF Comment: PATHOLOGY AND Chronic [...] Americans. Specimen Plasma specimen Performing Organization Address [facility]/Zipcode Phone Number [facility] [address] [place] [address] PATHOLOGY AND GENOMIC MEDICINE * MRI Lower [...] and right midfoot joint spaces. [facility]-[id number] Procedure Note Interface, Radiology Results [facility] - 03/05/2018 4:01 PM CDT EXAMINATION: MRI [...] and right midfoot joint spaces. [facility]-[id number] Performing Organization Address City/State/Zipcode Phone Number [facility] [address] [place] [address] * CT Lower Extremity Wo Contrast Right [...] are present consistent with diabetes. [facility]-[id number] Procedure Note Interface, Radiology Results Incoming - 03/03/2018 12:04 AM [...] are present consistent with diabetes. [facility]-[id number] Performing Organization Address City/[facility]/Zipcode Phone Number [facility] [address] [place] [address] * Fungus smear (03/02/2018 6:20 PM CDT) Fungus smear No fungi observed. [facility] DEPARTMENT OF Comment: PATHOLOGY AND Specimen Information GENOMIC MEDICINE Specimen Source: Wound Specimen Site: Foot Specimen Wound Performing Organization Address City/[facility]/Zipcode Phone Number [facility] DEPARTMENT OF [address] [place] [address] PATHOLOGY AND GENOMIC MEDICINE * AFB culture (03/02/2018 6:20 PM CDT) AFB culture isolate No growth after 6 weeks of [facility] DEPARTMENT OF incubation. PATHOLOGY AND Comment: GENOMIC MEDICINE Specimen Information Specimen Source: Wound Specimen Site: Foot Specimen Wound Performing Organization Address [facility] Phone Number [facility] DEPARTMENT OF [address] [place] [phone] PATHOLOGY AND GENOMIC MEDICINE * Aerobic culture (03/02/2018 6:20 PM CDT) Aerobic culture isolate Proteus mirabilis [facility] DEPARTMENT OF Occasional PATHOLOGY AND susceptibility to follow GENOMIC MEDICINE (A) Comment: Specimen Information Specimen Source: Wound Specimen Site: Foot Aerobic culture isolate Alcaligenes faecalis (odorans) [facility] DEPARTMENT OF Occasional PATHOLOGY AND susceptibility to follow GENOMIC MEDICINE (A) Aerobic culture isolate Enterococcus faecalis [facility] DEPARTMENT OF Recovered in Broth only: [...] Vancomycin ZIGGY 1 mcg/mL: Susceptible Enterococcus faecalis [facility] Phone Number [facility] DEPARTMENT OF [address] [place] [address] PATHOLOGY AND GENOMIC MEDICINE * Gram stain (03/02/2018 6:20 PM CDT) Gram stain isolate Rare WBC's [facility] DEPARTMENT OF Occasional Gram positive rods PATHOLOGY AND Many Gram positive cocci in GENOMIC MEDICINE pairs Many Gram negative rods Comment: Specimen Information Specimen Source: Wound Specimen Site: Foot Specimen Wound Performing Organization Address [facility] Phone Number [facility] DEPARTMENT OF [address] [place] [address] PATHOLOGY AND GENOMIC MEDICINE * AFB stain (03/02/2018 6:20 PM CDT) AFB stain No acid fast bacilli (AFB) [facility] DEPARTMENT OF seen. PATHOLOGY AND Comment: GENOMIC MEDICINE Specimen Information Specimen Source: Wound Specimen Site: Foot Specimen Wound Performing Organization Address [facility] Phone Number [facility] DEPARTMENT OF [address] [place] [address] PATHOLOGY AND GENOMIC MEDICINE * Fungus culture (03/02/2018 6:20 PM CDT) Fungus culture isolate No growth after 4 weeks of [facility] DEPARTMENT OF incubation. PATHOLOGY AND Comment: GENOMIC MEDICINE Specimen Information Specimen Source: Wound Specimen Site: Foot Specimen Wound Performing Organization Address [facility] Phone Number [facility] DEPARTMENT OF [address] [place] [address] PATHOLOGY AND GENOMIC MEDICINE * Anaerobic culture (03/02/2018 6:20 PM CDT) Anaerobic culture isolate No anaerobic organisms [facility] DEPARTMENT OF isolated. PATHOLOGY AND Comment: GENOMIC MEDICINE Specimen Information Specimen Source: Wound Specimen Site: Foot Specimen Wound Performing Organization Address [facility] Phone Number [facility] DEPARTMENT OF [address] [place] [address] PATHOLOGY AND GENOMIC MEDICINE * Pv duplex arterial lower extremity (03/02/2018 5:50 PM CDT) Narrative Performed At [facility] Vascular Ultrasound Laboratory Lower Extremity Arterial Duplex Report [address] [place] [address].Name:Roger RENTERIA.ID:[id number] St.Date: 03/02/2018Refer.MD:DEMOND THOMPSON MD Exam Time: 2:17:00 PMStudy Type:LE Arterial Height:68inWeight:230lb BSA: 2.17 m2 DOBAge:1955,62Y Sex: MALESonogrphr: Pieter Edwards, RVT, RDMS Pat. Stat.:Inpatient Room:V3131-R TapeVol: JOZEF, [facility] - 4: [id number], [id number] Echo Event ID:[id number] Order ID:[id number] Reason for Study:Ulcer. PMH of HTN, HLD, [...] normal on the left. MEASUREMENTS: DOPPLER Right EXPORT FREIGHT CLERK prox EXPORT FREIGHT CLERK prox PSV 128 cm/s Right Profunda Profunda PSV98.2 cm/s Right SFA Dist SFA Dist PSV 154 cm/s Right SFA Mid SFA Mid [id number] cm/s Right SFA Prox SFA Prox PSV 114 cm/s Right Pop Dist Pop Dist PSV 112 cm/s Right Pop Prox Pop Prox PSV 157 cm/s Right PREPRESS SUPERVISOR Dist PREPRESS SUPERVISOR Dist PSV87.6 cm/s Right PREPRESS SUPERVISOR Mid PREPRESS SUPERVISOR Mid PSV 69.9 cm/s Right PREPRESS SUPERVISOR Prox PREPRESS SUPERVISOR Prox PSV66.6 cm/sPTA Prox PSV66.6 cm/s Right Peroneal Dist Peroneal Dist P70.1 cm/s Peroneal Mid Peroneal Mid PS56.2 cm/s Right Peroneal Prox Peroneal Prox P66.9 cm/s Right CARLITOS Dist CARLITOS Dist PSV71.4 cm/s Right EXPORT FREIGHT CLERK Dist EXPORT FREIGHT CLERK Dist PSV 128 cm/s Right PREPRESS SUPERVISOR Distal PREPRESS SUPERVISOR Distal PSV87.6 cm/s Right CARLITOS Prox CARLITOS Prox PSV 282 cm/s Right CARLITOS Mid CARLITOS Mid PSV 56.4 cm/s Right CARLITOS Mid 2 CARLITOS Mid 2 SSX269 cm/s Right CARLITOS Distal CARLITOS Distal PSV71.4 [...] Ultrasound Laboratory Lower Extremity Arterial Duplex Report [address] [place] [address] Pat.Name: ALMA RENTERIA Pat.ID: [id number] .Date: 03/02/2018 Refer.MD: DEMOND THOMPSON MD Exam Time: 2:17:00 PM Study Type:LE Arterial Height: 68in Weight: 230lb BSA: 2.17 m2 Age: 10 1955,62Y Sex: MALE Sonogrphr: Pieter Jerry, RVT, RDMS Pat. Stat.:Inpatient Room: H3888-H Tape Vol: JOZEF, [facility] - 4: [id number], [id number] Echo Event ID:[id number] Order ID: [id number] Reason for Study:Ulcer. PMH of HTN, HLD, [...] normal on the left. MEASUREMENTS: DOPPLER Right EXPORT FREIGHT CLERK prox EXPORT FREIGHT CLERK prox PSV 128 cm/s Right Profunda Profunda PSV 98.2 cm/s Right SFA Dist SFA Dist PSV 154 cm/s Right SFA Mid SFA Mid PSV 121 cm/s Right SFA Prox SFA Prox PSV 114 cm/s Right Pop Dist Pop Dist PSV 112 cm/s Right Pop Prox Pop Prox PSV 157 cm/s Right PREPRESS SUPERVISOR Dist PREPRESS SUPERVISOR Dist PSV 87.6 cm/s Right PREPRESS SUPERVISOR Mid PREPRESS SUPERVISOR Mid PSV 69.9 cm/s Right PREPRESS SUPERVISOR Prox PREPRESS SUPERVISOR Prox PSV 66.6 cm/s PREPRESS SUPERVISOR Prox PSV 66.6 cm/s Right Peroneal Dist Peroneal Dist P 70.1 cm/s Peroneal Mid Peroneal Mid PS 56.2 cm/s Right Peroneal Prox Peroneal Prox P 66.9 cm/s Right CARLITOS Dist CARLITOS Dist PSV 71.4 cm/s Right EXPORT FREIGHT CLERK Dist EXPORT FREIGHT CLERK Dist PSV 128 cm/s Right PREPRESS SUPERVISOR Distal PREPRESS SUPERVISOR Distal PSV 87.6 cm/s Right CARLITOS Prox [...] Julio Rene MD, RPVI Performing Organization Address [facility] Phone Number [facility] [address] [place] [address] * Lactic acid level, SEPSIS - Now and repeat 2x every 3 hours (03/02/2018 7:30 AM CDT) Only the most recent of 4 results within the time period is included. Lactic acid 1.6 0.5 - 2.2 mmol/L [facility] DEPARTMENT OF PATHOLOGY AND GENOMIC MEDICINE Specimen Blood Performing Organization Address [facility] Phone Number [facility] DEPARTMENT OF [address] [place] [address] PATHOLOGY AND GENOMIC MEDICINE * XR Foot [...] Soft tissues are otherwise normal. [facility]-[id number] Procedure Note Interface, Radiology Results Incoming - [...] Soft tissues are otherwise normal. [facility]-[id number] Performing Organization Address City/[facility]/[place] [address] * Blood culture, aerobic & anaerobic (03/01/2018 7:37 PM CDT) Only the most recent of 2 results within the time period is included. Blood culture isolate No growth after 5 days of [facility] DEPARTMENT OF incubation. PATHOLOGY AND Comment: GENOMIC MEDICINE Specimen Information Specimen Source: Blood Specimen Site: Antecubital, right Specimen Blood - Antecubital, right Performing Organization Address City/[facility]/Zipcode Phone Number [facility] DEPARTMENT OF [address] [place] [phone] PATHOLOGY AND GENOMIC MEDICINE * CRITICAL CARE [...] (H) 0.00 - 0.50 mg/dL [facility] DEPARTMENT OF PATHOLOGY AND GENOMIC MEDICINE Specimen Plasma specimen Performing Organization Address City/State/Zipcode Phone Number [place] [phone] [place] [address] PATHOLOGY AND GENOMIC MEDICINE * Comprehensive metabolic panel (03/01/2018 6:21 PM CDT) Sodium 133 (L) 135 - 148 mEq/L [facility] DEPARTMENT OF PATHOLOGY AND GENOMIC MEDICINE Potassium 4.0 3.5 - 5.0 mEq/L [facility] DEPARTMENT OF PATHOLOGY AND GENOMIC MEDICINE Chloride 91 (L) 98 - 112 mEq/L [facility] DEPARTMENT OF PATHOLOGY AND GENOMIC MEDICINE CO2 26 24 - 31 mEq/L [facility] DEPARTMENT OF PATHOLOGY AND GENOMIC MEDICINE Anion gap 16@ANIO (H) 7 - 15 mEq/L [facility] DEPARTMENT OF PATHOLOGY AND GENOMIC MEDICINE BUN 27 (H) 8 - 23 mg/dL [facility] DEPARTMENT OF PATHOLOGY AND GENOMIC MEDICINE Creatinine 0.9 0.70 - 1.20 mg/dL [facility] DEPARTMENT OF PATHOLOGY AND GENOMIC MEDICINE Glucose 390 (H) 65 - 99 mg/dL [facility] DEPARTMENT OF PATHOLOGY AND GENOMIC MEDICINE Calcium 9.7 8.8 - 10.2 mg/dL [facility] DEPARTMENT OF PATHOLOGY AND GENOMIC MEDICINE Protein 8.3 6.3 - 8.3 g/dL [facility] DEPARTMENT OF Comment: PATHOLOGY AND [place] GENOMIC MEDICINE 4.6-7.0 g/dL 1 week 4.4-7.6 g/dL 7 months-1year 5.1-7.3 g/dL 1-2 years5.6-7 .5 g/dL >3 years6.0-8 .0 g/dL 18-150 6.3-8.3 g/dL Albumin 3.0 (L) 3.5 - 5.0 g/dL [facility] DEPARTMENT OF PATHOLOGY AND GENOMIC MEDICINE A/G ratio 0.6 (L) 0.7 - 3.8 [facility] DEPARTMENT OF PATHOLOGY AND GENOMIC MEDICINE Alkaline phosphatase 78 40 - 129 U/L [facility] DEPARTMENT OF PATHOLOGY AND GENOMIC MEDICINE AST 20 10 - 50 U/L [facility] DEPARTMENT OF PATHOLOGY AND GENOMIC MEDICINE ALT 15 5 - 50 U/L [facility] DEPARTMENT OF PATHOLOGY AND GENOMIC MEDICINE Total bilirubin 0.5 0.0 - 1.2 mg/dL [facility] DEPARTMENT OF PATHOLOGY AND GENOMIC MEDICINE Specimen Plasma specimen Performing Organization Address City/State/Zipcode Phone Number [facility] DEPARTMENT OF [address] [place] [phone] PATHOLOGY AND GENOMIC MEDICINE after 10/01/2017 Insurance Payer Benefit Subscriber ID Type Phone Address Plan / Group BCBS BCBS xxxxxxxxxxxx PPO CHOICE PPO/CLIFFERA L EMPL PPO MEDICARE MEDICARE xxxxxxxxxx Medicare [place], [place] PART A AND B Advance Directives Patient has advance care planning documents on file. For more information, eunice garza contact: Helder Richards [address] [place] [address]
[2018-10-02] MEDS ORDERED: MORPHINE SULFATE 2 MG/ML SYR 1ML IV PRN (19:30)
[2018-10-02] MEDS ORDERED: DEXTROSE 50% SYRINGE 50 ML IV PRN (19:30)
[2018-10-02] MEDS ORDERED: SODIUM CHLORIDE FLUSH 10 ML SYR INJ PRN (19:30)
[2018-10-02] MEDS ORDERED: ONDANSETRON HCL INJ 2MG/ML 2ML 2 MG/ML VIAL IV PRN (19:30)
[2018-10-02] MEDS ORDERED: MORPHINE SULFATE INJ 4 MG/ML INJ 1ML IV PRN (19:45)
--- OUTSIDE RECORDS SUMMARY | 2018-10-02 19:52 | XMS REPORT | Clinical Summary ---
Author Author [place] [employer] [employer] Address Unknown Phone Unavailable Care Team Providers Care Bench Hand Machine Name Role Phone Sabine Mcgowan MD PCP [...] Overview: Added automatically from request for surgery [id number] Pancreatic mass 06/03/2017 Vitamin D deficiency 03/21/2017 [...] / [place] [id number] / / System Vasclr Clsr Starclose Se - Peripheral N/A: N/A SAMUELS [id number] or Biliary VASCULAR Implanted: 03/10/2018 (Quantity not Stents DEVICES on file) [id number] / / 2.5mm X 220mm Balloon, 150cm Shaft, BOSTON Gardner Otw Balloon Dilatation SCIENTIFIC Catheter, 0.014in Max Guidewire /PERIPHERA Implanted: Qty: 1 on 03/10/2018 by Rae Corea MD ([employer] ) [id number] / / 3mm X 150mm Balloon, 4fr Sheath, BOSTON 150cm Shaft, Adam Sl Otw Superintendent Colliery SCIENTIFIC Balloon Dilatation Catheter /PERIPHERA Implanted: Qty: 1 on 03/10/2018 by Rae Corea MD ([employer] ) [id number] / / 2mm X 20mm L, 142cm Shaft, Gardner BOSTON Es Otw Superintendent Colliery Ballloon Dilatation SCIENTIFIC Cath /PERIPHERA Implanted: Qty: 1 on 03/10/2018 by Rae Corea MD ([employer] ) [id number] / / 5mm X 60mm Balloon, 4fr Sheath, BOSTON 135cm Shaft, Sterlilng Otw Superintendent Colliery SCIENTIFIC Balloon Dilatation Cath /PERIPHERA Implanted: Qty: 1 on 03/10/2018 by Rae Corea MD ([employer] ) Procedures Comments Procedure Name Priority Date/Time [...] POC GLUCOSE Routine 03/10/2018 1:35 PM CDT ID AN ELECTIVE Routine 03/10/2018 SUPRAGLOTTIC AIRWAY 10:33 [...] MMODE SPECTRAL 3:07 PM CDT COLOR DOPPLER ([id number]) ECG 12-LEAD Routine 03/08/2018 1:17 PM CDT [...] & Routine 03/01/2018 ANAEROBIC 7:37 PM CDT ID CRITICAL CARE, E/M Routine 03/01/2018 30-74 MINUTES [...] glucose 171 (H) 65 - 99 mg/dL [facility] DEPARTMENT OF Comment: PATHOLOGY AND [facility] Notified RN [employer] MEDICINE Meter ID: [id number] Upward Bound Director: Oliverio Washburn Performing Organization Address City/State/Zipcode Phone Number [facility] DEPARTMENT OF [address] [place] [address] PATHOLOGY AND GENOMIC MEDICINE * FK506 level (03/13/2018 3:47 AM CDT) Only the most recent of 9 results within the time period is included. FK506 level 4.4 ng/mL [facility] DEPARTMENT OF Comment: PATHOLOGY AND Therapeutic range 5-20 ng/mL GENOMIC MEDICINE for 12 hour trough. The range varies depending on the organ transplanted, time after transplantation and co-administered immunosuppressant therapies. Please use clinical judgment to interpret test result. Test performed using [employer] chemiluminescent microparticle immunoassay for Tacrolimus on the [employer] i System. Specimen Blood Performing Organization Address City/[facility]/[place] [address] PATHOLOGY AND [employer] [facility] * Estimated GFR (03/12/2018 4:10 AM CDT) Only the most recent of 5 results within the time period is included. Estimated GFR >=90 mL/min/1.73 m2 [facility] DEPARTMENT OF Comment: PATHOLOGY AND [employer] GENOMIC MEDICINE rpretation G1 >=90 Normal or high G2 60-89Mildly decreased G0s04-18 Mildly to moderately decreased [id number] Moderately to severely decreased G4 15-29Severely decreased G5 <15Kidney failure The eGFR was calculated using the Chronic Kidney Disease Epidemiology Collaboration (CKD-EPI) equation. Interpretation is based on recommendations of the National Kidney Foundation-Kidney Disease Outcomes Quality Initiative (NKF-KDOQI) published in 2014. Specimen Plasma specimen Performing Organization Address City/[facility] [place] [address] PATHOLOGY AND [employer] [facility] * CBC with platelet and differential (03/12/2018 4:10 AM CDT) Only the most recent of 5 results within the time period is included. WBC 7.76 4.50 - 11.00 k/uL [facility] DEPARTMENT OF PATHOLOGY AND GENOMIC MEDICINE RBC 3.82 (L) 4.40 - 6.00 m/uL [facility] DEPARTMENT OF PATHOLOGY AND GENOMIC MEDICINE HGB 11.0 (L) 14.0 - 18.0 g/dL [facility] DEPARTMENT OF PATHOLOGY AND GENOMIC MEDICINE HCT 35.2 (L) 41.0 - 51.0 % [facility] DEPARTMENT OF PATHOLOGY AND GENOMIC MEDICINE MCV 92.1 82.0 - 100.0 fL [facility] DEPARTMENT OF PATHOLOGY AND GENOMIC MEDICINE MCH 28.8 27.0 - 34.0 pg [facility] DEPARTMENT OF PATHOLOGY AND GENOMIC MEDICINE MCHC 31.3 31.0 - 37.0 g/dL [facility] DEPARTMENT OF PATHOLOGY AND GENOMIC MEDICINE RDW - SD 45.1 37.0 - 55.0 fL [facility] DEPARTMENT OF PATHOLOGY AND GENOMIC MEDICINE MPV 12.2 8.8 - 13.2 fL [facility] DEPARTMENT OF PATHOLOGY AND GENOMIC MEDICINE Platelet count 259 150 - 400 k/uL [facility] DEPARTMENT OF PATHOLOGY AND GENOMIC MEDICINE Nucleated RBC 0.00 /100 WBC [facility] DEPARTMENT OF PATHOLOGY AND GENOMIC MEDICINE Neutrophils 65.8 39.0 - 69.0 % [facility] DEPARTMENT OF PATHOLOGY AND GENOMIC MEDICINE Lymphocytes 17.3 (L) 25.0 - 45.0 % [facility] DEPARTMENT OF PATHOLOGY AND GENOMIC MEDICINE Monocytes 12.1 (H) 0.0 - 10.0 % [facility] DEPARTMENT OF PATHOLOGY AND GENOMIC MEDICINE Eosinophils 3.6 0.0 - 5.0 % [facility] DEPARTMENT OF PATHOLOGY AND GENOMIC MEDICINE Basophils 0.6 0.0 - 1.0 % [facility] DEPARTMENT OF PATHOLOGY AND GENOMIC MEDICINE Immature granulocytes 0.6Comment: "Immature 0.0 - 1.0 % [facility] DEPARTMENT OF granulocytes" (promyelocytes, PATHOLOGY AND myelocytes, metamyelocytes) GENOMIC MEDICINE Performing Organization Address City/[facility] [place] [address] PATHOLOGY AND GENOMIC MEDICINE * Phosphorus level (03/12/2018 4:10 AM CDT) Only the most recent of 2 results within the time period is included. Phosphorus 2.2 (L) 2.4 - 4.5 mg/dL [facility] DEPARTMENT OF PATHOLOGY AND GENOMIC MEDICINE Specimen Plasma specimen Performing Organization Address City/[facility] [place] [address] PATHOLOGY AND [employer] [facility] * Magnesium level (03/12/2018 4:10 AM CDT) Magnesium 2.0 1.6 - 2.4 mg/dL [facility] DEPARTMENT OF PATHOLOGY AND GENOMIC MEDICINE Specimen Plasma specimen Performing Organization Address [facility] Phone Number [facility] [place] [address] PATHOLOGY AND [employer] MEDICINE * Vancomycin level, trough (03/12/2018 4:10 AM CDT) Only the most recent of 2 results within the time period is included. Vancomycin, trough 18.4 10.0 - 20.0 ug/mL [facility] DEPARTMENT OF Comment: PATHOLOGY AND Therapeutic Ranges: GENOMIC MEDICINE Peak 30.0 - 40.0 ug/mL Qixjqw89.0 - 20.0 ug/mL Specimen Serum Performing Organization Address City/[facility] [place] [address] PATHOLOGY AND [employer] MEDICINE * Basic metabolic panel (03/12/2018 4:10 AM CDT) Only the most recent of 9 results within the time period is included. Sodium 141 135 - 148 mEq/L [facility] DEPARTMENT OF PATHOLOGY AND GENOMIC MEDICINE Potassium 3.9 3.5 - 5.0 mEq/L [facility] DEPARTMENT OF PATHOLOGY AND GENOMIC MEDICINE Chloride 102 98 - 112 mEq/L [facility] DEPARTMENT OF PATHOLOGY AND GENOMIC MEDICINE CO2 28 24 - 31 mEq/L [facility] DEPARTMENT OF PATHOLOGY AND GENOMIC MEDICINE Anion gap 11@ANIO 7 - 15 mEq/L [facility] DEPARTMENT OF PATHOLOGY AND GENOMIC MEDICINE BUN 19 8 - 23 mg/dL [facility] DEPARTMENT OF PATHOLOGY AND GENOMIC MEDICINE Creatinine 0.81 0.70 - 1.20 mg/dL [facility] DEPARTMENT OF PATHOLOGY AND GENOMIC MEDICINE Glucose 158 (H) 65 - 99 mg/dL [facility] DEPARTMENT OF PATHOLOGY AND [employer] MEDICINE Calcium 8.6 (L) 8.8 - 10.2 mg/dL [facility] DEPARTMENT OF PATHOLOGY AND [employer] MEDICINE Specimen Plasma specimen Performing Organization Address [facility] [place] [address] PATHOLOGY AND [employer] MEDICINE * Partial thromboplastin time, activated (03/10/2018 3:15 AM CDT) PTT 41.6 (H) 23.0 - 36.0 sec [facility] DEPARTMENT OF Comment: PATHOLOGY AND PTT therapeutic range for [facility] MEDICINE unfractionated heparin is 61.0-112.0 seconds which corresponds to Anti-Xa 0.3-0.7 U/ml. Specimen Blood Performing Organization Address City/[facility] [place] [address] PATHOLOGY AND [employer] MEDICINE * Prothrombin time with INR (03/10/2018 3:15 AM CDT) Prothrombin time 15.6 (H) 12.0 - 15.0 sec [facility] DEPARTMENT OF PATHOLOGY AND [employer] MEDICINE INR 1.2 [facility] DEPARTMENT OF Comment: PATHOLOGY AND The International Normalized [employer] MEDICINE Ratio (INR) is a therapeutic monitoring tool for patients who are stable on oral anticoagulant therapy. An INR of 2.0-3.0 is suggested for deep vein thrombosis/pulmonary embolism. Specimen Blood Performing Organization Address [facility] Phone Number [place] [phone] PATHOLOGY AND [employer] MEDICINE * Type and screen (03/10/2018 3:15 AM CDT) ABO grouping O [facility] DEPARTMENT OF PATHOLOGY AND GENOMIC MEDICINE Rh type POS [facility] DEPARTMENT OF PATHOLOGY AND GENOMIC MEDICINE Antibody screen (gel) NEG [facility] DEPARTMENT OF PATHOLOGY AND GENOMIC MEDICINE Specimen Blood Performing Organization Address City/State/Zipcode Phone Number [facility] DEPARTMENT OF [address] [place] [address] PATHOLOGY AND GENOMIC MEDICINE * Echocardiogram complete w contrast and 3D if needed (03/08/2018 3:07 PM CDT) Narrative Performed At [facility] Echocardiography Report [address] [place] [address] Pat.Name:Roger RENTERIA.ID:[id number] St.Date: 03/08/2018 Refer.MD:JOSE BRISCOE MD Exam Time: 1:50:00 PMStudy Type:Routine Echo Height:68inWeight:230lb BSA: 2.17 m2 DOBAge:1955,62Y Sex: MALEBP:138/74 HR:67 bpmSonogrphr: LISA Rangel Pat. Stat.:Inpatient Room:[facility] Study Status:Final Echo Event ID:[id number] Order ID:[id number] Reason for Study:PRE OP History / Clinical:Diabetes, [...] PA systolic pressure. MEASUREMENTS: 2D Parasternal [place] LVOT 2.4 cmLA Ds4.2 cm LVIDd5.4 cmIndex2.5 cm/m Ao Rtd 3.4 cm Index1.6 cm/m LVIDs2.7 cm LV Dflo460 g(122-174) LV%fs 49.9 % LVM Index 98.6 g/m2 IVSd 0.9 cmRWT0.4 LVPWd1.1 cm LA Sng Plane LA Area 15.2 cm2(8.8-23.4) LA Vol38.1 ml Index17.6 ml/m LA LngAx 5 cm Signed 03/09/2018 10:26 AM Jose Briscoe MD Procedure Note Interface, Radiology Results In - 03/09/2018 10:27 AM CDT Echocardiography Report [address]Name: ALMA RENTERIA Pat.ID: [id number] .Date: 03/08/2018 Refer.MD: JOSE BRISCOE MD Exam Time: 1:50:00 PM Study Type:Routine Echo Height: 68in Weight: 230lb BSA: 2.17 m2 Age: 10 1955,62Y Sex: MALE BP: 138/74 HR: 67 bpm Sonogrphr: LISA Rangel Pat. Stat.:Inpatient Room: [facility] Study Status:Final Echo Event ID:[id number] Order ID: [id number] Reason for Study:PRE OP History / Clinical:Diabetes, [...] PA systolic pressure. MEASUREMENTS: 2D Parasternal [place] LVOT 2.4 cm LA Ds 4.2 cm [...] AM Jose Briscoe MD Performing Organization Address City/[facility]/Zipcode Phone Number [facility] [address] [place] [address] * ECG 12 lead (03/08/2018 1:17 PM CDT) Ventricular rate 75 [facility]USE Atrial rate 75 [facility] ID interval 132 [facility] QRSD interval 104 [facility] QT interval 424 [facility] QTC interval 473 [facility] MUSE P axis 1 28 [facility] QRS axis 1 9 HM MUSE T wave axis 27 [facility] MUSE EKG impression Sinus rhythm with premature [facility] MUSE atrial complexes in a pattern of bigeminy-Otherwise normal ECG-In automated comparison with ECG of 25-MAY-2017 17:56,-Sinus rhythm has replaced Ectopic atrial rhythm- Performing Organization Address [facility] Phone Number [facility] [address] [place] [address] * Estimated GFR (03/06/2018 4:00 AM CDT) Only the most recent of 5 results within the time period is included. GFR Non Af Amer >90 mL/min/1.73 m2 [facility] DEPARTMENT OF PATHOLOGY AND GENOMIC MEDICINE GFR Af Amer >90 mL/min/1.73 m2 [facility] DEPARTMENT OF Comment: PATHOLOGY AND [...] Americans. Specimen Plasma specimen Performing Organization Address [facility]/Zipcode Phone Number [facility] OF [address] [place] [address] PATHOLOGY AND GENOMIC MEDICINE * MRI Lower [...] subtalar joint and right midfoot joint spaces. [facility]-[id number] Procedure Note Interface, Radiology Results [facility] - 03/05/2018 4:01 PM CDT EXAMINATION: MRI [...] subtalar joint and right midfoot joint spaces. [facility]-[id number] Performing Organization Address City/State/Zipcode Phone Number [facility] [address] [place] [address] * CT Lower Extremity Wo Contrast Right [...] vascular calcifications are present consistent with diabetes. [facility]-[id number] Procedure Note Interface, Radiology Results Incoming - [...] vascular calcifications are present consistent with diabetes. [facility]-[id number] Performing Organization Address City/[facility]/Zipcode Phone Number [facility] [address] [place] [phone] * Fungus smear (03/02/2018 6:20 PM CDT) Fungus smear No fungi observed. [facility] DEPARTMENT OF Comment: PATHOLOGY AND Specimen Information GENOMIC MEDICINE Specimen Source: Wound Specimen Site: Foot Specimen Wound Performing Organization Address City/[facility]/Zipcode Phone Number [facility] DEPARTMENT OF [address] [place] [address] PATHOLOGY AND GENOMIC MEDICINE * AFB culture (03/02/2018 6:20 PM CDT) AFB culture isolate No growth after 6 weeks of [facility] DEPARTMENT OF incubation. PATHOLOGY AND Comment: GENOMIC MEDICINE Specimen Information Specimen Source: Wound Specimen Site: Foot Specimen Wound Performing Organization Address [facility] Phone Number [facility] DEPARTMENT OF [address] [place] [address] PATHOLOGY AND GENOMIC MEDICINE * Aerobic culture (03/02/2018 6:20 PM CDT) Aerobic culture isolate Proteus mirabilis [facility] DEPARTMENT OF Occasional PATHOLOGY AND susceptibility to follow GENOMIC MEDICINE (A) Comment: Specimen Information Specimen Source: Wound Specimen Site: Foot Aerobic culture isolate Alcaligenes faecalis (odorans) [facility] DEPARTMENT OF Occasional PATHOLOGY AND susceptibility to follow GENOMIC MEDICINE (A) Aerobic culture isolate Enterococcus faecalis [facility] DEPARTMENT OF Recovered in Broth [...] Vancomycin ZIGGY 1 mcg/mL: Susceptible Enterococcus faecalis [facility] Phone Number [facility] DEPARTMENT OF [address] [place] [address] PATHOLOGY AND GENOMIC MEDICINE * Gram stain (03/02/2018 6:20 PM CDT) Gram stain isolate Rare WBC's [facility] DEPARTMENT OF Occasional Gram positive rods PATHOLOGY AND Many Gram positive cocci in GENOMIC MEDICINE pairs Many Gram negative rods Comment: Specimen Information Specimen Source: Wound Specimen Site: Foot Specimen Wound Performing Organization Address [facility] Phone Number [facility] DEPARTMENT OF [address] [place] [address] PATHOLOGY AND GENOMIC MEDICINE * AFB stain (03/02/2018 6:20 PM CDT) AFB stain No acid fast bacilli (AFB) [facility] DEPARTMENT OF seen. PATHOLOGY AND Comment: GENOMIC MEDICINE Specimen Information Specimen Source: Wound Specimen Site: Foot Specimen Wound Performing Organization Address [facility] Phone Number [facility] DEPARTMENT OF [address] [place] [address] PATHOLOGY AND GENOMIC MEDICINE * Fungus culture (03/02/2018 6:20 PM CDT) Fungus culture isolate No growth after 4 weeks of [facility] DEPARTMENT OF incubation. PATHOLOGY AND Comment: GENOMIC MEDICINE Specimen Information Specimen Source: Wound Specimen Site: Foot Specimen Wound Performing Organization Address [facility] Phone Number [facility] DEPARTMENT OF [address] [place] [address] PATHOLOGY AND GENOMIC MEDICINE * Anaerobic culture (03/02/2018 6:20 PM CDT) Anaerobic culture isolate No anaerobic organisms [facility] DEPARTMENT OF isolated. PATHOLOGY AND Comment: GENOMIC MEDICINE Specimen Information Specimen Source: Wound Specimen Site: Foot Specimen Wound Performing Organization Address [facility] Phone Number [facility] DEPARTMENT OF [address] [place] [address] PATHOLOGY AND GENOMIC MEDICINE * Pv duplex arterial lower extremity (03/02/2018 5:50 PM CDT) Narrative Performed At [facility] Vascular Ultrasound Laboratory Lower Extremity Arterial Duplex Report [address] [place] [address].Name:Roger RENTERIA.ID:[id number] St.Date: 03/02/2018Refer.MD:DEMOND THOMPSON MD Exam Time: 2:17:00 PMStudy Type:LE Arterial Height:68inWeight:230lb BSA: 2.17 m2 DOBAge:1955,62Y Sex: MALESonogrphr: Pieter Edwards, RVT, RDMS Pat. Stat.:Inpatient Room:X0240-Q TapeVol: [facility]F, [facility] - 4: [id number], [id number] Echo Event ID:[id number] Order ID:[id number] Reason for Study:Ulcer. PMH of HTN, HLD, [...] normal on the left. MEASUREMENTS: DOPPLER Right WELDING ROBOT OPERATOR prox WELDING ROBOT OPERATOR prox PSV 128 cm/s Right Profunda Profunda PSV98.2 cm/s Right SFA Dist SFA Dist PSV 154 cm/s Right SFA Mid SFA Mid [id number] cm/s Right SFA Prox SFA Prox PSV 114 cm/s Right Pop Dist Pop Dist PSV 112 cm/s Right Pop Prox Pop Prox PSV 157 cm/s Right PLANT ASSOCIATE Dist PLANT ASSOCIATE Dist PSV87.6 cm/s Right PLANT ASSOCIATE Mid PLANT ASSOCIATE Mid PSV 69.9 cm/s Right PLANT ASSOCIATE Prox PLANT ASSOCIATE Prox PSV66.6 cm/sPTA Prox PSV66.6 cm/s Right Peroneal Dist Peroneal Dist P70.1 cm/s Peroneal Mid Peroneal Mid PS56.2 cm/s Right Peroneal Prox Peroneal Prox P66.9 cm/s Right CARLITOS Dist CARLITOS Dist PSV71.4 cm/s Right WELDING ROBOT OPERATOR Dist WELDING ROBOT OPERATOR Dist PSV 128 cm/s Right PLANT ASSOCIATE Distal PLANT ASSOCIATE Distal PSV87.6 cm/s Right CARLITOS Prox CARLITOS Prox PSV 282 cm/s Right CARLITOS Mid CARLITOS Mid PSV 56.4 cm/s Right CARLITOS Mid 2 CARLITOS Mid 2 [id number] cm/s Right CARLITOS Distal CARLITOS Distal PSV71.4 [...] Ultrasound Laboratory Lower Extremity Arterial Duplex Report [address] [place] [address] Pat.Name: ALMA RENTERIA Pat.ID: [id number] .Date: 03/02/2018 Refer.MD: DEMOND THOMPSON MD Exam Time: 2:17:00 PM Study Type:LE Arterial Height: 68in Weight: 230lb BSA: 2.17 m2 Age: 10 1955,62Y Sex: MALE Sonogrphr: Pieter Jerry, RVT, RDMS Pat. Stat.:Inpatient Room: N5069-F Tape Vol: JOZEF, [facility] - 4: [address], [id number] Echo Event ID:[id number] Order ID: [id number] Reason for Study:Ulcer. PMH of HTN, HLD, [...] normal on the left. MEASUREMENTS: DOPPLER Right WELDING ROBOT OPERATOR prox WELDING ROBOT OPERATOR prox PSV 128 cm/s Right Profunda Profunda PSV 98.2 cm/s Right SFA Dist SFA Dist PSV 154 cm/s Right SFA Mid SFA Mid PSV 121 cm/s Right SFA Prox SFA Prox PSV 114 cm/s Right Pop Dist Pop Dist PSV 112 cm/s Right Pop Prox Pop Prox PSV 157 cm/s Right PLANT ASSOCIATE Dist PLANT ASSOCIATE Dist PSV 87.6 cm/s Right PLANT ASSOCIATE Mid PLANT ASSOCIATE Mid PSV 69.9 cm/s Right PLANT ASSOCIATE Prox PLANT ASSOCIATE Prox PSV 66.6 cm/s PLANT ASSOCIATE Prox PSV 66.6 cm/s Right Peroneal Dist Peroneal Dist P 70.1 cm/s Peroneal Mid Peroneal Mid PS 56.2 cm/s Right Peroneal Prox Peroneal Prox P 66.9 cm/s Right CARLITOS Dist CARLITOS Dist PSV 71.4 cm/s Right WELDING ROBOT OPERATOR Dist WELDING ROBOT OPERATOR Dist PSV 128 cm/s Right PLANT ASSOCIATE Distal PLANT ASSOCIATE Distal PSV 87.6 cm/s Right CARLITOS Prox [...] Julio Rene MD, RPVI Performing Organization Address [facility] Phone Number [facility] [address] [place] [address] * Lactic acid level, SEPSIS - Now and repeat 2x every 3 hours (03/02/2018 7:30 AM CDT) Only the most recent of 4 results within the time period is included. Lactic acid 1.6 0.5 - 2.2 mmol/L [facility] DEPARTMENT OF PATHOLOGY AND GENOMIC MEDICINE Specimen Blood Performing Organization Address [facility] Phone Number [facility] DEPARTMENT OF [address] [place] [address] PATHOLOGY AND GENOMIC MEDICINE * XR Foot [...] are noted. Soft tissues are otherwise normal. [facility]-[id number] Procedure Note Interface, Radiology Results Incoming - [...] are noted. Soft tissues are otherwise normal. [facility]-[id number] Performing Organization Address City/[facility]/[place] [address] * Blood culture, aerobic & anaerobic (03/01/2018 7:37 PM CDT) Only the most recent of 2 results within the time period is included. Blood culture isolate No growth after 5 days of [facility] DEPARTMENT OF incubation. PATHOLOGY AND Comment: GENOMIC MEDICINE Specimen Information Specimen Source: Blood Specimen Site: Antecubital, right Specimen Blood - Antecubital, right Performing Organization Address City/[facility]/Zipcode Phone Number [facility] DEPARTMENT OF [address] [place] [address] PATHOLOGY AND GENOMIC MEDICINE * CRITICAL CARE [...] CRP 12.47 (H) 0.00 - 0.50 mg/dL [facility] DEPARTMENT OF PATHOLOGY AND GENOMIC MEDICINE Specimen Plasma specimen Performing Organization Address City/State/Zipcode Phone Number [place] [phone] [place] [address] PATHOLOGY AND GENOMIC MEDICINE * Comprehensive metabolic panel (03/01/2018 6:21 PM CDT) Sodium 133 (L) 135 - 148 mEq/L [facility] DEPARTMENT OF PATHOLOGY AND GENOMIC MEDICINE Potassium 4.0 3.5 - 5.0 mEq/L [facility] DEPARTMENT OF PATHOLOGY AND GENOMIC MEDICINE Chloride 91 (L) 98 - 112 mEq/L [facility] DEPARTMENT OF PATHOLOGY AND GENOMIC MEDICINE CO2 26 24 - 31 mEq/L [facility] DEPARTMENT OF PATHOLOGY AND GENOMIC MEDICINE Anion gap 16@ANIO (H) 7 - 15 mEq/L [facility] DEPARTMENT OF PATHOLOGY AND GENOMIC MEDICINE BUN 27 (H) 8 - 23 mg/dL [facility] DEPARTMENT OF PATHOLOGY AND GENOMIC MEDICINE Creatinine 0.9 0.70 - 1.20 mg/dL [facility] DEPARTMENT OF PATHOLOGY AND GENOMIC MEDICINE Glucose 390 (H) 65 - 99 mg/dL [facility] DEPARTMENT OF PATHOLOGY AND GENOMIC MEDICINE Calcium 9.7 8.8 - 10.2 mg/dL [facility] DEPARTMENT OF PATHOLOGY AND GENOMIC MEDICINE Protein 8.3 6.3 - 8.3 g/dL [facility] DEPARTMENT OF Comment: PATHOLOGY AND [place] GENOMIC MEDICINE 4.6-7.0 g/dL 1 week 4.4-7.6 g/dL 7 months-1year 5.1-7.3 g/dL 1-2 years5.6-7 .5 g/dL >3 years6.0-8 .0 g/dL 18-150 6.3-8.3 g/dL Albumin 3.0 (L) 3.5 - 5.0 g/dL [facility] DEPARTMENT OF PATHOLOGY AND GENOMIC MEDICINE A/G ratio 0.6 (L) 0.7 - 3.8 [facility] DEPARTMENT OF PATHOLOGY AND GENOMIC MEDICINE Alkaline phosphatase 78 40 - 129 U/L [facility] DEPARTMENT OF PATHOLOGY AND GENOMIC MEDICINE AST 20 10 - 50 U/L [facility] DEPARTMENT OF PATHOLOGY AND GENOMIC MEDICINE ALT 15 5 - 50 U/L [facility] DEPARTMENT OF PATHOLOGY AND GENOMIC MEDICINE Total bilirubin 0.5 0.0 - 1.2 mg/dL [facility] DEPARTMENT OF PATHOLOGY AND GENOMIC MEDICINE Specimen Plasma specimen Performing Organization Address City/State/Zipcode Phone Number [facility] DEPARTMENT OF [address] [place] [phone] PATHOLOGY AND GENOMIC MEDICINE after 10/01/2017 Insurance Payer Benefit Subscriber ID Type Phone Address Plan / Group BCBS BCBS xxxxxxxxxxxx PPO CHOICE PPO/CLIFFERA L EMPL PPO MEDICARE MEDICARE xxxxxxxxxx Medicare [place], [place] PART A AND B Advance Directives Patient has advance care planning documents on file. For more information, eunice garza contact: Helder Richards [address] [place] [address]
--- NOTE | 2018-10-02 20:06 | NUR ---
PT BROUGHT BACK INTO TRIAGE FOR VS. LAB IS RUNNING THE BLOODWORK
--- NOTE | 2018-10-02 22:00 | NUR ---
THIS NURSE REQUESTED TO ACCESS WOUNDS IN BILATERAL FEET, PATIENT DENIED REQUEST SAYING HE DID NOT WANT TO GET IT MORE INFECTED. THIS NURSE EXPLAINED DOCUMENATION REASONING FOR UNCOVERING WOUND, HOWEVER PATIENT STILL DENIED REQUEST AND STATED, " IF A DOCTOR IS GOING TO TAKE A LOOK AT IT TOMMOROW DO NOT MESS WITH IT, i HAD IT COVERED TODAY AT MY LOCAL WOUND CARE AND IM NOT GOING TO HAVE YOU DO IT AGAIN". THIS RN LEFT ROOM TO PREVENT PATIENT FROM BEING FURTHER UPSET.
[2018-10-02 23:20] LABS: BASOPHILS % 0.4 % (0.0-1.0); EOSINOPHILS % 0.3 % (0.0-6.0); HEMATOCRIT 32.7 % (38.2-49.6); HEMOGLOBIN 10.3 g/dL (14.0-18.0); LYMPHOCYTES # (AUTO) 0.9 (1.0-3.2); LYMPHOCYTES % 8.7 % (18.0-39.1); MEAN CORPUSCULAR HEMOGLOBIN 28.1 pg (28-32); MEAN CORPUSCULAR HGB CONC 31.5 g/dL (31-35); MEAN CORPUSCULAR VOLUME 89.1 fL (81-99); MONOCYTES # (AUTO) 1.1 (0.2-0.8); MONOCYTES % 9.8 % (4.4-11.3); NEUTROPHILS # (AUTO) 8.7 (2.1-6.9); NEUTROPHILS % 80.2 % (38.7-80.0); PLATELET COUNT 236 x10e3/uL (140-360); RED BLOOD COUNT 3.67 x10e6/uL (4.3-5.7); RED CELL DISTRIBUTION WIDTH 14.8 % (11.7-14.4)
[2018-10-02 23:29] LABS: INR 1.46; PROTHROMBIN TIME 18.3 seconds (11.9-14.5)
[2018-10-02 23:30] LABS: PARTIAL THROMBOPLASTIN TIME 52.5 seconds (23.8-35.5)
[2018-10-02 23:38] LABS: ALANINE AMINOTRANSFERASE 7 IU/L (0-55); ALBUMIN 2.5 g/dL (3.5-5.0); ALBUMIN/GLOBULIN RATIO 0.5 (0.8-2.0); ALKALINE PHOSPHATASE 65 IU/L (40-150); BLOOD UREA NITROGEN 23 mg/dL (7-26); BUN/CREATININE RATIO 22 (6-25); CALCIUM 9.6 mg/dL (8.4-10.2); CARBON DIOXIDE 26 mmol/L (22-29); CHLORIDE 99 mmol/L (98-107); CREATININE, SERUM 1.05 mg/dL (0.72-1.25); EST GLOMERULAR FILTRATION RATE > 60 ML/MIN (60-); GLUCOSE 313 mg/dL (74-118); SODIUM 133 mmol/L (136-145)
--- NOTE | 2018-10-03 | NUR ---
VERIFIED WITH DR OSWALD. DOPPLER IS TO BE DONE ON A ROUTINE BASIS, NOT STAT.
[2018-10-03] MEDS: INSULIN REGULAR, HUMAN 100 UNIT/1 ML 3ML VIAL SQ SCH ×5 (00:27→21:16)
[2018-10-03] MEDS: VANCOMYCIN 1GM/NS 250 ML 250 ML IV SCH ×2 (00:30→21:16)
[2018-10-03] MEDS ORDERED: AMOX TR-K CLV1 EAC2 (02:18)
[2018-10-03] MEDS: LEVOFLOXACIN 250MG/D5W 50ML 50 ML IV SCH ×2 (02:41→21:16)
[2018-10-03 06:25] LABS: BASOPHILS # (AUTO) 0.1 (0.0-0.1); BASOPHILS % 0.5 % (0.0-1.0); EOSINOPHILS # (AUTO) 0.2 (0.0-0.4); EOSINOPHILS % 2.2 % (0.0-6.0); HEMATOCRIT 31.2 % (38.2-49.6); LYMPHOCYTES # (AUTO) 1.3 (1.0-3.2); LYMPHOCYTES % 14.4 % (18.0-39.1); MEAN CORPUSCULAR HEMOGLOBIN 28.5 pg (28-32); MEAN CORPUSCULAR HGB CONC 32.1 g/dL (31-35); MEAN CORPUSCULAR VOLUME 88.9 fL (81-99); MONOCYTES # (AUTO) 1.1 (0.2-0.8); MONOCYTES % 12.1 % (4.4-11.3); NEUTROPHILS # (AUTO) 6.5 (2.1-6.9); NEUTROPHILS % 70.4 % (38.7-80.0); PLATELET COUNT 237 x10e3/uL (140-360); RED BLOOD COUNT 3.51 x10e6/uL (4.3-5.7); RED CELL DISTRIBUTION WIDTH 14.9 % (11.7-14.4)
[2018-10-03 06:45] LABS: INR 1.37; PROTHROMBIN TIME 17.5 seconds (11.9-14.5)
[2018-10-03 06:47] LABS: PARTIAL THROMBOPLASTIN TIME 54.8 seconds (23.8-35.5)
[2018-10-03 07:15] LABS: ALANINE AMINOTRANSFERASE 6 IU/L (0-55); ALBUMIN 2.3 g/dL (3.5-5.0); ALBUMIN/GLOBULIN RATIO 0.5 (0.8-2.0); ALKALINE PHOSPHATASE 67 IU/L (40-150); ANION GAP 9.6 mmol/L (8-16); BLOOD UREA NITROGEN 26 mg/dL (7-26); BUN/CREATININE RATIO 30 (6-25); CALCIUM 9.3 mg/dL (8.4-10.2); CARBON DIOXIDE 26 mmol/L (22-29); CHLORIDE 99 mmol/L (98-107); CREATININE, SERUM 0.88 mg/dL (0.72-1.25); EST GLOMERULAR FILTRATION RATE > 60 ML/MIN (60-); GLUCOSE 275 mg/dL (74-118); POTASSIUM 3.6 mmol/L (3.5-5.1); SODIUM 131 mmol/L (136-145)
--- NOTE | 2018-10-03 07:34 | NUR ---
WALKING ROUNDS WITH NELSON RN
[2018-10-03] MEDS: LOSARTAN POTASSIUM 25 MG TAB PO SCH ×2 (08:51→18:02)
[2018-10-03] MEDS: TAMSULOSIN HCL 0.4 MG CAP PO SCH (08:51)
[2018-10-03] MEDS: ASPIRIN 81 MG CHEW TAB PO SCH (08:51)
[2018-10-03] MEDS: MYCOPHENOLATE MOFETIL 250 MG CAP PO SCH ×2 (11:14→18:03)
--- NOTE | 2018-10-03 12:01 | Diagnostic Imaging Report ---
MRI of the right foot without contrast. History: Cellulitis. Osteomyelitis. Diabetes. Heel ulcer. Swelling. Technique: Multiplanar multisequence MRI of the foot without contrast Comparison: None Findings: 4.0 cm deep skin ulceration at the posterior inferior calcaneus with adjacent abnormal soft tissue edema. Additionally, there is underlying cortical destruction and bone marrow edema involving the majority of the posterior calcaneus consistent with osteomyelitis. No adjacent well-formed drainable fluid collection/abscess is seen. There is extensive soft tissue edema. There is high-grade tearing of the Achilles tendon and plantar fascial tissues at the calcaneal insertion sites. There is diffuse muscle atrophy. Artifact is seen in the posterior plantar superficial soft tissues. Impression: 4.0 cm deep skin ulceration at the posterior inferior calcaneus with adjacent abnormal soft tissue edema. Additionally, there is underlying cortical destruction and bone marrow edema involving the majority of the posterior calcaneus consistent with osteomyelitis. No adjacent well-formed drainable fluid collection/abscess is seen Signed by: Dr. Td Cabrera M.D. on 10/03/2018 11:58 AM
[2018-10-03 16:15] LABS: CHOL/HDL RATIO 4.2 (3.9-4.7)
[2018-10-03] MEDS ORDERED: NIFEDIPINE 30 MG PO PRN (17:30)
[2018-10-03] MEDS: NPH, HUMAN INSULIN ISOPHANE 100 UNIT/1 ML 3ML VIAL SQ SCH (18:00)
--- NOTE | 2018-10-03 19:30 | NUR ---
received pt to room 215, AAOx4, no c/o pain or discomfort, resp even and unlabored, IV to left forearm non functioning so discontinued and new 20G IV started to left forearm with good blood return, pt ambulates with walker, attempted to take dressing off of right foot wound, pt stated "i dont want it to get dirty" informed pt that it is part of my assessment, pt stated "can you just do it in the morning im watching the game", will reattempt in the AM, bed in lowest and locked position, call light in reach
[2018-10-03] MEDS ORDERED: SODIUM CHLORIDE 0.9% 250ML 250 ML ONE (19:48)
[2018-10-03 20:00] VITALS: BP 111/42
[2018-10-03] MEDS ORDERED: NON-FORMULARY MEDICATION (Atorvastatin Calcium (Lipitor) 40 MG) PO SCH (21:00)
[2018-10-03] MEDS: APIXABAN 5 MG TABLET PO SCH (21:16)
[2018-10-03] MEDS: ATORVASTATIN 40 MG TAB PO SCH (21:16)
[2018-10-03] MEDS: PREDNISONE 5 MG TAB PO SCH (21:16)
[2018-10-03] MEDS: FAMOTIDINE 20 MG TAB PO SCH (21:16)
--- NOTE | 2018-10-03 22:20 | Consultation ---
DATE OF CONSULTATION: 10/03/2018 Cardiology Consultation REASON FOR CONSULTATION: Peripheral arterial disease. HISTORY OF PRESENT ILLNESS: This is a 63-year-old man with history of peripheral arterial disease, status post left lower extremity stents; hypertension; hyperlipidemia; diabetes mellitus; and renal transplant; who presents from Wound Care due to nonhealing right lower extremity wound. The patient reports his wound has been present since March of last year. He was following with Dr. Webb today and was instructed to present to [facility] ER for further care. Cardiology is consulted to evaluate for peripheral arterial disease. The patient denies chest pain, shortness of breath, palpitations, orthopnea, or PND. REVIEW OF SYSTEMS: Negative except as per HPI. PAST MEDICAL HISTORY: 1. Peripheral arterial disease, status post left lower extremity stent. 2. Hypertension. 3. Hyperlipidemia. 4. Diabetes mellitus. 5. History of renal transplant. PAST SURGICAL HISTORY: 1. Renal transplant. 2. Cataract surgery. ALLERGIES: PLEASE SEE EMR. MEDICATIONS: Please see medication list. SOCIAL HISTORY: Denies tobacco or illicit drugs. He drinks alcohol occasionally. FAMILY HISTORY: Noncontributory to current illness. PHYSICAL EXAMINATION: VITAL SIGNS: Temperature 98.7 degrees, pulse 71, respiratory rate 14, blood pressure 143/68, oxygen saturation 98%. GENERAL: Well-developed, well-nourished man, in no acute distress. Awake and alert. HEENT: Normocephalic, atraumatic. Pupils are equal. No scleral icterus. NECK: Supple. No thyromegaly or cervical lymphadenopathy. No carotid bruits. LUNGS: Clear to auscultation bilaterally. No wheezes or crackles. CARDIOVASCULAR: Normal rate and regular rhythm. Normal S1 and S2. ABDOMEN: Soft, nontender. EXTREMITIES: 1+ edema on the right with wrapping dressing in place on the right foot. LABORATORY DATA: WBC 9.18, hemoglobin 10, hematocrit 31.2, and platelets 237. Sodium 131, potassium 3.6, chloride 99, CO2 of 26, BUN 26, creatinine 0.88. MRI of the foot with 4 cm deep skin ulceration at the posterior inferior calcaneus with adjacent abnormal soft tissue edema. Underlying cortical destruction and bone marrow edema involving the majority of the posterior calcaneus consistent with osteomyelitis. No adjacent well-formed drainable fluid collection or abscess is seen. IMPRESSION: 1. Right heel ulcer with osteomyelitis. 2. Peripheral arterial disease with prior left popliteal anterior tibial stenting. 3. Hypertension. 4. Hyperlipidemia. 5. Diabetes mellitus. 6. History of renal transplant. RECOMMENDATIONS: Arterial Doppler has been ordered. We will review the images once available. Continue home cardiac medications. Unclear why the patient is on Eliquis as an outpatient. We will clarify. Check fasting lipid panel. Further recommendations pending review of arterial Doppler. Thank you for this consult. We will continue to follow. Angela Rodriguez MD ABS/MODL /[id number]
[2018-10-04] VITALS (7 sets, daily range): BP systolic 110–190; BP diastolic 58–92
[2018-10-04] MEDS: NIFEDIPINE CR 30 MG TAB PO PRN (05:39)
--- NOTE | 2018-10-04 07:00 | NUR ---
RCD PT AT BED PT IS ALERT AND ORIENTED PT RESTING ON BED NO SIGNS OF ANY DISTRESS NOTED BED LOW AND LOCKED CALL LIGHT IN REACH
[2018-10-04] MEDS: INSULIN REGULAR, HUMAN 100 UNIT/1 ML 3ML VIAL SQ SCH ×4 (07:30→20:41)
[2018-10-04] MEDS: APIXABAN 5 MG TABLET PO SCH (09:00)
[2018-10-04] MEDS: ASPIRIN 81 MG CHEW TAB PO SCH (09:00)
[2018-10-04] MEDS: LOSARTAN POTASSIUM 25 MG TAB PO SCH ×2 (09:00→17:00)
[2018-10-04] MEDS: TAMSULOSIN HCL 0.4 MG CAP PO SCH (09:00)
[2018-10-04] MEDS: MYCOPHENOLATE MOFETIL 250 MG CAP PO SCH ×2 (09:00→17:00)
[2018-10-04] MEDS: PREDNISONE 5 MG TAB PO SCH (09:00)
[2018-10-04] MEDS: CALCIUM CARBONATE 500 MG CHEWABLE TABS PO SCH (09:00)
[2018-10-04] MEDS ORDERED: NON-FORMULARY MEDICATION ([Eliquis] 5 MG) SCH (09:00)
[2018-10-04] MEDS ORDERED: [UNRECOGNIZED DRUG - OTHER] PO SCH (09:00)
[2018-10-04] MEDS: NPH, HUMAN INSULIN ISOPHANE 100 UNIT/1 ML 3ML VIAL SQ SCH ×2 (09:00→16:48)
[2018-10-04] MEDS: FUROSEMIDE 40 MG TAB PO SCH ×2 (09:00→17:00)
[2018-10-04] MEDS ORDERED: DAPTOMYCIN 500mg 10ML 500 MG in SODIUM CHLORIDE 0.9% 100 ML IV SCH (12:45)
[2018-10-04] MEDS ORDERED: ERTAPENEM 1GM/NS 100ML 100 ML IV SCH (12:45)
--- NOTE | 2018-10-04 12:50 | NUR ---
PATIENT WITH ORDER TO CASE MANAGEMENT REGARDING ARRANGE PICC LINE. INFORMED CASE MANAGEMENT DOES NOT ARRANGE PICC ACCESS BUT CM WILL REDIRECT ORDER TO BEDSIDE RN. BEDSIDE RN TANIA NOTIFIED OF ORDER. NABEEL MARIN TO FOLLOW UP WITH PICC PLACEMENT ORDER
[2018-10-04] MEDS: MEROPENEM 1GM 100 ML IV SCH ×3 (14:00→21:56)
--- NOTE | 2018-10-04 14:00 | NUR ---
WOUND C/S DONE BEFORE THE ANTIBIOTICS
[2018-10-04] MEDS ORDERED: ONDANSETRON HCL 4 MG ORAL DISINTEGRATING TAB PO PRN (15:00)
[2018-10-04] MEDS: DAPTOMYCIN 500mg 10ML 500 MG in SODIUM CHLORIDE 0.9% 100 ML IV SCH (15:00)
--- NOTE | 2018-10-04 15:50 | Consultation ---
DATE OF CONSULTATION: 10/04/2018 Initial Consultation for Infectious Disease CONSULTING PHYSICIAN: Dr. Josh Cuellar to Dr. Yasmany Mcdonald. REASON FOR CONSULTATION: Cellulitis to right lower extremity and nonhealing wound to right heel with osteomyelitis. HISTORY OF PRESENT ILLNESS: This is a 63-year-old male with past medical history of peripheral arterial disease, status post left lower extremity stents; hypertension; hyperlipidemia; diabetes mellitus, type 2; and renal transplant. He presented to the ER from the outpatient wound clinic for right lower extremity cellulitis and nonhealing right lower extremity wound. The patient reports that the wound has present since March of 2018. He has been under the care of dining room manager, Dr. Sisi Webb and she instructed him to come to the ER for admission due to the acute changes to the wound. Cardiology was also consulted, Dr. Galeas to assess for any arterial stenosis in the right lower extremity as well as we were consulted. The patient is currently on IV Levaquin and vancomycin. No recent wound cultures have been obtained, but previous wound cultures on July 18, 2018, grew Strep agalactiae group B and on July 05 grew regular Staph aureus MSSA and Enterococcus faecalis. Last surgical debridement was on 07/21, debridement of the bone per Dr. Dr. Sisi Webb. The patient was started on ertapenem 1 g IV q.24 hours as well as daptomycin 500 mg IV q.24 hours on outpatient basis. Since beginning of July, the patient has also been undergoing hyperbaric oxygen therapy at the Wound Clinic. Venous Doppler was done upon admission, which was negative for any DVT. Arterial Dopplers are showing monophasic flow to multiple arteries in the right lower extremity, left lower extremity predominantly triphasic. The patient has been evaluated by Dr. Rodriguez, who is waiting on scans from the arterial Doppler for further recommendations. REVIEW OF SYSTEMS: Negative except per HPI. PAST MEDICAL HISTORY: Peripheral arterial disease status post left lower extremity stent, hypertension, hyperlipidemia, diabetes mellitus type 2, and history of renal transplant. PAST SURGICAL HISTORY: Renal transplant and cataract surgery. ALLERGIES: PLEASE SEE MAR. MEDICATIONS: See MAR. SOCIAL HISTORY: Denies any tobacco or illicit drug use. Occasional social EtOH use. FAMILY HISTORY: Noncontributory. PHYSICAL EXAMINATION: VITAL SIGNS: Currently; temperature 98 degrees Fahrenheit, heart rate 88, blood pressure 179/85, and respirations 20. GENERAL: He is alert and oriented x3, in no acute distress, lying comfortably in bed. Afebrile. HEENT: Head, normocephalic and atraumatic. PERRLA. Extraocular movements intact. NECK: Supple. No lymphadenopathy. LUNGS: Clear to auscultation bilaterally. CARDIOVASCULAR: Regular rate and rhythm. Normal S1 and S2. ABDOMEN: Soft and nontender. Bowel sounds present x4. EXTREMITIES: There is 2+ pitting edema to right lower extremity. The right foot is wrapped with gauze. Wound is significantly large covering circumferentially around the calcaneus, maybe 10% to 15% is thin fibrin to wound base, the remaining tissue is bright red granular. There is some maceration to the periwound to left lower extremity with no edema, no ulcerations. CURRENT LABS: WBCs upon admission were 10,820. Current WBCs 9.1, hemoglobin 10, hematocrit 31.2, and platelet count 237. Sodium 131, potassium 3.6, chloride 99, bicarb 26, BUN 26, creatinine 0.88. INR 1.37, PT 17.5. CRP was 157 upon admission. Hemoglobin A1c 9.1. Uric acid level was 5.2. No ESR was obtained. ASSESSMENT: 1. Cellulitis to right lower extremity. 2. Nonhealing right diabetic foot ulcer, Agarwal grade 3. 3. Osteomyelitis of right calcaneus. 4. Hypertension. 5. Diabetes mellitus, type 2. 6. Hyperlipidemia. 7. History of renal transplant. RECOMMENDATIONS: Arterial Dopplers have been done, showing monophasic flow to multiple arteries of right lower extremity. Venous Dopplers have been done, negative for DVT in bilateral lower extremities. Cardiovascular team has evaluated the patient and pending further recommendations. We will discontinue Levaquin and vancomycin and start the patient on daptomycin 500 mg IV q.24 hours and in substitution for ertapenem, we will start meropenem 1 g q.8 hours. We will obtain wound culture for anaerobic and aerobic bacteria. We will have case management arrange for outpatient IV antibiotics with [facility]. We will PICC line. The patient will need to have weekly CBC, BNP, CK, and ESR levels and the patient will need to follow up with Dr. Mcdonald in the outpatient wound clinic after discharge. Thank you Dr. Cuellar for the consultation. We will gladly follow the patient along with you. Thank you also to Dr. Oakes for the consultation. We will gladly follow the patient along with you as well. Further recommendations to follow based on the patient's clinical course. Case was discussed with Dr. Mcdonald. Dictated by Loc Buenrostro, RAAD MD NILTON Irving/DMITRY /[id number]
--- NOTE | 2018-10-04 17:00 | NUR ---
PICC LINE DONE
--- NOTE | 2018-10-04 17:06 | Diagnostic Imaging Report ---
EXAM: CHEST XRAY LINE PLACEMENT DATE: 10/04/2018 4:26 PM INDICATION: Line placement COMPARISON: Chest x-ray, 07/12/2018 FINDINGS: Lines and tubes: There is a right PICC which crosses the midline and extends to the left innominate vein. This apparently represents a replacement of the PICC line that was present on the previous exam. Heart size normal. No focal pulmonary opacity, pleural effusion or pneumothorax. Upper abdomen unremarkable. No acute bony abnormality. The patient's nurse on [address] [place] [address], was called with the findings on 10/04/2018 at 5:00 PM. She is to contact the PICC team and inform them of the x-ray finding. IMPRESSION: 1. Right PICC extends across the midline to the left innominate vein. 2. No evidence for acute disease in the chest. Signed by: Dr. Chris Hemphill M.D. on 10/04/2018 5:03 PM
--- NOTE | 2018-10-04 17:25 | NUR ---
CASE MANAGEMENT ASSESSMENT Social Work Assistant to bedside to discuss plan of care with patient/family. CM/SW role and care transitions discussed. Anticipated discharge plan discussed along with duration of care. CM/SW discussed patients right to make decisions in care. CM/SW work hours given. Patient lives: alone Admit/Transfer: thru ED Hospital/ER visits since last admit: 0 POA/Emergency contact: son Rey Renteria [phone] and daughter Tara Ledbetter [phone] Current/Previous Home Health: states currently has home health with [facility] PCP/Follow-up Care: Dr. Mcgowan - PCP; pt will follow up with Dr. Mcdonald within 1 week of discharge Current/Previous DME: walker, wheelchair, cane Medications (referring to index hospitalization or the first time you were in the hospital) a. Were changes made in your medications when you were in the hospital on [date of index hospitalization]? n/a b. Did you understand the changes? n/a c. Were you able to obtain your new medications right away? n/a d. Were you able to take your medications like the doctor wanted you to? n/a e. Did the hospital give you an accurate, easy to understand list of medications when you left? 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 Pt stated that he has used [facility] in the past and would like to use them again. Also states he has home health with [facility] and would like to continue with them. Choice letter signed for [facility], [facility] and [facility] outpatient wound clinic and placed in chart. Copy placed in pt's transition of care folder. Education Needs: wound care. medical management IMM/DENIS given and signed (if applicable): none at this time Goal for discharge: home with iv abx and home health/ outpatient wound care. CM/SW left business card at the bedside with contact information. Name and number was also written on the patients whiteboard. Patient verbalized understanding of discussion. CM will follow-up with ongoing discharge and transition of care needs. Referral for IV abx was faxed to [facility] at [phone] / P [phone]. CM will follow up in AM to ensure they received order
--- NOTE | 2018-10-04 17:36 | Progress Note ---
DATE: 10/04/2018 Cardiology Progress Note SUBJECTIVE: The patient denies chest pain or shortness of breath. OBJECTIVE: VITAL SIGNS: Temperature 95.7 degrees, pulse 70, respiratory rate 18, blood pressure 110/59, and oxygen saturation 96% on room air. GENERAL: Awake, alert, in no acute distress. LUNGS: Clear to auscultation bilaterally. No wheezes or crackles. CARDIOVASCULAR: Normal rate, regular rhythm. No murmur. Normal S1, S2. ABDOMEN: Soft, nontender. EXTREMITIES: 1+ pitting edema on the right with dressing in place. CARDIAC MEDICATIONS: Apixaban 5 mg p.o. b.i.d., furosemide 80 mg p.o. b.i.d., losartan 25 mg p.o. daily, aspirin 81 mg p.o. daily, nifedipine 30 mg p.o. q.12 hours as needed, atorvastatin 40 mg p.o. at bedtime. LABORATORY DATA: None today. IMPRESSION: 1. Right heel ulcer with osteomyelitis. 2. Peripheral arterial disease with prior left popliteal and anterior tibial stenting. 3. Hypertension. 4. Hyperlipidemia. 5. Diabetes mellitus. 6. History of renal transplant. RECOMMENDATIONS: Arterial Doppler suggest hemodynamically significant stenosis in the right lower extremity. Plan for peripheral angiogram in the morning. Hold Eliquis. N.p.o. after midnight. Continue current cardiac medications otherwise. Antibiotics per Infectious Disease. Wound care per Podiatry. Thank you for this consult. We will continue to follow. Angela Rodriguez MD ABS/MODL /[id number]
--- NOTE | 2018-10-04 17:56 | Diagnostic Imaging Report ---
Examination: Single AP view of the chest. COMPARISON: None. INDICATION: PICC line placement. DISCUSSION: Lines/tubes: Right PICC line with tip overlying the cavoatrial junction. Lungs: No pneumonia or pulmonary edema. Pleura: No pleural effusion or pneumothorax. Heart and mediastinum: The heart and the mediastinum are unremarkable. Bones and soft tissues: No acute bony abnormalities. IMPRESSION: 1. No acute cardiopulmonary abnormalities. Signed by: Dr. Saúl Montero M.D. on 10/04/2018 5:53 PM
--- NOTE | 2018-10-04 19:12 | NUR ---
PT RESTING ON BED BED SIDE REPORT GIVEN TO ONCOMING NURSE
[2018-10-04] MEDS: ATORVASTATIN 40 MG TAB PO SCH (20:41)
[2018-10-04] MEDS: FAMOTIDINE 20 MG TAB PO SCH (20:41)
[2018-10-05] VITALS (9 sets, daily range): BP systolic 111–152; BP diastolic 45–74
[2018-10-05] MEDS: MEROPENEM 1GM 100 ML IV SCH ×3 (05:06→21:49)
[2018-10-05 05:29] LABS: BASOPHILS % 0.5 % (0.0-1.0); EOSINOPHILS # (AUTO) 0.3 (0.0-0.4); HEMATOCRIT 31.6 % (38.2-49.6); LYMPHOCYTES # (AUTO) 1.3 (1.0-3.2); LYMPHOCYTES % 15.7 % (18.0-39.1); MEAN CORPUSCULAR HEMOGLOBIN 28.4 pg (28-32); MEAN CORPUSCULAR HGB CONC 31.6 g/dL (31-35); MEAN CORPUSCULAR VOLUME 89.8 fL (81-99); MONOCYTES # (AUTO) 0.9 (0.2-0.8); NEUTROPHILS # (AUTO) 5.7 (2.1-6.9); NEUTROPHILS % 68.3 % (38.7-80.0); PLATELET COUNT 273 x10e3/uL (140-360); RED BLOOD COUNT 3.52 x10e6/uL (4.3-5.7)
[2018-10-05 05:48] LABS: ANION GAP 11.6 mmol/L (8-16); BLOOD UREA NITROGEN 28 mg/dL (7-26); BUN/CREATININE RATIO 30 (6-25); CARBON DIOXIDE 27 mmol/L (22-29); CHLORIDE 100 mmol/L (98-107); CREATINE KINASE 15 IU/L (30-200); CREATININE, SERUM 0.93 mg/dL (0.72-1.25); EST GLOMERULAR FILTRATION RATE > 60 ML/MIN (60-); GLUCOSE 378 mg/dL (74-118); POTASSIUM 3.6 mmol/L (3.5-5.1); SODIUM 135 mmol/L (136-145)
[2018-10-05 06:03] LABS: ERYTHROCYTE SEDIMENTATION RATE 106 mm/hr (0-13)
--- NOTE | 2018-10-05 07:00 | NUR ---
RCD PT AT BED PT IS ALERT AND ORIENTED PT RESTING ON BED NO SIGNS OF ANY DISTRESS NOTED PT NPO FOR PROCEDURE BED LOW AND LOCKED CALL LIGHT IN REACH
[2018-10-05] MEDS: INSULIN REGULAR, HUMAN 100 UNIT/1 ML 3ML VIAL SQ SCH ×4 (07:30→20:30)
--- NOTE | 2018-10-05 07:30 | NUR ---
pt requested only 9 units eventhough blood sugar 413
[2018-10-05] MEDS ORDERED: HEPARIN SOD/SOD CHLORIDE 2,000 ML ONE (10:54)
[2018-10-05] MEDS ORDERED: LIDOCAINE HCL 2% LOCAL 20 ML VIAL ONE (10:54)
[2018-10-05] MEDS ORDERED: FENTANYL CITRATE/PF 100MCG/2 ML INJ ONE (10:54)
[2018-10-05] MEDS ORDERED: MIDAZOLAM HCL 2 MG/2 ML VIAL ONE (10:54)
[2018-10-05] MEDS ORDERED: IOPAMIDOL 300MG/ML 100 ML INFUS..BTL IV ONE (10:55)
[2018-10-05] MEDS ORDERED: SODIUM CHLORIDE 0.9% 1000ML 1,000 ML ONE (10:55)
--- NOTE | 2018-10-05 11:30 | NUR ---
PT WENT FOR PROCEDURE IN SAFE CONDITION
--- NOTE | 2018-10-05 12:50 | NUR ---
PT BACK AFTER PROCEDURE PT IS ALERT AND ORIENTED VITALS CHECKED NO SIGNS OF BLEEDING ON LT GROIN PT NEED REST FOR 2 MORE HRS HE AGREED
[2018-10-05] MEDS: FUROSEMIDE 40 MG TAB PO SCH ×2 (13:00→18:00)
[2018-10-05] MEDS: PREDNISONE 5 MG TAB PO SCH (13:00)
[2018-10-05] MEDS: LOSARTAN POTASSIUM 25 MG TAB PO SCH ×2 (13:00→17:00)
[2018-10-05] MEDS: NPH, HUMAN INSULIN ISOPHANE 100 UNIT/1 ML 3ML VIAL SQ SCH ×2 (13:00→17:00)
[2018-10-05] MEDS: CALCIUM CARBONATE 500 MG CHEWABLE TABS PO SCH (13:00)
[2018-10-05] MEDS: TAMSULOSIN HCL 0.4 MG CAP PO SCH (13:00)
[2018-10-05] MEDS: MYCOPHENOLATE MOFETIL 250 MG CAP PO SCH ×2 (13:00→18:00)
[2018-10-05] MEDS: ASPIRIN 81 MG CHEW TAB PO SCH (13:00)
--- NOTE | 2018-10-05 13:06 | Progress Note ---
DATE: Cardiology Progress Note SUBJECTIVE: The patient reports mild discomfort of his foot. Denies any chest pain or shortness of breath. OBJECTIVE: VITAL SIGNS: Temperature is 97.5, heart rate 74, respirations are 17, blood pressure is 152/74, and oxygen saturation 96% on room air. GENERAL: Well appearing, well built, no apparent distress. CARDIOVASCULAR: Regular rate and rhythm. LUNGS: Clear to auscultation. ABDOMEN: Soft and nontender. EXTREMITIES: 1+ pitting edema with right foot dressing in place. CURRENT CARDIOVASCULAR MEDICATIONS: Reviewed. LABORATORY DATA: Hemoglobin 10. Creatinine 0.93. IMPRESSION: 1. Right heel ulcer with osteomyelitis. 2. Mild peripheral arterial disease of the right lower extremity with severe stenosis of the left peroneal and posterior tibial vessels. 3. Hypertension. 4. Hyperlipidemia. 5. Diabetes mellitus. 6. History of renal transplantation. RECOMMENDATIONS: Peripheral angiography today of the right lower extremity showed no significant occlusive disease. Continue aggressive medical management. Continue wound care and antibiotics. The patient may be discharged from Cardiovascular standpoint with outpatient followup. The patient will need to be brought back for intervention of the left lower extremity at a future date. DO NIALL Lovett/MODL /[id number]
--- NOTE | 2018-10-05 13:44 | NUR ---
WOUND CARE CONSULTATION: INITIAL EVALUATION Patient admitted from [facility] to ER for Cellulitis of Right Foot WBC10.82 HGB10.0 [id number] MRI RLE - Soft Tissue Edema, Bone Marrow Edema, Cortical Destruction. Conisistent findings with OM+ LE US - Results Pending Venous Study - Results Pending Micro Studies - Streptococcus Agalactiae B. PATIENT VISIT: Presents with RLE HEEL DFU Grade 3 ulcer. Weeping heavily, Irregular Edges with extensive amounts of biofilm to wound bed. Exposed bone, Denuded edges with maceration present. London Score 20 Regular Visco Mattress Returned from S/P Angiogram with waffle overlay support. Renata Fontenot on case for DFU management. - reviewed plan of care with Dr. Oakes. Will initiate new treatment plan. RECOMMENDATION 1. RIGHT HEEL - DFU GRADE 3: - Aggressively cleanse wound with Dakin's Solution 0.25% moistened 4x4 gauze Daily. - Apply Silvasorb Gel over Exposed Bone then cover wound bed with Silver Alginate + ABD Pad and Wrap with Kerlix Daily and PRN Strikethrough. 2. Right Foot - Prevalon Boot While In Bed. Thank you for consulting with Wound Care. DC Planning: Follow Up with Renata Fontenot @ [facility]. Addendum: 10/05/18 at 1353 by Romeo Cox RN Amended: Links added.
[2018-10-05] MEDS: DAPTOMYCIN 500mg 10ML 500 MG in SODIUM CHLORIDE 0.9% 100 ML IV SCH (15:00)
--- NOTE | 2018-10-05 17:33 | NUR ---
Spoke with Chiara at [facility] [phone]. She stated that they are ready to deliver medications whenever pt discharges. Will need to be updated on discharge date. CM reached out to Naresh with [facility]. He stated that pt is currently not on services with them. Pt was discharged on 09/08. CM spoke to pt who stated that he would still like to go with [facility] since he is familiar with them. He stated that he had a hard time getting them to come out everyday for his IV abx. CM explained to pt that home healths typically do not come out daily for abx. Pt and family usually receives teaching to administer medications. Pt stated that he does not have any family members who would be available to help him. CM will reach out to other home health companies to see if any would come out daily. Will follow up.
--- NOTE | 2018-10-05 18:35 | NUR ---
PT C/O CONSTIPATION PAGED AND NOTIFIED DR DELGADO GOT NEW ORDERS
--- NOTE | 2018-10-05 19:00 | NUR ---
PT RESTING ON BED NO SIGNS OF BLEEDING ON THE LEFT GROIN BED SIDE REPORT GIVEN TO ONCOMING NURSE
--- NOTE | 2018-10-05 19:33 | Operative Report ---
DATE OF PROCEDURE: 10/05/2018 SURGEON: Baldev Smallwood DO PROCEDURES PERFORMED: 1. Conscious sedation, 30 minutes. 2. Abdominal aortography. 3. Bilateral extremity angiography. 4. Third-order peripheral angiography of the right lower extremity. PREPROCEDURE DIAGNOSIS: Osteomyelitis of the right heel with peripheral arterial disease. POSTPROCEDURE DIAGNOSIS: Nonobstructive peripheral artery disease of the right lower extremity. ESTIMATED BLOOD LOSS: Less than 20 mL. SPECIMENS REMOVED: None. PROCEDURE IN DETAIL: After informed consent was obtained, the patient was brought to the cardiac catheterization laboratory in a fasting and nonsedated state. Bilateral groins were prepped and draped in the usual sterile fashion. A 2% lidocaine was infiltrated over the left anterior groin for local anesthesia. Using a micropuncture needle, the left common femoral artery was accessed via modified Seldinger technique and a 5-Serbian sheath was placed. Next, abdominal aortography was performed using Omni Flush catheter. Next, this was crossed up and over into the third order peripheral angiography of the right lower extremity and multiple angiographic images were performed. Next, this catheter was brought back and removed from the body. Next, left lower extremity angiography was performed, used through the sheath. The sheath was removed and hemostasis was achieved via Vascade device. The patient tolerated the procedure well with no immediate complications. He was transferred back to his room in stable condition. PROCEDURE FINDINGS: 1. The ostial right common iliac artery has a non-flow limiting 30% stenosis. 2. The rest of the iliac and femoral system has mild diffuse disease. 3. The right popliteal vessel has mild diffuse disease. 4. The right anterior tibial has an ostial 40% to 50% non-flow limiting stenosis. The midportion of the anterior tibial has a 40% to 50% non-flow limiting stenosis. The dorsalis pedis is patent. 5. The tibioperoneal, peroneal, and posterior tibial vessels are patent. There are three-vessel runoff to the right lower extremity. Left lower extremity: 1. The left iliac and femoral system is patent with mild diffuse disease. 2. There is a stent seen in the left popliteal artery with 40% to 50% in-stent restenosis. 3. There is subtotal stenosis of the tibioperoneal trunk extending into the ostial, posterior tibial and peroneal vessels. 4. The left anterior tibial artery has a patent stent with mild in-stent restenosis. IMPRESSION AND PLAN: This gentleman was found to have a right heel ulcer with osteomyelitis. The patient has three-vessel runoff with mild diffuse disease. No interventions are required at this point in time. Continue wound care. DO NIALL Lovett/DMITRY /[id number]
[2018-10-05] MEDS: FAMOTIDINE 20 MG TAB PO SCH (20:29)
[2018-10-05] MEDS: ATORVASTATIN 40 MG TAB PO SCH (20:29)
[2018-10-05] MEDS: DOCUSATE SODIUM 100 MG CAP PO SCH (20:29)
[2018-10-06] VITALS (7 sets, daily range): BP systolic 136–154; BP diastolic 61–76
[2018-10-06] MEDS: MEROPENEM 1GM 100 ML IV SCH ×3 (05:17→22:00)
[2018-10-06] MEDS: INSULIN REGULAR, HUMAN 100 UNIT/1 ML 3ML VIAL SQ SCH ×5 (07:30→21:30)
--- NOTE | 2018-10-06 08:30 | NUR ---
The pt. was awakened for morning med pass. His blood sugar is currently 288 and he was medicated with humulin r and scheduled Humulin N.
[2018-10-06] MEDS: PREDNISONE 5 MG TAB PO SCH (08:40)
[2018-10-06] MEDS: FUROSEMIDE 40 MG TAB PO SCH ×2 (08:40→16:21)
[2018-10-06] MEDS: CALCIUM CARBONATE 500 MG CHEWABLE TABS PO SCH (08:40)
[2018-10-06] MEDS: MYCOPHENOLATE MOFETIL 250 MG CAP PO SCH ×2 (08:41→16:20)
[2018-10-06] MEDS: DOCUSATE SODIUM 100 MG CAP PO SCH ×2 (08:41→16:20)
[2018-10-06] MEDS: LOSARTAN POTASSIUM 25 MG TAB PO SCH ×2 (08:41→16:21)
[2018-10-06] MEDS: ASPIRIN 81 MG CHEW TAB PO SCH (08:41)
[2018-10-06] MEDS: TAMSULOSIN HCL 0.4 MG CAP PO SCH (08:41)
[2018-10-06] MEDS: SODIUM HYPOCHLORITE 0.25% 480 ML SOLN IR SCH (09:00)
[2018-10-06] MEDS: NPH, HUMAN INSULIN ISOPHANE 100 UNIT/1 ML 3ML VIAL SQ SCH ×2 (09:50→17:00)
[2018-10-06] MEDS: TACROLIMUS 0.5 MG CAP PO SCH ×2 (10:08→21:55)
--- NOTE | 2018-10-06 11:30 | NUR ---
The pt. called to report that he feels strange and needs his blood sugar taken. The pt. was advised that his blood sugar was just completed and he needs his prn dose of insulin. Dressing change offered at this time and the pt. declined stating Silvestre is going to do it.
--- NOTE | 2018-10-06 14:27 | NUR ---
ZITA SPOKE WITH FÁTIMA CHRIS AT [facility] WHO STATES THEY CANNOT DO DAILY VISITS
--- NOTE | 2018-10-06 14:28 | NUR ---
SPOKE WITH DR MARTELL TODAY RE DC PLANS STATES PT WILL GO HOME TUESDAY DR REYES IS GOING TO PUT CAST ON PT'S LEG TUESDAY AM AND PT CAN BE DISCHARGED AFTER THAT CM CALLED AND NOTIFIED MONICA AT [facility] THAT PT WILL NOT BE DISCHARGED UNTIL TUESDAY [phone] FAXED PICC LINE PLACEMENT AND OK TO USE TO HER AT [phone] CONFIRMATION REC'D
[2018-10-06] MEDS: DAPTOMYCIN 500mg 10ML 500 MG in SODIUM CHLORIDE 0.9% 100 ML IV SCH (15:00)
--- NOTE | 2018-10-06 17:06 | NUR ---
SPOKE WITH PT REGARDING HOME HEALTH ONLY COMING OUT 3 X WEEK FOR IV ABX HE STATES HIS SON AND DTR WILL HELP ADMINISTER HIS ABX WHEN HOME HEALTH NOT AVAILABLE CHOICE LETTER SIGNED FOR [facility] PH [phone] FAX [phone] [facility] FOR IV ABX [phone] FAXED ORDERS TO [facility]; SPOKE WITH ELISABET; CONFIRMATION REC'D AWARE THAT PT IS DISCHARGING HOME TUESDAY
--- NOTE | 2018-10-06 18:00 | NUR ---
The dressing was changed and the pt. reports no b m since Tuesday and has been getting Colace twice daily without action. A call was placed to the dr. but phone lines were not functioning.
--- NOTE | 2018-10-06 19:15 | NUR ---
Patient visited in room during nursing rounds. Patient alert and oriented x3. Right heel (with stage 4 ulcer) covered with dressing (C/D/I). PICC on right upper arm in place and 20g on RFA saline locked. Patient up with standby assist prn using walker. Limb alert on left arm (site of AV fistula). Call velázquez within reach.
--- NOTE | 2018-10-06 19:29 | NUR ---
A call was again placed for laxative.
--- NOTE | 2018-10-06 19:43 | Progress Note ---
DATE: 10/06/2018 SUBJECTIVE: The patient was seen at bedside. Denies any pain. The edema is beginning to decrease. The ulcer is full thickness down to the bone. No streaking erythema. No ascending lymphangitis. Negative Homans sign. ASSESSMENT: 1. Ulcer grade 3, right heel. 2. Edema, resolving. PLAN: At this point, he is scheduled to be discharged on Tuesday. He will go home on a PICC line and IV antibiotics. Before discharge, I am going to apply a total contact cast. Once discharged, he is going to follow up with me in the [facility]. I will see him back on Tuesday to apply the total contact cast. He is not to be discharged until the total contact cast is applied. Plan is to be applied around this noon. RUI Sinclair/DMITRY /[id number]
[2018-10-06] MEDS ORDERED: SOD PHOSPHATE/SOD BIPHOSPHATE ENEMA 132 ML BTL PR ONE (19:45)
--- NOTE | 2018-10-06 20:39 | Progress Note ---
DATE: 10/06/2018 Cardiology Progress Note SUBJECTIVE: The patient denies chest pain or shortness of breath. OBJECTIVE: VITAL SIGNS: Temperature 97.6 degrees, pulse 68, respiratory rate 16, blood pressure 136/61, and oxygen saturation 96%. GENERAL: Awake, alert, in no acute distress. LUNGS: Clear to auscultation bilaterally. No wheezes or crackles. CARDIOVASCULAR: Normal rate, regular rhythm. No murmur. Normal S1, S2. ABDOMEN: Soft, nontender. EXTREMITIES: 1+ pitting edema with right foot dressing in place. CARDIAC MEDICATIONS: Lasix 80 mg p.o. b.i.d., losartan 25 mg p.o. b.i.d., atorvastatin 40 mg p.o. at bedtime. LABORATORY DATA: None today. IMPRESSION: 1. Right heel ulcer with osteomyelitis. 2. Peripheral arterial disease with prior left popliteal and anterior tibial artery stenting. 3. Hypertension. 4. Hyperlipidemia. 5. Diabetes mellitus. 6. History of renal transplant. RECOMMENDATIONS: Peripheral angiogram was performed without evidence of significant disease. Continue risk factor modification. Continue current cardiac medications. Wound care per Podiatry. Antibiotics per primary service. The patient will need intervention on his left lower extremity at a future date. No further cardiac evaluation is indicated at this time. Thank you for this consult. We will continue to follow. Angela Rodriguez MD ABS/MODL /[id number]
[2018-10-06] MEDS ORDERED: DEXTROSE 50% SYRINGE 50 ML IV PRN (21:30)
[2018-10-06] MEDS: ATORVASTATIN 40 MG TAB PO SCH (21:55)
[2018-10-06] MEDS: FAMOTIDINE 20 MG TAB PO SCH (21:55)
--- NOTE | 2018-10-06 22:24 | NUR ---
Called and informed Dr. Munoz that patient wanted to re-start his Eliquis 5mg BID. consented ok to restart Eliquis.
[2018-10-06] MEDS: APIXABAN 5 MG TABLET PO SCH (23:15)
[2018-10-07] VITALS: BP 156/72
--- NOTE | 2018-10-07 00:09 | Consultation ---
DATE OF CONSULTATION: 10/04/2018 HISTORY OF PRESENT ILLNESS: The patient was seen at bedside. He was admitted for a right lower extremity unilateral swelling, erythema, and edema. He is a patient well known to me. I know him from [facility]. He has had this ulcer for over six months. The ulcer begins to heal. He is responding well to total contact cast, but he did develop again lateral erythema and edema to the lower extremity. He was on oral antibiotics and he says he stopped taking them about four days. There is a problem with compliance and I discussed with him that it is important at this point that he has to comply in order to save lower extremity. PAST MEDICAL HISTORY: Diabetes mellitus, PVD, he has a history of kidney transplant, neuropathy, hypertension, and hyperlipidemia. PAST SURGICAL HISTORY: Renal transplant, cataract surgery, and various foot surgeries to the lower extremity. MEDICATIONS: Please refer to MAR. Of interest to this consult are daptomycin and meropenem. LABORATORY DATA: White blood count on the 8th he came in with 10.82, on the 9th has decreased to 9.18. His neutrophils are also trending down. The culture was positive for E. coli and enterococcus species. PHYSICAL EXAMINATION: Lower extremity physical exam, pedal pulses are diminished. Capillary filling time is delayed. Skin is thin, shiny, and atrophic. He has a full-thickness ulcer to the plantar aspect of the right foot. It extends down to the bone. Most of the bone is covered, but there is bone exposed at the most distal area. The ulcer encompasses most of the heel and granular tissue. There is unilateral edema and erythema involving the ankle joint. Venous ultrasound was negative. The MRI shows osteomyelitis to the right calcaneus. ASSESSMENT: 1. Diabetic foot ulcer grade 3. 2. Peripheral vascular disease. 3. Cellulitis with unilateral edema on the right. PLAN: At this point, he came into the ER secondary to the edema he began to develop. Venous ultrasound was negative. The arterial ultrasound shows some calcifications, so Dr. Galeas is following. ID, Dr. Mcdonald has seen the patient for Infectious Disease. He is managing the antibiotic. We will continue local wound care. Once he is stable and he is discharged, he is going to need to continue the total contact cast and the antibiotics and compliance is very important and patient is aware of this. If this does not heal, the patient knows that he is going to need a proximal amputation. RUI Sinclair/DMITRY /[id number]
[2018-10-07 04:00] VITALS: BP 156/90
[2018-10-07] MEDS: MEROPENEM 1GM 100 ML IV SCH ×3 (06:43→21:58)
[2018-10-07] MEDS: INSULIN REGULAR, HUMAN 100 UNIT/1 ML 3ML VIAL SQ SCH ×4 (07:30→21:00)
--- NOTE | 2018-10-07 07:50 | NUR ---
pt alert resp even and unlabored at this time no distress noted, pt able to make needs known, call light in reach.
[2018-10-07 08:21] VITALS: BP 135/73
--- NOTE | 2018-10-07 08:52 | Progress Note ---
DATE: SUBJECTIVE: The patient is here for cellulitis and osteomyelitis of the right foot. The patient is currently asymptomatic. Pain is controlled. OBJECTIVE: VITAL SIGNS: Temperature is 97.1, pulse of 70, respirations of 18, and blood pressure is 156/90. HEENT: Normocephalic, atraumatic. Pupils are reactive to light and accommodation. CVS: S1, S2 normal. Regular rate and rhythm. ABDOMEN: Nontender, nondistended. EXTREMITIES: Right-sided lower extremity with Charcot joint. Positive for decreased pulses in the right side and left tibial and dorsalis pedis artery. The patient's heel is covered with bandage. MEDICATIONS: He is on are Merrem, Bactroban, tacrolimus, atorvastatin, famotidine, furosemide, losartan, CellCept, daptomycin, tamsulosin, aspirin, prednisone, calcium carbonate, nifedipine, insulin, and Zofran as needed. ASSESSMENT: 1. Osteomyelitis of the left heel. 2. Cellulitis of the left heel. 3. Hypertension. 4. Diabetes mellitus. 5. History of renal transplant. 6. Hyperlipidemia. 7. Peripheral arterial disease. PLAN: Plan is to continue on the IV antibiotic. The patient is currently on daptomycin and Merrem. We will continue the same. Consult with Dr. Oakes has been done. The patient will need debridement. We will continue with monitoring. Continue with all the other home medications. Further recommendation per clinical course. The patient is to continue on all his anti-rejection medications for his renal transplant. We will continue to monitor the patient along with consultants. MD SHADY Love/BRENDANL /[id number]
[2018-10-07] MEDS: LOSARTAN POTASSIUM 25 MG TAB PO SCH ×2 (09:00→17:06)
[2018-10-07] MEDS: CALCIUM CARBONATE 500 MG CHEWABLE TABS PO SCH (09:00)
[2018-10-07] MEDS: ASPIRIN 81 MG CHEW TAB PO SCH (09:00)
[2018-10-07] MEDS: APIXABAN 5 MG TABLET PO SCH ×2 (09:00→17:06)
[2018-10-07] MEDS: PREDNISONE 5 MG TAB PO SCH (09:00)
[2018-10-07] MEDS: TACROLIMUS 0.5 MG CAP PO SCH ×2 (09:00→21:45)
[2018-10-07] MEDS: TAMSULOSIN HCL 0.4 MG CAP PO SCH (09:00)
[2018-10-07] MEDS: DOCUSATE SODIUM 100 MG CAP PO SCH ×2 (09:00→17:21)
[2018-10-07] MEDS: SODIUM HYPOCHLORITE 0.25% 480 ML SOLN IR SCH (09:00)
[2018-10-07] MEDS: FUROSEMIDE 40 MG TAB PO SCH ×2 (09:00→17:06)
[2018-10-07] MEDS: MYCOPHENOLATE MOFETIL 250 MG CAP PO SCH ×2 (09:00→17:06)
[2018-10-07] MEDS: NPH, HUMAN INSULIN ISOPHANE 100 UNIT/1 ML 3ML VIAL SQ SCH ×2 (09:00→21:00)
[2018-10-07 11:53] VITALS: BP 158/63
[2018-10-07] MEDS: DAPTOMYCIN 500mg 10ML 500 MG in SODIUM CHLORIDE 0.9% 100 ML IV SCH (15:00)
[2018-10-07 16:25] VITALS: BP 159/75
--- NOTE | 2018-10-07 19:51 | NUR ---
report given to oncoming nurse, for continued care.
[2018-10-07 20:00] VITALS: BP 159/81
[2018-10-07] MEDS: ATORVASTATIN 40 MG TAB PO SCH (21:45)
[2018-10-07] MEDS: FAMOTIDINE 20 MG TAB PO SCH (21:45)
[2018-10-08] VITALS: BP 163/64
[2018-10-08] MEDS: NIFEDIPINE CR 30 MG TAB PO PRN (01:15)
[2018-10-08 04:00] VITALS: BP 130/65
[2018-10-08] MEDS: MEROPENEM 1GM 100 ML IV SCH ×3 (06:18→22:00)
[2018-10-08] MEDS: INSULIN REGULAR, HUMAN 100 UNIT/1 ML 3ML VIAL SQ SCH ×4 (07:30→22:03)
[2018-10-08] MEDS: NPH, HUMAN INSULIN ISOPHANE 100 UNIT/1 ML 3ML VIAL SQ SCH ×2 (08:03→22:03)
[2018-10-08] MEDS: PREDNISONE 5 MG TAB PO SCH (08:05)
[2018-10-08] MEDS: MYCOPHENOLATE MOFETIL 250 MG CAP PO SCH ×2 (08:05→17:42)
[2018-10-08] MEDS: TACROLIMUS 0.5 MG CAP PO SCH ×2 (08:05→21:50)
[2018-10-08] MEDS: TAMSULOSIN HCL 0.4 MG CAP PO SCH (08:05)
[2018-10-08] MEDS: FUROSEMIDE 40 MG TAB PO SCH ×2 (08:05→17:43)
[2018-10-08] MEDS: DOCUSATE SODIUM 100 MG CAP PO SCH ×2 (08:05→17:42)
[2018-10-08] MEDS: ASPIRIN 81 MG CHEW TAB PO SCH (08:05)
[2018-10-08] MEDS: CALCIUM CARBONATE 500 MG CHEWABLE TABS PO SCH (08:05)
[2018-10-08] MEDS: LOSARTAN POTASSIUM 25 MG TAB PO SCH ×2 (08:05→17:00)
[2018-10-08] MEDS: APIXABAN 5 MG TABLET PO SCH ×2 (08:06→17:42)
[2018-10-08 08:09] VITALS: BP 139/63
[2018-10-08] MEDS: SODIUM HYPOCHLORITE 0.25% 480 ML SOLN IR SCH (09:28)
--- NOTE | 2018-10-08 10:51 | Progress Note ---
DATE: SUBJECTIVE: The patient is here for osteomyelitis of the right foot and cellulitis of right foot. The patient complains of some pain. Otherwise, no complaints. OBJECTIVE: VITAL SIGNS: Temperature is 98.0, pulse of 66, respirations of 18, blood pressure is 130/65, pulse oximetry of 96%. HEENT: Normocephalic, atraumatic. Pupils are reactive to light and accommodation. CVS: S1, S2 normal. Regular rate and rhythm. ABDOMEN: Nontender, nondistended. EXTREMITIES: Right lower extremity bandaged. The patient has trophic changes and also a Charcot joint and neuropathic joint and decreased sensation in the right lower extremities. LABORATORY DATA: Laboratory values from the th, hemoglobin of 10, hematocrit of 31.6. Chemistries; glucose is running high in the 300s. The last BUN and creatinine 28 and 0.93. MEDICATIONS: The patient is on Merrem. The patient is on tacrolimus and CellCept for anti-rejection for his kidneys, nifedipine, atorvastatin, apixaban, prednisone, tamsulosin, and insulin NPH for diabetes and for his blood pressure and cholesterol. MICROBIOLOGY: The patient's Gram stain from the wound grows enterococcus, E coli, and ESBL. The patient's cultures were sensitive to Merrem. ASSESSMENT: Osteomyelitis of the left heel, cellulitis of the left heel, hypertension, diabetes mellitus, history of renal transplant, peripheral arterial disease, and hyperlipidemia. Continue with IV antibiotics. The patient is currently on daptomycin and Merrem. The patient will need medication as an outpatient basis. Podiatry is following up with the patient. The patient can be discharged to home with SNF. The patient has a PICC line in place. Further recommendation per clinical course. We will go and do CBC and BMP in the morning before discharge. MD SHADY Love/MODL /[id number]
--- NOTE | 2018-10-08 11:37 | Progress Note ---
DATE: Cardiology Progress Note SUBJECTIVE: The patient is without any new complaints this morning. However, he does endorse not being able to rest much due to frequent urination. Denies any shortness of breath or chest pain. Endorses some pain in his right lower extremity. OBJECTIVE: VITAL SIGNS: Temperature 96.4, pulse 70, respiratory rate 18, blood pressure 139/63, oxygen saturation 95% on room air. CARDIOVASCULAR MEDICATIONS: Eliquis 5 mg p.o. b.i.d., Lasix 80 mg p.o. b.i.d., losartan 25 mg p.o. b.i.d., atorvastatin 40 mg p.o. at bedtime, nifedipine 30 mg q.12 hours p.r.n. for hypertension. LABORATORY DATA: No new labs this morning. GENERAL: Alert and oriented x3. Resting on the side of the bed, did not appear to be in any acute distress. LUNGS: Diminished breath sounds posterior lower lobes, otherwise clear to auscultation. No wheezing. No rhonchi or crackles. CARDIOVASCULAR: Regular rate and rhythm. Normal S1, S2. No murmurs. No gallops noted. ABDOMEN: Rounded, soft, nontender. LOWER EXTREMITY: No edema. Discoloration noted to bilateral lower extremities. Right lower foot with dressing in place. IMPRESSION: 1. Right heel ulcer with osteomyelitis. 2. Peripheral arterial disease, status post left popliteal and anterior tibial artery stenting. 3. Hypertension. 4. Hyperlipidemia. 5. Diabetes mellitus. 6. History of renal transplant. RECOMMENDATIONS: Recent peripheral angiogram was performed without evidence of significant disease. Continue risk factor modification. Continue the above-listed cardiac medication. Continue wound care per Podiatry. Continue antimicrobial therapy per Infectious Disease. The patient will need intervention to his left lower extremity at a future date. No further cardiac workup is indicated at this time. Dictated by Angela Frias, RAAD Tani Galeas MD JWV/DMITRY /[id number]
[2018-10-08 11:51] VITALS: BP 136/68
[2018-10-08] MEDS: DAPTOMYCIN 500mg 10ML 500 MG in SODIUM CHLORIDE 0.9% 100 ML IV SCH (15:00)
[2018-10-08 15:58] VITALS: BP 116/64
--- NOTE | 2018-10-08 19:38 | NUR ---
Report given to oncoming nurse. for continued care.
[2018-10-08 20:00] VITALS: BP 140/72
[2018-10-08] MEDS ORDERED: SODIUM CHLORIDE 0.9% 500ML 500 ML ONE (21:44)
[2018-10-08] MEDS: ATORVASTATIN 40 MG TAB PO SCH (21:50)
[2018-10-08] MEDS: FAMOTIDINE 20 MG TAB PO SCH (21:50)
[2018-10-09] VITALS (7 sets, daily range): BP systolic 127–171; BP diastolic 61–85
[2018-10-09] MEDS: MEROPENEM 1GM 100 ML IV SCH ×2 (05:15→15:05)
[2018-10-09 05:18] LABS: BASOPHILS # (AUTO) 0.1 (0.0-0.1); BASOPHILS % 0.8 % (0.0-1.0); EOSINOPHILS # (AUTO) 0.5 (0.0-0.4); EOSINOPHILS % 5.5 % (0.0-6.0); HEMOGLOBIN 11.6 g/dL (14.0-18.0); LYMPHOCYTES # (AUTO) 2.2 (1.0-3.2); LYMPHOCYTES % 24.1 % (18.0-39.1); MEAN CORPUSCULAR HEMOGLOBIN 28.1 pg (28-32); MEAN CORPUSCULAR HGB CONC 31.4 g/dL (31-35); MEAN CORPUSCULAR VOLUME 89.6 fL (81-99); MONOCYTES # (AUTO) 0.9 (0.2-0.8); MONOCYTES % 9.5 % (4.4-11.3); NEUTROPHILS # (AUTO) 5.3 (2.1-6.9); NEUTROPHILS % 59.2 % (38.7-80.0); PLATELET COUNT 332 x10e3/uL (140-360); RED BLOOD COUNT 4.13 x10e6/uL (4.3-5.7); RED CELL DISTRIBUTION WIDTH 14.6 % (11.7-14.4)
[2018-10-09 05:46] LABS: ALANINE AMINOTRANSFERASE 9 IU/L (0-55); ALBUMIN 2.6 g/dL (3.5-5.0); ALBUMIN/GLOBULIN RATIO 0.5 (0.8-2.0); ALKALINE PHOSPHATASE 71 IU/L (40-150); ANION GAP 10.2 mmol/L (8-16); BLOOD UREA NITROGEN 20 mg/dL (7-26); BUN/CREATININE RATIO 25 (6-25); CALCIUM 9.2 mg/dL (8.4-10.2); CARBON DIOXIDE 32 mmol/L (22-29); CHLORIDE 98 mmol/L (98-107); EST GLOMERULAR FILTRATION RATE > 60 ML/MIN (60-); GLUCOSE 75 mg/dL (74-118); POTASSIUM 3.2 mmol/L (3.5-5.1); SODIUM 137 mmol/L (136-145)
--- NOTE | 2018-10-09 06:00 | NUR ---
Patient resting in bed. Repositioned in bed and pt stated it helped with his back and neck strain. IV antibiotic infusing at this time. Condition stable. Call velázquez within reach.
[2018-10-09] MEDS: INSULIN REGULAR, HUMAN 100 UNIT/1 ML 3ML VIAL SQ SCH ×3 (07:30→16:30)
--- NOTE | 2018-10-09 08:40 | Progress Note ---
DATE: Cardiology Progress Note SUBJECTIVE: The patient endorses some pain in his right foot. Otherwise, no new complaints. Denies any chest pain or shortness of breath. CARDIOVASCULAR MEDICATIONS: Eliquis 5 mg p.o. b.i.d., Lasix 80 mg p.o. b.i.d., Losartan 25 mg p.o. b.i.d., aspirin 81 mg p.o. daily, atorvastatin 40 mg p.o. at bedtime, nifedipine 30 mg q.12 hours p.r.n. LABORATORY DATA: No new labs today. OBJECTIVE: VITAL SIGNS: Temperature 96.3, pulse 62, respiratory rate 16, blood pressure 135/73, oxygen saturation 96% on room air. GENERAL: Alert and oriented x3. Resting comfortably in bed. Does not appear to be in any acute distress. LUNGS: Clear to auscultation throughout. No wheezing nor rhonchi. No crackles. CARDIOVASCULAR: Regular rate and rhythm. Normal S1, S2. No murmurs. No gallops noted. ABDOMEN: Soft, nontender. EXTREMITIES: Lower extremities; right lower extremity with trace edema and dressing with oozing noted. Absent pedal pulses. IMPRESSION: 1. Right heel ulcer with osteomyelitis. 2. Peripheral arterial disease with prior left popliteal anterior and tibial artery stenting. 3. Hypertension. 4. Hyperlipidemia. 5. Diabetes mellitus. 6. History of renal transplant. RECOMMENDATIONS: Peripheral angiogram was performed without any evidence of significant disease. Continue risk factor modification. Continue the above-listed cardiac medications. Continue wound care per Podiatry. Continue therapy per primary team and Infectious Disease. The patient will need intervention to his left lower extremity on a future date. No further cardiac workup needed at this time. Plan to transition home with home health on Tuesday per the patient. MD CORTNEY Draper/DMITRY /[id number]
[2018-10-09] MEDS: ASPIRIN 81 MG CHEW TAB PO SCH (08:48)
[2018-10-09] MEDS: TAMSULOSIN HCL 0.4 MG CAP PO SCH (08:49)
[2018-10-09] MEDS: PREDNISONE 5 MG TAB PO SCH (08:49)
[2018-10-09] MEDS: TACROLIMUS 0.5 MG CAP PO SCH ×2 (08:49→20:33)
[2018-10-09] MEDS: FUROSEMIDE 40 MG TAB PO SCH ×2 (08:49→17:29)
[2018-10-09] MEDS: MYCOPHENOLATE MOFETIL 250 MG CAP PO SCH ×2 (08:49→17:29)
[2018-10-09] MEDS: APIXABAN 5 MG TABLET PO SCH ×2 (08:49→17:29)
[2018-10-09] MEDS: CALCIUM CARBONATE 500 MG CHEWABLE TABS PO SCH (08:49)
[2018-10-09] MEDS: DOCUSATE SODIUM 100 MG CAP PO SCH ×2 (08:49→17:29)
[2018-10-09] MEDS: NPH, HUMAN INSULIN ISOPHANE 100 UNIT/1 ML 3ML VIAL SQ SCH (08:54)
[2018-10-09] MEDS: LOSARTAN POTASSIUM 25 MG TAB PO SCH ×2 (09:02→17:29)
[2018-10-09] MEDS: SODIUM HYPOCHLORITE 0.25% 480 ML SOLN IR SCH (11:01)
[2018-10-09] MEDS: ACETAMINOPHEN 325 MG TAB PO PRN ×2 (11:09→18:33)
--- NOTE | 2018-10-09 11:53 | NUR ---
Spoke to Naresh at [facility]. He stated that they cannot readmit pt. CM will speak to pt and inform him and get choice for a new home health.
--- NOTE | 2018-10-09 12:42 | NUR ---
Spoke with pt regarding home health. Pt is fine with using any company that takes his insurance. Signed choice letter for [facility]. P [phone]. Signed copy placed in chart. Copy given to pt. Referral was faxed. Ifeoma Wong, liaison with [facility] was notified.
--- NOTE | 2018-10-09 13:04 | NUR ---
WOUND CARE CONSULTATION: Follow Up and Total Contact Cast Placement Patient admitted from [facility] to ER for Cellulitis of Right Foot WBC10.82 HGB10.0 CGS787 MRI RLE - Soft Tissue Edema, Bone Marrow Edema, Cortical Destruction. Consistent findings with OM+ LE US - Results Pending Venous Study - Results Pending Micro Studies - Streptococcus Agalactiae B. PATIENT VISIT: RLE HEEL DFU Grade 3 ulcer. Weeping moderately, Oval Shaped Ulcer with 90% Granular Tissue to wound bed. Exposed bone( Improving) , Maceration Improved. London Score [address] [facility] Mattress Renata Fontenot on case for DFU management. - reviewed plan of care with Dr. Oakes. Total Contact Cast Placement By Dr. Oakes Today. RECOMMENDATION 1. RIGHT HEEL - DFU GRADE 3: - Aggressive cleansing with each dressing change - DC Planning: Follow Up with Renata Fontenot @ [facility]. Addendum: 10/09/18 at 1307 by Romeo Cox RN Amended: Links added. Addendum: 10/09/18 at 1310 by Romeo Cox RN WBC8.97 HGB11.6 HCT37 GLU75 ALB2.6
--- NOTE | 2018-10-09 14:55 | NUR ---
Received call from Ifeoma with [facility] who stated that they are accepting pt. Will be able to see pt tomorrow and provide teaching to pt and family. They will contact pt and family to arrange a time. ZITA called and spoke with [facility] at [facility]. Stated everything was good, pending discharge date. Informed her that pending dc today. She asked that pt get dose of abx today so he can start tomorrow. Pt needs dose of Invanz prior to discharging. NABEEL Fernández will call Dr. Cuellar for order.
--- NOTE | 2018-10-09 15:03 | Progress Note ---
DATE: 10/09/2018 SUBJECTIVE: Full-thickness ulcer to the plantar aspect of the foot that encompasses most of the calcaneus that were on the right heel. Pedal pulses are palpable with it. Delayed capillary filling time was delayed. The edema has now decreased. The erythema is also diminished, now it is very mild down to just periphery of the wound. No streaking erythema. No ascending lymphangitis. ASSESSMENT: 1. Ulcer grade 3. 2. Diabetes with neuropathy and peripheral vascular disease. PLAN: Today a total contact cast was applied with local wound care to the area. He is going to need another debridement, but first I need him to continue to do hyperbaric. He is going to be discharged. He will follow up with me in the [facility]. I applied a total contact cast today and I will see him back in a week. RUI Sinclair/DMITRY /[id number]
[2018-10-09] MEDS: DAPTOMYCIN 500mg 10ML 500 MG in SODIUM CHLORIDE 0.9% 100 ML IV SCH (15:05)
--- NOTE | 2018-10-09 16:27 | NUR ---
Called and spoke to nursing secretary Janice at [employer] [phone]. Informed her that pt will be getting his dose of Invanz here and discharge today. They will be in touch with pt and deliver medication to his house. Pt will have home health with [facility] [phone]. CM called and spoke with Rae at the outpatient wound clinic. Pt has an appointment for Tuesday at 9am for HBO therapy. [address], [address], [place] [address] Contact information was given to pt for each company.
[2018-10-09] MEDS ORDERED: ERTAPENEM 1GM/NS 100ML 100 ML IV SCH (17:00)
--- NOTE | 2018-10-09 17:12 | NUR ---
Nutrition Screen Note RD Recommendation for Physician: -Continue current diet. Plan of Care: RD following, monitoring for tolerance and adequacy. Provided education. Nutrition reason for involvement: LOS Primary Diagnose(s): Cellulitis of right foot, heel ulcer PMH: Peripheral arterial disease, status post left lower extremity stent, Hypertension, Hyperlipidemia, Diabetes mellitus, History of renal transplant. Ht: 68 in Wt: 223 lb BMI: 33.9 kg/m2 IBW: [address] Assessment: (10/09) 63 YOM admitted for cellulitis. Pt was seen d/t LOS. Pt reports a good appetite here in the hospital as well as prior to his admission, and denied any unintentional weight loss. Pt stated that he would like to lose weight and start eating a healthy DM diet at home. Provided education for pt and gave handouts regarding DM. Pt verbalized understanding. Also recommended pt take advantage of outpatient dietitian counseling with a CDE (Block Operator). Pt denied N/V/C/D, chewing or swallowing issues as well. Discussed in rounds- plan if for d/c today per pt as well. A1c- 9.1 % and POC Gluc: 84-203. Pt has RLE HEEL DFU Grade 3 ulcer per wound care note. Will assess need for ONS if pt is not discharged at next f/u. Chart reviewed. Labs and meds reviewed. Will continue to monitor. Current Diet: 1800 ADA Malnutrition Evaluation (date of eval) The patient does not meet criteria for a specified degree of malnutrition at this time. Will re-evaluate at follow-up as appropriate. Diet Education Needs Assessment: Diet education indicated, pt accepted education. Learner(s): pt Barriers: n/a Cultural/Language Modifications: n/a Readiness: acceptance Method: discussion, handout Topics: DM diet, meal plan, carb portions, food label Understanding/Compliance: Verbalized understanding, expect good compliance Nutrition Care Level: low Signed: Amelia Morales RD, LD
--- NOTE | 2018-10-09 18:13 | Progress Note ---
DATE: 10/09/2018 Cardiology Progress Note SUBJECTIVE: The patient denies chest pain or shortness of breath. He complains of left shoulder discomfort. OBJECTIVE: VITAL SIGNS: Temperature 97.6 degrees, pulse 58, respiratory rate 18, blood pressure 171/78, and oxygen saturation 95% on room air. GENERAL: Awake, alert, in no acute distress. LUNGS: Clear to auscultation bilaterally. No wheezes or crackles. CARDIOVASCULAR: Normal rate. Regular rhythm. No murmur. Normal S1, S2. ABDOMEN: Soft, nontender. EXTREMITIES: Right lower extremity with trace edema and dressing in place. Absent pedal pulses. CARDIAC MEDICATIONS: Losartan 25 mg p.o. b.i.d., apixaban 5 mg p.o. b.i.d., furosemide 80 mg p.o. b.i.d., aspirin 81 mg p.o. daily, atorvastatin 40 mg p.o. at bedtime. LABORATORY DATA: WBC 8.97, hemoglobin 11.6, hematocrit 37, and platelets 332. Sodium 137, potassium 3.2, chloride 98, CO2 32, BUN 20, and creatinine 0.8. IMPRESSION: 1. Right heel ulcer with osteomyelitis. 2. Peripheral arterial disease with prior left popliteal and anterior tibial artery stenting. 3. Hypertension. 4. Hyperlipidemia. 5. Diabetes mellitus. 6. History of renal transplant. RECOMMENDATIONS: Peripheral angiogram was performed without evidence of significant disease. Continue risk factor modification. Continue current cardiac medications. Wound care per Podiatry. Antibiotics per Infectious Disease. The patient will need intervention to his left lower extremity at a future date. No further cardiac evaluation is indicated at this time. Thank you for this consult. We will continue to follow. Angela Rodriguez MD ABS/MODL /[id number]
[2018-10-09] MEDS ORDERED: INVANZ1 GM IV (18:21)
[2018-10-09] MEDS ORDERED: CUBICIN500 MG/VIA IV (18:23)
--- NOTE | 2018-10-09 19:16 | NUR ---
bedside rounds done with oncoming nurse, pt lying in bed call light within reach. bed in low and locked position.
[2018-10-09] MEDS: FAMOTIDINE 20 MG TAB PO SCH (20:33)
[2018-10-09] MEDS: ATORVASTATIN 40 MG TAB PO SCH (20:33)
--- NOTE | 2018-10-10 06:41 | Discharge Summary ---
DISCHARGE DIAGNOSES: 1. Cellulitis of the right foot. 2. Diabetes. 3. History of kidney transplant. 4. Hypertension. HISTORY OF PRESENT ILLNESS AND HOSPITAL COURSE: See hospital chart for full details. The patient is a gentleman, who presented with right foot cellulitis and was brought in and placed on IV antibiotics, seen by Infectious Disease as well as Podiatry, who performed an I and D. He had peripheral angiogram done that showed no significant blockage and the patient showed improvement each day and at the time of discharge, he was cleared by both Podiatry and Infectious Disease to have outpatient IV antibiotics as well as outpatient wound care. He is to follow up with Infectious Disease and Podiatry. The patient is very happy to be able to go home. So, please see hospital chart for full details. MD MERNA Tobar/DMITRY /[id number]
== END 2018-10-09 21:38 | disposition home health service (06) | DRG 638 ==
LOC: ER 14:21 → ERHOLD 19:48 → MED/SURG2 10-03 18:52
PROVIDERS: ADMIT Internal Medicine; ATTEND Internal Medicine
PROC: 02HV33Z Insertion of Infusion Device into Superior Vena Cava, Percutaneous Approach (ICD-10-PCS; principal; 2018-10-04)
PROC: B41D1ZZ Fluoroscopy of Aorta and Bilateral Lower Extremity Arteries using Low Osmolar Contrast (ICD-10-PCS; 2018-10-05)
DX: E11.69 Type 2 diabetes mellitus with other specified complication (principal); L03.115 Cellulitis of right lower limb; L97.416 Non-pressure chronic ulcer of right heel and midfoot with bone involvement without evidence of necrosis; M86.8X6 Other osteomyelitis, lower leg; Z94.0 Kidney transplant status; E11.621 Type 2 diabetes mellitus with foot ulcer; E11.51 Type 2 diabetes mellitus with diabetic peripheral angiopathy without gangrene; E11.610 Type 2 diabetes mellitus with diabetic neuropathic arthropathy; E11.40 Type 2 diabetes mellitus with diabetic neuropathy, unspecified; Z79.4 Long term (current) use of insulin; Z95.820 Peripheral vascular angioplasty status with implants and grafts; I10 Essential (primary) hypertension; E78.5 Hyperlipidemia, unspecified; B96.20 Unspecified Escherichia coli [E. coli] as the cause of diseases classified elsewhere; B95.2 Enterococcus as the cause of diseases classified elsewhere; F17.200 Nicotine dependence, unspecified, uncomplicated; N40.0 Benign prostatic hyperplasia without lower urinary tract symptoms; Z79.01 Long term (current) use of anticoagulants; Z79.82 Long term (current) use of aspirin; Z79.899 Other long term (current) drug therapy; Z79.52 Long term (current) use of systemic steroids
CPT/HCPCS: 36247; 36415; 36569; 71045; 75625; 75716; 80048; 80053; 80061; 82550; 82948; 83036; 83735; 84134; 84550; 85025; 85610; 85651; 85730; 86140; 87071; 87075; 87186; 87205; 93925; 93970; 99284; C1760; C1769; J1956; J2001; J2250; J3370; J7030; J7040; J7050; J7512; Q9967

== ENCOUNTER 2018-10-13 10:33 | Outpatient (RCR) | payer MEDICARE, BC ==
[~2018-10-13 10:33] MED LIST changes: +AMOX TR-K CLV1 EAC2; +CUBICIN500 MG/VIA IV; +INVANZ1 GM IV; +MINERAL OIL/PETROLAT/GLYCERI 6OZ BTL ONE
== END 2018-10-24 ==
LOC: WCC 10:33
PROVIDERS: ATTEND Podiatrist Foot & Ankle Surgery
DX: E11.621 Type 2 diabetes mellitus with foot ulcer (principal); E11.65 Type 2 diabetes mellitus with hyperglycemia; E11.51 Type 2 diabetes mellitus with diabetic peripheral angiopathy without gangrene; E11.69 Type 2 diabetes mellitus with other specified complication; L97.412 Non-pressure chronic ulcer of right heel and midfoot with fat layer exposed; R60.0 Localized edema; R60.9 Edema, unspecified; I87.2 Venous insufficiency (chronic) (peripheral); G62.9 Polyneuropathy, unspecified; I79.8 Other disorders of arteries, arterioles and capillaries in diseases classified elsewhere; I10 Essential (primary) hypertension; A49.01 Methicillin susceptible Staphylococcus aureus infection, unspecified site; B95.2 Enterococcus as the cause of diseases classified elsewhere; E66.3 Overweight; E78.5 Hyperlipidemia, unspecified; K86.89 Other specified diseases of pancreas; W01.198A Fall on same level from slipping, tripping and stumbling with subsequent striking against other object, initial encounter; Z01.810 Encounter for preprocedural cardiovascular examination; Z01.811 Encounter for preprocedural respiratory examination
CPT/HCPCS: 29581 ×5; 36415 ×8; 82948 ×8; 99213 ×2; G0277 ×5

== ENCOUNTER 2018-12-22 11:53 | Outpatient (RCR) | payer MEDICARE, BC ==
[2018-12-04 16:53] LABS: BASOPHILS # (AUTO) 0.1 (0.0-0.1); BASOPHILS % 0.6 % (0.0-1.0); EOSINOPHILS # (AUTO) 1.1 (0.0-0.4); EOSINOPHILS % 13.7 % (0.0-6.0); HEMATOCRIT 34.5 % (38.2-49.6); HEMOGLOBIN 10.8 g/dL (14.0-18.0); LYMPHOCYTES # (AUTO) 0.9 (1.0-3.2); LYMPHOCYTES % 10.7 % (18.0-39.1); MEAN CORPUSCULAR HEMOGLOBIN 27.8 pg (28-32); MEAN CORPUSCULAR HGB CONC 31.3 g/dL (31-35); MEAN CORPUSCULAR VOLUME 88.9 fL (81-99); MONOCYTES # (AUTO) 1.1 (0.2-0.8); MONOCYTES % 12.6 % (4.4-11.3); NEUTROPHILS # (AUTO) 5.2 (2.1-6.9); NEUTROPHILS % 62.2 % (38.7-80.0); PLATELET COUNT 187 x10e3/uL (140-360); RED BLOOD COUNT 3.88 x10e6/uL (4.3-5.7); RED CELL DISTRIBUTION WIDTH 14.4 % (11.7-14.4)
[2018-12-04 17:14] LABS: ALANINE AMINOTRANSFERASE 39 IU/L (0-55); ALBUMIN 2.8 g/dL (3.5-5.0); ALBUMIN/GLOBULIN RATIO 0.6 (0.8-2.0); ALKALINE PHOSPHATASE 102 IU/L (40-150); ANION GAP 9.6 mmol/L (8-16); BLOOD UREA NITROGEN 30 mg/dL (7-26); BUN/CREATININE RATIO 27 (6-25); CARBON DIOXIDE 28 mmol/L (22-29); CHLORIDE 105 mmol/L (98-107); EST GLOMERULAR FILTRATION RATE > 60 ML/MIN (60-); GLUCOSE 91 mg/dL (74-118); POTASSIUM 3.6 mmol/L (3.5-5.1); SODIUM 139 mmol/L (136-145)
[2018-12-04 17:29] LABS: ERYTHROCYTE SEDIMENTATION RATE 79 mm/hr (0-13)
[~2018-12-22 11:53] MED LIST changes: -MINERAL OIL/PETROLAT/GLYCERI 6OZ BTL ONE
== END 2018-12-24 ==
LOC: WCC 11:53
PROVIDERS: ATTEND Podiatrist Foot & Ankle Surgery
DX: E11.621 Type 2 diabetes mellitus with foot ulcer (principal); E11.51 Type 2 diabetes mellitus with diabetic peripheral angiopathy without gangrene; E11.65 Type 2 diabetes mellitus with hyperglycemia; E11.69 Type 2 diabetes mellitus with other specified complication; L97.412 Non-pressure chronic ulcer of right heel and midfoot with fat layer exposed; G62.9 Polyneuropathy, unspecified; R60.0 Localized edema; R60.9 Edema, unspecified; I87.2 Venous insufficiency (chronic) (peripheral); I10 Essential (primary) hypertension; E66.3 Overweight; E78.5 Hyperlipidemia, unspecified; I79.8 Other disorders of arteries, arterioles and capillaries in diseases classified elsewhere; K86.89 Other specified diseases of pancreas; W01.198A Fall on same level from slipping, tripping and stumbling with subsequent striking against other object, initial encounter; Z01.810 Encounter for preprocedural cardiovascular examination; Z01.811 Encounter for preprocedural respiratory examination
CPT/HCPCS: 15275; 15276; 29445; 29581 ×3; 36415 ×2; 80053; 82948 ×2; 83036; 84134; 85025; 85651; 87071; 87075; 87186; 87205; 97607 ×3; 99213; Q4186

== ENCOUNTER 2019-01-19 11:21 | Outpatient (RCR) | payer MEDICARE, BC ==
[~2019-01-19 11:21] MED LIST changes: +MINERAL OIL/PETROLAT/GLYCERI 2OZ CRM ONE; +MINERAL OIL/PETROLAT/GLYCERI 6OZ BTL ONE
[2019-01-19] MEDS ORDERED: MINERAL OIL/PETROLAT/GLYCERI 6OZ BTL ONE (17:43)
== END 2019-01-24 ==
LOC: WCC 11:21
PROVIDERS: ATTEND Podiatrist Foot & Ankle Surgery
DX: E11.621 Type 2 diabetes mellitus with foot ulcer (principal); E11.65 Type 2 diabetes mellitus with hyperglycemia; E11.51 Type 2 diabetes mellitus with diabetic peripheral angiopathy without gangrene; E11.69 Type 2 diabetes mellitus with other specified complication; L97.412 Non-pressure chronic ulcer of right heel and midfoot with fat layer exposed; R60.0 Localized edema; I79.8 Other disorders of arteries, arterioles and capillaries in diseases classified elsewhere; I87.2 Venous insufficiency (chronic) (peripheral); R60.9 Edema, unspecified; I10 Essential (primary) hypertension; A49.02 Methicillin resistant Staphylococcus aureus infection, unspecified site; B95.2 Enterococcus as the cause of diseases classified elsewhere; B96.89 Other specified bacterial agents as the cause of diseases classified elsewhere; W01.198A Fall on same level from slipping, tripping and stumbling with subsequent striking against other object, initial encounter; E78.5 Hyperlipidemia, unspecified; E66.3 Overweight; G62.9 Polyneuropathy, unspecified
CPT/HCPCS: 15275 ×3; 15276 ×3; 29581 ×7; 36415; 82948; 97605; 97607 ×5; Q4186 ×3

== ENCOUNTER 2019-02-23 11:43 | Outpatient (RCR) | payer MEDICARE, BC ==
[2019-02-23] MEDS ORDERED: MINERAL OIL/PETROLAT/GLYCERI 6OZ BTL ONE (18:34)
== END 2019-02-24 ==
LOC: WCC 11:43
PROVIDERS: ATTEND Podiatrist Foot & Ankle Surgery
DX: E11.621 Type 2 diabetes mellitus with foot ulcer (principal); E11.51 Type 2 diabetes mellitus with diabetic peripheral angiopathy without gangrene; E11.65 Type 2 diabetes mellitus with hyperglycemia; E11.69 Type 2 diabetes mellitus with other specified complication; L97.412 Non-pressure chronic ulcer of right heel and midfoot with fat layer exposed; I79.8 Other disorders of arteries, arterioles and capillaries in diseases classified elsewhere; I87.2 Venous insufficiency (chronic) (peripheral); R60.0 Localized edema; R60.9 Edema, unspecified; I10 Essential (primary) hypertension; A49.02 Methicillin resistant Staphylococcus aureus infection, unspecified site; B95.2 Enterococcus as the cause of diseases classified elsewhere; B96.89 Other specified bacterial agents as the cause of diseases classified elsewhere; E66.3 Overweight; E78.5 Hyperlipidemia, unspecified; G62.9 Polyneuropathy, unspecified; K86.89 Other specified diseases of pancreas; W01.198A Fall on same level from slipping, tripping and stumbling with subsequent striking against other object, initial encounter; Z01.810 Encounter for preprocedural cardiovascular examination; Z01.811 Encounter for preprocedural respiratory examination
CPT/HCPCS: 15275 ×3; 15276; 29581 ×11; 36415 ×9; 82948 ×9; 97605; 97607 ×7; 99212; 99213; Q4101; Q4186 ×2

== ENCOUNTER → 2019-03-26 | Outpatient (RCR) | payer BC, MEDICARE ==
[~2019-03-26] MED LIST changes: -MINERAL OIL/PETROLAT/GLYCERI 2OZ CRM ONE
== END ==
LOC: WCC 02-27 14:02
PROVIDERS: ATTEND Podiatrist Foot & Ankle Surgery
DX: E11.51 Type 2 diabetes mellitus with diabetic peripheral angiopathy without gangrene (principal); E11.621 Type 2 diabetes mellitus with foot ulcer; E11.65 Type 2 diabetes mellitus with hyperglycemia; E11.69 Type 2 diabetes mellitus with other specified complication; G62.9 Polyneuropathy, unspecified; I10 Essential (primary) hypertension; R60.9 Edema, unspecified; E78.5 Hyperlipidemia, unspecified; E66.3 Overweight; I79.8 Other disorders of arteries, arterioles and capillaries in diseases classified elsewhere; K86.89 Other specified diseases of pancreas; I87.2 Venous insufficiency (chronic) (peripheral); W01.198A Fall on same level from slipping, tripping and stumbling with subsequent striking against other object, initial encounter; Z01.810 Encounter for preprocedural cardiovascular examination; Z01.811 Encounter for preprocedural respiratory examination
CPT/HCPCS: 11042; 11045; 15002; 15275; 15276; 29581 ×5; 36415 ×2; 82948 ×2; 87071; 87075; 87186; 87205; 97607 ×5; Q4186

== ENCOUNTER 2019-04-13 11:56 | Outpatient (RCR) | payer MEDICARE, BC ==
[~2019-04-13 11:56] MED LIST changes: +MINERAL OIL/PETROLAT/GLYCERI 2OZ CRM ONE; -PEPCID20 MG; +PEPCID20 MG PO
[2019-04-13] MEDS ORDERED: MINERAL OIL/PETROLAT/GLYCERI 6OZ BTL ONE (14:40)
[2019-04-13] MEDS ORDERED: TACROLIMUS1 MG PO ×2 (21:58→23:15)
[2019-04-14] MEDS ORDERED: PREDNISONE5 MG PO (07:59)
[2019-04-14] MEDS ORDERED: HUMULIN N100 UNITS/ SC (08:06)
[2019-04-14] MEDS ORDERED: FLOMAX0.4 MG PO (08:15)
[2019-04-14] MEDS ORDERED: ASPIR 8181 MG PO (08:18)
[2019-04-14] MEDS ORDERED: ATORVASTATIN CA20 MG PO (08:19)
[2019-04-14] MEDS ORDERED: FERROUS SULFAT325 MG PO (09:00)
[2019-04-15] MEDS ORDERED: TRAVATAN Z5 ML OP (15:21)
[2019-04-19] MEDS ORDERED: BACITRACIN 50,000 UNIT VIAL ONE (05:54)
[2019-04-19] MEDS ORDERED: HUMALOG100 UNIT/1 (06:59)
== END 2019-04-26 ==
LOC: WCC 11:56
PROVIDERS: ATTEND Podiatrist Foot & Ankle Surgery
DX: E11.621 Type 2 diabetes mellitus with foot ulcer (principal); E11.69 Type 2 diabetes mellitus with other specified complication; E11.51 Type 2 diabetes mellitus with diabetic peripheral angiopathy without gangrene; E11.65 Type 2 diabetes mellitus with hyperglycemia; L97.412 Non-pressure chronic ulcer of right heel and midfoot with fat layer exposed; R60.0 Localized edema; R60.9 Edema, unspecified; I79.8 Other disorders of arteries, arterioles and capillaries in diseases classified elsewhere; G62.9 Polyneuropathy, unspecified; I10 Essential (primary) hypertension; E78.5 Hyperlipidemia, unspecified; E66.3 Overweight; K86.89 Other specified diseases of pancreas; W01.198A Fall on same level from slipping, tripping and stumbling with subsequent striking against other object, initial encounter; Z01.810 Encounter for preprocedural cardiovascular examination; Z01.811 Encounter for preprocedural respiratory examination
CPT/HCPCS: 36415; 82948; 87071; 87075; 87186; 87205

== ENCOUNTER 2019-04-13 17:05 | Inpatient (IN) | payer MEDICARE, BC ==
[~2019-04-13] VITALS: Ht 172.7 cm; Wt 95.3 kg
[~2019-04-13 17:05] MED LIST changes: -MINERAL OIL/PETROLAT/GLYCERI 2OZ CRM ONE; -MINERAL OIL/PETROLAT/GLYCERI 6OZ BTL ONE
--- NOTE | 2019-04-13 20:30 | NUR ---
New patient direct admitted from home @2030 by wheelchair. Patient alert/orientedx3. Denied pain and no SOB. Respiration even and unlabored. Head to toe assessment completed. Redness on sacrum area and stage I on right buttock noted. Assisted to applied Mepilex dressing on stage I wound on right buttock. Bed in lower position, locked and call velázquez within reach. Patient instructed to call for as needed. Will continue to monitor.
[2019-04-13 20:43] VITALS: BP 165/69
[2019-04-13] MEDS ORDERED: TACROLIMUS1 MG PO ×2 (21:58→23:15)
[2019-04-13] MEDS ORDERED: TAMSULOSIN HCL 0.4 MG CAP PO SCH (22:15)
[2019-04-13] MEDS ORDERED: NIFEDIPINE 30 MG PO PRN (22:15)
[2019-04-13 22:24] VITALS: BP 165/69
[2019-04-13 22:41] VITALS: BP 165/69
[2019-04-13] MEDS ORDERED: NIFEDIPINE CR 30 MG TAB PO PRN (22:45)
--- NOTE | 2019-04-13 23:20 | NUR ---
Patient refused continuing tele at this time.
--- NOTE | 2019-04-13 23:21 | NUR ---
Patient refused to start IV @this time. Patient stated that "I would to talk with before start my IV". Will continue tp monitor.
[2019-04-13] MEDS: MYCOPHENOLATE MOFETIL 250 MG CAP PO SCH (23:30)
--- NOTE | 2019-04-13 23:32 | NUR ---
Patient had redness on scarum area and stage I on right buttock. Assisted to applied Mepilex dressing on. Will continue to monitor.
[2019-04-14] VITALS (7 sets, daily range): BP systolic 121–137; BP diastolic 61–73
[2019-04-14] MEDS: TACROLIMUS 1 MG CAP PO SCH ×3 (00:13→20:15)
[2019-04-14] MEDS: TACROLIMUS 0.5 MG CAP PO SCH ×3 (00:13→20:15)
--- NOTE | 2019-04-14 05:55 | NUR ---
Started new IV on right wrist 20G at this time.
[2019-04-14 06:22] LABS: BASOPHILS % 0.4 % (0.0-1.0); EOSINOPHILS # (AUTO) 0.1 (0.0-0.4); EOSINOPHILS % 0.8 % (0.0-6.0); HEMATOCRIT 27.2 % (38.2-49.6); HEMOGLOBIN 8.8 g/dL (14.0-18.0); LYMPHOCYTES # (AUTO) 1.3 (1.0-3.2); LYMPHOCYTES % 17.1 % (18.0-39.1); MEAN CORPUSCULAR HEMOGLOBIN 28.2 pg (28-32); MEAN CORPUSCULAR HGB CONC 32.4 g/dL (31-35); MEAN CORPUSCULAR VOLUME 87.2 fL (81-99); MONOCYTES # (AUTO) 0.9 (0.2-0.8); MONOCYTES % 11.2 % (4.4-11.3); NEUTROPHILS # (AUTO) 5.4 (2.1-6.9); PLATELET COUNT 273 x10e3/uL (140-360); RED BLOOD COUNT 3.12 x10e6/uL (4.3-5.7)
[2019-04-14 06:49] LABS: ALBUMIN 2.6 g/dL (3.5-5.0); ALBUMIN/GLOBULIN RATIO 0.6 (0.8-2.0); ANION GAP 15.6 mmol/L (8-16); CALCIUM 9.3 mg/dL (8.4-10.2); CREATININE, SERUM 2.13 mg/dL (0.72-1.25); MAGNESIUM 1.6 MG/DL (1.3-2.1); POTASSIUM 3.6 mmol/L (3.5-5.1)
[2019-04-14] MEDS ORDERED: PREDNISONE5 MG PO (07:59)
[2019-04-14] MEDS ORDERED: HUMULIN N100 UNITS/ SC (08:06)
[2019-04-14] MEDS ORDERED: FLOMAX0.4 MG PO (08:15)
[2019-04-14] MEDS ORDERED: ASPIR 8181 MG PO (08:18)
[2019-04-14] MEDS ORDERED: ATORVASTATIN CA20 MG PO (08:19)
[2019-04-14] MEDS: FAMOTIDINE 20 MG TAB PO SCH (08:52)
[2019-04-14] MEDS: ASPIRIN 81 MG CHEW TAB PO SCH (08:52)
[2019-04-14] MEDS: PREDNISONE 5 MG TAB PO SCH (08:52)
[2019-04-14] MEDS ORDERED: FERROUS SULFAT325 MG PO (09:00)
[2019-04-14] MEDS ORDERED: INSULIN LISPRO 100 UNIT/1 ML 3ML VIAL SQ SCH (09:00)
[2019-04-14] MEDS ORDERED: FUROSEMIDE 40 MG TAB PO SCH (09:00)
[2019-04-14] MEDS ORDERED: TAMSULOSIN HCL 0.4 MG CAP PO SCH (09:00)
[2019-04-14] MEDS ORDERED: LOSARTAN POTASSIUM 25 MG TAB PO SCH (09:00)
[2019-04-14] MEDS ORDERED: TACROLIMUS 1 MG CAP PO SCH ×2 (09:00)
[2019-04-14] MEDS ORDERED: APIXABAN 5 MG TABLET PO SCH (09:00)
[2019-04-14] MEDS: NPH, HUMAN INSULIN ISOPHANE 100 UNIT/1 ML 3ML VIAL SQ SCH ×2 (09:07→17:00)
[2019-04-14] MEDS: NIFEDIPINE CR 30 MG TAB PO SCH ×2 (09:07→23:30)
[2019-04-14] MEDS: FERROUS SULFATE 325 MG TAB PO SCH ×3 (09:12→20:15)
--- NOTE | 2019-04-14 10:11 | NUR ---
spoke to Dr. Bermudez, covering MD for Dr. Mcdonald and informed of new consult, states "she will be here to see patient"
[2019-04-14] MEDS: INSULIN LISPRO 100 UNIT/1 ML 3ML VIAL SQ SCH ×2 (11:53→16:12)
[2019-04-14] MEDS: MYCOPHENOLATE MOFETIL 250 MG CAP PO SCH ×2 (12:04→23:30)
[2019-04-14] MEDS: COLLAGENASE OINTMENT 30 GM TUBE TP PRN (14:00)
--- NOTE | 2019-04-14 17:31 | Consultation ---
DATE OF CONSULTATION: 04/14/2019 REASON FOR CONSULTATION: Nonhealing ulceration to the right lower extremity with the patient being diabetic with possible osteomyelitis. HISTORY OF PRESENT ILLNESS: This is a pleasant 64-year-old male was seen at bedside, who denies any history of fever, chills, nausea, or vomiting. He had a nonhealing ulcer for more than 6 months now, was referred by Dr. Oakes for IV antibiotics. PAST MEDICAL HISTORY: Remarkable for insulin-dependent diabetes times x3 plus years, hypertension. PAST SURGICAL HISTORY: Remarkable for right kidney transplant back in 2012, multiple eye surgeries, left foot surgery per Dr. Oakes for ulcerations, which has already healed with angioplasties performed to both lower extremities. ALLERGIES: TO PENICILLIN. SOCIAL HISTORY: Denies any smoking, drinking, or recreational drug use. CURRENT MEDICATIONS: Note listed in chart. Currently on no IV antibiotics. The patient will be seen by infectious Disease today. FAMILY HISTORY: Noncontributory. REVIEW OF SYSTEMS: CARDIAC: Denies any palpitations or arrhythmias. RESPIRATORY: Denies any shortness of breath or cough. GASTROINTESTINAL: Denies any diarrhea or constipation. GENITOURINARY: Denies hematuria or problems voiding. VITAL SIGNS: Afebrile, pulse rate 86, respirations 20, O2 saturation 95%, and blood pressure 137/65. Pedal pulses are diminished to both. Podiatric physical examination reveals the following: VASCULATURE: Pedal pulses to both lower extremities are diminished to both the DP and PT. Skin temperature warm to touch. NEUROLOGICAL: Reveals complete loss of protective sensation utilizing Philipp-Eduardo 5.07 monofilament wire. MUSCULOSKELETAL: Reveals muscle mass to be symmetrical. Muscle strength to be 4/5 to all muscle groups. DERMATOLOGICAL: Reveals a grade 3 ulceration measuring more than 67 cm in diameter to the plantar aspect of right foot with positive foul smell present. Fibrotic base, granulation tissue noted, and some necrosis down to muscle. LABORATORY DATA: Noted as a white blood cell count of 7.7, hemoglobin 8.8, hematocrit 27.2 with a platelet count of 273. Blood glucose of 245. ASSESSMENT: Grade 3 ulcer, possible osteo cellulitis, peripheral arterial disease with diabetic neuropathy. PLAN: We will start Santyl collagenase followed by diluted wet-to-dry Betadine. Offload the toe under calf. Ulceration will be debrided tomorrow at bedside. Necrotic tissue will be removed. We will treat conservatively for now. The patient understands down the road if not responsive, will end up losing part of his foot or leg. RUI Soria/DMITRY /[id number]
--- NOTE | 2019-04-14 18:40 | NUR ---
RECEIVED PATIENT FROM ROOM 197, NO ACUTE DISTRESS NOTED. ORIENTED TO ROOM AND POLICIES. CALL LIGHT WITHIN REACH. BED IN THE LOWEST POSITION.
--- NOTE | 2019-04-14 19:05 | NUR ---
REPORT GIVEN TO ONCOMING NURSE. PATIENT IS RESTING IN BED. NO ACUTE DISTRESS NOTED. CALL LIGHT WITHIN REACH. BED IN THE LOWEST POSITION.
--- NOTE | 2019-04-14 19:15 | NUR ---
patient received awake, alert, lying quietly in bed. no c/o pain noted. pm assessment complete. call velázquez placed within reach. patient instructed to call for assistance when needed.
[2019-04-14] MEDS: DAPTOMYCIN 500mg 10ML 300 MG in SODIUM CHLORIDE 0.9% 100 ML IV SCH (19:30)
--- NOTE | 2019-04-14 19:42 | Consultation ---
DATE OF CONSULTATION: 04/14/2019 Infectious Disease Initial Consultation CONSULTING PHYSICIAN: Josh Cuellar MD. DIAGNOSIS: Infected left heel diabetic foot ulcer with osteomyelitis. HISTORY OF PRESENT ILLNESS: This is a 64-year-old male with past medical history of diabetes mellitus, hypertension, right kidney transplant in 2012, multiple eye surgeries, multiple foot debridement per Podiatry with Dr. Sisi Webb and also he has had angioplasty of bilateral lower extremities. He presented to the outpatient wound clinic yesterday with new bone exposure to the heel ulcer on the right foot with positive wound cultures, polymicrobial growing Morganella morganii, Enterococcus faecalis, and Staphylococcus aureus peripheral wound cultures on 04/11/2019 and also has a worsening creatinine level with renal transplant so, decided to admit him for IV antibiotics and followup with acute kidney injury on chronic kidney disease. PAST MEDICAL HISTORY: See HPI. PAST SURGICAL HISTORY: See HPI. ALLERGIES: PENICILLIN. SOCIAL HISTORY: Denies any tobacco, ETOH, or illicit drug use. CURRENT MEDICATIONS: See MAR. FAMILY HISTORY: Noncontributory. REVIEW OF SYSTEMS: A 14-point review of systems was conducted other than the lateral foot pain. The patient does not describe any other complaints at thi time. PHYSICAL EXAMINATION: VITAL SIGNS: Currently, blood pressure 135/64, heart rate 77, temperature 98.1, and respirations 20. HEENT: Head is normocephalic and atraumatic. PERRLA. Extraocular movements are intact. NECK: Supple. No lymphadenopathy. LUNGS: Clear to auscultation bilaterally. CARDIOVASCULAR: Regular rate and rhythm. Normal S1 and S2. ABDOMEN: Soft, nontender, nondistended. Bowel sounds present x4. SKIN: Right heel diabetic foot ulcer, Agarwal grade 3 with known osteomyelitis. Has bone exposure with periwound erythema, edema, and cellulitis to the right foot noted. CURRENT LABS: On 04/14/2019, shows sodium of 140, potassium 3.6, chloride 104, bicarbonate 24, BUN 42, creatinine of 2.13, and glucose of 245. Liver enzymes are normal. Albumin of 2.6. WBC count of 7.7, hemoglobin 8.8, hematocrit 27.2, platelet count of 273. Again, micro wound culture on dated 04/11/2019 showed polymicrobial infection with Morganella morganii, Enterococcus faecalis, and Staphylococcus aureus. The right heel ulcer also had an MRI done on September 2018 that did show osteomyelitis of calcaneus and this was debrided as well as the bone per Dr. Oakes at this time. The patient at that time had gone to [facility] for continuation of 6 weeks of IV antibiotics and has been discharged subcutaneously from home since then and now the foot is worsening. ASSESSMENT: 1. Polymicrobial infected diabetic foot ulcer, right heel. 2. Peripheral arterial disease, status post angioplasty. 3. Chronic kidney disease, stage 3. 4. History of right kidney transplant. Currently on prograf. 5. Diabetes mellitus type 2. 6. Hyperlipidemia. 7. Anemia. PLAN AND RECOMMENDATIONS: We will start the patient on daptomycin 300 mg IV q.48 hours as well as Zosyn 2.25 IV q.12 hours. Due to his renal function, we will continue to monitor creatinine levels. Further recommendations to follow based the patient's clinical course. Podiatry has evaluated the patient and there is plan to do surgical debridement in the morning. We will continue to follow the patient along with you. The patient will most likely need to have PICC line in place as well as usp antibiotics at this point. Dictated by Loc Buenrostro NP MD NILTON Irving/DMITRY /[id number]
[2019-04-14] MEDS ORDERED: SODIUM CHLORIDE 0.9% 250ML 250 ML ONE (19:46)
--- NOTE | 2019-04-14 20:00 | NUR ---
zosyn iv ordered to be started tonight. Loc Buenrostro NP notified of patients allergy to penicillins. She said, " I'm aware of that but i think he will be ok. It's ok to give it. "
[2019-04-14] MEDS: APIXABAN 5 MG TABLET PO SCH (20:15)
[2019-04-14] MEDS: ATORVASTATIN 20 MG TAB PO SCH (20:15)
[2019-04-14] MEDS: TAMSULOSIN HCL 0.4 MG CAP PO SCH (20:15)
[2019-04-14] MEDS: FUROSEMIDE 40 MG TAB PO SCH (20:15)
[2019-04-14] MEDS: PIPERACILLIN/TAZO 2.25 GM 50 ML IV SCH (21:01)
--- NOTE | 2019-04-14 21:30 | NUR ---
zosyn administered without difficulty. no allergic reaction noted.
[2019-04-15] VITALS (8 sets, daily range): BP systolic 114–147; BP diastolic 58–72
--- NOTE | 2019-04-15 06:54 | NUR ---
RECEIVED REPORT FROM OFF GOING NURSE. WALKING ROUNDS DONE. PATIENT IS RESTING IN BED. NO ACUTE DISTRESS NOTED AT THIS TIME. DENIES PAIN OR DISCOMFORT AT THIS TIME. CALL LIGHT WITHIN REACH. BED IN THE LOWEST POSITION.
[2019-04-15] MEDS ORDERED: PHE/SHARK LIVER OIL/COCOA BUT 24 EA SUPP RC NR (08:30)
[2019-04-15] MEDS: INSULIN LISPRO 100 UNIT/1 ML 3ML VIAL SQ SCH ×3 (08:50→16:30)
[2019-04-15] MEDS: NPH, HUMAN INSULIN ISOPHANE 100 UNIT/1 ML 3ML VIAL SQ SCH ×2 (08:50→17:26)
--- NOTE | 2019-04-15 08:50 | NUR ---
NOTIFIED PATIENT THAT DR. HAY ORDERED A PREPARATION H SUPPOSITORY FOR HEMORRHOIDS X ONE. PATIENT STATED HE WILL LET NURSE KNOW WHEN HE NEEDED IT.
[2019-04-15] MEDS: NIFEDIPINE CR 30 MG TAB PO SCH ×2 (08:53→21:52)
[2019-04-15] MEDS: FAMOTIDINE 20 MG TAB PO SCH (08:53)
[2019-04-15] MEDS: TACROLIMUS 0.5 MG CAP PO SCH ×2 (08:53→21:51)
[2019-04-15] MEDS: TACROLIMUS 1 MG CAP PO SCH ×2 (08:53→21:51)
[2019-04-15] MEDS: FUROSEMIDE 40 MG TAB PO SCH ×2 (08:53→21:51)
[2019-04-15] MEDS: PREDNISONE 5 MG TAB PO SCH (08:53)
[2019-04-15] MEDS: FERROUS SULFATE 325 MG TAB PO SCH ×3 (08:54→21:51)
[2019-04-15] MEDS: ASPIRIN 81 MG CHEW TAB PO SCH (08:54)
[2019-04-15] MEDS: APIXABAN 5 MG TABLET PO SCH ×2 (08:54→21:51)
[2019-04-15] MEDS: PIPERACILLIN/TAZO 2.25 GM 50 ML IV SCH ×2 (08:54→21:51)
[2019-04-15] MEDS: TAMSULOSIN HCL 0.4 MG CAP PO SCH ×2 (08:54→21:51)
--- NOTE | 2019-04-15 09:08 | NUR ---
PER DR. HAY, ORDER A TACROLIMUS LEVEL. UNABLE TO ORDER THOUGH NURSE ORDERS, CALLED LAB TO PLACE ORDER.
--- NOTE | 2019-04-15 09:11 | NUR ---
ADRYAN WITH LAB ORDERED TACROLIMUS LEVEL SINCE NURSE UNABLE TO ORDER, ORDER DOES NOT COME UP ON Vertra.
[2019-04-15] MEDS: MYCOPHENOLATE MOFETIL 250 MG CAP PO SCH ×2 (10:56→23:19)
--- NOTE | 2019-04-15 12:15 | Progress Note ---
DATE: 04/15/[address] Saúl Munoz covering for Dr. Cuellar. SUBJECTIVE: The patient is a 64-year-old male who has been in for debridement of the right heel osteomyelitis and also for continuous IV antibiotics. The patient has a history of an acute renal injury. The patient also has a history of kidney transplant with decreased tacrolimus level. The patient is complaining today of rectal pain, hemorrhoidal pain, and constipation. OBJECTIVE: VITAL SIGNS: The patient's vital signs today, temperature is 96.6, pulse of 78, respirations of 18, blood pressure is 126/67, and pulse oximeter 96%. HEENT: Normocephalic, atraumatic. The patient has decreased vision. CVS: S1 and S2 normal. Regular rate and rhythm. ABDOMEN: Nontender, nondistended. EXTREMITIES: Right lower extremity in a boot. LABORATORY VALUES: From , hemoglobin of 8.8 and hematocrit of 27.2. Chemistries; blood sugars are running in the 200s to 300s. Microbiology; Gram stain of the wound pending. IMAGING STUDIES: None done in this hospital admission. The patient has been seen by ID. ASSESSMENT: 1. Osteomyelitis of the right foot. 2. Diabetic foot ulcer. 3. Peripheral arterial disease. 4. Chronic kidney disease. 5. History of kidney transplant. 6. History of uncontrolled diabetes mellitus. 7. History of hyperlipidemia. 8. History of anemia of chronic disease. PLAN: The patient is on daptomycin q.8 hours as well as Zosyn. We will continue to do this. Renal function will be obtained. Tacrolimus level will be done. The patient also continues to be on insulin sliding scale. A rectal suppository for Preparation-H will be done. PICC line will be most likely placed in this patient. Dr. Simmons and/or Dr. Oakes is to do debridement. Further recommendation per clinical course. We will follow the patient along with consultants. Saúl Munoz MD ASJ/MODL /[id number]
[2019-04-15] MEDS: COLLAGENASE OINTMENT 30 GM TUBE TP PRN (13:18)
[2019-04-15] MEDS ORDERED: TRAVATAN Z5 ML OP (15:21)
--- NOTE | 2019-04-15 17:00 | NUR ---
PATIENT STILL REFUSING PREPARATION H SUPPOSITORY.
--- NOTE | 2019-04-15 17:06 | Progress Note ---
DATE: 04/15/2019 SUBJECTIVE: The patient was seen at bedside. Denying any history of fever, chills, nausea, or vomiting. OBJECTIVE: VITAL SIGNS: Afebrile. Pulse rate 68, respiration 18, with a blood pressure of 114/58, O2 saturation 97%. EXTREMITIES: Has a grade 4 ulceration with bone exposed to the right heel measuring more than 7 to 8 cm in diameter. Severe foul smell present with some necrosis noted down to bone. Some granulation tissue and fibrosis also noted. LABORATORY DATA: White blood cell count was 7.7, hemoglobin 8.8. ASSESSMENT: Grade 4 ulcer with osteomyelitis with diabetic neuropathy. PLAN: After proper consent of the patient, under no anesthesia secondary to his severe peripheral neuropathy, sharp excisional debridement of the ulcer was carried down to bone. The bone was scraped via sharp dissection utilizing a sterile 10 blade until good viable bleeding tissue was achieved. Deep cultures were taken for aerobic and anaerobic growth. Sterile dressing was applied with Santyl followed by diluted wet-to-dry Betadine. Continue offloading with cylinder cast. Continue IV Zosyn. Dr. Oakes will follow up next week. The patient understands further debridement may be needed down the road if not responsive, may need a partial resection of the calcaneus. RUI Soria/BRENDANL /[id number]
--- NOTE | 2019-04-15 19:22 | NUR ---
PT IS RESTING IN BED. RESPIRATION IS EVEN AND UNLABORED, NO DISTRESS NOTED. BED IN THE LOWEST POSITION, LOCKED, AND CALL LIGHT WITHIN REACH. WILL CONTINUE TO MONITOR.
--- NOTE | 2019-04-15 19:36 | NUR ---
REPORT GIVEN TO ONCOMING NURSE. WALKING ROUNDS DONE. PATIENT IS RESTING IN BED. NO ACUTE DISTRESS NOTED. CALL LIGHT WITHIN REACH. BED IN THE LOWEST POSITION.
[2019-04-15] MEDS: TRAVOPROST(OPTH) 2.5 ML BTL OP SCH (21:51)
[2019-04-15] MEDS: ATORVASTATIN 20 MG TAB PO SCH (21:51)
[2019-04-16] VITALS (8 sets, daily range): BP systolic 113–160; BP diastolic 55–76
--- NOTE | 2019-04-16 05:40 | NUR ---
PER DR DELGADO PT CAN HAVE HIS BLOOD SUGAR CHECKED 2HR AFTER INSULIN ADMINISTRATION. WILL CONTINUE TO MONITOR.
[2019-04-16 06:35] LABS: BASOPHILS % 0.4 % (0.0-1.0); EOSINOPHILS # (AUTO) 0.1 (0.0-0.4); EOSINOPHILS % 0.8 % (0.0-6.0); HEMATOCRIT 27.1 % (38.2-49.6); HEMOGLOBIN 8.9 g/dL (14.0-18.0); LYMPHOCYTES # (AUTO) 1.3 (1.0-3.2); LYMPHOCYTES % 13.3 % (18.0-39.1); MEAN CORPUSCULAR HEMOGLOBIN 28.3 pg (28-32); MEAN CORPUSCULAR HGB CONC 32.8 g/dL (31-35); MEAN CORPUSCULAR VOLUME 86.3 fL (81-99); MONOCYTES # (AUTO) 0.9 (0.2-0.8); MONOCYTES % 8.7 % (4.4-11.3); NEUTROPHILS # (AUTO) 7.4 (2.1-6.9); NEUTROPHILS % 75.9 % (38.7-80.0); PLATELET COUNT 291 x10e3/uL (140-360); RED BLOOD COUNT 3.14 x10e6/uL (4.3-5.7); RED CELL DISTRIBUTION WIDTH 14.3 % (11.7-14.4)
[2019-04-16 06:53] LABS: ALBUMIN 2.6 g/dL (3.5-5.0); ALBUMIN/GLOBULIN RATIO 0.6 (0.8-2.0); ALKALINE PHOSPHATASE 77 IU/L (40-150); ANION GAP 15.8 mmol/L (8-16); BLOOD UREA NITROGEN 38 mg/dL (7-26); BUN/CREATININE RATIO 17 (6-25); CALCIUM 9.4 mg/dL (8.4-10.2); CARBON DIOXIDE 23 mmol/L (22-29); CHLORIDE 102 mmol/L (98-107); CREATININE, SERUM 2.24 mg/dL (0.72-1.25); EST GLOMERULAR FILTRATION RATE 29 ML/MIN (60-); GLUCOSE 316 mg/dL (74-118); POTASSIUM 3.8 mmol/L (3.5-5.1); SODIUM 137 mmol/L (136-145)
[2019-04-16 06:56] LABS: ALANINE AMINOTRANSFERASE < 6 IU/L (0-55)
--- NOTE | 2019-04-16 07:03 | NUR ---
received bedside report from warehouse supervisor 3rd shift RN, pt resting comfortably, no signs of distress noted, will continue to monitor.
[2019-04-16] MEDS: ASPIRIN 81 MG CHEW TAB PO SCH (08:29)
[2019-04-16] MEDS: PIPERACILLIN/TAZO 2.25 GM 50 ML IV SCH ×2 (08:29→21:23)
[2019-04-16] MEDS: FERROUS SULFATE 325 MG TAB PO SCH ×3 (08:30→21:23)
[2019-04-16] MEDS: APIXABAN 5 MG TABLET PO SCH ×2 (08:30→21:23)
[2019-04-16] MEDS: NPH, HUMAN INSULIN ISOPHANE 100 UNIT/1 ML 3ML VIAL SQ SCH ×2 (08:30→17:48)
[2019-04-16] MEDS: TAMSULOSIN HCL 0.4 MG CAP PO SCH ×2 (08:30→21:23)
[2019-04-16] MEDS: INSULIN LISPRO 100 UNIT/1 ML 3ML VIAL SQ SCH ×3 (08:30→17:48)
[2019-04-16] MEDS: FUROSEMIDE 40 MG TAB PO SCH ×2 (08:31→21:24)
[2019-04-16] MEDS: TACROLIMUS 0.5 MG CAP PO SCH ×2 (08:31→21:24)
[2019-04-16] MEDS: FAMOTIDINE 20 MG TAB PO SCH (08:31)
[2019-04-16] MEDS: PREDNISONE 5 MG TAB PO SCH (08:31)
[2019-04-16] MEDS: NIFEDIPINE CR 30 MG TAB PO SCH ×2 (08:32→21:25)
[2019-04-16] MEDS: TACROLIMUS 1 MG CAP PO SCH ×2 (08:32→21:24)
[2019-04-16] MEDS: MYCOPHENOLATE MOFETIL 250 MG CAP PO SCH ×2 (13:01→23:41)
--- NOTE | 2019-04-16 16:02 | NUR ---
pt requested to wait to get his insulin until when his dinner tray arrives; will continue to assess.
--- NOTE | 2019-04-16 16:25 | NUR ---
WOUND CARE CONSULT FOR 64 YO MALE DIABETIC FULL THICKNESS DIABETIC ULCERATION TO RIGHT FOOT WOUND DESCRIPTION AND NICANOR SKIN AREA DOCUMENTED ON WOUND ASSESSMENT SHEET POST BEDSIDE DEBRIDEMENT X [address] SPEARS SUPPORT SERVICES COORDINATOR FOR DR POLY PANG CONTACTED WITH WOUND FINDINGS AND CURRENT TREATMENT ORDERED IS DAILY SANTYL TO WOUND BASE COVER WITH LIGHT BETADINE 4X4 AND WRAP WITH KERLIX Addendum: 04/16/19 at 1636 by Harsh Gutierrez RN Amended: Links added.
--- NOTE | 2019-04-16 19:00 | NUR ---
Received patient awake on bed, not in distress, call light within easy reach, advised to call anytime when needed. Will continue to monitor closely
[2019-04-16] MEDS: TRAVOPROST(OPTH) 2.5 ML BTL OP SCH (21:23)
[2019-04-16] MEDS: ATORVASTATIN 20 MG TAB PO SCH (21:24)
[2019-04-16] MEDS: DAPTOMYCIN 500mg 10ML 300 MG in SODIUM CHLORIDE 0.9% 100 ML IV SCH (22:03)
[2019-04-17] VITALS (9 sets, daily range): BP systolic 123–167; BP diastolic 60–76
[2019-04-17] MEDS: DOCUSATE SODIUM 100 MG CAP PO PRN ×2 (06:09→22:51)
--- NOTE | 2019-04-17 07:30 | NUR ---
PT UP IN BED DENIES PAIN ,UPSET BECAUSE WE DONT HAVE [employer] CRACKERS.
[2019-04-17] MEDS: NPH, HUMAN INSULIN ISOPHANE 100 UNIT/1 ML 3ML VIAL SQ SCH ×2 (09:00→16:36)
[2019-04-17] MEDS: INSULIN LISPRO 100 UNIT/1 ML 3ML VIAL SQ SCH ×3 (09:00→16:30)
[2019-04-17] MEDS: PREDNISONE 5 MG TAB PO SCH (09:03)
[2019-04-17] MEDS: FAMOTIDINE 20 MG TAB PO SCH (09:03)
[2019-04-17] MEDS: TACROLIMUS 1 MG CAP PO SCH ×2 (09:03→21:21)
[2019-04-17] MEDS: APIXABAN 5 MG TABLET PO SCH ×2 (09:03→21:20)
[2019-04-17] MEDS: ASPIRIN 81 MG CHEW TAB PO SCH (09:03)
[2019-04-17] MEDS: TAMSULOSIN HCL 0.4 MG CAP PO SCH ×2 (09:03→21:20)
[2019-04-17] MEDS: FERROUS SULFATE 325 MG TAB PO SCH ×3 (09:03→21:20)
[2019-04-17] MEDS: TACROLIMUS 0.5 MG CAP PO SCH ×2 (09:03→21:21)
[2019-04-17] MEDS: NIFEDIPINE CR 30 MG TAB PO SCH ×2 (09:04→21:30)
--- NOTE | 2019-04-17 09:11 | NUR ---
pt transported to mri via w/c
[2019-04-17] MEDS: PIPERACILLIN/TAZO 2.25 GM 50 ML IV SCH ×2 (09:30→21:20)
[2019-04-17] MEDS: FUROSEMIDE 40 MG TAB PO SCH ×2 (09:30→21:21)
[2019-04-17] MEDS: MYCOPHENOLATE MOFETIL 250 MG CAP PO SCH ×2 (10:23→22:51)
--- NOTE | 2019-04-17 10:30 | NUR ---
PT RETURNED TO ROOM ,NO DISTRESS NOTED
--- NOTE | 2019-04-17 11:22 | Diagnostic Imaging Report ---
TECHNIQUE: Magnetic resonance imaging of the RIGHT foot was performed WITHOUT injected contrast. COMPARISON: None available. HISTORY: Infection FINDINGS: Erosion of the plantar aspect of the calcaneus with bone marrow edema and T1 replacement. Areas of ulceration of the plantar heel with ill-defined phlegmon/abscess within the plantar soft tissues. Absence of contrast limits evaluation for discrete delineation of abscess. Severe degeneration of the distal Achilles tendon. IMPRESSION: Persistent/recurrent osteomyelitis of the calcaneus Signed by: Dr. Saúl Montero M.D. on 04/17/2019 11:18 AM
--- NOTE | 2019-04-17 11:24 | Progress Note ---
DATE: 04/17/2019 SUBJECTIVE: The patient is going to MRI. [facility] He has failed outpatient treatment. He had been [facility] in about two weeks. When he returned the wound was worsening. There was malodor. Cultures were done. They came back positive for poly bacterial with bone exposed and he was admitted to the ER. His white blood count is 9.80 today and his lymphocytes 13.3. His GFR is 29. His creatinine is 2.24, albumin 2.6, and globulin 4.2. There is bone exposed, just about 60% granular, 40% fibrotic. The erythema and edema are beginning to localize compared to before. Pedal pulses are diminished. Capillary filling time is delayed. He has pending arterial ultrasound. ASSESSMENT: 1. Diabetic foot ulcer grade 3. 2. Diabetes with neuropathy. 3. History of noncompliance. 4. Uncontrolled diabetes. Hemoglobin A1c is trending down. PLAN: At this point, I am going to pend the MRI, but he is going to get. He had a debridement by Dr. Simmons on Tuesday, but he is going to need serial debridement to be able to do a limb salvage for his lower extremity. Once the MRI comes back, I plan to do a debridement to the lower extremity in the OR with bone cultures and also debridement of the nonviable bone. I am going to recommend right now to continue with the Santyl for enzymatic debridement. Continue to offload. I am going to order a hemoglobin A1c. I will continue to follow. For discharge to LTAC plan, an LTAC consult would help since he has a tendency. He lives alone. He is unable to be nonweightbearing and he has failed outpatient treatment. The wound worsened. I will continue to follow. Sisi Webb DPM ER/MODL /[id number]
--- NOTE | 2019-04-17 13:00 | NUR ---
DRSG TO LT FOOT CHANGED ORDERD,MODERATE AMT CLEAR DRAINAGE,FOUL ODOR
--- NOTE | 2019-04-17 16:39 | NUR ---
UP ON SIDE OF BED DENIES PAIN NO DISTRESS NOTED
--- NOTE | 2019-04-17 19:00 | NUR ---
Received patient awake, watching television, call light and assistive device within reach, bed locked and in low position, will continue to monitor
[2019-04-17] MEDS: TRAVOPROST(OPTH) 2.5 ML BTL OP SCH (21:20)
[2019-04-17] MEDS: ATORVASTATIN 20 MG TAB PO SCH (21:21)
[2019-04-18] VITALS (8 sets, daily range): BP systolic 109–171; BP diastolic 54–76
[2019-04-18 06:24] LABS: BASOPHILS % 0.4 % (0.0-1.0); EOSINOPHILS # (AUTO) 0.1 (0.0-0.4); EOSINOPHILS % 1.2 % (0.0-6.0); HEMATOCRIT 27.6 % (38.2-49.6); HEMOGLOBIN 8.9 g/dL (14.0-18.0); LYMPHOCYTES # (AUTO) 1.4 (1.0-3.2); LYMPHOCYTES % 18.1 % (18.0-39.1); MEAN CORPUSCULAR HEMOGLOBIN 27.8 pg (28-32); MEAN CORPUSCULAR HGB CONC 32.2 g/dL (31-35); MEAN CORPUSCULAR VOLUME 86.3 fL (81-99); MONOCYTES # (AUTO) 0.8 (0.2-0.8); NEUTROPHILS # (AUTO) 5.3 (2.1-6.9); NEUTROPHILS % 69.2 % (38.7-80.0); PLATELET COUNT 302 x10e3/uL (140-360); RED CELL DISTRIBUTION WIDTH 14.2 % (11.7-14.4)
[2019-04-18 06:37] LABS: ALBUMIN 2.7 g/dL (3.5-5.0); ALBUMIN/GLOBULIN RATIO 0.6 (0.8-2.0); ANION GAP 14.7 mmol/L (8-16); CALCIUM 9.5 mg/dL (8.4-10.2); CREATININE, SERUM 2.5 mg/dL (0.72-1.25); POTASSIUM 3.7 mmol/L (3.5-5.1)
--- NOTE | 2019-04-18 06:54 | NUR ---
consult for Dr. Eder Morales, spoke to [employer] service
--- NOTE | 2019-04-18 06:54 | NUR ---
RECEIVED REPORT FROM OFF GOING NURSE. WALKING ROUNDS DONE. PATIENT IS RESTING IN BED. NO ACUTE DISTRESS NOTED. CALL LIGHT WITHIN REACH. BED IN THE LOWEST POSITION.
[2019-04-18] MEDS: INSULIN LISPRO 100 UNIT/1 ML 3ML VIAL SQ SCH ×3 (08:55→16:30)
[2019-04-18] MEDS: NPH, HUMAN INSULIN ISOPHANE 100 UNIT/1 ML 3ML VIAL SQ SCH ×2 (08:55→16:38)
[2019-04-18] MEDS: NIFEDIPINE CR 30 MG TAB PO SCH ×2 (08:58→22:01)
[2019-04-18] MEDS: TACROLIMUS 1 MG CAP PO SCH ×2 (08:59→20:40)
[2019-04-18] MEDS: FERROUS SULFATE 325 MG TAB PO SCH ×3 (08:59→20:40)
[2019-04-18] MEDS: PREDNISONE 5 MG TAB PO SCH (08:59)
[2019-04-18] MEDS: FAMOTIDINE 20 MG TAB PO SCH (08:59)
[2019-04-18] MEDS: TACROLIMUS 0.5 MG CAP PO SCH ×2 (08:59→20:40)
[2019-04-18] MEDS: APIXABAN 5 MG TABLET PO SCH ×2 (08:59→20:40)
[2019-04-18] MEDS: FUROSEMIDE 40 MG TAB PO SCH (08:59)
[2019-04-18] MEDS: ASPIRIN 81 MG CHEW TAB PO SCH (08:59)
[2019-04-18] MEDS: TAMSULOSIN HCL 0.4 MG CAP PO SCH ×2 (08:59→20:40)
[2019-04-18] MEDS: PIPERACILLIN/TAZO 2.25 GM 50 ML IV SCH (09:06)
[2019-04-18] MEDS: MYCOPHENOLATE MOFETIL 250 MG CAP PO SCH (10:21)
--- NOTE | 2019-04-18 14:56 | Consultation ---
DATE OF CONSULTATION: 04/18/2019 HISTORY OF PRESENT ILLNESS: A 64-year-old gentleman, underlying history of longstanding diabetes with diabetic complications and end-organ damage including retinopathy, neuropathy, and peripheral neuropathy. He also has chronic kidney disease and hypertension. He has been having ongoing foot infection requiring debridement. [facility] here [facility]. Follows Infectious Disease and has been on antibiotics for several weeks, recently as of 3 weeks ago was admitted at [facility] and his university administrator, Dr. Acosta had done a kidney biopsy on him, had given him high-dose steroids with possible rejection. His Tacrolimus medication doses were adjusted and the patient follows up with Dr. Acosta at [facility]. Currently, denies any fever and chills. His baseline serum creatinine is around 1. Upon discharge, it was 1.9 range from [facility] 3 weeks ago. This time around his serum creatinine is 2.5 with a potassium 3.7, bicarbonate 25, hemoglobin 8.9, and white count 7.6. His LFTs are noted and stable. He is currently sitting up in no apparent respiratory distress. ALLERGIES: HE IS ALLERGIC TO PENICILLIN. CURRENT MEDICATIONS: He is on piperacillin and tazobactam. He is on daptomycin, aspirin, tacrolimus 0.5 mg plus 2 mg that is 2.5 mg q.12, nifedipine 60 mg q.12, Flomax 0.4 mg q.12, atorvastatin 40 mg at bedtime, insulin lispro, apixaban 5 mg q.12, and furosemide 80 mg q.12. He is on prednisone 5 mg daily. He is on tacrolimus 2.5 mg q.12 and he is on CellCept 500 mg p.o. q.12. SOCIAL HISTORY: He does not smoke or drink. FAMILY HISTORY: Significant for hypertension and diabetes. PHYSICAL EXAMINATION: VITAL SIGNS: Blood pressure 155/75, pulse rate 77, afebrile, and oxygen saturation 99%. HEAD AND NECK: Cornea clear. Oral mucosa moist. Neck veins flat. LUNGS: Decreased air entry both bases with scattered rales. HEART: S1 and S2 audible. ABDOMEN: Otherwise soft and nontender. EXTREMITIES: Lower extremity, the patient has a brace-type device around his right foot. The right foot is dressed. He has chronic skin changes in pretibial area with about 1+ dependent edema. It appears bilateral. Mostly pretibial. IMPRESSION AND PLAN: Recent kidney biopsy transplant rejection, [id number] kidney failure, multiple comorbidities, advanced diabetes with osteomyelitis, peripheral vascular disease, high-dose antibiotics. He is allergic to penicillin, but he is on piperacillin and tazobactam. I will notify the nurse to inform the Infectious Disease doctor. Discussed with the patient. My recommendation will be to transfer the patient to [facility], where his transplant physician, Dr. Acosta can address his elevated creatinine, perhaps with a repeat biopsy or adjustment of medications. At the same place, he can get his wound care and antibiotics under close supervision with the transplant team. In the meantime, I will adjust Lasix dose. Continue with immunosuppressive medications. Consider stopping piperacillin and tazobactam, as the patient is allergic to penicillin. MD EDILBERTO Villegas/DMITRY /[id number]
[2019-04-18] MEDS: COLLAGENASE OINTMENT 30 GM TUBE TP PRN (16:30)
--- NOTE | 2019-04-18 19:38 | NUR ---
REPORT GIVEN TO ONCOMING NURSE. WALKING ROUNDS DONE. PATIENT IS RESTING IN BED. NO ACUTE DISTRESS NOTED. CALL LIGHT WITHIN REACH. BED IN THE LOWEST POSITION.
[2019-04-18] MEDS: TRAVOPROST(OPTH) 2.5 ML BTL OP SCH (20:40)
[2019-04-18] MEDS: DAPTOMYCIN 500mg 10ML 300 MG in SODIUM CHLORIDE 0.9% 100 ML IV SCH (20:40)
[2019-04-18] MEDS: ATORVASTATIN 20 MG TAB PO SCH (20:40)
[2019-04-18] MEDS: CALCIUM CARBONATE 500 MG CHEWABLE TABS PO PRN (20:55)
[2019-04-19] VITALS (8 sets, daily range): BP systolic 117–172; BP diastolic 57–80
[2019-04-19] MEDS: MYCOPHENOLATE MOFETIL 250 MG CAP PO SCH ×3 (00:04→23:28)
--- NOTE | 2019-04-19 04:24 | NUR ---
PER DR DELGADO HYDRALAZINE 10MG IV ONE TIME DOSE FOR HIGH BLOOD PRESSURE OF 172/80, HR 86. WILL CONTINUE TO MONITOR.
[2019-04-19] MEDS ORDERED: HYDRALAZINE HCL 20 MG/ML VIAL IV ONE (04:30)
[2019-04-19] MEDS: INSULIN LISPRO 100 UNIT/1 ML 3ML VIAL SQ SCH ×7 (06:05→20:49)
--- NOTE | 2019-04-19 06:06 | NUR ---
PT BLOOD SUGAR IS 416. PER DR DELGADO 10UNITS OF [employer]. WILL CONTINUE TO MONITOR.
[2019-04-19] MEDS ORDERED: BUPIVACAINE HCL 0.5% INJ 30 ML VIAL INJ ONE (06:13)
[2019-04-19 06:18] LABS: BASOPHILS % 0.5 % (0.0-1.0); EOSINOPHILS # (AUTO) 0.1 (0.0-0.4); EOSINOPHILS % 0.7 % (0.0-6.0); HEMOGLOBIN 8.6 g/dL (14.0-18.0); LYMPHOCYTES # (AUTO) 1.2 (1.0-3.2); LYMPHOCYTES % 15.7 % (18.0-39.1); MEAN CORPUSCULAR HEMOGLOBIN 27.8 pg (28-32); MEAN CORPUSCULAR HGB CONC 31.9 g/dL (31-35); MEAN CORPUSCULAR VOLUME 87.4 fL (81-99); MONOCYTES # (AUTO) 0.8 (0.2-0.8); MONOCYTES % 10.8 % (4.4-11.3); NEUTROPHILS # (AUTO) 5.4 (2.1-6.9); NEUTROPHILS % 71.6 % (38.7-80.0); PLATELET COUNT 277 x10e3/uL (140-360); RED BLOOD COUNT 3.09 x10e6/uL (4.3-5.7); RED CELL DISTRIBUTION WIDTH 14.3 % (11.7-14.4)
[2019-04-19 06:32] LABS: ALBUMIN 2.7 g/dL (3.5-5.0); ALBUMIN/GLOBULIN RATIO 0.6 (0.8-2.0); CALCIUM 9.4 mg/dL (8.4-10.2); CREATININE, SERUM 2.68 mg/dL (0.72-1.25)
[2019-04-19] MEDS ORDERED: HUMALOG100 UNIT/1 (06:59)
[2019-04-19] MEDS ORDERED: DEXTROSE 50% SYRINGE 50 ML IV PRN (07:45)
[2019-04-19] MEDS: ASPIRIN 81 MG CHEW TAB PO SCH (08:46)
[2019-04-19] MEDS: APIXABAN 5 MG TABLET PO SCH ×2 (08:46→20:49)
[2019-04-19] MEDS: FERROUS SULFATE 325 MG TAB PO SCH ×3 (08:46→20:49)
[2019-04-19] MEDS: FAMOTIDINE 20 MG TAB PO SCH (08:49)
[2019-04-19] MEDS: NIFEDIPINE CR 30 MG TAB PO SCH ×2 (08:49→22:56)
[2019-04-19] MEDS: TACROLIMUS 0.5 MG CAP PO SCH ×2 (08:49→20:49)
[2019-04-19] MEDS: DOCUSATE SODIUM 100 MG CAP PO PRN (08:49)
[2019-04-19] MEDS: TACROLIMUS 1 MG CAP PO SCH ×2 (08:49→20:49)
[2019-04-19] MEDS: TAMSULOSIN HCL 0.4 MG CAP PO SCH ×2 (08:49→20:49)
[2019-04-19] MEDS: CALCIUM CARBONATE 500 MG CHEWABLE TABS PO PRN (08:49)
[2019-04-19] MEDS: PREDNISONE 5 MG TAB PO SCH (08:49)
[2019-04-19] MEDS: NPH, HUMAN INSULIN ISOPHANE 100 UNIT/1 ML 3ML VIAL SQ SCH ×2 (08:56→21:00)
--- NOTE | 2019-04-19 10:16 | Progress Note ---
DATE: 04/19/2019 The patient was seen at bedside. He was scheduled for OR debridement today by me, but it was canceled secondary to his high blood sugar count. He is running over 400. The wound is stable. His white blood count is trending down. At this point, it is 7.56. He was debrided about five days ago, so it is responding to the area. The cultures and sensitivities are positive for volume mycobacteria and Infectious Disease is on the case. ASSESSMENT: 1. Diabetic foot ulcer, grade 3 right foot. 2. Diabetes with neuropathy and peripheral vascular disease. 3. History of kidney transplant. PLAN: At this point, I am going to try to schedule him for debridement either tomorrow or by Tuesday. It appears that he is pending transfer to [facility] for further care. I agree with that if his kidney is unstable and he could be monitored by the Transplant team. Continue local wound care. Continue offloading. He will need IV antibiotics. He will need adequate blood sugar control and if he has not been transferred, I anticipate debridement tomorrow morning if possible. If not, Tuesday morning. I will continue to follow. RIU Sinclair/DMITRY /[id number]
[2019-04-19] MEDS: COLLAGENASE OINTMENT 30 GM TUBE TP PRN (11:07)
--- NOTE | 2019-04-19 16:37 | NUR ---
Spoke to Mr. Renteria about possible transfer downtown for renal failure with failed renal transplant (per dr. real). Pt is agreeable to transfer, however, he states he is having surgery with Dr. Oakes tomorrow AM and wants to do that here d/t her following him for the past year. Transfer on hold for now, Dr. Cuellar notified.
--- NOTE | 2019-04-19 16:40 | NUR ---
Nutrition Screen Note RD Recommendation for Physician: - Continue current diet Plan of Care: RD following, monitoring for tolerance and adequacy Nutrition reason for involvement: LOS Primary Diagnose(s): Infected R foot DM ulcer PMH: DM, PVD, HTN, kidney transplant Ht: 66 in Wt: 210 lb BMI: 31.92 kg/m2 IBW: [address] Assessment: (04/19) 64 YOM admitted for infected DM foot ulcer, seen today for LOS. Pt discussed during am rounds, elevated BG addressed- SSI to be added to current regimen. Debridement of foot postponed 2/2 elevated BG, pt responding well to initial debridement per MD notes. Pt with good appetite and intake, 75-100% of meals and no reported GI distress. Pt with 10# intentional wt loss in the past 6 mo. Chart reviewed. Labs and meds reviewed. Pt discussed with RN on unit. Will monitor and continue to follow. Current Diet: Renal, 1800 ADA Malnutrition Evaluation (04/19/19) The patient does not meet criteria for a specified degree of malnutrition at this time. Will re-evaluate at follow-up as appropriate. Diet Education Needs Assessment: Diet education not indicated. Diet tolerance: tolerating po Nutrition Care Level: low Signed: Jacklyn Stapleton RD, LD, CNSC
--- NOTE | 2019-04-19 17:44 | NUR ---
Kerrie AHUMADA and CM Director placed call to Dr. Morales r/t request for transfer to [facility] to explain possible lateral transfer. He states patient has h/o kidney transplant and worsening kidney function with a need for treatment by the transplant team. He states he does not want the patient's kidney to fail or reject - patient is already under care of [facility] transplant team. Kerrie LEES CM explained patient would like to have surgery on 04/20/19 prior to transfer - Dr. Morales agreed. NABEEL Sy CM called [facility] to initiate transfer (P:[phone]; F:[phone]). Transfer packet faxed to transfer center. NABEEL De Jesus/[employer] notified. NABEEL Sy CM will continue to follow.
--- NOTE | 2019-04-19 19:10 | NUR ---
REPORT GIVEN TO ONCOMING NURSE. WALKING ROUNDS DONE. PATIENT IS RESTING IN BED. NO ACUTE DISTRESS NOTED. CALL LIGHT WITHIN REACH. BED IN THE LOWEST POSITION.
--- NOTE | 2019-04-19 19:16 | NUR ---
PT IS RESTING IN BED TALKING ON HIS CELLPHONE. RESPIRATION IS EVEN AND UNLABORED, NO DISTRESS NOTED. BED IN THE LOWEST POSITION, LOCKED, AND CALL LIGHT WITHIN REACH. WILL CONTINUE TO MONITOR.
[2019-04-19] MEDS: TRAVOPROST(OPTH) 2.5 ML BTL OP SCH (20:48)
[2019-04-19] MEDS: ATORVASTATIN 20 MG TAB PO SCH (20:49)
[2019-04-20] VITALS: BP 158/72
--- NOTE | 2019-04-20 02:37 | NUR ---
PAGE DR TREJO TO REPORT PT BLOOD SUGAR 219 SHE REQUESTED. WILL CONTINUE TO MONITOR. AWAITING CALL BACK. WILL CONTINUE TO MONITOR.
--- NOTE | 2019-04-20 03:13 | NUR ---
SPOKE TO DR TREJO AND NOTIFY HER OF PT BLOOD SUGAR OF 219. NO NEW ORDERS AT THIS TIME. WILL CONTINUE TO MONITOR.
[2019-04-20 04:00] VITALS: BP 151/70
[2019-04-20] MEDS ORDERED: BACITRACIN 50,000 UNIT VIAL ONE (05:53)
--- NOTE | 2019-04-20 06:08 | NUR ---
PT OFF THE FLOOR FOR HIS PROCEDURE.
--- NOTE | 2019-04-20 07:01 | NUR ---
received shift change report from cage shift manager RN, pt gone for surgery. awaiting pt's arrival back on unit.
[2019-04-20] MEDS ORDERED: INSULIN LISPRO 100 UNIT/1 ML 3ML VIAL SQ SCH (07:30)
[2019-04-20 08:00] VITALS: BP 128/60
[2019-04-20 08:52] VITALS: BP 151/70
[2019-04-20] MEDS: APIXABAN 5 MG TABLET PO SCH ×2 (09:08→20:40)
[2019-04-20] MEDS: ASPIRIN 81 MG CHEW TAB PO SCH (09:08)
[2019-04-20] MEDS: FERROUS SULFATE 325 MG TAB PO SCH ×3 (09:09→20:40)
[2019-04-20] MEDS: INSULIN LISPRO 100 UNIT/1 ML 3ML VIAL SQ SCH ×7 (09:09→20:46)
[2019-04-20] MEDS: NPH, HUMAN INSULIN ISOPHANE 100 UNIT/1 ML 3ML VIAL SQ SCH ×2 (09:09→20:47)
[2019-04-20] MEDS: TAMSULOSIN HCL 0.4 MG CAP PO SCH ×2 (09:09→20:40)
[2019-04-20] MEDS: PREDNISONE 5 MG TAB PO SCH (09:10)
[2019-04-20] MEDS: FAMOTIDINE 20 MG TAB PO SCH (09:10)
[2019-04-20] MEDS: TACROLIMUS 0.5 MG CAP PO SCH ×2 (09:11→20:40)
[2019-04-20] MEDS: TACROLIMUS 1 MG CAP PO SCH ×2 (09:11→20:40)
--- NOTE | 2019-04-20 09:57 | Progress Note ---
DATE: 04/20/2019 Preop consultation was given before surgery. I discussed with the patient regarding the debridement, the cultures will be taken in surgery. He knows he is going to need a wound VAC. He knows he needs to be compliant. I have also discussed with him regarding the possible transfer to [facility] regarding his kidney. He is aware of these and he is amendable to it. I am going to recommend wound VAC. Continue local wound care. Continue offloading. Continue IV antibiotics. If he does get transfer, once he is discharged, he will follow up with me [facility]. RUI Sinclair/DMITRY /[id number]
[2019-04-20] MEDS ORDERED: AZTREONAM 1 GM/NS 50 ML 50 ML IV SCH (11:00)
[2019-04-20 12:00] VITALS: BP 131/60
--- NOTE | 2019-04-20 12:42 | NUR ---
WOUND VAC APPLIED TO RIGHT HEEL ORDERED. PT TOLERATED WELL. PENDING TRANSFER TO [facility]. WILL CONTINUE TO FOLLOW UP WITH PT. Addendum: 04/20/19 at 1246 by Carmela Cedillo RN Amended: Links added.
[2019-04-20] MEDS: MYCOPHENOLATE MOFETIL 250 MG CAP PO SCH (13:15)
[2019-04-20] MEDS: NIFEDIPINE CR 30 MG TAB PO SCH (13:15)
[2019-04-20] MEDS ORDERED: SEVOFLURANE INHAL SOLN 250 ML PEN BTL ONE (13:55)
[2019-04-20] MEDS ORDERED: ONDANSETRON HCL INJ 2MG/ML 2ML 2 MG/ML VIAL ONE (13:55)
[2019-04-20] MEDS ORDERED: LIDOCAINE HCL 2% LOCAL INJ 5 ML SDV VIAL INJ ONE (13:55)
[2019-04-20] MEDS ORDERED: PROPOFOL IV EMULSION 10 MG/ML 20 ML VIAL ONE (13:55)
[2019-04-20] MEDS ORDERED: FUROSEMIDE INJ 10 MG/ML 4 ML VIAL IV ONE (14:00)
[2019-04-20] MEDS ORDERED: FENTANYL CITRATE/PF 100MCG/2 ML INJ ONE (14:08)
[2019-04-20] MEDS ORDERED: MIDAZOLAM HCL 2 MG/2 ML VIAL ONE (14:08)
--- NOTE | 2019-04-20 15:13 | Operative Report ---
DATE OF PROCEDURE: 04/20/2019 SURGEON: Sisi Webb DPM PREOPERATIVE DIAGNOSES: 1. Osteomyelitis. 2. Grade 3 diabetic foot ulcer, right foot. POSTOPERATIVE DIAGNOSES: 1. Osteomyelitis. 2. Grade 3 diabetic foot ulcer, right foot. PROCEDURES: 1. Debridement to include bone of the right foot. 2. Bone biopsy, right foot. COMPLICATIONS: None. CONDITION: Stable. PROCEDURE IN DETAIL: Under mild sedation, the patient was brought to the operating room, placed on the operating table in supine position. Following IV sedation, anesthesia was obtained with a general anesthetic. At this point, the foot was scrubbed, prepped, and draped in the usual aseptic manner. It was then lowered to the table. Attention was then directed to the plantar aspect of the right foot, where utilizing a combination of a bone rongeur, curette, and a #15 blade, all nonviable tissue was excisionally debrided. It was debrided down to clean viable tissue. This included bone to the area. After that, a bone biopsy was taken. The area was flushed with copious irrigation. Cultures and sensitivities were taken off the bone. A clean dressing was applied consisting of Betadine, wet-to-dry, 4 x 4's, Kerlix, and an Alfonso bandage. The patient tolerated the procedure and anesthesia well, transferred to the recovery room with vital signs stable and vascular status unchanged. The patient will be readmitted back into the hospital. He is pending a possible transfer to [facility] secondary to his renal transplant. I will continue to follow. I am going to order wound VAC for now, and he will continue to offload. IV antibiotics per Infectious Disease. Sisi Webb DPM ER/MODL /[id number]
[2019-04-20 15:49] LABS: ANION GAP 14.1 mmol/L (8-16); CALCIUM 9.3 mg/dL (8.4-10.2); CREATININE, SERUM 2.39 mg/dL (0.72-1.25); POTASSIUM 4.1 mmol/L (3.5-5.1)
[2019-04-20] MEDS: CALCIUM CARBONATE 500 MG CHEWABLE TABS PO PRN (15:52)
[2019-04-20 16:00] VITALS: BP 132/62
--- NOTE | 2019-04-20 18:42 | NUR ---
shift change report given to night worker RN, pt awake, alert, oriented, no distress noted.
--- NOTE | 2019-04-20 19:15 | NUR ---
patient received awake, alert, lying quietly in bed. no c/o pain noted. wound vac to right heel c,d,i. patient to transfer to [facility]. patient made aware of this. pm assessment complete. patient instructed to call for assistance when needed.
--- NOTE | 2019-04-20 19:30 | NUR ---
wound vac to right heel removed and wet to dry dressing applied.
[2019-04-20] MEDS: ATORVASTATIN 20 MG TAB PO SCH (20:40)
[2019-04-20] MEDS: DAPTOMYCIN 500mg 10ML 300 MG in SODIUM CHLORIDE 0.9% 100 ML IV SCH (20:42)
--- NOTE | 2019-04-20 20:45 | NUR ---
Received report from nurse.
[2019-04-20] MEDS: TRAVOPROST(OPTH) 2.5 ML BTL OP SCH (20:46)
--- NOTE | 2019-04-20 21:13 | NUR ---
Report given to Ifeoma at [facility] @ [phone].
--- NOTE | 2019-04-20 22:50 | NUR ---
Patient transferred to [facility] via EMS stretcher.
--- NOTE | 2019-04-21 05:27 | Discharge Summary ---
DISCHARGE DISPOSITION: The patient is transferred down to [facility]. HISTORY OF PRESENT ILLNESS AND HOSPITAL COURSE: See also chart for full details. The patient is a gentleman with history of chronic kidney disease, status post kidney transplant with mild rejection, peripheral arterial disease, diabetes, hypertension, who has been battling an osteomyelitis of the foot, that has failed outpatient therapy where he has been recommended by other physicians that he needs BKA, so the patient was brought here. He was placed on IV antibiotics for the chronic osteomyelitis of the heel. He did have a local debridement, but due to his worsening kidney function, we spoke with his transplant team downtown and we agreed to go ahead and transfer his care over to them so they can further monitor his kidney function as well as continue with his care for his osteomyelitis. The patient is fully aware that the likelihood of amputation is very high. Please see also chart for full details. MD MERNA Tobar/DMITRY /[id number]
[2019-04-21] MEDS ORDERED: COLLAGENASE OINTMENT 30 GM TUBE TP SCH (09:00)
== END 2019-04-20 21:54 | disposition short-term general hospital (02) | DRG 629 ==
LOC: IMCU 19:52 → MED/SURG3 04-14 18:40
PROVIDERS: ADMIT Internal Medicine; ATTEND Internal Medicine
PROC: 0HBMXZZ Excision of Right Foot Skin, External Approach (ICD-10-PCS; 2019-04-20)
PROC: 0QBL0ZX Excision of Right Tarsal, Open Approach, Diagnostic (ICD-10-PCS; principal; 2019-04-20 06:30)
DX: E11.69 Type 2 diabetes mellitus with other specified complication (principal); M86.8X7 Other osteomyelitis, ankle and foot; T86.11 Kidney transplant rejection; E11.51 Type 2 diabetes mellitus with diabetic peripheral angiopathy without gangrene; Z79.4 Long term (current) use of insulin; E11.319 Type 2 diabetes mellitus with unspecified diabetic retinopathy without macular edema; E11.42 Type 2 diabetes mellitus with diabetic polyneuropathy; E11.22 Type 2 diabetes mellitus with diabetic chronic kidney disease; I12.9 Hypertensive chronic kidney disease with stage 1 through stage 4 chronic kidney disease, or unspecified chronic kidney disease; N17.9 Acute kidney failure, unspecified; Z88.0 Allergy status to penicillin; N18.3 Chronic kidney disease, stage 3 (moderate); D63.8 Anemia in other chronic diseases classified elsewhere; Z91.19 Patient's noncompliance with other medical treatment and regimen; B95.62 Methicillin resistant Staphylococcus aureus infection as the cause of diseases classified elsewhere; B96.89 Other specified bacterial agents as the cause of diseases classified elsewhere; E11.65 Type 2 diabetes mellitus with hyperglycemia; E66.9 Obesity, unspecified; Z68.31 Body mass index [BMI] 31.0-31.9, adult
CPT/HCPCS: 36415; 80048; 80053; 80197; 82948; 83735; 83880; 85025; 87071; 87075; 87186; 87205; 88305; 88311; 88312; 93005; 93925; 97602; 97605; J0360; J1940; J2001; J2250; J2405; J2543; J3010; J7050; J7507; J7512

== ENCOUNTER 2019-06-04 11:16 | Outpatient (RCR) | payer MEDICARE, BC ==
[~2019-06-04 11:16] MED LIST changes: +ASPIR 8181 MG PO; +ATORVASTATIN CA20 MG PO; +FERROUS SULFAT325 MG PO; +FLOMAX0.4 MG PO; +HUMALOG100 UNIT/1; +PREDNISONE5 MG PO; +TACROLIMUS1 MG PO; +TRAVATAN Z5 ML OP
== END 2019-06-26 ==
LOC: WCC 11:16
PROVIDERS: ATTEND Podiatrist Foot & Ankle Surgery
DX: E11.621 Type 2 diabetes mellitus with foot ulcer (principal); E11.69 Type 2 diabetes mellitus with other specified complication; E11.51 Type 2 diabetes mellitus with diabetic peripheral angiopathy without gangrene; E11.65 Type 2 diabetes mellitus with hyperglycemia; L97.414 Non-pressure chronic ulcer of right heel and midfoot with necrosis of bone; I87.2 Venous insufficiency (chronic) (peripheral); R60.0 Localized edema; R60.9 Edema, unspecified; E66.3 Overweight; E78.5 Hyperlipidemia, unspecified; G62.9 Polyneuropathy, unspecified; I10 Essential (primary) hypertension; K86.89 Other specified diseases of pancreas; W01.198A Fall on same level from slipping, tripping and stumbling with subsequent striking against other object, initial encounter; Z01.810 Encounter for preprocedural cardiovascular examination; Z01.811 Encounter for preprocedural respiratory examination

== ENCOUNTER 2019-07-30 16:03 | Outpatient (RCR) | payer MEDICARE, BC ==
[~2019-07-30 16:03] MED LIST changes: +MINERAL OIL/PETROLAT/GLYCERI 6OZ BTL ONE
== END 2019-08-25 ==
LOC: WCC 16:03
PROVIDERS: ATTEND Podiatrist Foot & Ankle Surgery
DX: E11.69 Type 2 diabetes mellitus with other specified complication (principal); E11.51 Type 2 diabetes mellitus with diabetic peripheral angiopathy without gangrene; E11.65 Type 2 diabetes mellitus with hyperglycemia; E11.621 Type 2 diabetes mellitus with foot ulcer; L97.414 Non-pressure chronic ulcer of right heel and midfoot with necrosis of bone; R60.0 Localized edema; R60.9 Edema, unspecified; G62.9 Polyneuropathy, unspecified; I10 Essential (primary) hypertension; E78.5 Hyperlipidemia, unspecified; E66.3 Overweight; K86.89 Other specified diseases of pancreas; W01.198A Fall on same level from slipping, tripping and stumbling with subsequent striking against other object, initial encounter; Z01.810 Encounter for preprocedural cardiovascular examination; Z01.811 Encounter for preprocedural respiratory examination